=== PATIENT | male | born 1935 | race Caucasian/White ===

== ENCOUNTER → 2019-07-04 | Outpatient (CLI) | payer MEDICARE, OTHER, SELFPAY | PROVIDERS: Family Provider Internal Medicine; Visit Provider Internal Medicine | DX: M25.552 Pain in left hip (principal); Z96.642 Presence of left artificial hip joint ==

== ENCOUNTER → 2019-08-10 12:33 | Outpatient (BNVA) | payer MEDICARE, OTHER, SELFPAY | PROVIDERS: Family Provider Internal Medicine; PCP Internal Medicine; Visit Provider Urology | DX: C61 Malignant neoplasm of prostate (principal); N39.9 Disorder of urinary system, unspecified | CPT/HCPCS: 84153 ==

== ENCOUNTER 2021-03-13 17:26 | Inpatient (IN) | payer MEDICARE, SELFPAY ==
--- NOTE | 2021-03-13 | SCC_ITS ---
Procedure Done: 1. Cystoscopy, left ureteral stent placement 11.5 seconds of fluoroscopic guidance, for a cumulative dose of 3.20 mGy, was provided to Dr. Jarvis by the radiology department. C-arm images of the abdomen were saved for the patient's permanent record. [facility]
--- NOTE | 2021-03-13 17:29 | W.ED.WEAKNES ---
HPI - Weakness General: Chief complaint: General Medical Stated complaint: fall, prolonged time down,R sided weakness Time Seen by Provider: 03/13/21 17:28 History of Present Illness: HPI Narrative: Mr. Boggs is an 85-year-old gentleman with significant past medical history of cardiomyopathy, hypertension who presents to the emergency department due to weakness and fall. He is unsure of it the exact circumstances of his fall however he thinks that over the past few days he has felt weak and dizzy. It is unclear if there was head strike or loss of consciousness. He laid on the ground for some time before being discovered. EMS was activated and found that he had some right-sided weakness however last definitive known well was the previous evening at about 7 PM. He currently endorses generalized pain and still feels malaise. He has worse pain identified in the right hip which is sharp and aching. This pain is moderate to severe in intensity and worse with movement. Prior to the onset of his generalized symptoms he denies any other specific changes in health, provoking, exacerbating, or alleviating factors. Review of Systems General: Reports: 10 or more systems reviewed and unremarkable except in HPI and below Narrative: CONSTITUTIONAL: See HPI EYES - denies pain, denies loss of vision EARS - denies ear issues. NOSE - denies congestion or rhinorrhea. THROAT - denies sore throat or difficulty swallowing. CARDIOVASCULAR - denies chest pain and palpitations RESPIRATORY - denies shortness of breath and cough GASTROINTESTINAL - denies abdominal pain, no nausea vomiting, no changes in bowel habits GENITOURINARY - denies dysuria or urinary frequency MUSCULOSKELETAL-see HPI SKIN - denies rashes. Scattered abrasions from fall NEUROLOGIC - denies focal weakness or sensory changes HEMATOLOGIC/LYMPHATIC - denies easy bruising or lymphadenopathy. [facility] ED PFSH: Medical History Cardiomyopathy Cataracts, bilateral History of high risk medication treatment Hypertension LBBB (left bundle branch block) Left ureteral calculus Obstructive pyelonephritis Osteoarthrosis Prostate cancer Pyuria Syncope Umbilical hernia Ventricular arrhythmia Wide-complex tachycardia Surgical History History of cataract removal with insertion of prosthetic lens BILATERAL History of colon resection WITH COLOSTOMY PLACED History of hip surgery History of left hip replacement Family History Mother Stroke Other Cancer Social History Smoking and tobacco status: former smoker Alcohol intake: unknown Adopted: No Caregiver/support person: No Lives independently: Yes Marital status: / Current occupational status: retired History of recent travel: No Physical Exam Narrative: EXAM NARRATIVE: GENERAL/CONSTITUTIONAL -ill-appearing. Discomfort due to pain especially with palpation of right hip Eyes - PERRL, no conjunctival injection ENMT - Atraumatic external nose and ears. Moist mucous membranes NECK - supple. trachea midline CARDIOVASCULAR -tachycardic rate and regular rhythm. Peripheral pulses 1+ and equal RESPIRATORY -coarse to auscultation bilaterally. No retractions or accessory muscle use. ABDOMEN/GI -generalized tenderness to palpation. Nondistended. No tenderness to percussion or evidence of peritonitis. Ostomy without appliance in place. MSK - Extremities without obvious deformity. Tenderness to palpation of right hip and tenderness with range of motion SKIN -cool, Dry NEURO - alert and appropriately oriented. strength and sensation intact. Moves all extremities equally. Cranial nerve II through XII intact. Course ED course: - Patient was seen and evaluated by me at bedside - Patient placed on cardiac monitors, IV access obtained - Initial evaluation notable for somewhat ill appearance, uncomfortable. Mildly hypotensive. IV fluids ordered - Labs notable for leukocytosis, normocytic anemia. Metabolic panel notable for hyperkalemia and CY. Urinalysis concerning for urinary tract infection. Troponin elevated which is difficult to interpret in this context, in the absence of chest pain may be due to type II NSTEMI. - Imaging notable for left-sided likely obstructing left mid ureteral stone. -Repeat BMP after treatment of hyperkalemia improved - Upon serial reexamination after treatment the patient was mildly improved though still remains ill-appearing - Based on patient history, evaluation, labs, and imaging as interpreted the most likely cause of the patient's condition is urosepsis, infected kidney stone - Hospitalist service contacted and agreed to admit the patient - Urology consulted and patient will be taken to the operating room for ureteral stent placement. - Patient was admitted without further deterioration or significant events. Vital Signs: Vital signs: Vital Signs Temperature 97.9 F 03/16/21 10:00 Pulse Rate 76 03/16/21 14:00 Respiratory Rate 18 03/16/21 16:27 Blood Pressure 125/51 03/16/21 12:00 Pulse Oximetry 97 03/16/21 12:00 MDM - Weakness Medical Records: Attestation: I reviewed the patient's medical records. Lab Data: Attestation: I reviewed the patient's lab results. Labs: Lab Results 03/13/21 03/13/21 03/13/21 Range/Units 17:00 17:00 17:00 WBC 23.5 H (4.0-10.0) 10^3/ uL RBC 3.95 L (4.1-5.3) 10^6/u L Hgb 10.0 L (11.7-16.6) g/dL Hct 32.7 L (42.0-52.0) % MCV 82.8 (80-94) fl MCH 25.3 L (28.0-34.0) pg MCHC 30.6 (30.0-36.0) g/dL RDW 16.7 H (12.1-15.1) % Plt Count 341 (130-400) 10^3/c mm MPV 8.7 (7.4-10.4) fL Neut % (Auto) 86.3 % Lymph % (Auto) 4.7 % Emmet % (Auto) 5.5 % Eos % (Auto) 0.0 % Baso % (Auto) 0.2 % Neut # (Auto) 20.27 H (1.8-7.7) 10^3/u L Lymph # (Auto) 1.1 (0.8-4.8) 10^3/u L Emmet # (Auto) 1.3 H (0.2-0.9) 10^3/u L Eos # (Auto) 0.0 (0.0-0.8) 10^3/u L Baso # (Auto) 0.0 (0.0-0.1) 10^3/u L Nucleated RBC % (a uto) 0 % Nucleated RBCs # 0.0 /100WBC Sodium 140 (136-145) mmol/L Potassium 6.6 H* (3.5-5.1) mmol/L Chloride 99 (98-107) mmol/L Carbon Dioxide 14 L (22-29) mmol/L Anion Gap 33.6 H (5-19) BUN 42 H (8-23) mg/dL Creatinine 2.6 H (0.7-1.2) mg/dL GFR Calculation Not Reportable Glucose 157 H (65-115) mg/dL Calculated Osmolal ity 304 H (285-295) mOsm/k g Lactate 5.2 H* (0.5-2.2) mmol/L Calcium 8.2 L (8.5-10.5) mg/dL Total Bilirubin 0.5 (0.15-1.2) mg/dL AST 41 H (0-40) U/L ALT 10 (0-41) U/L Alkaline Phosphata se 393 H (40-130) IU/L Creatine Kinase 1558 H* (39-308) U/L Troponin T Baselin e (0-15) ng/L Troponin T 120 Min [place] (0-15) ng/L Delta Troponin T (0-10) ABS# Troponin T Hi Sens 6Hr (0-15) ng/L Troponin T Hi Sens 6Hr Delta (0-12) ng/L C-Reactive Protein 230.1 H (0.0-4.9) mg/L NT-Pro-B Natriuret Pep 56784 H (0-450) pg/mL Total Protein 5.5 L (6.6-8.7) g/dL Albumin 2.9 L (3.5-5.2) g/dL Globulin 2.6 (1.3-4.6) g/dL Procalcitonin 1.20 H (0-0.5) ng/mL TSH 0.91 (0.27-4.20) uIU/ mL Urine Color (Yellow) Urine Appearance (CLEAR) Urine pH (5-7) Ur Specific Gravit y (1.005-1.030) Urine Protein (Negative) Urine Glucose (UA) (Normal) Urine Ketones (Negative) Urine Blood (Negative) Urine Nitrate (Negative) Urine Bilirubin (Negative) Urine Urobilinogen (Negative) mg/dL Ur Leukocyte Kyra ase (Negative) Urine RBC (0-2) /hpf Urine WBC (0-5) /hpf Ur Eosinophil Smea r (0-0) Ur Squamous Epith Cells (0-5) /hpf Amorphous Sediment Urine Bacteria (NONE) /hpf Urine Eosinophils Ur Random Microalb umin (0-20) ug/dL Ur Random Sodium mmol/L Ur Random Potassiu m mmol/L Ur Random Chloride mmol/L Urine Creatinine (39-259) mg/dL Microalb/Creat Rat io (0-20) mg/dL Blood Type Rho(D) Type Antibody Screen 03/13/21 03/13/21 03/13/21 Range/Units 17:00 18:37 18:37 WBC (4.0-10.0) 10^3/ uL RBC (4.1-5.3) 10^6/u L Hgb (11.7-16.6) g/dL Hct (42.0-52.0) % MCV (80-94) fl MCH (28.0-34.0) pg MCHC (30.0-36.0) g/dL RDW (12.1-15.1) % Plt Count (130-400) 10^3/c mm MPV (7.4-10.4) fL Neut % (Auto) % Lymph % (Auto) % Emmet % (Auto) % Eos % (Auto) % Baso % (Auto) % Neut # (Auto) (1.8-7.7) 10^3/u L Lymph # (Auto) (0.8-4.8) 10^3/u L Emmet # (Auto) (0.2-0.9) 10^3/u L Eos # (Auto) (0.0-0.8) 10^3/u L Baso # (Auto) (0.0-0.1) 10^3/u L Nucleated RBC % (a uto) % Nucleated RBCs # /100WBC Sodium (136-145) mmol/L Potassium (3.5-5.1) mmol/L Chloride (98-107) mmol/L Carbon Dioxide (22-29) mmol/L Anion Gap (5-19) BUN (8-23) mg/dL Creatinine (0.7-1.2) mg/dL GFR Calculation Glucose (65-115) mg/dL Calculated Osmolal ity (285-295) mOsm/k g Lactate (0.5-2.2) mmol/L Calcium (8.5-10.5) mg/dL Total Bilirubin (0.15-1.2) mg/dL AST (0-40) U/L ALT (0-41) U/L Alkaline Phosphata se (40-130) IU/L Creatine Kinase (39-308) U/L Troponin T Baselin e 179 H* (0-15) ng/L Troponin T 120 Min [place] (0-15) ng/L Delta Troponin T (0-10) ABS# Troponin T Hi Sens 6Hr (0-15) ng/L Troponin T Hi Sens 6Hr Delta (0-12) ng/L C-Reactive Protein (0.0-4.9) mg/L NT-Pro-B Natriuret Pep (0-450) pg/mL Total Protein (6.6-8.7) g/dL Albumin (3.5-5.2) g/dL Globulin (1.3-4.6) g/dL Procalcitonin (0-0.5) ng/mL TSH (0.27-4.20) uIU/ mL Urine Color Yellow (Yellow) Urine Appearance Cloudy A (CLEAR) Urine pH 5 (5-7) Ur Specific Gravit y 1.015 (1.005-1.030) Urine Protein 1+ H (Negative) Urine Glucose (UA) Norm (Normal) Urine Ketones Negative (Negative) Urine Blood 3+ H (Negative) Urine Nitrate Positive H (Negative) Urine Bilirubin Neg (Negative) Urine Urobilinogen Norm (Negative) mg/dL Ur Leukocyte Kyra ase 2+ H (Negative) Urine RBC 5-10 H (0-2) /hpf Urine WBC Too numerous to c nt H (0-5) /hpf Ur Eosinophil Smea r 0 (0-0) Ur Squamous Epith Cells 5-10 H (0-5) /hpf Amorphous Sediment Not Reportable Urine Bacteria 2+ H (NONE) /hpf Urine Eosinophils No eosinophils se en Ur Random Microalb umin 20 (0-20) ug/dL Ur Random Sodium mmol/L Ur Random Potassiu m mmol/L Ur Random Chloride mmol/L Urine Creatinine 119 (39-259) mg/dL Microalb/Creat Rat io 168 H (0-20) mg/dL Blood Type Rho(D) Type Antibody Screen 03/13/21 03/13/2121 Range/Units 18:37 19:54 21:51 WBC (4.0-10.0) 10^3/ uL RBC (4.1-5.3) 10^6/u L Hgb (11.7-16.6) g/dL Hct (42.0-52.0) % MCV (80-94) fl MCH (28.0-34.0) pg MCHC (30.0-36.0) g/dL RDW (12.1-15.1) % Plt Count (130-400) 10^3/c mm MPV (7.4-10.4) fL Neut % (Auto) % Lymph % (Auto) % Emmet % (Auto) % Eos % (Auto) % Baso % (Auto) % Neut # (Auto) (1.8-7.7) 10^3/u L Lymph # (Auto) (0.8-4.8) 10^3/u L Emmet # (Auto) (0.2-0.9) 10^3/u L Eos # (Auto) (0.0-0.8) 10^3/u L Baso # (Auto) (0.0-0.1) 10^3/u L Nucleated RBC % (a uto) % Nucleated RBCs # /100WBC Sodium (136-145) mmol/L Potassium (3.5-5.1) mmol/L Chloride (98-107) mmol/L Carbon Dioxide (22-29) mmol/L Anion Gap (5-19) BUN (8-23) mg/dL Creatinine (0.7-1.2) mg/dL GFR Calculation Glucose (65-115) mg/dL Calculated Osmolal ity (285-295) mOsm/k g Lactate (0.5-2.2) mmol/L Calcium (8.5-10.5) mg/dL Total Bilirubin (0.15-1.2) mg/dL AST (0-40) U/L ALT (0-41) U/L Alkaline Phosphata se (40-130) IU/L Creatine Kinase (39-308) U/L Troponin T Baselin e (0-15) ng/L Troponin T 120 Min [place] 203.8 H (0-15) ng/L Delta Troponin T 24.8 H* (0-10) ABS# Troponin T Hi Sens 6Hr (0-15) ng/L Troponin T Hi Sens 6Hr Delta (0-12) ng/L C-Reactive Protein (0.0-4.9) mg/L NT-Pro-B Natriuret Pep (0-450) pg/mL Total Protein (6.6-8.7) g/dL Albumin (3.5-5.2) g/dL Globulin (1.3-4.6) g/dL Procalcitonin (0-0.5) ng/mL TSH (0.27-4.20) uIU/ mL Urine Color (Yellow) Urine Appearance (CLEAR) Urine pH (5-7) Ur Specific Gravit y (1.005-1.030) Urine Protein (Negative) Urine Glucose (UA) (Normal) Urine Ketones (Negative) Urine Blood (Negative) Urine Nitrate (Negative) Urine Bilirubin (Negative) Urine Urobilinogen (Negative) mg/dL Ur Leukocyte Kyra ase (Negative) Urine RBC (0-2) /hpf Urine WBC (0-5) /hpf Ur Eosinophil Smea r (0-0) Ur Squamous Epith Cells (0-5) /hpf Amorphous Sediment Urine Bacteria (NONE) /hpf Urine Eosinophils Ur Random Microalb umin (0-20) ug/dL Ur Random Sodium 49 mmol/L Ur Random Potassiu m 34 mmol/L Ur Random Chloride 36 mmol/L Urine Creatinine 109 (39-259) mg/dL Microalb/Creat Rat io (0-20) mg/dL Blood Type AB Positive Rho(D) Type Positive Antibody Screen Negative 03/13/21 03/13/21 Range/Units 22:10 22:10 WBC (4.0-10.0) 10^3/ uL RBC (4.1-5.3) 10^6/u L Hgb (11.7-16.6) g/dL Hct (42.0-52.0) % MCV (80-94) fl MCH (28.0-34.0) pg MCHC (30.0-36.0) g/dL RDW (12.1-15.1) % Plt Count (130-400) 10^3/c mm MPV (7.4-10.4) fL Neut % (Auto) % Lymph % (Auto) % Emmet % (Auto) % Eos % (Auto) % Baso % (Auto) % Neut # (Auto) (1.8-7.7) 10^3/u L Lymph # (Auto) (0.8-4.8) 10^3/u L Emmet # (Auto) (0.2-0.9) 10^3/u L Eos # (Auto) (0.0-0.8) 10^3/u L Baso # (Auto) (0.0-0.1) 10^3/u L Nucleated RBC % (a uto) % Nucleated RBCs # /100WBC Sodium 136 (136-145) mmol/L Potassium 4.7 (3.5-5.1) mmol/L Chloride 101 (98-107) mmol/L Carbon Dioxide 22 (22-29) mmol/L Anion Gap 17.7 (5-19) BUN 36 H (8-23) mg/dL Creatinine 2.4 H (0.7-1.2) mg/dL GFR Calculation Not Reportable Glucose 129 H (65-115) mg/dL Calculated Osmolal ity 292 (285-295) mOsm/k g Lactate (0.5-2.2) mmol/L Calcium 8.1 L (8.5-10.5) mg/dL Total Bilirubin (0.15-1.2) mg/dL AST (0-40) U/L ALT (0-41) U/L Alkaline Phosphata se (40-130) IU/L Creatine Kinase (39-308) U/L Troponin T Baselin e (0-15) ng/L Troponin T 120 Min [place] (0-15) ng/L Delta Troponin T (0-10) ABS# Troponin T Hi Sens 6Hr 193.9 H (0-15) ng/L Troponin T Hi Sens 6Hr Delta 14.9 H* (0-12) ng/L C-Reactive Protein (0.0-4.9) mg/L NT-Pro-B Natriuret Pep (0-450) pg/mL Total Protein (6.6-8.7) g/dL Albumin (3.5-5.2) g/dL Globulin (1.3-4.6) g/dL Procalcitonin (0-0.5) ng/mL TSH (0.27-4.20) uIU/ mL Urine Color (Yellow) Urine Appearance (CLEAR) Urine pH (5-7) Ur Specific Gravit y (1.005-1.030) Urine Protein (Negative) Urine Glucose (UA) (Normal) Urine Ketones (Negative) Urine Blood (Negative) Urine Nitrate (Negative) Urine Bilirubin (Negative) Urine Urobilinogen (Negative) mg/dL Ur Leukocyte Kyra ase (Negative) Urine RBC (0-2) /hpf Urine WBC (0-5) /hpf Ur Eosinophil Smea r (0-0) Ur Squamous Epith Cells (0-5) /hpf Amorphous Sediment Urine Bacteria (NONE) /hpf Urine Eosinophils Ur Random Microalb umin (0-20) ug/dL Ur Random Sodium mmol/L Ur Random Potassiu m mmol/L Ur Random Chloride mmol/L Urine Creatinine (39-259) mg/dL Microalb/Creat Rat io (0-20) mg/dL Blood Type Rho(D) Type Antibody Screen EKG Data^: EKG 1: Attestation: I personally reviewed and interpreted this EKG as follows: EKG interpretation date: 03/13/21 EKG interpretation time: 18:30 Interpretation: Twelve-lead EKG shows a regular sinus rhythm at a rate of 95. SC interval 203, QRS duration 158, QTc 496. Left bundle branch block, left axis deviation. Interpretation: Sinus rhythm. First-degree AV block. Left bundle branch block. EKG 2: Attestation: I personally reviewed and interpreted this EKG as follows: EKG interpretation date: 03/13/21 EKG interpretation time: 20:40 Prior EKG tracings: available for review Interpretation: Twelve-lead EKG shows a regular sinus rhythm at a rate of 95. SC interval 202, QRS duration 169, QTc 512. Left axis deviation. Left bundle branch block. Interpretation: Sinus rhythm. First-degree AV block. Left bundle branch block. Critical Care Time Critical Care Time: Critical Care Time: Yes Total Critical Care Time: 35 Attestation: Due to a high probability of clinically significant, possibly life threatening deterioration, the patient required my highest level of attention and preparedness to intervene emergently and I personally spent this critical care time directly and personally managing the patient. This critical care time included obtaining a history; examining the patient; pulse oximetry; ordering and review of laboratory and imaging studies; arranging urgent treatment with development of a management plan; evaluation of patient's response to treatment; frequent reassessment; and, discussions with other providers as applicable. It was exclusive of separately billable procedures. Discharge Plan Discharge Admit Provider: Bernardo Jarvis Coding Level of Care Code ED [employer] for Evette York
[2021-03-13 17:36] VITALS: BP 83/41; PULSE 105; RESP 16; TEMP 36.8; O2SAT 97; BMI 28.1
--- NOTE | 2021-03-13 17:38 | XRR_ITS ---
PROCEDURE INFORMATION: Exam: XR Right Hip Exam date and time: 03/13/2021 5:38 PM Age: 85 years old Clinical indication: Injury or trauma; Blunt trauma (contusions or hematomas); Prior surgery; Surgery type: Left hip; Patient HX: Right hip pain from fall; Additional info: Fall, pain TECHNIQUE: Imaging protocol: XR Right hip. Views: 2 or 3 views hip with pelvis when performed. COMPARISON: CR XR hip RT 2-3V wo/w pel* [id number] 06/06/2020 2:35 PM FINDINGS: Bones/joints: Severe osteoarthritis changes of the hip joint. Hip joint alignment is anatomic. No fractures are identified. No focal lytic, aggressive bone lesion. Bones are diffusely demineralized. Left hip total arthroplasty with unremarkable alignment and appearance. Soft tissues: Unremarkable. Vasculature: Scattered atherosclerosis. XR/XR hip RT 2-3V wo/w pel* [id number] IMPRESSION: No acute hip abnormality.
--- NOTE | 2021-03-13 17:38 | CTR_ITS ---
PROCEDURE INFORMATION: Exam: CT Chest Without Contrast; Diagnostic Exam date and time: 03/13/2021 5:38 PM Age: 85 years old Clinical indication: Other: Diarrhea; Shortness of breath; Prior surgery; Surgery type: Colostomy; Additional info: Fall, SOB, diarrhea, AMS TECHNIQUE: Imaging protocol: Diagnostic computed tomography of the chest without contrast. Radiation optimization: All CT scans at this facility use at least one of these dose optimization techniques: automated exposure control; mA and/or kV adjustment per patient size (includes targeted exams where dose is matched to clinical indication); or iterative reconstruction. COMPARISON: CR (CHEST, ) 03/13/2021 6:10 PM RADIATION DOSE METRICS: Total DLP (mGy-cm): 1479.81 FINDINGS: Lungs: Emphysematous lung changes. Reticular interstitial changes diffusely. Intra lobular septal thickening changes at the lung periphery. Several scattered small irregular pulmonary nodules are identified bilaterally. Nodules are predominantly peripheral/subpleural locations. For example, nodule slightly irregular borders in the lateral left upper lobe measures 7 mm transverse diameter on axial series 2, image 37. Negative for focal airspace consolidation. No endobronchial obstruction. Pleural spaces: Unremarkable. No pneumothorax. No pleural effusion. Heart: Unremarkable. No cardiomegaly. No pericardial effusion. Mediastinal space: Calcified granulomas in the subcarinal space and the left AP window. No thoracic esophageal wall thickening. Aorta: Scattered atherosclerosis of thoracic aorta without aneurysm. Lymph nodes: Mild diffuse lymphadenopathy throughout mediastinum. As an index lesion, right paratracheal lymph node measures 2.1 cm x 1.8 cm on axial series 2, image 23. Enlarged posterior mediastinal lymph node measures 3.5 cm x 2.1 cm on axial series 2, image 46. Bones/joints: Bones are demineralized. No acute thoracic fractures. Unremarkable thoracic spine alignment. Soft tissues: Unremarkable. IMPRESSION: 1. Negative for acute chest abnormality. 2. Chronic interstitial lung changes. 3. Scattered small pulmonary nodules. Recommend follow-up CT chest evaluation in 12 months. 4. Nonspecific mild severity diffuse mediastinal lymphadenopathy. PROCEDURE INFORMATION: Exam: CT Abdomen And Pelvis Without Contrast Exam date and time: 03/13/2021 5:38 PM Age: 85 years old Clinical indication: Other: Diarrhea; Shortness of breath; Prior surgery; Surgery type: Colostomy; Additional info: Fall, SOB, diarrhea, AMS TECHNIQUE: Imaging protocol: Computed tomography of the abdomen and pelvis without contrast. Radiation optimization: All CT scans at this facility use at least one of these dose optimization techniques: automated exposure control; mA and/or kV adjustment per patient size (includes targeted exams where dose is matched to clinical indication); or iterative reconstruction. COMPARISON: 1. CR (CHEST, ) 03/13/2021 6:[address] abdomen pelvis w con* [id number] 09/06/2018 1:29:37 PM RADIATION DOSE METRICS: Total DLP (mGy-cm): 1479.81 FINDINGS: Liver: Normal. No mass. Gallbladder and bile ducts: Mildly layering density in the gallbladder lumen which may represent small gallstones or biliary sludge. No inflammatory gallbladder wall thickening. Negative for biliary dilation. Pancreas: Fatty replacement of the pancreas. No focal pancreatic lesion or acute peripancreatic inflammation. Spleen: Normal. No splenomegaly. Adrenal glands: Normal. No mass. Kidneys and ureters: Bilateral renal cortical atrophy. Tiny nonobstructing left renal lower pole stone. Large left mid ureter stone measures 7 mm transverse diameter by 8 mm longitudinal. Mild proximal hydroureteronephrosis of the left collecting system. Stomach and bowel: Left lower quadrant colostomy with mild parastomal hernia. Negative for bowel obstruction. Negative for bowel perforation. Appendix: No evidence of appendicitis. Intraperitoneal space: No free intraperitoneal air. Vasculature: Diffuse atherosclerosis. Negative for abdominal aortic aneurysm. Lymph nodes: Diffuse retroperitoneal lymphadenopathy is present. Enlarged left external iliac chain lymph node measures 2.9 cm x 2.9 cm on axial series 3, image 59. Enlargement of a right external iliac chain lymph node which measures about 2.2 cm x 2.5 cm on axial series 3, image 67. Urinary bladder: Flynn catheter within bladder. Circumferential bladder wall thickening. Multiple bladder diverticula. Reproductive: Moderate prostate gland enlargement. Bones/joints: Left hip arthroplasty with unremarkable alignment. Bones are demineralized. Unremarkable lumbar spine alignment. Mild concavity of the superior vertebral endplate of L5. Soft tissues: Circumscribed ovoid cystic fluid collection is present in the right ventral abdominal wall which measures 6 cm x 4.6 cm. Small umbilical hernia. CT/CT chest abd pel wo con IMPRESSION: 1. Large left mid ureter stone. 2. Nonspecific retroperitoneal lymphadenopathy with largest, most conspicuous lymph node in the left pelvis. Abnormality is new from comparison imaging. Metastatic disease not excluded. Further evaluation recommended. 3. Thickened, trabeculated bladder wall more significant than comparison. 4. Prostate gland enlargement is more significant than comparison. Malignancy not excluded. Further evaluation is recommended. 5. Circumscribed cystic fluid collection in the right ventral abdominal wall may pertain to a prior ventral abdominal wall hernia repair. Possibly postsurgical seroma or lymphatic collection. Radiation Dose CTDIVOL = (mGy): DLP = 1479.81~1479.81 (mGy-cm)
--- NOTE | 2021-03-13 17:38 | XRR_ITS ---
PROCEDURE INFORMATION: Exam: XR Chest Exam date and time: 03/13/2021 5:38 PM Age: 85 years old Clinical indication: Shortness of breath; Additional info: SOB TECHNIQUE: Imaging protocol: XR of the chest. Views: 1 view. COMPARISON: CR Chest 1 [place] [id number] 02/04/2018 1:58 PM FINDINGS: Lungs: Mild coarsening of pulmonary interstitium diffusely. No focal airspace consolidation. Under inflated lungs. Pleural spaces: Unremarkable. No pleural effusion. No pneumothorax. Heart/Mediastinum: Unremarkable. No cardiomegaly. Vasculature: Scattered atherosclerosis of thoracic aorta. Bones/joints: Unremarkable. XR/XR chest 1V portable [id number] IMPRESSION: No focal acute pulmonary disease.
--- NOTE | 2021-03-13 17:38 | CTR_ITS ---
PROCEDURE INFORMATION: Exam: CT Head Without Contrast Exam date and time: 03/13/2021 5:38 PM Age: 85 years old Clinical indication: Injury or trauma; Fall; Blunt trauma (contusions or hematomas); Additional info: Fall, stoke like symptoms TECHNIQUE: Imaging protocol: Computed tomography of the head without contrast. Radiation optimization: All CT scans at this facility use at least one of these dose optimization techniques: automated exposure control; mA and/or kV adjustment per patient size (includes targeted exams where dose is matched to clinical indication); or iterative reconstruction. COMPARISON: CT head wo con* [id number] 01/31/2018 10:14 AM RADIATION DOSE METRICS: Total DLP (mGy-cm): 946.67 FINDINGS: Brain: There is moderate cerebral atrophy. There is moderate diffuse heterogeneity of the white matter attenuation, consistent with chronic white matter ischemic changes. No intracranial hemorrhage. No intracranial mass. No acute brain ischemia. No midline shift of the brain. Negrete matter and white matter interfaces are preserved. Cerebral ventricles: No ventriculomegaly. Paranasal sinuses: Visualized sinuses are unremarkable. No fluid levels. Mastoid air cells: Visualized mastoid air cells are well aerated. Orbital cavity: Symmetric orbits. Bilateral lens replacements. Bones/joints: Unremarkable. No acute fracture. Soft tissues: Unremarkable. CT/CT head wo con* [id number] IMPRESSION: 1. Negative for acute intracranial abnormality. 2. No change from comparison. Radiation Dose CTDIVOL = (mGy): DLP = 946.67 (mGy-cm)
--- NOTE | 2021-03-13 17:38 | CTR_ITS ---
PROCEDURE INFORMATION: Exam: CT Cervical Spine Without Contrast Exam date and time: 03/13/2021 5:38 PM Age: 85 years old Clinical indication: Injury or trauma; Fall; Blunt trauma TECHNIQUE: Imaging protocol: Computed tomography images of the cervical spine without contrast. Radiation optimization: All CT scans at this facility use at least one of these dose optimization techniques: automated exposure control; mA and/or kV adjustment per patient size (includes targeted exams where dose is matched to clinical indication); or iterative reconstruction. COMPARISON: CT head wo con* [id number] 03/13/2021 8:09 PM RADIATION DOSE METRICS: Total DLP (mGy-cm): 429.75 FINDINGS: Vertebrae: No acute fracture. Normal alignment. The cervical spine demonstrates marked degenerative changes at multiple levels. Demineralized bones. Soft tissues: Unremarkable. Vasculature: Bilateral carotid artery bulb atherosclerotic wall plaques. Lungs: Lung apices are normal. CT/CT cervical spin wo con* [id number] IMPRESSION: Negative for cervical spine fracture. Radiation Dose CTDIVOL = (mGy): DLP = 429.75 (mGy-cm)
--- NOTE | 2021-03-13 17:39 | ECG_ITS ---
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 Measurements Intervals [place] Rate: 95 P: 58 SC: 203 QRS: -10 QRSD: 158 T: 120 QT: 393 QTc: 496 Interpretive Statements SINUS RHYTHM LEFT BUNDLE BRANCH BLOCK [120+ ms QRS DURATION, 80+ ms Q/S IN V1/V2, 85+ ms R IN I/aVL/V5/V6] Compared to ECG 02/01/2018 02:33:08 No significant changes Electronically Signed On 03-14-2021 8:57:08 CDT by Kira Borja M.D. [email or web address] The GlassQuantuMDx Groupselect medical specialty [facility].[employer]/store/NU/[id number] f
[2021-03-13 18:04] LABS: Basophils % 0.2 %; Hematocrit 32.7 % (42.0-52.0); Lymphocytes # 1.1 10^3/uL (0.8-4.8); Lymphocytes % 4.7 %; Mean Corpuscular HGB Conc 30.6 g/dL (30.0-36.0); Mean Corpuscular Hemoglobin 25.3 pg (28.0-34.0); Mean Corpuscular Volume 82.8 fl (80-94); Mean Platelet Volume 8.7 fL (7.4-10.4); Monocytes # 1.3 10^3/uL (0.2-0.9); Monocytes % 5.5 %; Neutrophils # 20.27 10^3/uL (1.8-7.7); Neutrophils % 86.3 %; Nucleated Red Blood Cells % 0 %; Platelet Count 341 10^3/cmm (130-400); Red Blood Count 3.95 10^6/uL (4.1-5.3); Red Cell Distribution Width 16.7 % (12.1-15.1); White Blood Count 23.5 10^3/uL (4.0-10.0)
[2021-03-13 18:53] LABS: Lactate (Lactic Acid level) 5.2 mmol/L (0.5-2.2); Troponin(5th) Baseline 179 ng/L (0-15)
[2021-03-13 18:54] VITALS: RESP 19
[2021-03-13] MEDS: fentaNYL 50 mcg/mL INJ 2mL 25 MCG IVP (18:54)
[2021-03-13 18:55] LABS: Thyroid Stimulating Hormone 0.91 uIU/mL (0.27-4.20)
[2021-03-13] MEDS: piperacillin-tazobactam 4.5 GM in sodium chloride 0.9% (plus) 50 ML IV (18:55)
[2021-03-13] MEDS: LACTATED RINGERS 1983 ML IV (18:58)
[2021-03-13 19:06] LABS: Alanine Aminotransferase 10 U/L (0-41); Albumin Level 2.9 g/dL (3.5-5.2); Alkaline Phosphatase 393 IU/L (40-130); Anion Gap 33.6 (5-19); Aspartate Amino Transferase 41 U/L (0-40); Blood Urea Nitrogen 42 mg/dL (8-23); C Reactive Protein 230.1 mg/L (0.0-4.9); Calcium 8.2 mg/dL (8.5-10.5); Carbon Dioxide 14 mmol/L (22-29); Chloride 99 mmol/L (98-107); Globulin 2.6 g/dL (1.3-4.6); Glucose 157 mg/dL (65-115); Osmolality Calculated 304 mOsm/kg (285-295); Sodium 140 mmol/L (136-145); Total Bilirubin 0.5 mg/dL (0.15-1.2); Total Protein 5.5 g/dL (6.6-8.7)
[2021-03-13 19:08] LABS: Creatine Phosphokinase 1558 U/L (39-308); Potassium 6.6 mmol/L (3.5-5.1)
[2021-03-13 19:29] LABS: Add Urine Microscopic? YES; Bilirubin Urine Neg (Negative); Blood Urine 3+ (Negative); Glucose Urine UA Norm (Normal); Ketones Urine Negative (Negative); Leukocyte Esterase Urine 2+ (Negative); Nitrate Urine Positive (Negative); Protein Urine 1+ (Negative); Specific Gravity, Urine 1.015 (1.005-1.030); Urine Appearance Cloudy (CLEAR); Urine Color Yellow (Yellow); Urobilinogen Urine Norm (Negative); pH Urine 5 (5-7)
[2021-03-13 19:30] LABS: Bacteria Urine 2+ /hpf; WBC Urine TOO NUMEROUS TO CNT /hpf (0-5)
[2021-03-13 19:31] LABS: Add Urine Culture? Yes
--- NOTE | 2021-03-13 19:34 | PC.NURSE ---
lab called with criticals of K+ 6.6 & CK of 1558. nurses at bedside changing pt and applying colostomy bag.
--- NOTE | 2021-03-13 19:39 | ECG_ITS ---
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 Measurements Intervals [place] Rate: 95 P: 107 WV: 202 QRS: -3 QRSD: 169 T: 127 QT: 406 QTc: 512 Interpretive Statements SINUS RHYTHM LEFT BUNDLE BRANCH BLOCK [120+ ms QRS DURATION, 80+ ms Q/S IN V1/V2, 85+ ms R IN I/aVL/V5/V6] Compared to ECG 03/13/2021 18:22:25 No significant changes Electronically Signed On 03-14-2021 9:09:31 CDT by Kira Borja M.D. [email or web address].Mediant Communicationslawrence county hospitalFathom Onlinetrinity [facility].[employer]/store/NU/[id number] f
[2021-03-13 20:43] VITALS: BP 147/71; PULSE 100; RESP 23; O2SAT 92
[2021-03-13 20:45] LABS: NT Pro B Type Natriuretic Pept 16511 pg/mL (0-450)
--- NOTE | 2021-03-13 20:47 | PC.NURSE ---
8/10 when changing positions
[2021-03-13 20:54] LABS: Troponin 5 2HR 203.8 ng/L (0-15); Troponin 5 2HR Delta 24.8 ABS# (0-10)
[2021-03-13] MEDS: insulin regular-human 100 units/1 mL 10 UNIT IVP (21:10)
[2021-03-13] MEDS: dextrose 50% syringe 50 mL IVP (21:10)
[2021-03-13] MEDS: ondansetron 2 mg/ML SDV 2 mL 4 MG IVP (21:10)
[2021-03-13] MEDS: morphine 4 mg/mL SDV 1 mL 2 MG IVP ×2 (21:10→23:31)
[2021-03-13] MEDS: calcium gluconate 0.1 gm/mL 10% SDV 10mL 1 GM IVP (21:10)
[2021-03-13] MEDS: aspirin 81 mg Chew Tablet 324 MG PO (21:59)
[2021-03-13 22:12] VITALS: BP 115/63; PULSE 103; RESP 12; O2SAT 96
[2021-03-13 22:39] LABS: Anion Gap 17.7 (5-19); Carbon Dioxide 22 mmol/L (22-29); Chloride 101 mmol/L (98-107); Glucose 129 mg/dL (65-115); Potassium 4.7 mmol/L (3.5-5.1); Sodium 136 mmol/L (136-145)
[2021-03-13 22:47] LABS: Troponin 5 6HR 193.9 ng/L (0-15); Troponin 5 6HR Delta 14.9 ng/L (0-12)
[2021-03-13 22:57] LABS: Blood Urea Nitrogen 36 mg/dL (8-23); Calcium 8.1 mg/dL (8.5-10.5); Osmolality Calculated 292 mOsm/kg (285-295)
[2021-03-13 23:36] VITALS: BP 104/56; PULSE 110; RESP 16; O2SAT 97
--- NOTE | 2021-03-13 23:39 | ECG_ITS ---
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 Measurements Intervals [place] Rate: 89 P: 222 MO: 235 QRS: -9 QRSD: 165 T: 122 QT: 431 QTc: 524 Interpretive Statements SINUS RHYTHM WITH FIRST DEGREE AV BLOCK LEFT BUNDLE BRANCH BLOCK [120+ ms QRS DURATION, 80+ ms Q/S IN V1/V2, 85+ ms R IN I/aVL/V5/V6] Compared to ECG 03/13/2021 20:38:10 First degree AV block now present Electronically Signed On 03-14-2021 20:10:12 CDT by Frank Bejarano M.D. [email or web address]/OM/[id number]
--- NOTE | 2021-03-13 23:51 | SC_ITS ---
WS: [id number] Left ureteral stent insertion, 03/14/2021 Clinical Data: Left ureteral stent placement Comparison: None. Findings: Dr. Jarvis inserted a left ureteral stent. SC/C-arm [place] for Urology Impression: Left ureteral stent placement.
--- NOTE | 2021-03-13 23:59 | P.CONIM_ITS ---
Providers/Reason For Consult Consulting Physician/Specialty*: Urology/Jarvis Reason for Consult*: Obstructing left mid ureteral stone with pyelonephritis/sepsis Requesting Physician: Dr. Mane Primary Care Provider: Felipe Bustos DO History of Present Illness History of Present Illness Darrian Boggs is a 85 year old male well-known to me for history of clinical diagnosis of prostate cancer. He was last seen in August 2019 with a PSA of 26. He is complicated by history of rectal cancer status post rectal removal with closure of anus. He was offered transperineal biopsies but declined. He had been treated previously with hormonal manipulation for his prostate cancer but at last visit he decided to forego any further hormonal manipulation. He also with the development of castration resistant prostate cancer elected to forego any additional tiered therapy. [facility] of several days of weakness confusion, diffuse abdominal pain, difficulty walking and a fall. Work- up showed evidence of urosepsis with a obstructing stone in the left mid ureter on CT scan. Stone measured about 7 mm and was associated with obstructive changes. White count was markedly elevated, lactate was also elevated, urine was grossly infected. Specifically white count was 23.5 thousand, lactate was 5.2, elevated troponins, creatinine 2.4 up from baseline. I was consulted and it was decided to place an emergency left ureteral stent for obstructive pyelonephritis. On review of the CT scan there did not appear to be any distal ureteral obstruction. He did have some haziness in the area of the enlarged prostate, marked bladder wall thickening consistent with chronic obstruction. The overall architecture of the prostate did not appear to be dramatically abnormal and I could not see any evidence of intramural invasion. Review of Systems Const: Reports: body aches, fatigue and malaise Eyes: Denies: yellow eyes ENMT: Reports: hoarseness Card: Denies: chest pain or palpitations Resp: Denies: productive cough or pain on inspiration GI: Reports: abdominal pain and nausea : Reports: flank pain; Denies: hematuria Musc: Denies: joint redness or joint warmth Skin/Breast: Denies: rash Neuro: Denies: headache(s) or seizure-like activity Psych: Denies: anxiety or paranoia Endo: Denies: flushing [place]/Lymph: Denies: easy bruising or easy bleeding All/Imm: Denies: urticaria or acute wheezing Meds/Allergies Home Medications and Allergies Home Medications Medication Instructions Recorded Confirmed Last Taken Type ascorbic acid (vitamin C) 1,000 mg 1,000 mg PO BID tab 08/08/19 03/13/21 Unknown History tablet aspirin 81 mg tablet,delayed 81 mg PO DAILY 08/08/19 03/13/21 Unknown History release nitroglycerin 0.4 mg sublingual 0.4 mg SUBLINGUAL Q5M PRN 08/10/19 03/13/21 Unknown History tablet furosemide 40 mg tablet 40 mg PO DAILY #90 tab 04/23/20 03/13/21 Unknown Rx acetaminophen 500 mg PO Q6H PRN 03/13/21 03/13/21 Unknown History amiodarone 200 mg PO DAILY 03/13/21 03/13/21 Unknown History fluticasone propionate [Flonase 1 spray INTRANASAL BID 03/13/21 03/13/21 Unknown History Allergy Relief] hydrocodone-acetaminophen 1 - 2 tab PO TID PRN 03/13/21 03/13/21 Unknown History ibuprofen 200 - 400 mg PO Q6H PRN 03/13/21 03/13/21 Unknown History ketotifen fumarate [Refresh Eye 1 drp OPHTHALMIC (EYE) BID PRN 03/13/21 03/13/21 Unknown History Itch Relief] lisinopril 10 mg PO DAILY 03/13/21 03/13/21 Unknown History loratadine 10 mg PO DAILY 03/13/21 03/13/21 Unknown History methenamine hippurate 1 g PO BID 03/13/21 03/13/21 Unknown History tamsulosin 0.4 mg PO DAILY 03/13/21 03/13/21 Unknown History Allergies Allergy/AdvReac Type Severity Reaction Status Date / Time No Known Allergies Allergy Verified 09/13/20 08:56 PFSH Acute PFSH: Medical History Cardiomyopathy Cataracts, bilateral History of high risk medication treatment Hypertension LBBB (left bundle branch block) Left ureteral calculus Obstructive pyelonephritis Osteoarthrosis Prostate cancer Pyuria Syncope Umbilical hernia Ventricular arrhythmia Wide-complex tachycardia Surgical History History of cataract removal with insertion of prosthetic lens BILATERAL History of colon resection WITH COLOSTOMY PLACED History of hip surgery History of left hip replacement Family History Mother Stroke Other Cancer Social History Smoking and tobacco status: former smoker Alcohol intake: unknown Adopted: No Caregiver/support person: No Lives independently: Yes Marital status: / Current occupational status: retired History of recent travel: No Vitals/I&O/Wt Last Vital Signs Temp 98.3 F 03/13/21 17:36 Pulse 110 H 03/13/21 23:36 Resp 16 03/13/21 23:36 BP 104/56 03/13/21 23:36 Pulse Ox 97 03/13/21 23:36 Weight last 48 hrs Weight 180 lb Physical Exam Const: COMMON NORMALS: patient oriented x3 GENERAL APPEARANCE: cooperative; not well kempt HENMT: COMMON NORMALS: normocephalic and atraumatic HEAD & SCALP: normocephalic and atraumatic Eye: COMMON NORMALS: no scleral icterus Neck/C-Spine: COMMON NORMALS: negative for full ROM and negative for no lymphadenopathy Lymph: LYMPHATIC: no lymphadenopathy noted and lymphedema (Lower extremities) Resp: EFFORT & INSPECTION: No tachypneic, No respiratory distress and No au dible wheezes OTHER: O2 per nasal cannula Cardio: COMMON NORMALS: regular rate RATE: regular rate GI: COMMON NORMALS: no masses and no bruits PERCUSSION: normal to percussion OTHER: No rectum. Surgically closed/excised : BLADDER/KIDNEY EXAM: Yes CVA tenderness PENIS: normal penis and circumcised OTHER: Fylnn catheter in place draining clear urine Back/Pelvis: GENERAL BACK: Yes CVA tenderness Neuro: COMMON NORMALS: patient oriented x3 Psych: APPEARANCE: No well kempt Skin: NARRATIVE SKIN EXAM: Venous stasis changes bilateral lower extremity Data Micro: Micro: Microbiology 03/13/21 17:48 Blood Culture - Pr eliminary Blood SPECIMEN [facility] 03/13/21 17:40 Blood Culture - Pr eliminary Blood SPECIMEN [facility] A&P Assessment and plan (1) Obstructive pyelonephritis: Secondary to left mid ureteral stone measuring about 7 mm with evidence of obstruction and grossly purulent urine Emergency left ureteral stent placement tonight Status: Acute (2) Left ureteral calculus: 7 mm stone left mid ureter Status: Acute (3) Sepsis: Status: Acute (4) Prostate cancer: Clinical diagnosis only. No biopsies performed because he declined transperineal biopsy (no rectum). Status: Acute (5) CY (acute kidney injury): Status: Acute Coding Level of Care Code Acute Bulk Sausage Casing Tier Off for Chg Fwd Exam Comprehensive Diagnoses Obstructive pyelonephritis N11.1 Left ureteral calculus N20.1 Sepsis A41.9 Prostate cancer C61 CY (acute kidney injury) N17.9
[2021-03-14] VITALS (16 sets, daily range): BP systolic 79–110; BP diastolic 40–67; PULSE 81–94; RESP 16–21; TEMP 36–36.8; O2SAT 94–100; BMI 30.4
--- NOTE | 2021-03-14 00:14 | ANES.PREANE2 ---
Pre-Anesthetic Assessment Pre-Anesthetic Assessment: Height/Weight: Height 1.7 m Weight 81.647 kg Temp Pulse Resp BP Pulse Ox 98.3 F 110 H 16 104/56 97 03/13/21 17:36 03/13/21 23:36 03/13/21 23:36 03/13/21 23:36 03/13/21 23:36 Preop Diagnosis: urosepsis Proposed Procedure: Operation Date: 03/14/21 00:50 Proposed Procedures p Cystoscopy(Not Applicable) - Bernardo Jarvis MD s Ureteral Stent Placement(Not Applicable) - Bernardo Jarvis MD Was Beta Katerine taken within 24 hours: N/A Was Clonidine taken within 24 hours: N/A Social: Social History: No alcohol and No tobacco Airway: Submandibular: WNL Cervical ROM: WNL MP: 2 Dentition: Chipped History/ROS: No significant history except as noted Pulmonary: Pulmonary: POLO CV/HEM: CV/HEM: CHF, HTN and Murmur : : UTI Hepatic: Hepatic: None reported GI: GI: None reported Metabolic: Metabolic: None reported Musc/skel: Musc/skel: OA/DJD and Weakness (Left hip) Neuropsych: Neuropsych: None reported Anesthetic Plan: ASA status: 3E Anesthesia: Anesthesia Evaluation and General Risk of > 500 ml blood loss (7ml/kg in children): No PFSH Anesthesia PFSH: Medical History (Updated 03/14/21 @ 00:07 by Bernardo Jarvis MD) Cardiomyopathy Cataracts, bilateral History of high risk medication treatment Hypertension LBBB (left bundle branch block) Left ureteral calculus Obstructive pyelonephritis Osteoarthrosis Prostate cancer Pyuria Syncope Umbilical hernia Ventricular arrhythmia Wide-complex tachycardia Surgical History History of cataract removal with insertion of prosthetic lens BILATERAL History of colon resection WITH COLOSTOMY PLACED History of hip surgery History of left hip replacement Family History Mother Stroke Other Cancer Social History Smoking and tobacco status: former smoker Alcohol intake: unknown Adopted: No Caregiver/support person: No Lives independently: Yes Marital status: / Current occupational status: retired History of recent travel: No Data Anesthesia CBC & Chem 7: 09/08/21 17:00 03/13/21 22:10 Other Labs: Laboratory Results - last 48 hr 03/13/21 03/13/21 03/13/21 17:00 17:00 17:00 WBC 23.5 H RBC 3.95 L Hgb 10.0 L Hct 32.7 L MCV 82.8 MCH 25.3 L MCHC 30.6 RDW 16.7 H Plt Count 341 MPV 8.7 Neut % (Auto) 86.3 Lymph % (Auto) 4.7 [place] % (Auto) 5.5 Eos % (Auto) 0.0 Baso % (Auto) 0.2 Neut # (Auto) 20.27 H Lymph # (Auto) 1.1 [place] # (Auto) 1.3 H Eos # (Auto) 0.0 Baso # (Auto) 0.0 Nucleated RBC % (auto) 0 Nucleated RBCs # 0.0 Sodium 140 Potassium 6.6 H* Chloride 99 Carbon Dioxide 14 L Anion Gap 33.6 H BUN 42 H Creatinine 2.6 H GFR Calculation Not Reportable Glucose 157 H Calculated Osmolality 304 H Lactate 5.2 H* Calcium 8.2 L Total Bilirubin 0.5 AST 41 H ALT 10 Alkaline Phosphatase 393 H Creatine Kinase 1558 H* Troponin T Baseline Troponin T 120 Minute Delta Troponin T Troponin T Hi Sens 6Hr Troponin T Hi Sens 6Hr Delta C-Reactive Protein 230.1 H NT-Pro-B Natriuret Pep 95029 H Total Protein 5.5 L Albumin 2.9 L Globulin 2.6 Procalcitonin 1.20 H TSH 0.91 Urine Color Urine Appearance Urine pH Ur Specific [place] Urine Protein Urine Glucose (UA) Urine Ketones Urine Blood Urine Nitrate Urine Bilirubin Urine Urobilinogen Ur Leukocyte Esterase Urine RBC Urine WBC Ur Squamous Epith Cells Amorphous Sediment Urine Bacteria 03/13/21 03/13/21 03/13/21 17:00 18:37 19:54 WBC RBC Hgb Hct MCV MCH MCHC RDW Plt Count MPV Neut % (Auto) Lymph % (Auto) [place] % (Auto) Eos % (Auto) Baso % (Auto) Neut # (Auto) Lymph # (Auto) [place] # (Auto) Eos # (Auto) Baso # (Auto) Nucleated RBC % (auto) Nucleated RBCs # Sodium Potassium Chloride Carbon Dioxide Anion Gap BUN Creatinine GFR Calculation Glucose Calculated Osmolality Lactate Calcium Total Bilirubin AST ALT Alkaline Phosphatase Creatine Kinase Troponin T Baseline 179 H* Troponin T 120 Minute 203.8 H Delta Troponin T 24.8 H* Troponin T Hi Sens 6Hr Troponin T Hi Sens 6Hr Delta C-Reactive Protein NT-Pro-B Natriuret Pep Total Protein Albumin Globulin Procalcitonin TSH Urine Color Yellow Urine Appearance Cloudy A Urine pH 5 Ur Specific [place] 1.015 Urine Protein 1+ H Urine Glucose (UA) Norm Urine Ketones Negative Urine Blood 3+ H Urine Nitrate Positive H Urine Bilirubin Neg Urine Urobilinogen Norm Ur Leukocyte Esterase 2+ H Urine RBC 5-10 H Urine WBC Too numerous to cnt H Ur Squamous Epith Cells 5-10 H Amorphous Sediment Not Reportable Urine Bacteria 2+ H 03/13/21 03/13/21 22:10 22:10 WBC RBC Hgb Hct MCV MCH MCHC RDW Plt Count MPV Neut % (Auto) Lymph % (Auto) [place] % (Auto) Eos % (Auto) Baso % (Auto) Neut # (Auto) Lymph # (Auto) [place] # (Auto) Eos # (Auto) Baso # (Auto) Nucleated RBC % (auto) Nucleated RBCs # Sodium 136 Potassium 4.7 Chloride 101 Carbon Dioxide 22 Anion Gap 17.7 BUN 36 H Creatinine 2.4 H GFR Calculation Not Reportable Glucose 129 H Calculated Osmolality 292 Lactate Calcium 8.1 L Total Bilirubin AST ALT Alkaline Phosphatase Creatine Kinase Troponin T Baseline Troponin T 120 Minute Delta Troponin T Troponin T Hi Sens 6Hr 193.9 H Troponin T Hi Sens 6Hr Delta 14.9 H* C-Reactive Protein NT-Pro-B Natriuret Pep Total Protein Albumin Globulin Procalcitonin TSH Urine Color Urine Appearance Urine pH Ur Specific [place] Urine Protein Urine Glucose (UA) Urine Ketones Urine Blood Urine Nitrate Urine Bilirubin Urine Urobilinogen Ur Leukocyte Esterase Urine RBC Urine WBC Ur Squamous Epith Cells Amorphous Sediment Urine Bacteria Micro: Microbiology 03/13/21 17:48 Blood Culture - Preliminary Blood SPECIMEN COLLECTED 03/13/21 17:40 Blood Culture - Preliminary Blood SPECIMEN COLLECTED Cardiac Studies: No Data to Display
--- NOTE | 2021-03-14 00:34 | USCV_ITS ---
Darrian Boggs Age: 85 Gender: M : 1935 Exam Date: 03/14/2021 06:43 Ordering Phys: Laila Mane MD Technologist: Exam Location: [facility] Indication: DARRON EDEMA HISTORY: Lower extremity swelling. PROCEDURES: The venous duplex Doppler examination of both lower extremities was performed in the standard fashion. The following venous structures were evaluated: common femoral vein, profunda vein, proximal portion of the greater saphenous vein, superficial femoral vein, and the popliteal vein. Bilaterally, the common femoral, superficial femoral, profunda femoral, popliteal, posterior tibial, greater saphenous veins, and the peroneal trunk were identified and interrogated in the standard fashion. These veins were found to be easily compressible with spontaneous blood flow. No evidence of insufficiency or thrombus noted. FINDINGS: Normal 2-D Doppler and augmentation and compressibility throughout the lower extremity venous structures. Additional imaging through the proximal calf veins also reveals no thrombus. Limited evaluation of the greater saphenous vein is patent with no thrombus.. CONCLUSIONS No evidence of left lower extremity DVT. No evidence of right lower extremity DVT. Alex Granda MD (Electronically Signed) Final Date: 14 March 2021 16:12 S
--- NOTE | 2021-03-14 00:41 | USCV_ITS ---
Darrian Boggs Age: 85 Gender: M : 1935 Exam Date: 03/14/2021 06:25 Ordering Phys: Laila Mane MD Technologist: Exam [place] [facility] [place] Indication: NSTEMI BP: 96 / 54 HR: Rhythm: Sinus Technical Quality: Good MEASUREMENTS (Male / Female) Normal Values 2D ECHO LV Diastolic Diameter PLAX 3.3 cm 4.2 - 5.9 / 3.9 - 5.3 cm LV Systolic Diameter PLAX 2.6 cm IVS Diastolic Thickness 1.0 cm 0.6 - 1.0 / 0.6 - 0.9 cm IVS Systolic Thickness 1.4 cm LVPW Diastolic Thickness 0.9 cm 0.6 - 1.0 / 0.6 - 0.9 cm LVPW Systolic Thickness 1.3 cm LVOT Diameter 2.0 cm LV Ejection Fraction 2D Teich 41.6 % LV Ejection Fraction MOD 2C 73.3 % LV Ejection Fraction 2C AL 73.9 % LA Diameter 3.4 cm LA Width 5.0 cm LA Height 5.2 cm RA Width 4.0 cm RA Height 4.7 cm Aorta at Sinotubular Diameter 3.2 cm DOPPLER AV Peak Velocity 129.0 cm/s LVOT Peak Velocity 107.0 cm/s AV Area Cont Eq vti 2.4 cm squared AV Area Cont Eq pk 2.7 cm squared MV Area PHT 5.1 cm squared Mitral E to A Ratio 0.7 MV E' Velocity 45.5 cm/s Mitral E to MV E' Ratio 14.2 Mitral E to LV E' Lateral Ratio 12.1 Mitral E to LV E' Septal Ratio 17.4 TR Peak Velocity 221.3 cm/s TR Peak Gradient 19.6 mmHg TV Peak E Velocity 86.0 cm/s Right Atrial Pressure 3.0 mmHg Pulmonary Artery Systolic Pressu 22.6 mmHg FINDINGS Left Ventricle Normal left ventricular size. LV systolic function is normal with EF of 55-60%. Septal motion is consistent with conduction abnormality. Grade 1 diastolic dysfunction Right Ventricle The right ventricle is normal in size and function. Right Atrium The right atrium is normal in size. Left Atrium The left atrium is normal in size. Mitral Valve Moderate mitral annular calcification without significant stenosis or prolapse. There is no mitral regurgitation. Aortic Valve Thickened aortic valve without significant sclerosis or stenosis. There is trace aortic regurgitation. Tricuspid Valve Structurally normal tricuspid valve without significant stenosis. Mild tricuspid regurgitation. RVSP is 35-40mmHg. Mild pulmonary hypertension. Pulmonic Valve Structurally normal pulmonic valve without significant stenosis. There is no pulmonic regurgitation. Pericardium Normal pericardium without effusion. Aorta Normal ascending aorta dimension. CONCLUSIONS LV systolic function is normal with EF of 55-60%. Septal motion is consistent with conduction abnormality. Grade 1 diastolic dysfunction Moderate mitral annular calcification Thickened aortic valve. Trace aortic regurgitation Mild tricuspid regurgitation. Mild pulmonary hypertension Compared to prior echocardiogram from 11/25/2016, no significant changes are noted Frank Bejarano MD (Electronically Signed) Final Date: 14 March 2021 19:18 S
--- NOTE | 2021-03-14 00:46 | PM.HP ---
Providers/Chief Complaint Admitting Physician: Laila Mane MD Primary Care Provider: Felipe Bustos DO Chief Complaint: R SIDE WEAKNESS History of Present Illness Darrian Boggs is a 85 year old male with a past medical history of hypertension, wide-complex tachycardia, cardiomyopathy, last known EF 65% from 2017, chronic swelling of bilateral lower extremities for which he uses compression stockings. He presented to the hospital today with chief complaints of recurrent falls that he has sustained over the past week. He complains of generalized weakness, increased deconditioning, inability to bear weight on his legs resulting in multiple falls over the past week. States he has also been experiencing poor appetite, dry heaves, vague abdominal discomfort. Denies any chest pain dyspnea or palpitations. States that at baseline he is able to walk with a walker and cane, however over the past week he has been unable to get out of bed and carry out his usual activities. Diagnostics in the ER showed signs of sepsis with elevated white blood cell count, elevated lactate at 7, hypertension, acute kidney injury, rhabdomyolysis, hyperkalemia, hypotension upon presentation with systolic blood pressure in the 80s, improved with fluid resuscitation to 130/60 at the time of my assessment. Hip and pelvis x-ray did not reveal any obvious fractures at the hip. No spinal fracture on CT of th CT abdomen. e head was unremarkable. UA consistent with UTI. Large left mid ureter stone 7 mm with proximal hydroureteronephrosis on the left side. Retroperitoneal lymphadenopathy and circumferential bladder wall with multiple bladder diverticuli additionally noted. Chest x-ray negative for any acute disease. Denies any fever at home Review of Systems General: Reports: 10 or more systems reviewed and unremarkable except in HPI and below Const: Reports: chills and body aches Eyes: Denies: change in vision, blurry vision or photophobia ENMT: Denies: throat pain, enlarged tonsils, odynophagia or nasal congestion Card: Denies: chest pain, palpitations, irregular heart rhythm, edema, swelling of feet/ankles, lightheadedness, pre-syncope, dyspnea on exertion or orthopnea Resp: Reports: dyspnea; Denies: productive cough, non-productive cough, wheezing, stridor, pain on inspiration, change in phlegm color, hemoptysis or chest congestion GI: Reports: abdominal pain, nausea and vomiting; Denies: hematemesis, coffee ground emesis, dysphagia, heartburn, diarrhea, constipation, GI cramping, change in stool character, hematochezia or melena : Denies: flank pain, dysuria, urinary frequency, urinary urgency, urinary hesitancy or hematuria Musc: Denies: neck pain, back pain, extremity pain, joint swelling, joint warmth or deformity Neuro: Denies: headache(s), numbness in extremities, weakness in extremities, sensory changes, difficulty walking, frequent falls, dizziness, vertigo, behavioral changes, Slurred speech present or seizure-like activity Psych: Denies: anxiety, depression, suicidal ideation or homicidal ideation Endo: Denies: polyuria, polydipsia, tired all the time, cold intolerance or hot flashes Gavino/Lymph: Denies: easy bruising or easy bleeding Medications/Allergies Home Medications Medication Instructions Recorded Confirmed Last Taken Type ascorbic acid (vitamin C) 1,000 mg 1,000 mg PO BID tab 08/08/19 03/13/21 Unknown History tablet aspirin 81 mg tablet,delayed 81 mg PO DAILY 08/08/19 03/13/21 Unknown History release nitroglycerin 0.4 mg sublingual 0.4 mg SUBLINGUAL Q5M PRN 08/10/19 03/13/21 Unknown History tablet furosemide 40 mg tablet 40 mg PO DAILY #90 tab 04/23/20 03/13/21 Unknown Rx acetaminophen 500 mg PO Q6H PRN 03/13/21 03/13/21 Unknown History amiodarone 200 mg PO DAILY 03/13/21 03/13/21 Unknown History fluticasone propionate [Flonase 1 spray INTRANASAL BID 03/13/21 03/13/21 Unknown History Allergy Relief] hydrocodone-acetaminophen 1 - 2 tab PO TID PRN 03/13/21 03/13/21 Unknown History ibuprofen 200 - 400 mg PO Q6H PRN 03/13/21 03/13/21 Unknown History ketotifen fumarate [Refresh Eye 1 drp OPHTHALMIC (EYE) BID PRN 03/13/21 03/13/21 Unknown History Itch Relief] lisinopril 10 mg PO DAILY 03/13/21 03/13/21 Unknown History loratadine 10 mg PO DAILY 03/13/21 03/13/21 Unknown History methenamine hippurate 1 g PO BID 03/13/21 03/13/21 Unknown History tamsulosin 0.4 mg PO DAILY 03/13/21 03/13/21 Unknown History Allergies Allergy/AdvReac Type Severity Reaction Status Date / Time No Known Allergies Allergy Verified 09/13/20 08:56 PFSH Acute PFSH: Medical History Cardiomyopathy Cataracts, bilateral History of high risk medication treatment Hypertension LBBB (left bundle branch block) Left ureteral calculus Obstructive pyelonephritis Osteoarthrosis Prostate cancer Pyuria Syncope Umbilical hernia Ventricular arrhythmia Wide-complex tachycardia Surgical History History of cataract removal with insertion of prosthetic lens BILATERAL History of colon resection WITH COLOSTOMY PLACED History of hip surgery History of left hip replacement Family History Mother Stroke Other Cancer Social History Smoking and tobacco status: former smoker Alcohol intake: unknown Adopted: No Caregiver/support person: No Lives independently: Yes Marital status: / Current occupational status: retired History of recent travel: No Vitals/I&O/Wt Last Vital Signs Temp 97.6 F 03/14/21 00:09 Pulse 93 03/14/21 00:09 Resp 18 03/14/21 00:09 BP 93/56 03/14/21 00:09 Pulse Ox 97 03/14/21 00:09 Weight last 48 hrs Weight 81.647 kg Physical Exam Narrative: EXAM NARRATIVE: General: Elderly frail appearing man lying in bed, in some discomfort secondary to pain, requesting morphine HEENT: PERRL A, pupils bilaterally equal and reactive, pallor present Chest: Normal vesicular breath sounds, no added sounds, equal good air entry bilaterally CVS: S1-S2 regular, no murmurs, no tachycardia, no gallops, no rubs Abdomen: Soft, nontender, no organomegaly, bowel sounds present, left lower quadrant colostomy in place, normal stool output, cystic swelling in the right lower quadrant, on CT abdomen correlates with postop seroma. Patient states swelling has been present unchanged for the last 3 years. Neuro: No focal deficits, no facial deformity, AO x3, power 5/5 in all limbs Extremities: Chronic bilateral lower extremity edema with changes of stasis dermatitis Urinary Catheter Management^: Flynn: Cath Placed During This Visit: yes, but has since been removed by the nurse Date Urinary Catheter Removed: 03/14/21 Time Urinary Catheter Discontinued: 00:30 Data : 03/13/21 17:00 03/13/21 22:10 Micro: Microbiology 03/13/21 17:48 Blood Culture - Preliminary Blood SPECIMEN COLLECTED 03/13/21 17:40 Blood Culture - Preliminary Blood SPECIMEN COLLECTED Attestation for Other Data: I personally reviewed and interpreted the following: Other data: Laboratory Results WBC 23.5 10^3/uL (4.0-10.0) H 03/13/21 17:00 RBC 3.95 10^6/uL (4.1-5.3) L 03/13/21 17:00 Hgb 10.0 g/dL (11.7-16.6) L 03/13/21 17:00 Hct 32.7 % (42.0-52.0) L 03/13/21 17:00 MCV 82.8 fl (80-94) 03/13/21 17:00 MCH 25.3 pg (28.0-34.0) L 03/13/21 17:00 MCHC 30.6 g/dL (30.0-36.0) 03/13/21 17:00 RDW 16.7 % (12.1-15.1) H 03/13/21 17:00 Plt Count 341 10^3/cmm (130-400) 03/13/21 17:00 MPV 8.7 fL (7.4-10.4) 03/13/21 17:00 Neut % (Auto) 86.3 % 03/13/21 17:00 Lymph % (Auto) 4.7 % 03/13/21 17:00 [place] % (Auto) 5.5 % 03/13/21 17:00 Eos % (Auto) 0.0 % 03/13/21 17:00 Baso % (Auto) 0.2 % 03/13/21 17:00 Neut # (Auto) 20.27 10^3/uL (1.8-7.7) H 03/13/21 17:00 Lymph # (Auto) 1.1 10^3/uL (0.8-4.8) 03/13/21 17:00 [place] # (Auto) 1.3 10^3/uL (0.2-0.9) H 03/13/21 17:00 Eos # (Auto) 0.0 10^3/uL (0.0-0.8) 03/13/21 17:00 Baso # (Auto) 0.0 10^3/uL (0.0-0.1) 03/13/21 17:00 Nucleated RBC % (auto) 0 % 03/13/21 17:00 Nucleated RBCs # 0.0 /100WBC 03/13/21 17:00 Sodium 136 mmol/L (136-145) 03/13/21 22:10 Potassium 4.7 mmol/L (3.5-5.1) 03/13/21 22:10 Chloride 101 mmol/L (98-107) 03/13/21 22:10 Carbon Dioxide 22 mmol/L (22-29) 03/13/21 22:10 Anion Gap 17.7 (5-19) 03/13/21 22:10 BUN 36 mg/dL (8-23) H 03/13/21 22:10 Creatinine 2.4 mg/dL (0.7-1.2) H 03/13/21 22:10 GFR Calculation Not Reportable 03/13/21 22:10 Glucose 129 mg/dL (65-115) H 03/13/21 22:10 Calculated Osmolality 292 mOsm/kg (285-295) 03/13/21 22:10 Lactate 5.2 mmol/L (0.5-2.2) H* 03/13/21 17:00 Calcium 8.1 mg/dL (8.5-10.5) L 03/13/21 22:10 Total Bilirubin 0.5 mg/dL (0.15-1.2) 03/13/21 17:00 AST 41 U/L (0-40) H 03/13/21 17:00 ALT 10 U/L (0-41) 03/13/21 17:00 Alkaline Phosphatase 393 IU/L (40-130) H 03/13/21 17:00 Creatine Kinase 1558 U/L (39-308) H* 03/13/21 17:00 Troponin T Baseline 179 ng/L (0-15) H* 03/13/21 17:00 Troponin T 120 Minute 203.8 ng/L (0-15) H 03/13/21 19:54 Delta Troponin T 24.8 ABS# (0-10) H* 03/13/21 19:54 Troponin T Hi Sens 6Hr 193.9 ng/L (0-15) H 03/13/21 22:10 Troponin T Hi Sens 6Hr Delta 14.9 ng/L (0-12) H* 03/13/21 22:10 C-Reactive Protein 230.1 mg/L (0.0-4.9) H 03/13/21 17:00 NT-Pro-B Natriuret Pep 92377 pg/mL (0-450) H 03/13/21 17:00 Total Protein 5.5 g/dL (6.6-8.7) L 03/13/21 17:00 Albumin 2.9 g/dL (3.5-5.2) L 03/13/21 17:00 Globulin 2.6 g/dL (1.3-4.6) 03/13/21 17:00 Procalcitonin 1.20 ng/mL (0-0.5) H 03/13/21 17:00 TSH 0.91 uIU/mL (0.27-4.20) 03/13/21 17:00 Urine Color Yellow (Yellow) 03/13/21 18:37 Urine Appearance Cloudy (CLEAR) A 03/13/21 18:37 Urine pH 5 (5-7) 03/13/21 18:37 Ur Specific Mead 1.015 (1.005-1.030) 03/13/21 18:37 Urine Protein 1+ (Negative) H 03/13/21 18:37 Urine Glucose (UA) Norm (Normal) 03/13/21 18:37 Urine Ketones Negative (Negative) 03/13/21 18:37 Urine Blood 3+ (Negative) H 03/13/21 18:37 Urine Nitrate Positive (Negative) H 03/13/21 18:37 Urine Bilirubin Neg (Negative) 03/13/21 18:37 Urine Urobilinogen Norm mg/dL (Negative) 03/13/21 18:37 Ur Leukocyte Esterase 2+ (Negative) H 03/13/21 18:37 Urine RBC 5-10 /hpf (0-2) H 03/13/21 18:37 Urine WBC Too numerous to cnt /hpf (0-5) H 03/13/21 18:37 Ur Squamous Epith Cells 5-10 /hpf (0-5) H 03/13/21 18:37 Amorphous Sediment Not Reportable 03/13/21 18:37 Urine Bacteria 2+ /hpf (NONE) H 03/13/21 18:[address] 03/13/21 17:38 IMPRESSION: Negative for cervical spine fracture. Radiation Dose CTDIVOL = (mGy): DLP = 429.75 (mGy-cm) Chest X-Ray 03/13/21 17:38 IMPRESSION: No focal acute pulmonary disease. Chest/Abdomen/Pelvis CT 03/13/21 17:38 IMPRESSION: 1. Large left mid ureter stone. 2. Nonspecific retroperitoneal lymphadenopathy with largest, most conspicuous lymph node in the left pelvis. Abnormality is new from comparison imaging. Metastatic disease not excluded. Further evaluation recommended. 3. Thickened, trabeculated bladder wall more significant than comparison. 4. Prostate gland enlargement is more significant than comparison. Malignancy not excluded. Further evaluation is recommended. 5. Circumscribed cystic fluid collection in the right ventral abdominal wall may pertain to a prior ventral abdominal wall hernia repair. Possibly postsurgical seroma or lymphatic collection. Radiation Dose CTDIVOL = (mGy): DLP = 1479.81~1479.81 (mGy-cm) Head CT 03/13/21 17:38 IMPRESSION: 1. Negative for acute intracranial abnormality. 2. No change from comparison. Radiation Dose CTDIVOL = (mGy): DLP = 946.67 (mGy-cm) Hip/Pelvis X-Ray 03/13/21 17:38 IMPRESSION: No acute hip abnormality. A&P Assessment and plan (1) Sepsis: Meet sepsis criteria by way of leukocytosis, elevated lactate, tachycardia and hypotension. Sepsis most likely related to obstructive pyelonephritis Already received sepsis bolus in the emergency room, blood pressure currently at 130/80 at the time of my assessment. Blood culture and urine culture taken prior to onset of antibiotics Received first doses of Zosyn and vancomycin in the ER, continue piperacillin tazobactam 7 mm obstructing stone noted in the left ureter, urology consult obtained with Dr. Jarvis, patient plan for urgent cystoscopy with ureteral stent. Trend lactate, continue IV fluids at 75 cc an hour. Patient does have bilateral chronic lower extremity edema and a history of cardiomyopathy, however review of last echo shows EF of 65% with grade 1 diastolic dysfunction. Currently patient appears to be clinically dehydrated therefore we will continue with IV fluid supplementation closely monitoring for any signs of fluid overload. Status: Acute Qualifiers: Sepsis type: sepsis due to unspecified organism Sepsis acute organ dysfunction status: with acute organ dysfunction Severe sepsis acute organ dysfunction type: acute renal failure Acute renal failure type: with acute tubular necrosis Severe sepsis shock status: without septic shock Qualified Code(s): A41.9 - Sepsis, unspecified organism; R65.20 - Severe sepsis without septic shock; N17.0 - Acute kidney failure with tubular necrosis (2) Obstructive pyelonephritis: As noted above as noted above Status: Acute (3) NSTEMI (non-ST elevated myocardial infarction): Elevated baseline troponin of 179, trending up with significant 2 and 6-hour delta is at 24.8 and 14.9. Patient denies any current chest pain. EKG shows sinus rhythm with left bundle branch block which is pre-existing at least since 2018. Patient is known to have history of wide-complex tachycardia for which she is on amiodarone. No acute ST-T wave changes currently noted. Patient denies any current chest pain Overall picture appears to be more consistent with type II PA with demand supply mismatch as a result of ongoing sepsis. Trend troponin again with a.m. labs. We will start him on a heparin drip after OR visit and obtain cardiology consult Continue aspirin 81mg po daily, not starting statin due to rhabdomyolysis Echocardiogram ordered, last echo from 2017 as noted above. Status: Acute (4) CY (acute kidney injury): Likely multifactorial as a result of ATN from sepsis and rhabdomyolysis IV fluid hydration as above Flynn in place JALEN monitoring Status: Acute (5) Rhabdomyolysis: Status: Acute Qualifiers: Rhabdomyolysis type: traumatic Encounter type: initial encounter Qualified Code(s): T79.6XXA - Traumatic ischemia of muscle, initial encounter Additional A&P Information DVT ppx: Heparin gtt Full code Attestations Medical Necessity Statement*: Patient will need greater than 2 midnight admission for the management of severe sepsis, need for IV antibiotics, NSTEMI, OR intervention today Coding Level of Care Code Acute 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
--- NOTE | 2021-03-14 00:48 | PM.OP ---
Operative Report Date of procedure: March 14, 2021 Post-op diagnosis: same Procedure Done: 1. Cystoscopy, left ureteral stent placement Pathology: none sent Surgeon: Simona Anesthesia: General Estimated blood loss: None Urine output: Not measured Complications: None Findings: Gross purulence in the bladder. Heavily trabeculated bladder with multiple large diverticuli. Left ureteral orifice was identified and a 7 Norwegian by 26 cm double-pigtail stent was advanced over the guidewire which should easily passed the stone. Stent was confirmed to be in appropriate position via fluoroscopy and cystoscopy. Surprisingly there was not a lot of purulence drained from the stent. Condition: stable Disposition: PACU Brief History: Darrian is a very pleasant 85-year-old white male well-known to me for history of clinical prostate cancer having previously been treated with hormonal manipulation but ultimately decided to forego any further treatment. He also because of no rectum would have required transperineal biopsies but declined those on multiple occasions. I saw him last in early 2019. He was admitted through the emergency department with diagnosis of obstructive pyelonephritis with evidence of a severely elevated white count, elevated lactate, and a CT scan demonstrating a 7 mm left mid ureteral stone with obstruction. Initially he was hypotensive but responded well to fluid bolus. Because of the clinical picture of sepsis and associated obstructive pyelonephritis it was recommended he go to the operating room emergently for left ureteral stent placement Procedure: After emergent evaluation examination and obtaining of informed consent he was taken to the operating suite on 03/14/2021 where general anesthesia was administered without difficulty. Prepped and draped in usual sterile fashion in dorsolithotomy position paying careful attention to avoiding pressure points. 21 Norwegian cystoscope with 30 degree lens was introduced into urethra meatus and advanced into the bladder under videoscopy. The bladder was systematically examined. It showed signs of chronic severe obstruction with marked cellule formation diverticuli and trabeculation. The prostate architecture was abnormal as would be expected with prostate cancer but thankfully the left ureteral orifice could be relatively easily identified and a flexible tip guidewire was advanced up the left ureter without difficulty bypassing the stone and curling in the area of the mid to upper pole calyx on the left. A 7 Norwegian by 28 cm ureteral stent was advanced over the guidewire through the cystoscope into appropriate position as confirmed via fluoroscopy and cystoscopy. The stent easily bypassed the stone. Surprisingly there was no significant amount of purulence drained immediately. The bladder was then drained with a Flynn catheter and the procedure was completed. Tolerated procedure well without complications and was awakened in the operating room and returned to the recovery room in stable condition. I reviewed patient status with Dr. Mane both pre and post procedure
[2021-03-14] MEDS: oxyCODONE-APAP 5-325 mg Tablet 1 TAB PO ×2 (01:57→12:09)
[2021-03-14] MEDS: cetylpyridinium Lozenge 1 EACH MUCOUS MEM (01:57)
[2021-03-14] MEDS: sodium chloride 0.9% 1,000 ML 75 ML IV ×2 (01:58→17:42)
[2021-03-14] MEDS: heparin 5,000 unit/mL INJ 1 mL IV (04:07)
[2021-03-14] MEDS: heparin drip 25,000 UNIT/500 ML PREMIX 25 UNIT IV (04:07)
[2021-03-14] MEDS: piperacillin-tazobactam 3.375 GM in sodium chloride 0.9% (plus) 50 ML IV ×3 (04:26→21:17)
[2021-03-14 04:39] LABS: Platelet Count 264 10^3/cmm (130-400)
[2021-03-14 04:40] LABS: Lactic Sepsis W/Reflex 1.2 mmol/L (0.5-2.2)
[2021-03-14 04:57] LABS: Total Bilirubin 0.3 mg/dL (0.15-1.2)
[2021-03-14 05:05] LABS: Partial Thromboplastin Time 20.9 SECONDS (23.9-36.7)
[2021-03-14 05:37] LABS: Alanine Aminotransferase 172 U/L (0-41); Albumin Level 2.2 g/dL (3.5-5.2); Alkaline Phosphatase 305 IU/L (40-130); Aspartate Amino Transferase 644 U/L (0-40); Blood Urea Nitrogen 43 mg/dL (8-23); Calcium 7.1 mg/dL (8.5-10.5); Carbon Dioxide 21 mmol/L (22-29); Chloride 105 mmol/L (98-107); Glucose 113 mg/dL (65-115); Magnesium 2.6 mg/dL (1.7-2.3); Osmolality Calculated 300 mOsm/kg (285-295); Sodium 139 mmol/L (136-145); Total Protein 4.3 g/dL (6.6-8.7); Troponin T (5th) Once 188 ng/L (0-15)
[2021-03-14 05:38] LABS: Anion Gap 18.1 (5-19); Globulin 2.1 g/dL (1.3-4.6); Potassium 5.1 mmol/L (3.5-5.1)
[2021-03-14] MEDS: tamsulosin 0.4 mg Capsule PO (09:38)
[2021-03-14] MEDS: aspirin 81 mg EC Tablet PO (09:38)
[2021-03-14] MEDS: amiodarone 200 mg Tablet PO (09:38)
[2021-03-14] MEDS: pantoprazole DR 40 mg Tablet PO (09:38)
--- NOTE | 2021-03-14 10:52 | PC.CHAP ---
Pastoral Care Encounter/Spiritual Assessment Type of Contact [] Declined livestock speculator visit [] Patient/Family/Request visit [] Outpatient visit [] Follow-up visit [] Physician referral [] Code/Alert [] Routine visit [] Staff referral [] Actively dying [] Patient sleeping [] Family support [] [] Out of room [] Palliative care [] [] Receiving care in room [] Pre-surgical visit [] Trauma [] Long length of stay [] ICU visit [x] Other: covid Relational/Emotional Strength [] Patient feels connected with others/family/visitors/staff [] Distress [] Loneliness/isolation [] Abandonment Spirituality of Patient [] Person of Nadia [] Attends Adventism of their Nadia [] Believes in Prayer [] Reads Bible or Nondenominational materials [] There are Spiritual issues to be addressed Customer Service Technician Interventions [] Prayer [] Active listening [] Non-anxious presence [] Spiritual/emotional support [] Crisis/trauma care [] Spiritual counseling [] Bereavement support [] Provided bereavement packet [] Provided Bible/devotional materials [] Provided toy/stuffed animal, coloring book to patient or family member [] Provided Communion [] Anointing/U[place]ling [] Salvation [] Completed spiritual assessment [] Other: Impact on Illness or Injury [] Angry [] Fearful [] Anxious [] Often cries [] Exhaustion [] Unable to work [] Unable to attend taoist [] Unable to walk/stand [] Unable to read [] Unable to drive [] Unable to eat/drink [] Unable to sleep [] Unable to be with family [] Patient intubated [] Other: Summary covid Time spent with patient 5 mins
--- NOTE | 2021-03-14 11:44 | PM.CONSULT ---
Providers/Reason For Consult Consulting Physician/Specialty*: Frank Bejarano MD/ Cardiology Reason for Consult*: Troponin elevation Requesting Physician: Dr Mane Attending Physician: Hari Gumzán MD Primary Care Provider: Felipe Bustos DO History of Present Illness History of Present Illness Darrian Boggs is a 85 year old male with a past medical history of hypertension, wide-complex tachycardia, cardiomyopathy,chronic swelling of bilateral lower extremities for which he uses compression stockings presented to the hospital with weakness, recurrent falls and was found to have urosepsis. He underwent urological procedure today. Cardiology was consulted as troponins were elevated. He was started on heparin drip. He denies any chest pain. No shortness of breath at this time. His EKG does not show any acute ST changes. Review of Systems General: Reports: 10 or more systems reviewed and unremarkable except in HPI and below Narrative: CONSTITUTIONAL: Has weakness and fatigue HEENT: Normocephalic, atraumatic.[] RESPIRATORY: No cough, sputum, hemoptysis or wheezing.[] CARDIOVASCULAR: No shortness of breath, chest pain, PND, orthopnea, lower extremity edema, presyncope or syncope. [] GI: no nausea vomiting diarrhea. [] STATISTICAL CLERK: No numbness, tingling, weakness or loss of function in any part of the body. [] MUSCULOSKELETAL: No knee or joint pain or rashes. [] Meds/Allergies Home Medications and Allergies Home Medications Medication Instructions Recorded Confirmed Last Taken Type ascorbic acid (vitamin C) 1,000 mg 1,000 mg PO BID tab 08/08/19 03/13/21 Unknown History tablet aspirin 81 mg tablet,delayed 81 mg PO DAILY 08/08/19 03/13/21 Unknown History release nitroglycerin 0.4 mg sublingual 0.4 mg SUBLINGUAL Q5M PRN 08/10/19 03/13/21 Unknown History tablet furosemide 40 mg tablet 40 mg PO DAILY #90 tab 04/23/20 03/13/21 Unknown Rx acetaminophen 500 mg PO Q6H PRN 03/13/21 03/13/21 Unknown History amiodarone 200 mg PO DAILY 03/13/21 03/13/21 Unknown History fluticasone propionate [Flonase 1 spray INTRANASAL BID 03/13/21 03/13/21 Unknown History Allergy Relief] hydrocodone-acetaminophen 1 - 2 tab PO TID PRN 03/13/21 03/13/21 Unknown History ibuprofen 200 - 400 mg PO Q6H PRN 03/13/21 03/13/21 Unknown History ketotifen fumarate [Refresh Eye 1 drp OPHTHALMIC (EYE) BID PRN 03/13/21 03/13/21 Unknown History Itch Relief] lisinopril 10 mg PO DAILY 03/13/21 03/13/21 Unknown History loratadine 10 mg PO DAILY 03/13/21 03/13/21 Unknown History methenamine hippurate 1 g PO BID 03/13/21 03/13/21 Unknown History tamsulosin 0.4 mg PO DAILY 03/13/21 03/13/21 Unknown History Allergies Allergy/AdvReac Type Severity Reaction Status Date / Time No Known Allergies Allergy Verified 09/13/20 08:56 Current Medications Current Medications Generic Name Dose Route Start Last Admin Trade Name Freq PRN Reason Stop Dose Admin Amiodarone HCl 200 mg 03/14/21 09:00 03/14/21 09:38 Amiodarone 200 Mg Tablet PO 200 mg DAILY MADHAVI Administration Aspirin 81 mg 03/14/21 09:00 03/14/21 09:38 Aspirin 81 Mg Ec Tablet PO 81 mg DAILY MADHAVI Administration Heparin Sodium (Beef Lung) 0 unit 03/14/21 03:44 03/14/21 04:07 Heparin 5,000 Unit/Ml Inj 1 Ml IV 4,500 unit PRN PRN Administration Heparin weight-base protocol Protocol Heparin Sodium/Sodium Chloride 25,000 unit in 500 mls @ 0 mls/hr 03/14/21 03:45 03/14/21 04:07 Heparin Drip IV 14.19 unit/kg/hr .Q0M MADHAVI 25 mls/hr Administration Protocol Per Protocol Sodium Chloride 1,000 mls @ 75 mls/hr 03/14/21 04:00 03/14/21 04:15 Sodium Chloride 0.9% IV Not Given .[id number] MADHAVI Pantoprazole Sodium 40 mg 03/14/21 09:00 03/14/21 09:[address] 40 Mg Tablet PO 40 mg DAILY MADHAVI Administration Tamsulosin HCl 0.4 mg 03/14/21 09:00 03/14/21 09:38 Tamsulosin 0.4 Mg Capsule PO 0.4 mg DAILY MADHAVI Administration PFSH Acute PFSH: Medical History Cardiomyopathy Cataracts, bilateral History of high risk medication treatment Hypertension LBBB (left bundle branch block) Left ureteral calculus Obstructive pyelonephritis Osteoarthrosis Prostate cancer Pyuria Syncope Umbilical hernia Ventricular arrhythmia Wide-complex tachycardia Surgical History History of cataract removal with insertion of prosthetic lens BILATERAL History of colon resection WITH COLOSTOMY PLACED History of hip surgery History of left hip replacement Family History Mother Stroke Other Cancer Social History Smoking and tobacco status: former smoker Alcohol intake: unknown Adopted: No Caregiver/support person: No Lives independently: Yes Marital status: / Current occupational status: retired History of recent travel: No Vitals/I&O/Wt Last Vital Signs Temp 97.8 F 03/14/21 08:00 Pulse 81 03/14/21 08:00 Resp 21 H 03/14/21 08:00 BP 110/67 03/14/21 08:00 Pulse Ox 100 03/14/21 08:00 03/13/21 03/14/21 03/14/21 22:59 06:59 14:59 Intake Total 0 / 0 50 / 50 Output Total 500 / 500 Balance -500 / -500 50 / 50 Weight last 48 hrs Weight 194 lb 3.2 oz Weight 180 lb Physical Exam Narrative: EXAM NARRATIVE: GENERAL: Patient is alert, awake and oriented x3. [] NECK: No jugular vein distension. [] HEENT: No cyanosis. No icterus. No pallor. [] HEART: Regular S1 and S2. No murmur, rub or gallop. [] LUNGS: Clear to auscultate bilaterally. [] ABDOMEN: Soft, nontender and nondistended. Positive bowel sounds. No guarding, rebound or tenderness. [] CENTRAL NERVOUS SYSTEM: Grossly nonfocal. [] EXTREMITIES: Lower extremities with 1+ edema bilaterally. Pulses palpable in the lower extremities, both dorsalis pedis and posterior tibial. [] Urinary Catheter Management^: Flynn: Cath Placed During This Visit: yes, but has since been removed by the nurse Reason for Continuing Indwelling Catheter: Acute Urinary Retention or Obstruction Urinary Catheter Date of Insertion: 03/14/21 Urinary Catheter Time of Insertion: 00:46 Date Urinary Catheter Removed: 03/14/21 Time Urinary Catheter Discontinued: 00:30 Data Micro: Micro: Microbiology 03/13/21 17:48 Blood Culture - Pr eliminary Blood SPECIMEN [facility] 03/13/21 17:40 Blood Culture - Pr eliminary Blood SPECIMEN [facility] A&P Assessment and plan (1) CY (acute kidney injury): Status: Acute (2) Sepsis: Status: Acute Qualifiers: Sepsis type: sepsis due to unspecified organism Sepsis acute organ dysfunction status: with acute organ dysfunction Severe sepsis acute organ dysfunction type: acute renal failure Acute renal failure type: with acute tubular necrosis Severe sepsis shock status: without septic shock Qualified Code(s): A41.9 - Sepsis, unspecified organism; R65.20 - Severe sepsis without septic shock; N17.0 - Acute kidney failure with tubular necrosis (3) Obstructive pyelonephritis: Status: Acute (4) Hypertension: Status: Acute Qualifiers: Hypertension type: essential hypertension Qualified Code(s): I10 - Essential (primary) hypertension (5) LBBB (left bundle branch block): Status: Acute (6) Elevated troponin: Status: Acute Patient has presented with urosepsis. His troponin elevation is likely from demand ischemia. Can stop heparin drip at this time. Continue aspirin. Echocardiogram was performed and shows preserved LV systolic function. Thank you for involving us with care of this patient. Please call with questions. Coding Level of Care Code Acute Astrophysics Teacher for [facility] Fwd Diagnoses CY (acute kidney injury) N17.9 Sepsis A41.9; R65.20; N17.0 Sepsis type: sepsis due to unspecified organism Sepsis acute organ dysfunction status: with acute organ dysfunction Severe sepsis acute organ dysfunction type: acute renal failure Acute renal failure type: with acute tubular necrosis Severe sepsis shock status: without septic shock Obstructive pyelonephritis N11.1 Hypertension I10 Hypertension type: essential hypertension LBBB (left bundle branch block) I44.7 Elevated troponin R77.8
[2021-03-14 15:17] LABS: Coronavirus Test Green County Not Detected
--- NOTE | 2021-03-14 15:27 | P.PN_ITS ---
Subjective Subjective: Interval history: Admitted overnight. H&P and labs appreciated. Underwent urgent cystoscopy and left ureteral stent placement last night with Dr. Jarvis. Minimal urine output postoperatively. 500 cc overnight. Blood pressure soft in the morning so was given 250 cc bolus. On examination patient lying comfortably in bed, complaining of feeling cold. Denies any nausea, vomiting, headache. Maintaining saturation over 92% on room air Vitals/I&O/Wt Last Vital Signs Temp 98.2 F 03/14/21 12:00 Pulse 84 03/14/21 14:00 Resp 20 H 03/14/21 12:09 BP 79/45 03/14/21 12:00 Pulse Ox 98 03/14/21 12:09 03/14/21 03/14/21 03/14/21 06:59 14:59 22:59 Intake Total 0 / 0 50 / 50 Output Total 500 / 500 Balance -500 / -500 50 / 50 Weight last 48 hrs Weight 88.088 kg Weight 81.647 kg Physical Exam Narrative: EXAM NARRATIVE: General: AOx3, frequent frail appearing HEENT: PERRL A, pupils bilaterally equal and reactive, pallor present Chest: Normal vesicular breath sounds, no added sounds, equal good air entry bilaterally CVS: S1-S2 regular, no murmurs, no tachycardia, no gallops, no rubs Abdomen: Soft, nontender, no organomegaly, bowel sounds present, left lower quadrant colostomy in place, normal stool output, cystic swelling in the right lower quadrant, on CT abdomen correlates with postop seroma. Patient states swelling has been present unchanged for the last 3 years. Neuro: No focal deficits, no facial deformity, AO x3, power 5/5 in all limbs Extremities: Chronic bilateral lower extremity edema with changes of stasis dermatitis Urinary Catheter Management^: Flynn: Cath Placed During This Visit: yes, but has since been removed by the nurse Reason for Continuing Indwelling Catheter: Acute Urinary Retention or Obstruction Urinary Catheter Date of Insertion: 03/14/21 Urinary Catheter Time of Insertion: 00:46 Date Urinary Catheter Removed: 03/14/21 Time Urinary Catheter Discontinued: 00:30 Data : 03/14/21 04:05 03/14/21 04:05 Micro: Microbiology 03/13/21 17:48 Blood Culture - Preliminary Blood SPECIMEN COLLECTED 03/13/21 17:40 Blood Culture - Preliminary Blood SPECIMEN COLLECTED A&P Assessment and plan (1) Sepsis: Meet sepsis criteria by way of leukocytosis, elevated lactate, tachycardia and hypotension. Sepsis most likely related to obstructive pyelonephritis Blood culture and urine culture taken prior to onset of antibiotics Continue Zosyn. Will de-escalate or change antibiotics as per culture results. 7 mm obstructing stone noted in the left ureter, urology consult obtained with Dr. Jarvis, patient plan for urgent cystoscopy with ureteral stent. Continue normal saline at 75 cc/h. Keep mean arterial pressure over 65. Patient does have bilateral chronic lower extremity edema and a history of cardiomyopathy, however review of last echo shows EF of 65% with grade 1 diastolic dysfunction. Currently patient appears to be clinically dehydrated therefore we will continue with IV fluid supplementation closely monitoring for any signs of fluid overload. Status: Acute Qualifiers: Sepsis type: sepsis due to unspecified organism Sepsis acute organ dysfunction status: with acute organ dysfunction Severe sepsis acute organ dysfunction type: acute renal failure Acute renal failure type: with acute tubular necrosis Severe sepsis shock status: without septic shock Qualified Code(s): A41.9 - Sepsis, unspecified organism; R65.20 - Severe sepsis without septic shock; N17.0 - Acute kidney failure with tubular necrosis (2) Obstructive pyelonephritis: As noted above as noted above Status: Acute (3) NSTEMI (non-ST elevated myocardial infarction): Most likely demand ischemia. Repeat echocardiogram stable. Appreciate cardiology recommendations. Stop heparin drip. Continue with aspirin. Hold off on statins given rhabdomyolysis. Status: Acute (4) CY (acute kidney injury): Likely multifactorial as a result of ATN from sepsis and rhabdomyolysis IV fluid hydration as above Flynn in place Medical history patient done for nephrotoxic drugs. Strict input output charting. Check urine lites, urine creatinine, urine eosinophils. Status: Acute (5) Rhabdomyolysis: Status: Acute Qualifiers: Rhabdomyolysis type: traumatic Encounter type: initial encounter Qualified Code(s): T79.6XXA - Traumatic ischemia of muscle, initial encounter (6) Wide-complex tachycardia: Telemetry. Continue with home dose of amiodarone. Status: Acute (7) Cardiomyopathy: Status: Acute Qualifiers: Cardiomyopathy type: dilated Qualified Code(s): I42.0 - Dilated cardi omyopathy Additional A&P Information DVT ppx: Heparin 5000 every 12 hourly. Protonix for PUD prophylaxis Full code Guarded prognosis. Attestations Medical Necessity Statement*: Requires further hospitalization for management of sepsis secondary to obstructive pyelonephritis, CY, rhabdomyolysis in setting of type II WI Time Spent in Patient Care: Greater than 35 minutes (>than 50% of time spent in counselling and/or direct pt care on unit) . 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 for g Fwd Diagnoses Sepsis A41.9; R65.20; N17.0 Sepsis type: sepsis due to unspecified organism Sepsis acute organ dysfunction status: with acute organ dysfunction Severe sepsis acute organ dysfunction type: acute renal failure Acute renal failure type: with acute tubular necrosis Severe sepsis shock status: without septic shock Obstructive pyelonephritis N11.1 NSTEMI (non-ST elevated myocardial infarction) I21.4 CY (acute kidney injury) N17.9 Rhabdomyolysis T79.6XXA Rhabdomyolysis type: traumatic Encounter type: initial encounter Wide-complex tachycardia I47.2 Cardiomyopathy I42.0 Cardiomyopathy type: dilated
[2021-03-14 17:15] LABS: Potassium, Radom Urine 34 mmol/L; Urine Creatinine 109 mg/dL (39-259); Urine Random Chloride 36 mmol/L; Urine Random Sodium 49 mmol/L
[2021-03-14 17:20] LABS: Creatinine Urine, Random 119 mg/dL (39-259); Microalbumin Random Urine 20 ug/dL (0-20)
[2021-03-14 17:21] LABS: Microalbum Creatinine Ratio Ur 168 mg/dL (0-20)
[2021-03-14] MEDS: ascorbic acid 500 mg Tablet PO (17:42)
[2021-03-14 19:29] LABS: Blood Urea Nitrogen 46 mg/dL (8-23); Calcium 7.3 mg/dL (8.5-10.5); Carbon Dioxide 15 mmol/L (22-29); Chloride 106 mmol/L (98-107); Glucose 130 mg/dL (65-115); Osmolality Calculated 298 mOsm/kg (285-295); Sodium 137 mmol/L (136-145)
[2021-03-14 19:32] LABS: Anion Gap 21.8 (5-19); Potassium 5.8 mmol/L (3.5-5.1)
[2021-03-14 20:05] LABS: Glucose Point of Care 94 mg/dL (70-110)
[2021-03-14] MEDS: sodium bicarbonate 8.4% 1 mEq/mL 50mL Syr 50 MEQ IV (21:07)
[2021-03-15] VITALS (114 sets, daily range): BP systolic 82–136; BP diastolic 30–79; PULSE 76–146; RESP 16–30; TEMP 36.7–36.8; O2SAT 90–100
[2021-03-15 03:00] LABS: Eosinophil Urine No Eosinophils Seen; Urine Eosinophil Count 0 (0-0)
[2021-03-15] MEDS: piperacillin-tazobactam 3.375 GM in sodium chloride 0.9% (plus) 50 ML IV (05:11)
[2021-03-15 06:28] LABS: Basophils % 0.2 %; Eosinophils # 0.1 10^3/uL (0.0-0.8); Eosinophils % 0.7 %; Hematocrit 32.5 % (42.0-52.0); Hemoglobin 9.7 g/dL (11.7-16.6); Lymphocytes # 1.5 10^3/uL (0.8-4.8); Lymphocytes % 8.2 %; Mean Corpuscular HGB Conc 29.8 g/dL (30.0-36.0); Mean Corpuscular Hemoglobin 25.3 pg (28.0-34.0); Mean Corpuscular Volume 84.9 fl (80-94); Monocytes % 5.5 %; Neutrophils # 15.51 10^3/uL (1.8-7.7); Neutrophils % 84.2 %; Nucleated Red Blood Cells % 0 %; Platelet Count 316 10^3/cmm (130-400); Red Blood Count 3.83 10^6/uL (4.1-5.3); Red Cell Distribution Width 17.4 % (12.1-15.1); White Blood Count 18.5 10^3/uL (4.0-10.0)
[2021-03-15 07:05] LABS: Alanine Aminotransferase 198 U/L (0-41); Albumin Level 1.9 g/dL (3.5-5.2); Alkaline Phosphatase 295 IU/L (40-130); Anion Gap 15.4 (5-19); Aspartate Amino Transferase 374 U/L (0-40); Blood Urea Nitrogen 47 mg/dL (8-23); Calcium 7.4 mg/dL (8.5-10.5); Carbon Dioxide 22 mmol/L (22-29); Chloride 105 mmol/L (98-107); Globulin 3.3 g/dL (1.3-4.6); Glucose 130 mg/dL (65-115); Magnesium 2.6 mg/dL (1.7-2.3); Osmolality Calculated 298 mOsm/kg (285-295); Potassium 5.4 mmol/L (3.5-5.1); Sodium 137 mmol/L (136-145); Thyroid Stimulating Hormone 0.54 uIU/mL (0.27-4.20); Total Bilirubin 0.2 mg/dL (0.15-1.2); Total Protein 5.2 g/dL (6.6-8.7)
[2021-03-15] MEDS: sodium chloride 0.9% 1,000 ML 75 ML IV (07:24)
[2021-03-15] MEDS: ascorbic acid 500 mg Tablet PO ×2 (08:13→18:30)
[2021-03-15] MEDS: tamsulosin 0.4 mg Capsule PO (08:13)
[2021-03-15] MEDS: amiodarone 200 mg Tablet PO (08:14)
[2021-03-15] MEDS: aspirin 81 mg EC Tablet PO (08:14)
[2021-03-15] MEDS: pantoprazole DR 40 mg Tablet PO (08:14)
[2021-03-15] MEDS: fluticasone nasal spray 16gm Btl 1 SPRAY INTRANASAL ×2 (08:14→18:30)
[2021-03-15] MEDS: dextrose 50% syringe 50 mL IVP (13:02)
[2021-03-15] MEDS: sodium chloride 0.9% 500 ML IV ×2 (13:02→20:07)
[2021-03-15] MEDS: insulin regular-human 10 UNIT in SYRINGE 1 EACH IVP (13:03)
[2021-03-15] MEDS: oxyCODONE-APAP 5-325 mg Tablet 1 TAB PO (13:20)
[2021-03-15] MEDS: FUROsemide 10 mg/mL SDV 2mL 20 MG IVP (14:36)
--- NOTE | 2021-03-15 15:37 | PM.PN ---
Subjective Subjective: Interval history: Overnight patient was transitioned over to ICU for low blood pressure and poor urine output. He was started on Levophed. Currently on Levophed of 5. Mean arterial pressure over 65. Remains on room air. Awake and alert without any nausea, vomiting, headache. Complaining of pain in his belly. Vitals/I&O/Wt Last Vital Signs Temp 98.2 F 03/15/21 12:00 Pulse 89 03/15/21 12:00 Resp 22 H 03/15/21 13:20 BP 107/46 03/15/21 12:00 Pulse Ox 100 03/15/21 13:20 03/15/21 03/15/21 03/15/21 06:59 14:59 22:59 Intake Total 170 / 4226.75 1212.839 / 1212.839 Output Total 175 / 375 Balance -5 / 3851.75 1212.839 / 1212.839 Weight last 48 hrs Weight 88.088 kg Weight 81.647 kg Physical Exam Narrative: EXAM NARRATIVE: General: AOx3, frequent frail appearing HEENT: PERRL A, pupils bilaterally equal and reactive, pallor present Chest: Normal vesicular breath sounds, no added sounds, equal good air entry bilaterally CVS: S1-S2 regular, no murmurs, no tachycardia, no gallops, no rubs Abdomen: Soft, nontender, no organomegaly, bowel sounds present, left lower quadrant colostomy in place, normal stool output, cystic swelling in the right lower quadrant, on CT abdomen correlates with postop seroma. Patient states swelling has been present unchanged for the last 3 years. Neuro: No focal deficits, no facial deformity, AO x3, power 5/5 in all limbs Extremities: Chronic bilateral lower extremity edema with changes of stasis dermatitis Urinary Catheter Management^: Flynn: Cath Placed During This Visit: yes, but has since been removed by the nurse Reason for Continuing Indwelling Catheter: Accurate Measurement of Urinary Output in Critically Ill Patients Urinary Catheter Date of Insertion: 03/14/21 Urinary Catheter Time of Insertion: 00:46 Date Urinary Catheter Removed: 03/14/21 Time Urinary Catheter Discontinued: 00:30 Data : 03/15/21 06:20 03/15/21 06:20 Micro: Microbiology 03/13/21 18:37 Urine Culture - Preliminary Urine,Clean Catch Gram Negative Rods 03/13/21 17:48 Blood Culture - Preliminary Blood NEGATIVE TO DATE 03/13/21 17:40 Blood Culture - Preliminary Blood NEGATIVE TO DATE A&P Assessment and plan (1) Septic shock: Keep mean arterial pressure over 65. Wean levphed as possible. Monitor intake and output. Continue with normal saline at 75 cc/h. Bolus 500 followed by Lasix 20 mg. If no good urine output by evening can repeat dose of Lasix. Status: Acute (2) Sepsis: Meet sepsis criteria by way of leukocytosis, elevated lactate, tachycardia and hypotension. Sepsis most likely related to obstructive pyelonephritis Blood culture currently negative preliminary. Urine culture growing gram-negative rods. Switch Zosyn to imipenem for now as per creatinine clearance. Will de-escalate antibiotics as per culture results. 7 mm obstructing stone noted in the left ureter, urology consult obtained with Dr. Jarvis, patient plan for urgent cystoscopy with ureteral stent. Continue normal saline at 75 cc/h. Keep mean arterial pressure over 65. Patient does have bilateral chronic lower extremity edema and a history of cardiomyopathy, however review of last echo shows EF of 65% with grade 1 diastolic dysfunction. Currently patient appears to be clinically dehydrated therefore we will continue with IV fluid supplementation closely monitoring for any signs of fluid overload. Status: Acute Qualifiers: Sepsis type: sepsis due to unspecified organism Sepsis acute organ dysfunction status: with acute organ dysfunction Severe sepsis acute organ dysfunction type: acute renal failure Acute renal failure type: with acute tubular necrosis Severe sepsis shock status: without septic shock Qualified Code(s): A41.9 - Sepsis, unspecified organism; R65.20 - Severe sepsis without septic shock; N17.0 - Acute kidney failure with tubular necrosis (3) Obstructive pyelonephritis: As noted above as noted above Status: Acute (4) CY (acute kidney injury): Likely multifactorial as a result of ATN from sepsis and rhabdomyolysis. Worsening today. IV fluid hydration as above Flynn in place Medical history patient done for nephrotoxic drugs. Strict input output charting. Fena- 0.9. Prerenal. If creatinine continues to worsen will consult nephrology. Status: Acute (5) Rhabdomyolysis: Status: Acute Qualifiers: Rhabdomyolysis type: traumatic Encounter type: initial encounter Qualified Code(s): T79.6XXA - Traumatic ischemia of muscle, initial encounter (6) Wide-complex tachycardia: Telemetry. Continue with home dose of amiodarone. Status: Acute (7) Cardiomyopathy: Status: Acute Qualifiers: Cardiomyopathy type: dilated Qualified Code(s): I42.0 - Dilated cardiomyopathy (8) Elevated troponin: Most likely demand ischemia. Repeat echocardiogram stable. Appreciate cardiology recommendations. Stop heparin drip. Continue with aspirin. Hold off on statins given rhabdomyolysis. Status: Acute (9) Hyperkalemia: D50/insulin 10 units. Calcium gluconate. Repeat BMP in evening. Status: Acute Additional A&P Information DVT ppx: Heparin 5000 every 12 hourly. Protonix for PUD prophylaxis Full code Guarded prognosis. Plan for today: Wean off Levophed as possible keeping mean arterial pressure 65. Continue with IV hydration at 75 cc/h. Bolus 500. Lasix 20 mg IV stat. Monitor intake output. Depending on the urine output will repeat Lasix in the evening. Broaden coverage from Zosyn to imipenem. Discharge planning: Once hemodynamically stable and out of septic shock most likely home with home health. Once off Levophed we will start physical therapy. Attestations Medical Necessity Statement*: Requires further hospitalization for management of septic shock secondary to obstructive pyelonephritis, acute kidney injury Critical Care Time: The high probability of a clinically significant, sudden or life threatening deterioration of the patient's [ID, renal, cardiac] system(s) required my full and direct attention, intervention and personal management. The critical care time is as shown. 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 for [facility] Fwd Diagnoses Septic shock A41.9; R65.21 Sepsis A41.9; R65.20; N17.0 Sepsis type: sepsis due to unspecified organism Sepsis acute organ dysfunction status: with acute organ dysfunction Severe sepsis acute organ dysfunction type: acute renal failure Acute renal failure type: with acute tubular necrosis Severe sepsis shock status: without septic shock Obstructive pyelonephritis N11.1 CY (acute kidney injury) N17.9 Rhabdomyolysis T79.6XXA Rhabdomyolysis type: traumatic Encounter type: initial encounter Wide-complex tachycardia I47.2 Cardiomyopathy I42.0 Cardiomyopathy type: dilated Elevated troponin R77.8 Hyperkalemia E87.5
[2021-03-15 17:36] LABS: Glucose Point of Care 133 mg/dL (70-110)
[2021-03-15] MEDS: FUROsemide 10 mg/mL SDV 4mL 40 MG IVP (20:08)
[2021-03-15 20:57] LABS: Blood Urea Nitrogen 51 mg/dL (8-23); Calcium 7.4 mg/dL (8.5-10.5); Carbon Dioxide 16 mmol/L (22-29); Chloride 102 mmol/L (98-107); Glucose 127 mg/dL (65-115); Osmolality Calculated 291 mOsm/kg (285-295); Sodium 133 mmol/L (136-145)
[2021-03-15] MEDS: morphine 4 mg/mL SDV 1 mL 2 MG IVP (23:15)
[2021-03-16] VITALS (65 sets, daily range): BP systolic 97–146; BP diastolic 32–88; PULSE 76–211; RESP 17–33; TEMP 36.4–36.6; O2SAT 94–100
[2021-03-16 03:56] LABS: Basophils # 0.1 10^3/uL (0.0-0.1); Basophils % 0.3 %; Eosinophils # 0.2 10^3/uL (0.0-0.8); Eosinophils % 1.2 %; Hematocrit 28.7 % (42.0-52.0); Hemoglobin 8.7 g/dL (11.7-16.6); Lymphocytes # 1.3 10^3/uL (0.8-4.8); Lymphocytes % 8.2 %; Mean Corpuscular HGB Conc 30.3 g/dL (30.0-36.0); Mean Corpuscular Hemoglobin 25.7 pg (28.0-34.0); Mean Corpuscular Volume 84.7 fl (80-94); Mean Platelet Volume 9.3 fL (7.4-10.4); Monocytes # 0.8 10^3/uL (0.2-0.9); Monocytes % 4.6 %; Neutrophils % 84.3 %; Nucleated Red Blood Cells % 0 %; Platelet Count 254 10^3/cmm (130-400); Red Blood Count 3.39 10^6/uL (4.1-5.3); Red Cell Distribution Width 17.3 % (12.1-15.1); White Blood Count 16.2 10^3/uL (4.0-10.0)
[2021-03-16 04:30] LABS: Alanine Aminotransferase 143 U/L (0-41); Albumin Level 2.6 g/dL (3.5-5.2); Alkaline Phosphatase 231 IU/L (40-130); Blood Urea Nitrogen 45 mg/dL (8-23); Calcium 7.3 mg/dL (8.5-10.5); Carbon Dioxide 17 mmol/L (22-29); Chloride 104 mmol/L (98-107); Globulin 2.9 g/dL (1.3-4.6); Glucose 140 mg/dL (65-115); Osmolality Calculated 294 mOsm/kg (285-295); Sodium 135 mmol/L (136-145); Total Bilirubin 0.3 mg/dL (0.15-1.2); Total Protein 5.5 g/dL (6.6-8.7)
[2021-03-16 04:33] LABS: Anion Gap 19.9 (5-19); Aspartate Amino Transferase 172 U/L (0-40); Potassium 5.9 mmol/L (3.5-5.1)
[2021-03-16] MEDS: sodium chloride 0.9% 1,000 ML 75 ML IV ×2 (04:34→08:13)
[2021-03-16 04:35] LABS: Procalcitonin 5.79 ng/mL (0-0.5)
[2021-03-16 04:52] LABS: Creatine Phosphokinase 8963 U/L (39-308)
[2021-03-16] MEDS: ascorbic acid 500 mg Tablet PO ×2 (08:12→19:16)
[2021-03-16] MEDS: aspirin 81 mg EC Tablet PO (08:12)
[2021-03-16] MEDS: tamsulosin 0.4 mg Capsule PO (08:12)
[2021-03-16] MEDS: amiodarone 200 mg Tablet PO (08:12)
[2021-03-16] MEDS: pantoprazole DR 40 mg Tablet PO (08:12)
[2021-03-16] MEDS: fluticasone nasal spray 16gm Btl 1 SPRAY INTRANASAL (08:13)
[2021-03-16] MEDS: oxyCODONE-APAP 5-325 mg Tablet 1 TAB PO ×2 (11:02→16:27)
--- NOTE | 2021-03-16 11:04 | PC.NURSE ---
[place] done. 59.6 % fluid responsive
[2021-03-16 11:24] LABS: Glucose Point of Care 171 mg/dL (70-110)
[2021-03-16] MEDS: sodium chloride 0.9% 500 ML 999 ML IV (13:52)
--- NOTE | 2021-03-16 16:23 | XRR_ITS ---
PROCEDURE INFORMATION: Exam: XR Chest Exam date and time: 03/16/2021 4:23 PM Age: 85 years old Clinical indication: Device placement; Picc TECHNIQUE: Imaging protocol: XR of the chest. Views: 1 view. COMPARISON: CT chest abd pel wo con 03/13/2021 8:14 PM FINDINGS: Tubes, catheters and devices: Right upper extremity PICC with tip overlying the mid SVC. Lungs: Low lung volumes. Prominent interstitial markings with bibasilar atelectasis. No focal consolidation. Pleural spaces: No large pleural effusion. No visible pneumothorax. Heart/Mediastinum: Mild cardiomegaly. Bones/joints: No acute bony abnormality. XR/XR chest 1V portable [id number] IMPRESSION: Interval placement of right upper extremity PICC with tip overlying the mid SVC. No evidence of complication.
--- NOTE | 2021-03-16 16:33 | P.PN_ITS ---
Subjective Subjective: Interval history: No acute events overnight. Patient has remained on Levophed. Today morning on examination Levophed was running at 8 mics which was weaned off. Documented urine output in last 24 hr 400 cc. On exam patient is awake and alert. Denies any N/V, headache, dizziness, chest pain, shortness of breath. Cheetah examination was done and patient was found to be fluid responsive with SVV delta of 59%. Vitals/I&O/Wt Last Vital Signs Temp 97.9 F 03/16/21 10:00 Pulse 76 03/16/21 14:00 Resp 18 03/16/21 16:27 BP 125/51 03/16/21 12:00 Pulse Ox 97 03/16/21 12:00 03/16/21 03/16/21 03/16/21 06:59 14:59 22:59 Intake Total 1554 / 4139.654 402.909 / 402.909 678.994 / 1081.903 Output Total 250 / 400 Balance 1304 / 3739.654 402.909 / 402.909 678.994 / 1081.903 Physical Exam Narrative: EXAM NARRATIVE: General: AOx3, frequent frail appearing HEENT: PERRL A, pupils bilaterally equal and reactive, pallor present Chest: Normal vesicular breath sounds, no added sounds, equal good air entry bilaterally CVS: S1-S2 regular, no murmurs, no tachycardia, no gallops, no rubs Abdomen: Soft, nontender, no organomegaly, bowel sounds present, left lower quadrant colostomy in place, normal stool output, cystic swelling in the right lower quadrant, on CT abdomen correlates with postop seroma. Patient states swelling has been present unchanged for the last 3 years. Neuro: No focal deficits, no facial deformity, AO x3, power 5/5 in all limbs Extremities: Chronic bilateral lower extremity edema with changes of stasis dermatitis Urinary Catheter Management^: Flynn: Cath Placed During This Visit: yes, but has since been removed by the nurse Reason for Continuing Indwelling Catheter: Accurate Measurement of Urinary Output in Critically Ill Patients Urinary Catheter Date of Insertion: 03/14/21 Urinary Catheter Time of Insertion: 00:46 Date Urinary Catheter Removed: 03/14/21 Time Urinary Catheter Discontinued: 00:30 Data : 03/16/21 03:45 03/16/21 03:45 Micro: Microbiology 03/13/21 18:37 Urine Culture - Preliminary Urine,Clean Catch Pseudomonas aeruginosa A&P Assessment and plan (1) Septic shock: Keep mean arterial pressure over 65. Wean levphed as possible. Monitor intake and output. Give 500 cc IV bolus followed by increasing the fl uid to 125 cc/h. Depending on urine output by evening and hemodynamics can give 1 dose of Lasix. Status: Acute (2) Sepsis: Meet sepsis criteria by way of leukocytosis, elevated lactate, tachycardia and hypotension. Sepsis most likely related to obstructive pyelonephritis Blood culture currently negative preliminary. Urine culture growing Pseudomonas. Sensitivities awaited. For now continue with imipenem for now as per creatinine clearance. Will de- escalate antibiotics as per culture results. 7 mm obstructing stone noted in the left ureter, urology consult obtained with Dr. Jarvis, patient plan for urgent cystoscopy with ureteral stent. Status: Acute Qualifiers: Sepsis type: sepsis due to unspecified organism Sepsis acute organ dysfunction status: with acute organ dysfunction Severe sepsis acute organ dysfunction type: acute renal failure Acute renal failure type: with acute tubular necrosis Severe sepsis shock status: without septic shock Qualified Code(s): A41.9 - Sepsis, unspecified organism; R65.20 - Severe sepsis without septic shock; N17.0 - Acute kidney failure with tubular necrosis (3) Obstructive pyelonephritis: As noted above as noted above Status: Acute (4) CY (acute kidney injury): With oliguria. Likely multifactorial as a result of ATN from sepsis and rhabdomyolysis. Worsening today. IV fluid hydration as above Flynn in place Medical history patient done for nephrotoxic drugs. Strict input output charting. Fena- 0.9. Prerenal. If creatinine continues to worsen will consult nephrology. Status: Acute (5) Rhabdomyolysis: Status: Acute Qualifiers: Rhabdomyolysis type: traumatic Encounter type: initial encounter Qualified Code(s): T79.6XXA - Traumatic ischemia of muscle, initial encounter (6) Wide-complex tachycardia: Telemetry. Continue with home dose of amiodarone. Status: Acute (7) Cardiomyopathy: Status: Acute Qualifiers: Cardiomyopathy type: dilated Qualified Code(s): I42.0 - Dilated cardiom yopathy (8) Elevated troponin: Most likely demand ischemia. Echo done earlier in the admission shows EF 55 to 60% with grade 1 diastolic dysfunction, moderate annular calcification, mild TR with mild pulmonary hypertension. Appreciate cardiology recommendations. Stop heparin drip. Continue with aspirin. Hold off on statins given rhabdomyolysis. Status: Acute (9) Hyperkalemia: D50/insulin 10 units. Calcium gluconate. Repeat BMP in evening. Status: Acute Additional A&P Information DVT ppx: Heparin 5000 every 12 hourly. Protonix for PUD prophylaxis Full code Guarded prognosis. Plan for today: Wean off Levophed as possible keeping mean arterial pressure 65. Increase fluid to 125 cc/hr. Monitor urine output and if still oliguric in evening give lasix 40 mg. C/w imipenem while await senstivities. PICC line placement for poor IV access. PT Discharge planning: Once hemodynamically stable and out of septic shock most likely home with home health. Attestations Medical Necessity Statement*: Requires further hospitalization for management of sptic shock 2/2 obstructive pyelonephritis, CY, oliguria Critical Care Time: The high probability of a clinically significant, sudden or life threatening deterioration of the patient's [cardiac, ID, renal] system(s) required my full and direct attention, intervention and personal management. The critical care time is as shown. This time is in addition to time spent performing any reported procedures but includes the following: [x] Data and vital sign review and interpretation [x] Patient assessment, examination and intervention [x] Documentation [x] Medication orders and management Critical Care Time (min): 90 Coding Level of Care Code Acute Assistant Art Director for g Fwd Diagnoses Septic shock A41.9; R65.21 Sepsis A41.9; R65.20; N17.0 Sepsis type: sepsis due to unspecified organism Sepsis acute organ dysfunction status: with acute organ dysfunction Severe sepsis acute organ dysfunction type: acute renal failure Acute renal failure type: with acute tubular necrosis Severe sepsis shock status: without septic shock Obstructive pyelonephritis N11.1 CY (acute kidney injury) N17.9 Rhabdomyolysis T79.6XXA Rhabdomyolysis type: traumatic Encounter type: initial encounter Wide-complex tachycardia I47.2 Cardiomyopathy I42.0 Cardiomyopathy type: dilated Elevated troponin R77.8 Hyperkalemia E87.5
--- NOTE | 2021-03-16 16:49 | PC.NURSE ---
PICC right arm ready for use.
[2021-03-16 17:25] LABS: Glucose Point of Care 122 mg/dL (70-110)
[2021-03-16] MEDS: FUROsemide 10 mg/mL SDV 4mL 40 MG IVP (19:33)
[2021-03-16] MEDS: morphine 4 mg/mL SDV 1 mL 2 MG IVP (19:48)
[2021-03-16 20:39] LABS: Glucose Point of Care 112 mg/dL (70-110)
--- NOTE | 2021-03-16 21:54 | USR_ITS ---
PROCEDURE INFORMATION: Exam: US Retroperitoneal; Complete; Kidneys and Bladder Exam date and time: 03/16/2021 9:54 PM Age: 85 years old Clinical indication: Abnormal findings; Abnormal lab test; Abnormal kidney function lab tests; Additional info: Issac, pyelonepritis, post stenting TECHNIQUE: Imaging protocol: Real-time ultrasound of the retroperitoneum with image documentation. Complete exam focused on the kidneys and bladder. COMPARISON: US Renal Kidney Structu* [id number] 02/01/2018 5:27 AM FINDINGS: Right kidney: The right kidney measures 10.9 cm in length. There is cortical atrophy. No mass, calcification or hydronephrosis is seen.. Left kidney: The left kidney measures 9.4 cm in length. There is cortical atrophy. There is 6 mm echogenicity in the lower pole consistent with a nonobstructing calcification. No mass or hydronephrosis is seen. Aorta: The aorta could not be evaluated due to prominent amount of bowel gas.. Urinary bladder: The urinary bladder is collapsed around a Flynn catheter. US/US renal BI* [id number] IMPRESSION: 1. Bilateral cortical atrophy. 2. Nonobstructing 6 mm calcification in the left kidney.
[2021-03-17] VITALS (29 sets, daily range): BP systolic 102–138; BP diastolic 51–70; PULSE 79–106; RESP 16–32; TEMP 36.4–36.6; O2SAT 91–100
[2021-03-17] MEDS: ondansetron 2 mg/ML SDV 2 mL 4 MG IVP ×2 (00:11→07:54)
--- NOTE | 2021-03-17 00:32 | NUR.SHIFT ---
At 0015 pt had vomiting episode and stated he had an upset stomach after eating supper this evening. Zofran was given.
[2021-03-17] MEDS: prochlorperazine 10 mg Tablet 5 MG PO (02:15)
[2021-03-17] MEDS: sodium chloride 0.9% 1,000 ML 125 ML IV (04:13)
--- NOTE | 2021-03-17 04:32 | PC.NURSE ---
Pt continues to feel nauseous after Zofran and Compazine, Dr. Mane notified. Pt has 3+ edema in arms and legs, with an increase weight of 12 lbs over the last [address] Mane of positive fluid balance and weight change and was instructed to continue fluids at 125ml/hr if patient was still fluid responsive according to the results of the Cheetah examination. The Cheetah results were that he was fluid responsive with SVV=41.1%.
--- NOTE | 2021-03-17 05:37 | PC.NURSE ---
Shift Note Frequent safety and comfort rounds continue. Patient was repositioned every two hours and pain was assessed. Orders and nursing care completed as indicated. Patient monitored for response to intervention and treatment. Education provided includes the action of Cristine. Patient verbalized understanding.
[2021-03-17 06:39] LABS: Glucose Point of Care 121 mg/dL (70-110)
[2021-03-17 07:51] LABS: Glucose Point of Care 104 mg/dL (70-110)
--- NOTE | 2021-03-17 08:26 | PC.NURSE ---
Pt nauseated this am. states that he has never had Morphine before. Dr. Tucker updated on pt condition. He requests that the Morphine be stopped.
[2021-03-17 09:24] LABS: Basophils % 0.3 %; Eosinophils % 0.1 %; Hematocrit 29.4 % (42.0-52.0); Hemoglobin 8.5 g/dL (11.7-16.6); Lymphocytes # 0.9 10^3/uL (0.8-4.8); Lymphocytes % 5.6 %; Mean Corpuscular HGB Conc 28.9 g/dL (30.0-36.0); Mean Corpuscular Hemoglobin 25.1 pg (28.0-34.0); Mean Corpuscular Volume 86.7 fl (80-94); Mean Platelet Volume 9.1 fL (7.4-10.4); Monocytes # 0.5 10^3/uL (0.2-0.9); Monocytes % 3.2 %; Neutrophils # 14.11 10^3/uL (1.8-7.7); Neutrophils % 88.8 %; Nucleated Red Blood Cells % 0 %; Platelet Count 283 10^3/cmm (130-400); Red Blood Count 3.39 10^6/uL (4.1-5.3); Red Cell Distribution Width 17.7 % (12.1-15.1); White Blood Count 15.9 10^3/uL (4.0-10.0)
[2021-03-17 10:00] LABS: Alanine Aminotransferase 111 U/L (0-41); Albumin Level 1.9 g/dL (3.5-5.2); Alkaline Phosphatase 181 IU/L (40-130); Anion Gap 18.2 (5-19); Aspartate Amino Transferase 92 U/L (0-40); Blood Urea Nitrogen 61 mg/dL (8-23); Calcium 7.5 mg/dL (8.5-10.5); Carbon Dioxide 15 mmol/L (22-29); Chloride 105 mmol/L (98-107); Globulin 3.1 g/dL (1.3-4.6); Glucose 108 mg/dL (65-115); Osmolality Calculated 294 mOsm/kg (285-295); Potassium 5.2 mmol/L (3.5-5.1); Sodium 133 mmol/L (136-145); Total Bilirubin 0.2 mg/dL (0.15-1.2)
[2021-03-17] MEDS: amiodarone 200 mg Tablet PO (11:38)
[2021-03-17] MEDS: aspirin 81 mg EC Tablet PO (11:38)
[2021-03-17] MEDS: tamsulosin 0.4 mg Capsule PO (11:38)
[2021-03-17] MEDS: pantoprazole DR 40 mg Tablet PO (11:39)
[2021-03-17] MEDS: ascorbic acid 500 mg Tablet PO (11:39)
--- NOTE | 2021-03-17 12:16 | PC.SOCIAL ---
IMM Update Pg. 2 of IMM updated, copy provided to patient.
--- NOTE | 2021-03-17 12:23 | PM.CONSULT ---
Providers/Reason For Consult Consulting Physician/Specialty*: shayy deng md / telenephrology Reason for Consult*: CY, hyperkalemia, rhabdomyolysis Attending Physician: Hari Guzmán MD Primary Care Provider: Felipe Bustos DO History of Present Illness History of Present Illness Darrian Boggs is a 85 year old male admitted for UTI and septic shock on 03/14/21- started on iv anx and went to OR early on 03-14-[address] Jarvis and had a cystoscopy and left ureteral stent placement. 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 Retroperitoneal lymphadenopathy and circumferential bladder wall with multiple bladder diverticuli additionally noted. On admission he was in CY w/ a cr of 2.4 mg/dl, by 03/15 cr was 3.2 and 3.4, 03/16/21 cr 3.7 to 4.4 mg/dl and renal is called to consult as ck is rising, he is oliguric and hyperkalemic. Pt was treated w/ iv zosyn, fluids and pressers. today he is off of pressers but still feels weak. He c/o n/v/abd pain. of note he had a colostomy 20 yrs ago. Review of Systems General: Reports: 10 or more systems reviewed and unremarkable except in HPI and below Narrative: weak, nauea, h/a, vomiting, no sob, no cp, + abd pain, confusion Meds/Allergies Home Medications and Allergies Home Medications Medication Instructions Recorded Confirmed Last Taken Type ascorbic acid (vitamin C) 1,000 mg 1,000 mg PO BID tab 08/08/19 03/13/21 Unknown History tablet aspirin 81 mg tablet,delayed 81 mg PO DAILY 08/08/19 03/13/21 Unknown History release nitroglycerin 0.4 mg sublingual 0.4 mg SUBLINGUAL Q5M PRN 08/10/19 03/13/21 Unknown History tablet furosemide 40 mg tablet 40 mg PO DAILY #90 tab 04/23/20 03/13/21 Unknown Rx acetaminophen 500 mg PO Q6H PRN 03/13/21 03/13/21 Unknown History amiodarone 200 mg PO DAILY 03/13/21 03/13/21 Unknown History fluticasone propionate [Flonase 1 spray INTRANASAL BID 03/13/21 03/13/21 Unknown History Allergy Relief] hydrocodone-acetaminophen 1 - 2 tab PO TID PRN 03/13/21 03/13/21 Unknown History ibuprofen 200 - 400 mg PO Q6H PRN 03/13/21 03/13/21 Unknown History ketotifen fumarate [Refresh Eye 1 drp OPHTHALMIC (EYE) BID PRN 03/13/21 03/13/21 Unknown History Itch Relief] lisinopril 10 mg PO DAILY 03/13/21 03/13/21 Unknown History loratadine 10 mg PO DAILY 03/13/21 03/13/21 Unknown History methenamine hippurate 1 g PO BID 03/13/21 03/13/21 Unknown History tamsulosin 0.4 mg PO DAILY 03/13/21 03/13/21 Unknown History Allergies Allergy/AdvReac Type Severity Reaction Status Date / Time No Known Allergies Allergy Verified 09/13/20 08:56 Current Medications Current Medications Generic Name Dose Route Start Last Admin Trade Name Cliftonq PRN Reason Stop Dose Admin Amiodarone HCl 200 mg 03/14/21 09:00 03/17/21 11:38 Amiodarone 200 Mg Tablet PO 200 mg DAILY MADHAVI Administration Ascorbic Acid 500 mg 03/14/21 18:00 03/17/21 11:39 Ascorbic Acid 500 Mg Tablet PO 500 mg BID MADHAVI Administration Aspirin 81 mg 03/14/21 09:00 03/17/21 11:38 Aspirin 81 Mg Ec Tablet PO 81 mg DAILY MADHAVI Administration Fluticasone Propionate 1 spray 03/14/21 18:00 03/17/21 11:40 Fluticasone Nasal [place] 16gm Btl INTRANASAL Not Given BID MADHAVI Sodium Chloride 1,000 mls @ 125 mls/hr 03/14/21 04:00 03/17/21 04:13 Sodium Chloride 0.9% IV 125 mls/hr .Q8H MADHAVI Administration Norepinephrine Bitartrate 4 mg 254 mls @ 0 mls/hr 03/14/21 18:45 03/16/21 15:30 / Dextrose IV 2 mcg/min .Q0M MADHAVI 7.62 mls/hr Titration Protocol Per Protocol Imipenem/Cilastatin Sodium 250 100 mls @ 200 mls/hr 03/15/21 12:30 03/17/21 00:01 mg/ Sodium Chloride IV Infused Q12H MADHAVI Infusion Protocol Ondansetron HCl 4 mg 03/14/21 03:46 03/17/21 07:54 Ondansetron 2 Mg/Ml Sdv 2 Ml IVP 4 mg Q8H PRN Administration vomiting, or N/V if npo Oxycodone/Acetaminophen 1 tab 03/14/21 12:03 03/16/21 16:27 Oxycodone-Apap 5-325 Mg Tablet PO 1 tab Q6H PRN Administration SEVERE PAIN Pantoprazole Sodium 40 mg 03/14/21 09:00 03/17/21 11:[address] 40 Mg Tablet PO 40 mg DAILY MADHAVI Administration Prochlorperazine 5 mg 03/17/21 01:50 03/17/21 02:15 Prochlorperazine 10 Mg Tablet PO 5 mg TID PRN Administration VOMITING Tamsulosin HCl 0.4 mg 03/14/21 09:00 03/17/21 11:38 Tamsulosin 0.4 Mg Capsule PO 0.4 mg DAILY MADHAVI Administration PFSH Acute PFSH: Medical History Cardiomyopathy Cataracts, bilateral History of high risk medication treatment Hypertension LBBB (left bundle branch block) Left ureteral calculus Obstructive pyelonephritis Osteoarthrosis Prostate cancer Pyuria Syncope Umbilical hernia Ventricular arrhythmia Wide-complex tachycardia Surgical History History of cataract removal with insertion of prosthetic lens BILATERAL History of colon resection WITH COLOSTOMY PLACED History of hip surgery History of left hip replacement Family History Mother Stroke Other Cancer Social History Smoking and tobacco status: former smoker Alcohol intake: unknown Adopted: No Caregiver/support person: No Lives independently: Yes Marital status: / Current occupational status: retired History of recent travel: No Vitals/I&O/Wt Last Vital Signs Temp 97.5 F L 03/17/21 08:30 Pulse 79 03/17/21 10:00 Resp 17 03/17/21 10:00 BP 105/62 03/17/21 10:00 Pulse Ox 99 03/17/21 10:00 03/16/21 03/17/21 03/17/21 22:59 06:59 14:59 Intake Total 1827.744 / 2230.653 531.25 / 2761.903 Output Total 300 / 300 400 / 700 Balance 1527.744 / 1930.653 131.25 / 2061.903 Weight last 48 hrs Weight 93.576 kg Physical Exam Narrative: EXAM NARRATIVE: uncomfortable in bed, NARD- not using o2 vs noted- BP low heent- nc/at, eomi, anicteric neck supple, no jvp lungs dull bases, otherwise clear heart- reg abd soft, distended, hyperactive/ high pitched BS, + colostomy ext no edema neuro- a,a, o x 2 Urinary Catheter Management^: Flynn: Cath Placed During This Visit: yes, but has since been removed by the nurse Reason for Continuing Indwelling Catheter: Accurate Measurement of Urinary Output in Critically Ill Patients Urinary Catheter Date of Insertion: 03/14/21 Urinary Catheter Time of Insertion: 00:46 Date Urinary Catheter Removed: 03/14/21 Time Urinary Catheter Discontinued: 00:30 Data Micro: Micro: Microbiology 03/13/21 18:37 Urine Culture - Fi nal Urine,Clean Catch Pseudomonas aer uginosa A&P Additional A&P Information 85 year old male with a past medical history of hypertension, wide-complex tachycardia, colostomy, chronic swelling of bilateral lower extremities. Pt admitted w/ septic shock from pseudomonas UTI from a Large left mid ureter stone 7 mm with proximal hydroureteronephrosis on the left side. He is s/p cystoscopy and left sided stent 1. sepsis from UTI and kidney stone- wbc slowly improving 2. oliguric CY- from prerenal azotemia vs ATN- on curt-i, diuretic and septic on admission- still not eating well -ur na 49 on admission- can be ATN or from diuretics -repeat ur electrolytes -repeat renal imaging w/o hydronephrosis- -give ivf -avoid nephrotoxins -monitor in and out 3. hyperkalemia- improving- monitor 4. hyponatremia- from cy- check cortisol, urine lytes -normal tsh -check sortisol level 5. rhandomyolysis- from falls and already in CY- ck is under 10,000- unlikely the cause of his CY -repeat ck 6. mild inc AGMA- from sepsis- bicarb drip -check ABG 7. anemia - monitor cbc 8. abd pain, n/v/, high pitched BS- check KUB- Q of obstruction pt wants to avoid dialysis- will rx w/ fluids, lasix as needed- attempt to avoid HD seen and examined w/ rN- telehealth visit -informed consent for telehealth obtained discussed w/ Dr. Parks in detail time spent > 50 minutes Consult Attestations Medical Necessity Statement: uti, CY, rhabdomyolysis, Non AGMA, AMS, abd issue Time Spent in Patient Care: Greater than 35 minutes Coding Level of Care Code Acute Credit Relationship Manager for Evette [place]
--- NOTE | 2021-03-17 12:41 | XR_ITS ---
WS: [id number] XR KUB [id number] REASON FOR EXAM: high pitched BS FINDINGS: Left ureteral stent in proper position. There appear to be calculus fragments adjacent to the proximal portion of the left ureteral stent at the L4 level. No free air or retroperitoneal air. Mild dilatation of small bowel in the right lower abdomen. Moderate gaseous distention of segments of colon in the upper abdomen. XR/XR KUB [id number] IMPRESSION: Remnant calculus in the proximal left ureter. Bowel dilatation and a nonspecific pattern as above.
--- NOTE | 2021-03-17 12:46 | PM.PN ---
Subjective Subjective: Interval history: Overnight patient has remained hemodynamically stable. Currently of Levophed. Saturating well on room air. Awake and alert. Complaining of nausea. Colostomy working well. Denies any headache. Only for 400 cc of urine overnight. Creatinine worsening. Vitals/I&O/Wt Last Vital Signs Temp 97.5 F L 03/17/21 08:30 Pulse 82 03/17/21 12:30 Resp 19 H 03/17/21 12:30 BP 121/64 03/17/21 12:30 Pulse Ox 99 03/17/21 12:30 03/16/21 03/17/21 03/17/21 22:59 06:59 14:59 Intake Total 1827.744 / 2230.653 531.25 / 2761.903 Output Total 300 / 300 400 / 700 Balance 1527.744 / 1930.653 131.25 / 2061.903 Weight last 48 hrs Weight 93.576 kg Physical Exam Narrative: EXAM NARRATIVE: General: AOx3, frequent frail appearing HEENT: PERRL A, pupils bilaterally equal and reactive, pallor present Chest: Normal vesicular breath sounds, no added sounds, equal good air entry bilaterally CVS: S1-S2 regular, no murmurs, no tachycardia, no gallops, no rubs Abdomen: Soft, nontender, no organomegaly, bowel sounds present, left lower quadrant colostomy in place, normal stool output, cystic swelling in the right lower quadrant, on CT abdomen correlates with postop seroma. Patient states swelling has been present unchanged for the last 3 years. Neuro: No focal deficits, no facial deformity, AO x3, power 5/5 in all limbs Extremities: Chronic bilateral lower extremity edema with changes of stasis dermatitis Urinary Catheter Management^: Flynn: Cath Placed During This Visit: yes, but has since been removed by the nurse Reason for Continuing Indwelling Catheter: Accurate Measurement of Urinary Output in Critically Ill Patients Urinary Catheter Date of Insertion: 03/14/21 Urinary Catheter Time of Insertion: 00:46 Date Urinary Catheter Removed: 03/14/21 Time Urinary Catheter Discontinued: 00:30 Data : 03/17/21 08:52 03/17/21 08:52 Micro: Microbiology 03/13/21 18:37 Urine Culture - Final Urine,Clean Catch Pseudomonas aeruginosa A&P Assessment and plan (1) Septic shock: Resolved. Keep mean arterial pressure over 65. Continue with normal saline at 75 cc/h. Status: Acute (2) Sepsis: Meet sepsis criteria by way of leukocytosis, elevated lactate, tachycardia and hypotension. Sepsis most likely related to obstructive pyelonephritis Blood culture currently negative preliminary. Urine culture showing multidrug resistant Pseudomonas but sensitive to Zosyn. Switch imipenem to Zosyn. We will consult ID for further recommendations. 7 mm obstructing stone noted in the left ureter, urology consult obtained with Dr. Jarvis, patient plan for urgent cystoscopy with ureteral stent. Status: Acute Qualifiers: Sepsis type: sepsis due to unspecified organism Sepsis acute organ dysfunction status: with acute organ dysfunction Severe sepsis acute organ dysfunction type: acute renal failure Acute renal failure type: with acute tubular necrosis Severe sepsis shock status: without septic shock Qualified Code(s): A41.9 - Sepsis, unspecified organism; R65.20 - Severe sepsis without septic shock; N17.0 - Acute kidney failure with tubular necrosis (3) Obstructive pyelonephritis: As noted above as noted above Status: Acute (4) CY (acute kidney injury): With oliguria. Likely multifactorial as a result of ATN from sepsis and rhabdomyolysis. Continues to worsen with metabolic acidosis. Flynn in place Nephrology consulted. Will appreciate recommendations. Medical reconciliation done for nephrotoxic drugs. Patient agreeable for dialysis but would want to hold off as much as possible. Status: Acute (5) Rhabdomyolysis: Status: Acute Qualifiers: Rhabdomyolysis type: traumatic Encounter type: initial encounter Qualified Code(s): T79.6XXA - Traumatic ischemia of muscle, initial encounter (6) Wide-complex tachycardia: Telemetry. Continue with home dose of amiodarone. Status: Acute (7) Cardiomyopathy: Status: Acute Qualifiers: Cardiomyopathy type: dilated Qualified Code(s): I42.0 - Dilated cardiomyopathy (8) Elevated troponin: Most likely demand ischemia. Echo done earlier in the admission shows EF 55 to 60% with grade 1 diastolic dysfunction, moderate annular calcification, mild TR with mild pulmonary hypertension. Appreciate cardiology recommendations. Stop heparin drip. Continue with aspirin. Hold off on statins given rhabdomyolysis. Status: Acute (9) Hyperkalemia: Status: Acute (10) Oliguria: Status: Acute Additional A&P Information DVT ppx: Heparin 5000 every 12 hourly. Protonix for PUD prophylaxis Full code Guarded prognosis. Plan for today: Nephrology consultation. Possible bicarb drip. Switching antibiotics from meropenem to Zosyn. Continue with PICC line. Monitoring strict intake output. Transfer out of ICU. Discharge planning: Once hemodynamically stable and out of septic shock most likely home with home health. Attestations Medical Necessity Statement*: Requires further hospitalization for management of sepsis secondary to obstructive pyelonephritis from resistant Pseudomonas, CY oliguria metabolic acidosis Critical Care Time: The high probability of a clinically significant, sudden or life threatening deterioration of the patient's [renal, cardiac, ID, urological] system(s) required my full and direct attention, intervention and personal management. The critical care time is as shown. This time is in addition to time spent performing any reported procedures but includes the following: [x] Data and vital sign review and interpretation [x] Patient assessment, examination and intervention [x] Documentation [x] Medication orders and management Critical Care Time (min): 90 Coding Level of Care Code Acute Shampoo Technician for [facility] Fwd Diagnoses Septic shock A41.9; R65.21 Sepsis A41.9; R65.20; N17.0 Sepsis type: sepsis due to unspecified organism Sepsis acute organ dysfunction status: with acute organ dysfunction Severe sepsis acute organ dysfunction type: acute renal failure Acute renal failure type: with acute tubular necrosis Severe sepsis shock status: without septic shock Obstructive pyelonephritis N11.1 CY (acute kidney injury) N17.9 Rhabdomyolysis T79.6XXA Rhabdomyolysis type: traumatic Encounter type: initial encounter Wide-complex tachycardia I47.2 Cardiomyopathy I42.0 Cardiomyopathy type: dilated Elevated troponin R77.8 Hyperkalemia E87.5 Oliguria R34
[2021-03-17] MEDS: piperacillin-tazobactam 3.375 GM in sodium chloride 0.9% (plus) 50 ML IV (13:13)
[2021-03-17 14:06] LABS: Alanine Aminotransferase 100 U/L (0-41); Albumin Level 2.2 g/dL (3.5-5.2); Alkaline Phosphatase 188 IU/L (40-130); Anion Gap 17.1 (5-19); Aspartate Amino Transferase 75 U/L (0-40); Blood Urea Nitrogen 51 mg/dL (8-23); Calcium 7.6 mg/dL (8.5-10.5); Carbon Dioxide 17 mmol/L (22-29); Chloride 105 mmol/L (98-107); Globulin 2.4 g/dL (1.3-4.6); Glucose 99 mg/dL (65-115); Osmolality Calculated 292 mOsm/kg (285-295); Potassium 5.1 mmol/L (3.5-5.1); Sodium 134 mmol/L (136-145); Total Bilirubin 0.2 mg/dL (0.15-1.2); Total Protein 4.6 g/dL (6.6-8.7)
[2021-03-17 14:17] LABS: ABG PCO2 30.9 mmHg (35-45); ABG PH Result 7.31 (7.35-7.45); Alveolar-Arterial Oxygen Gradi 5.6 mmHg (5-10); Arterial Blood Gas Hematocrit 27.5 % (42-52); Base Excess ABG -9.7 mmol/L (-2.0-2.0); Blood Gas Allen Test Pos; Blood Gas Operator Identificat CAK; Blood Gas Sample Site Radial, left; Blood Gas Sample Type Arterial; Carboxyhemoglobin 1.1 %THgb (0.4-20.1); HCO3 ABG 15.6 mmol/L (22-26); Ionized Calcium Level - ABG 1.2 mmol/L (1.1-1.4); Methemoglobin < 0.0 % (0.4-1.5); Oxygen Device VENT; Oxygen Saturation ABG 94.6; PO2 ABG 68.1 mmHg (80.0-100.0); Potassium Level - ABG 4.9 mmol/L (3.5-5.0)
[2021-03-17 14:39] LABS: Creatine Phosphokinase 1854 U/L (39-308)
--- NOTE | 2021-03-17 15:18 | PC.NURSE ---
Transfer Note Patient transferred to CSU room 101 from ICU 9 via bed. Handoff received from Radha Melgoza. Patient oriented to environment and equipment. Covering service notified. Orders reviewed and will continue to monitor. Family and/or sales representative gas service notified.
[2021-03-17 17:29] LABS: Glucose Point of Care 123 mg/dL (70-110)
[2021-03-17] MEDS: fluticasone nasal spray 16gm Btl 1 SPRAY INTRANASAL (17:31)
[2021-03-17 17:39] LABS: Blood Urine 3+ (Negative); Glucose Urine UA Norm (Normal); Ketones Urine Negative (Negative); Protein Urine 1+ (Negative); Specific Gravity, Urine 1.015 (1.005-1.030); Urine Appearance Turbid (CLEAR); Urine Color Yellow (Yellow); pH Urine 6 (5-7)
[2021-03-17 17:40] LABS: Add Urine Culture? Yes; Bacteria Urine 1+ /hpf; Bilirubin Urine Neg (Negative); Leukocyte Esterase Urine 2+ (Negative); Nitrate Urine Negative (Negative); Urobilinogen Urine Norm (Negative); WBC Urine TOO NUMEROUS TO CNT /hpf (0-5)
[2021-03-17 18:00] LABS: Potassium, Radom Urine 30 mmol/L; Urine Creatinine 43 mg/dL (39-259); Urine Random Chloride 45 mmol/L; Urine Random Sodium 47 mmol/L
--- NOTE | 2021-03-17 18:29 | PC.NURSE ---
Shift Note Frequent safety and comfort rounds continue. Orders and/or nursing care completed as indicated. Patient monitored for response to intervention and treatment(s). Education provided includes colostomy care up coming lab test. Patient and/or sales representative aircraft verbalized understanding. Will continue to monitor.
[2021-03-17 20:25] LABS: Glucose Point of Care 193 mg/dL (70-110)
[2021-03-17] MEDS: oxyCODONE-APAP 5-325 mg Tablet 1 TAB PO (21:08)
[2021-03-17] MEDS: acetaminophen 325 mg Tablet 650 MG PO (23:28)
[2021-03-18] VITALS (12 sets, daily range): BP systolic 101–118; BP diastolic 41–67; PULSE 74–92; RESP 18–22; TEMP 36.6–36.8; O2SAT 89–96
[2021-03-18] MEDS: acetaminophen 1,000 MG/100 ML PIGGYBACK 400 MG IV (00:40)
[2021-03-18] MEDS: piperacillin-tazobactam 3.375 GM in sodium chloride 0.9% (plus) 50 ML IV ×2 (00:44→13:46)
[2021-03-18] MEDS: oxyCODONE-APAP 5-325 mg Tablet 1 TAB PO ×3 (04:45→20:02)
[2021-03-18 05:53] LABS: Basophils % 0.3 %; Eosinophils # 0.2 10^3/uL (0.0-0.8); Eosinophils % 1.4 %; Hematocrit 25.1 % (42.0-52.0); Hemoglobin 7.5 g/dL (11.7-16.6); Lymphocytes # 1.3 10^3/uL (0.8-4.8); Lymphocytes % 10.3 %; Mean Corpuscular HGB Conc 29.9 g/dL (30.0-36.0); Mean Corpuscular Hemoglobin 25.1 pg (28.0-34.0); Mean Corpuscular Volume 83.9 fl (80-94); Mean Platelet Volume 9.1 fL (7.4-10.4); Monocytes # 0.6 10^3/uL (0.2-0.9); Monocytes % 5.1 %; Neutrophils # 9.86 10^3/uL (1.8-7.7); Neutrophils % 80.5 %; Nucleated Red Blood Cells % 0 %; Platelet Count 274 10^3/cmm (130-400); Red Blood Count 2.99 10^6/uL (4.1-5.3); Red Cell Distribution Width 17.7 % (12.1-15.1); White Blood Count 12.3 10^3/uL (4.0-10.0)
[2021-03-18 06:20] LABS: Alanine Aminotransferase 73 U/L (0-41); Albumin Level 1.7 g/dL (3.5-5.2); Alkaline Phosphatase 164 IU/L (40-130); Anion Gap 16.5 (5-19); Aspartate Amino Transferase 49 U/L (0-40); Blood Urea Nitrogen 53 mg/dL (8-23); Calcium 7.2 mg/dL (8.5-10.5); Carbon Dioxide 20 mmol/L (22-29); Chloride 102 mmol/L (98-107); Globulin 2.4 g/dL (1.3-4.6); Glucose 129 mg/dL (65-115); Magnesium 1.8 mg/dL (1.7-2.3); Osmolality Calculated 294 mOsm/kg (285-295); Potassium 4.5 mmol/L (3.5-5.1); Sodium 134 mmol/L (136-145); Total Bilirubin 0.2 mg/dL (0.15-1.2); Total Protein 4.1 g/dL (6.6-8.7)
[2021-03-18 06:21] LABS: Calcium 6.8 mg/dL (8.5-10.5)
[2021-03-18 06:23] LABS: Parathyroid Hormone 171.3 pg/mL (15-65)
[2021-03-18 06:26] LABS: Creatine Phosphokinase 939 U/L (39-308)
[2021-03-18 06:39] LABS: Glucose Point of Care 147 mg/dL (70-110)
--- NOTE | 2021-03-18 07:12 | PC.NURSE ---
Shift Note Frequent safety and comfort rounds continue. Orders and/or nursing care completed as indicated. Patient monitored for response to intervention and treatment(s). Education provided includes plan of care. Patient and/or apprenticeship training representative verbalized understanding. Will continue to monitor.
--- NOTE | 2021-03-18 07:41 | P.PN_ITS ---
Subjective Subjective: Interval history: sob and swollen Medications: Reviewed: Yes Medication Review Details: Current Medications Acetaminophen (Acetaminophen 325 Mg Tablet) 650 mg PO Q6H PRN PRN Reason: Mild/Mod Pain Or Temp >/= 101 Last Admin: 03/17/21 23:28 Dose: 650 mg Documented by: Amiodarone HCl (Amiodarone 200 Mg Tablet) 200 mg PO DAILY [facility] Last Admin: 03/17/21 11:38 Dose: 200 mg Documented by: Ascorbic Acid (Ascorbic Acid 500 Mg Tablet) 500 mg PO DAILY [facility] Aspirin (Aspirin 81 Mg Ec Tablet) 81 mg PO DAILY [facility] Last Admin: 03/17/21 11:38 Dose: 81 mg Documented by: Dextrose (Dextrose 50% Syringe 50 Ml) 25 ml IVP ONCE PRN; Protocol PRN Reason: hypoglycemia protocol Dextrose (Dextrose 50% Syringe 50 Ml) 50 ml IVP PRN PRN; Protocol PRN Reason: hypoglycemia protocol Fluticasone Propionate (Fluticasone Nasal [place] 16gm Btl) 1 spray INTRANASAL BID [facility] Last Admin: 03/17/21 17:31 Dose: 1 spray Documented by: Glucagon (Glucagon 1 Mg/Ml Inj 1 Ml) 1 mg IM ONCE PRN; Protocol PRN Reason: Adult Acute Hypoglycemia Prot. Dextrose (D5w) 500 mls @ 100 mls/hr IV ONCE PRN; Protocol PRN Reason: Adult Acute Hypoglycemia Prot Piperacillin Sod/Tazobactam (Sod 3.375 gm/ Sodium Chloride) 50 mls @ 12.5 mls/hr IV Q12H [facility]; Protocol Last Infusion: 03/18/21 04:58 Dose: Infused Documented by: Lactulose (Lactulose Oral Liq 20 Gm/30 Ml Udc) 10 gm PO DAILY PRN; Protocol PRN Reason: Constipation (see protocol) Naloxone HCl (Naloxone 0.4 Mg/Ml Sdv) 0.1 mg IVP Q2M PRN PRN Reason: OPIATERV Non-Formulary Medication (Methenamine Hippurate) 1 gm PO BID [facility] Ondansetron HCl (Ondansetron 2 Mg/Ml Sdv 2 Ml) 4 mg IVP Q8H PRN PRN Reason: vomiting, or N/V if npo Last Admin: 03/17/21 07:54 Dose: 4 mg Documented by: Oxycodone/Acetaminophen (Oxycodone-Apap 5-325 Mg Tablet) 1 tab PO Q6H PRN PRN Reason: SEVERE PAIN Last Admin: 03/18/21 04:45 Dose: 1 tab Documented by: Pantoprazole Sodium (Pantoprazole Dr 40 Mg Tablet) 40 mg PO DAILY [facility] Last Admin: 03/17/21 11:39 Dose: 40 mg Documented by: Prochlorperazine (Prochlorperazine 10 Mg Tablet) 5 mg PO TID PRN PRN Reason: VOMITING Last Admin: 03/17/21 02:15 Dose: 5 mg Documented by: Tamsulosin HCl (Tamsulosin 0.4 Mg Capsule) 0.4 mg PO DAILY [facility] Last Admin: 03/17/21 11:38 Dose: 0.4 mg Documented by: Vitals/I&O/Wt Last Vital Signs Temp 98 F 03/18/21 03:29 Pulse 74 03/18/21 05:52 Resp 18 03/18/21 04:45 BP 101/49 03/18/21 03:29 Pulse Ox 92 03/18/21 03:29 03/17/21 03/18/21 03/18/21 22:59 06:59 14:59 Intake Total 1575.847 / 2771.840 1889 / 2845.847 Output Total 100 / 100 650 / 750 Balance 1475.847 / 1475.847 620 / 2095.847 Weight last 48 hrs Weight 93.576 kg Physical Exam Narrative: EXAM NARRATIVE: uncomfortable in bed,sob- not using o2 vs noted- BP low heent- nc/at, eomi, anicteric neck supple, no jvp lungs dull bases, and b/l crackles heart- reg + s1, s2, +ELISE abd soft, distended, nt, + colostomy ext + edema b/l neuro- a,a, o x 3 Urinary Catheter Management^: Flynn: Cath Placed During This Visit: yes, but has since been removed by the nurse Reason for Continuing Indwelling Catheter: Accurate Measurement of Urinary Output in Critically Ill Patients Urinary Catheter Date of Insertion: 03/14/21 Urinary Catheter Time of Insertion: 00:46 Date Urinary Catheter Removed: 03/14/21 Time Urinary Catheter Discontinued: 00:30 Data : 03/18/21 04:56 03/18/21 04:56 Micro: Microbiology 03/13/21 18:37 Urine Culture - Final Urine,Clean Catch Pseudomonas aeruginosa A&P Additional A&P Information 85 year old male with a past medical history of hypertension, wide-complex tachycardia, colostomy, chronic swelling of bilateral lower extremities. Pt admitted w/ septic shock from pseudomonas UTI from a Large left mid ureter stone 7 mm with proximal hydroureteronephrosis on the left side. He is s/p cystoscopy and left sided stent 1. sepsis from UTI and kidney stone- wbc slowly improving 2. oliguric CY- from prerenal azotemia vs ATN- on curt-i, diuretic and septic on admission- still not eating well -ur na 49 on admission- can be ATN or from diuretics -repeat ur electrolytes -repeat renal imaging w/o hydronephrosis- -d/c ivf and give a dose of lasix -avoid nephrotoxins -monitor in and out 3. hyperkalemia- improved 4. hyponatremia- from cy- improving -check cortisol, urine lytes -normal tsh -check sortisol level 5. rhandomyolysis- from falls and already in CY- ck is under 10,000- unlikely the cause of his CY -repeat ck improved 939 6. mild inc AGMA- from sepsis- -check ABG- - met acidosis w/ good compensation 7. anemia - monitor cbc- hgb 7.5 8. abd pain, n/v- KUB- w/ mild dilitation of SB in rt lower abd , Moderate gaseous distention of segments of colon in the upper abdomen. 9. 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
[2021-03-18 08:06] LABS: Thyroid Stimulating Hormone 2.45 uIU/mL (0.27-4.20)
[2021-03-18] MEDS: ascorbic acid 500 mg Tablet PO (08:09)
[2021-03-18] MEDS: tamsulosin 0.4 mg Capsule PO (08:09)
[2021-03-18] MEDS: aspirin 81 mg EC Tablet PO (08:09)
[2021-03-18] MEDS: FUROsemide 10 mg/mL SDV 4mL 40 MG IVP (08:09)
[2021-03-18] MEDS: amiodarone 200 mg Tablet PO (08:09)
[2021-03-18] MEDS: fluticasone nasal spray 16gm Btl 1 SPRAY INTRANASAL ×2 (08:10→17:17)
[2021-03-18] MEDS: pantoprazole DR 40 mg Tablet PO (08:17)
--- NOTE | 2021-03-18 08:35 | PC.CHAP ---
Pastoral Care Encounter/Spiritual Assessment Type of Contact [] Declined operations logistics analyst visit [] Patient/Family/Request visit [] Outpatient visit [] Follow-up visit [] Physician referral [] Code/Alert [x] Routine visit [] Staff referral [] Actively dying [] Patient sleeping [] Family support [] [] Out of room [] Palliative care [] [] Receiving care in room [] Pre-surgical visit [] Trauma [] Long length of stay [] ICU visit [] Other: Relational/Emotional Strength [] Patient feels connected with others/family/visitors/staff [] Distress [] Loneliness/isolation [] Abandonment Spirituality of Patient [] Person of Nadia [] Attends Synagogue of their Nadai [] Believes in Prayer [] Reads Bible or Uatsdin materials [] There are Spiritual issues to be addressed Power System Operator Interventions [x] Prayer [x] Active listening [x] Non-anxious presence [x] Spiritual/emotional support [] Crisis/trauma care [] Spiritual counseling [] Bereavement support [] Provided bereavement packet [] Provided Bible/devotional materials [] Provided toy/stuffed animal, coloring book to patient or family member [] Provided Communion [] Anointing/[place] [] Salvation [x] Completed spiritual assessment [] Other: Impact on Illness or Injury [] Angry [] Fearful [] Anxious [] Often cries [] Exhaustion [] Unable to work [] Unable to attend yarsanism [] Unable to walk/stand [] Unable to read [] Unable to drive [] Unable to eat/drink [] Unable to sleep [] Unable to be with family [] Patient intubated [] Other: Summary having breakfast... seems confused Time spent with patient 5 min
--- NOTE | 2021-03-18 12:10 | PC.NURSE ---
patient reports pain 8/10 in left hip at this time after PT workout this day
--- NOTE | 2021-03-18 14:04 | PC.NURSE ---
spoke with Dr correia about patients poor out put this shift instructions received to give [id number] lasix first confirm with nephrology Call placed to Dr Kirkland Instructions received to hold off on lasix unless patient becomes SOB and flush gracia cath he will place orders to repeat labs at 1500 call with results
[2021-03-18 15:43] LABS: Anion Gap 18.5 (5-19); Blood Urea Nitrogen 60 mg/dL (8-23); Calcium 7.4 mg/dL (8.5-10.5); Carbon Dioxide 19 mmol/L (22-29); Chloride 100 mmol/L (98-107); Glucose 129 mg/dL (65-115); Osmolality Calculated 295 mOsm/kg (285-295); Potassium 4.5 mmol/L (3.5-5.1); Sodium 133 mmol/L (136-145)
[2021-03-18] MEDS: acetaminophen 325 mg Tablet 650 MG PO (17:17)
--- NOTE | 2021-03-18 20:18 | PC.NURSE ---
Shift Note Frequent safety and comfort rounds continue. Orders and/or nursing care completed as indicated. Patient monitored for response to intervention and treatment(s). Education provided includes antibiotics new medications cough turn and deep breathing. Patient and/or manufacturing sales representative verbalized understanding WILL NEED reinforcement. Will continue to monitor.
[2021-03-18 20:27] LABS: Glucose Point of Care 203 mg/dL (70-110)
--- NOTE | 2021-03-18 22:03 | P.PN_ITS ---
Subjective Subjective: Interval history: He overall is doing okay. Feels deconditioned, feels he is not getting up from bed and off as opposed to what he is used to. Is working with therapy. Quite swollen extremities. Vitals/I&O/Wt Last Vital Signs Temp 98.3 F 03/18/21 19:01 Pulse 86 03/18/21 19:01 Resp 22 H 03/18/21 20:02 BP 118/67 03/18/21 19:01 Pulse Ox 90 03/18/21 20:02 03/18/21 03/18/21 03/18/21 06:59 14:59 22:59 Intake Total 1270 / 2845.847 1858.333 / 1858.333 290 / 2148.333 Output Total 650 / 750 175 / 175 Balance 620 / 2095.847 1683.333 / 1683.333 290 / 1973.333 Weight last 48 hrs Weight 93.576 kg Physical Exam Const: COMMON NORMALS: no acute distress, patient oriented x3 and alert GENERAL APPEARANCE: cooperative and frail appearing ORIENTATION/CONSCIOUSNESS: Yes awake HENMT: COMMON NORMALS: oropharynx normal Neck/C-Spine: COMMON NORMALS: no JVD Resp: COMMON NORMALS: normal respiratory effort and clear to auscultation bilaterally AUSCULTATION: clear to auscultation bilaterally Cardio: COMMON NORMALS: no JVD, regular rhythm, S1 normal heart sound present, S2 normal heart sound present and No murmurs present (Cardio) RHYTHM: regular rhythm HEART SOUNDS: S1 normal heart sound present and S2 normal heart sound present GI: COMMON NORMALS: Normal to inspection, nondistended, normoactive bowel sounds present, Soft to palpation and non-tender PALPATION: Yes Soft to palpation Extremity: COMMON NORMALS: no joint enlargement GENERAL: Yes edema (Anasarca) Neuro: COMMON NORMALS: patient oriented x3 and moves all extremities SENSORIUM/ORIENTATION: Yes alert Skin: COMMON NORMALS: no rashes or lesions noted GENERAL SKIN EXAM: no rashes or lesions noted Urinary Catheter Management^: Flynn: Cath Placed During This Visit: yes, but has since been removed by the nurse Reason for Continuing Indwelling Catheter: Acute Urinary Retention or Obstruction Urinary Catheter Date of Insertion: 03/14/21 Urinary Catheter Time of Insertion: 00:46 Date Urinary Catheter Removed: 03/14/21 Time Urinary Catheter Discontinued: 00:30 Data : 03/18/21 04:56 03/18/21 14:40 Micro: Microbiology 03/13/21 17:48 Blood Culture - Final Blood NO GROWTH AFTER 5 DAYS 03/13/21 17:40 Blood Culture - Final Blood NO GROWTH AFTER 5 DAYS A&P Assessment and plan (1) CY (acute kidney injury): Continue supportive care. DC IV fluid. P.o. intake as tolerating. Avoid nephrotoxins. Rhabdomyolysis resolving. Appreciate nephrology recommendations. Patient agreeable for dialysis but would want to hold off as much as possible. Status: Acute (2) Anasarca: DC IVF. Agree with Lasix. Status: Acute (3) Obstructive pyelonephritis: Complicated UTI with MDR Pseudomonas. Continue Zosyn. Unfortunately no option to switch to p.o. medicine. Status: Acute (4) Septic shock: Resolved. Status: Acute (5) Sepsis: Status: Acute Qualifiers: Sepsis type: sepsis due to unspecified organism Sepsis acute organ dysfunction status: with acute organ dysfunction Severe sepsis acute organ dysfunction type: acute renal failure Acute renal failure type: with acute tubular necrosis Severe sepsis shock status: without septic shock Qualified Code(s): A41.9 - Sepsis, unspecified organism; R65.20 - Severe sepsis without septic shock; N17.0 - Acute kidney failure with tubular necrosis (6) Rhabdomyolysis: Resolving. Status: Acute Qualifiers: Rhabdomyolysis type: traumatic Encounter type: initial encounter Qualified Code(s): T79.6XXA - Traumatic ischemia of muscle, initial encounter (7) Wide-complex tachycardia: Telemetry. Continue with home dose of amiodarone. Status: Acute (8) Cardiomyopathy: Status: Acute Qualifiers: Cardiomyopathy type: dilated Qualified Code(s): I42.0 - Dilated cardiomyopathy (9) Elevated troponin: Most likely demand ischemia. Echo done earlier in the admission shows EF 55 to 60% with grade 1 diastolic dysfunction, moderate annular calcification, mild TR with mild pulmonary hypertension. Continue with aspirin. Hold off on statins given rhabdomyolysis. Status: Acute (10) Hyperkalemia: Status: Acute (11) Oliguria: Status: Acute Additional A&P Information Mobilize as tolerating with PT. Attestations Medical Necessity Statement*: Continue admission for management of complicated urinary tract infection with MDR Pseudomonas requiring IV antibiotic therapy, anasarca in the setting of acute kidney injury with oliguria. 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 [facility] Fwd Diagnoses CY (acute kidney injury) N17.9 Anasarca R60.1 Obstructive pyelonephritis N11.1 Septic shock A41.9; R65.21 Sepsis A41.9; R65.20; N17.0 Sepsis type: sepsis due to unspecified organism Sepsis acute organ dysfunction status: with acute organ dysfunction Severe sepsis acute organ dysfunction type: acute renal failure Acute renal failure type: with acute tubular necrosis Severe sepsis shock status: without septic shock Rhabdomyolysis T79.6XXA Rhabdomyolysis type: traumatic Encounter type: initial encounter Wide-complex tachycardia I47.2 Cardiomyopathy I42.0 Cardiomyopathy type: dilated Elevated troponin R77.8 Hyperkalemia E87.5 Oliguria R34
[2021-03-19] VITALS (43 sets, daily range): BP systolic 88–154; BP diastolic 41–86; PULSE 78–121; RESP 12–32; TEMP 36.4–36.6; O2SAT 88–95
[2021-03-19] MEDS: piperacillin-tazobactam 3.375 GM in sodium chloride 0.9% (plus) 50 ML IV ×2 (02:01→14:43)
[2021-03-19] MEDS: oxyCODONE-APAP 5-325 mg Tablet 1 TAB PO ×4 (02:01→19:57)
[2021-03-19 05:24] LABS: Basophils # 0.1 10^3/uL (0.0-0.1); Basophils % 0.4 %; Eosinophils # 0.3 10^3/uL (0.0-0.8); Eosinophils % 1.9 %; Hematocrit 24.2 % (42.0-52.0); Hemoglobin 7.5 g/dL (11.7-16.6); Lymphocytes # 1.7 10^3/uL (0.8-4.8); Lymphocytes % 12.1 %; Mean Corpuscular Hemoglobin 25.4 pg (28.0-34.0); Mean Platelet Volume 9.2 fL (7.4-10.4); Monocytes # 0.8 10^3/uL (0.2-0.9); Monocytes % 5.5 %; Neutrophils # 10.68 10^3/uL (1.8-7.7); Neutrophils % 77.1 %; Nucleated Red Blood Cells % 0 %; Platelet Count 326 10^3/cmm (130-400); Red Blood Count 2.95 10^6/uL (4.1-5.3); Red Cell Distribution Width 17.5 % (12.1-15.1); White Blood Count 13.9 10^3/uL (4.0-10.0)
[2021-03-19 05:44] LABS: Alanine Aminotransferase 76 U/L (0-41); Albumin Level 1.7 g/dL (3.5-5.2); Alkaline Phosphatase 166 IU/L (40-130); Anion Gap 16.8 (5-19); Aspartate Amino Transferase 48 U/L (0-40); Blood Urea Nitrogen 69 mg/dL (8-23); Calcium 7.3 mg/dL (8.5-10.5); Carbon Dioxide 21 mmol/L (22-29); Chloride 104 mmol/L (98-107); Globulin 2.5 g/dL (1.3-4.6); Glucose 100 mg/dL (65-115); Osmolality Calculated 304 mOsm/kg (285-295); Phosphorus 4.4 mg/dL (2.5-4.5); Potassium 4.8 mmol/L (3.5-5.1); Sodium 137 mmol/L (136-145); Total Bilirubin 0.2 mg/dL (0.15-1.2); Total Protein 4.2 g/dL (6.6-8.7)
--- NOTE | 2021-03-19 06:15 | PC.NURSE ---
Shift Note Frequent safety and comfort rounds continue. Pt reported severe pain in legs and back throughout the night. Pt repositioned q 2 hours and as needed for comfort and received pain medication. Orders and nursing care completed as indicated. Patient monitored for response to intervention and treatment. Education provided includes maximum dose of acetaminophen in a 24 hour period. Patient verbalized understanding but needs reinforcement.
[2021-03-19 06:40] LABS: Glucose Point of Care 143 mg/dL (70-110)
--- NOTE | 2021-03-19 07:18 | P.PN_ITS ---
Subjective Subjective: Interval history: back and hip pain. swollen, sob, uncomfortable. oliguric. rest of ROS negative. Medications: Reviewed: Yes Medication Review Details: Current Medications Acetaminophen (Acetaminophen 325 Mg Tablet) 650 mg PO Q6H PRN PRN Reason: Mild/Mod Pain Or Temp >/= 101 Last Admin: 03/18/21 17:17 Dose: 650 mg Documented by: Amiodarone HCl (Amiodarone 200 Mg Tablet) 200 mg PO DAILY [facility] Last Admin: 03/18/21 08:09 Dose: 200 mg Documented by: Ascorbic Acid (Ascorbic Acid 500 Mg Tablet) 500 mg PO DAILY [facility] Last Admin: 03/18/21 08:09 Dose: 500 mg Documented by: Aspirin (Aspirin 81 Mg Ec Tablet) 81 mg PO DAILY [facility] Last Admin: 03/18/21 08:09 Dose: 81 mg Documented by: Dextrose (Dextrose 50% Syringe 50 Ml) 25 ml IVP ONCE PRN; Protocol PRN Reason: hypoglycemia protocol Dextrose (Dextrose 50% Syringe 50 Ml) 50 ml IVP PRN PRN; Protocol PRN Reason: hypoglycemia protocol Fluticasone Propionate (Fluticasone Nasal [place] 16gm Btl) 1 spray INTRANASAL BID [facility] Last Admin: 03/18/21 17:17 Dose: 1 spray Documented by: Furosemide (Furosemide 10 Mg/Ml Sdv 10ml) 60 mg IVP Q12H [facility] Glucagon (Glucagon 1 Mg/Ml Inj 1 Ml) 1 mg IM ONCE PRN; Protocol PRN Reason: Adult Acute Hypoglycemia Prot. Dextrose (D5w) 500 mls @ 100 mls/hr IV ONCE PRN; Protocol PRN Reason: Adult Acute Hypoglycemia Prot Piperacillin Sod/Tazobactam (Sod 3.375 gm/ Sodium Chloride) 50 mls @ 12.5 mls/hr IV Q12H [facility]; Protocol Last Infusion: 03/19/21 05:32 Dose: Infused Documented by: Lactulose (Lactulose Oral Liq 20 Gm/30 Ml Udc) 10 gm PO DAILY PRN; Protocol PRN Reason: Constipation (see protocol) Naloxone HCl (Naloxone 0.4 Mg/Ml Sdv) 0.1 mg IVP Q2M PRN PRN Reason: OPIATERV Non-Formulary Medication (Methenamine Hippurate) 1 gm PO BID [facility] Ondansetron HCl (Ondansetron 2 Mg/Ml Sdv 2 Ml) 4 mg IVP Q8H PRN PRN Reason: vomiting, or N/V if npo Last Admin: 03/17/21 07:54 Dose: 4 mg Documented by: Oxycodone/Acetaminophen (Oxycodone-Apap 5-325 Mg Tablet) 1 tab PO Q6H PRN PRN Reason: SEVERE PAIN Last Admin: 03/19/21 02:01 Dose: 1 tab Documented by: Pantoprazole Sodium (Pantoprazole Dr 40 Mg Tablet) 40 mg PO DAILY [facility] Last Admin: 03/18/21 08:17 Dose: 40 mg Documented by: Prochlorperazine (Prochlorperazine 10 Mg Tablet) 5 mg PO TID PRN PRN Reason: VOMITING Last Admin: 03/17/21 02:15 Dose: 5 mg Documented by: Tamsulosin HCl (Tamsulosin 0.4 Mg Capsule) 0.4 mg PO DAILY [facility] Last Admin: 03/18/21 08:09 Dose: 0.4 mg Documented by: Vitals/I&O/Wt Last Vital Signs Temp 97.8 F 03/19/21 03:59 Pulse 84 03/19/21 04:32 Resp 18 03/19/21 03:59 BP 108/56 03/19/21 03:59 Pulse Ox 91 03/19/21 03:59 03/18/21 03/19/21 03/19/21 22:59 06:59 14:59 Intake Total 290 / 2148.333 350 / 2498.333 Output Total 550 / 725 Balance 290 / 1973.333 -200 / 1773.333 Physical Exam Narrative: EXAM NARRATIVE: uncomfortable in bed,sob, swollen vs noted- BP low side of normal heent- nc/at, eomi, anicteric neck supple, no jvp lungs dull bases and b/l crackles heart- reg + s1, s2, +ELISE abd soft, distended, nt, + colostomy ext +2 edema b/l neuro- a,a, o x 3 Urinary Catheter Management^: Flynn: Cath Placed During This Visit: yes, but has since been removed by the nurse Reason for Continuing Indwelling Catheter: Accurate Measurement of Urinary Output in Critically Ill Patients Urinary Catheter Date of Insertion: 03/14/21 Urinary Catheter Time of Insertion: 00:46 Date Urinary Catheter Removed: 03/14/21 Time Urinary Catheter Discontinued: 00:30 Data : 03/19/21 04:19 03/19/21 04:19 Micro: Microbiology 03/13/21 17:48 Blood Culture - Final Blood NO GROWTH AFTER 5 DAYS 03/13/21 17:40 Blood Culture - Final Blood NO GROWTH AFTER 5 DAYS A&P Additional A&P Information 85 year old male with a past medical history of hypertension, wide-complex tachycardia, colostomy, chronic swelling of bilateral lower extremities. Pt admitted w/ septic shock from pseudomonas UTI from a Large left mid ureter stone 7 mm with proximal hydroureteronephrosis on the left side. He is s/p cystoscopy and left sided stent 1. sepsis from UTI and kidney stone- wbc slowly improving 2. oliguric CY- from prerenal azotemia vs ATN- on curt-i, diuretic and septic on admission- still not eating well -ur na 49 on admission- can be ATN or from diuretics -repeat ur electrolytes -repeat renal imaging w/o hydronephrosis- -as sob, swollen, and oliguric- give lasix 60 iv q 12 hr- if not a good response- then start a lasix drip -avoid nephrotoxins -monitor in and out 3. hyperkalemia- improved 4. hyponatremia- from cy- improving -check cortisol, urine lytes -normal tsh -check sortisol level 5. rhandomyolysis- from falls and already in CY- ck is under 10,000- unlikely the cause of his CY -repeat ck improved 939 6. mild inc AGMA- from sepsis- - ABG- - met acidosis w/ good compensation = met acidossi is improving 7. anemia - monitor cbc- hgb 7.5 8. abd pain, n/v- KUB- w/ mild dilitation of SB in rt lower abd , Moderate gaseous distention of segments of colon in the upper abdomen. 9. 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
[2021-03-19] MEDS: amiodarone 200 mg Tablet PO (08:18)
[2021-03-19] MEDS: tamsulosin 0.4 mg Capsule PO (08:18)
[2021-03-19] MEDS: ascorbic acid 500 mg Tablet PO (08:18)
[2021-03-19] MEDS: pantoprazole DR 40 mg Tablet PO (08:18)
[2021-03-19] MEDS: aspirin 81 mg EC Tablet PO (08:18)
[2021-03-19] MEDS: FUROsemide 10 mg/mL SDV 10mL 60 MG IVP (08:19)
[2021-03-19] MEDS: fluticasone nasal spray 16gm Btl 1 SPRAY INTRANASAL ×2 (08:20→17:52)
--- NOTE | 2021-03-19 10:05 | PC.NURSE ---
spoke with Dr Grant during rounding with patient concerns of consistent pain in legs and hips verbal instructions received to start dialudid 0.5mg IVP PRN Q6H
--- NOTE | 2021-03-19 10:18 | PC.SOCIAL ---
IMM Update Page 2 of IMM updated and in the chart. Reviewed with pt, pt understood. Initialed, timed and dated.
--- NOTE | 2021-03-19 10:51 | PC.NURSE ---
called Urine out put to Dr deng post lasix administration instructions received to start Lasix Gtt at 8mg/hr fixed rate
[2021-03-19] MEDS: FUROsemide 100 MG in sodium chloride 0.9% 40 ML IV ×2 (11:21→21:14)
--- NOTE | 2021-03-19 12:54 | PC.NURSE ---
patient has redness from scd's
[2021-03-19] MEDS: HYDROmorphone 1 mg/mL INJ 1 mL 0.5 MG IVP (16:04)
--- NOTE | 2021-03-19 17:15 | PC.NURSE ---
Shift Note Frequent safety and comfort rounds continue. Orders and/or nursing care completed as indicated. Patient monitored for response to intervention and treatment(s). Education provided includes new medications lasix gtt and dilaudid. Patient and/or premium service representative verbalized understanding. Will continue to monitor.
[2021-03-19 18:05] LABS: Glucose Point of Care 150 mg/dL (70-110)
--- NOTE | 2021-03-19 18:06 | PC.NURSE ---
placed call to Dr. Grant with concerns of patient having Q12H lasix IVP with lasix GTT instructions received to dc IVP lasix
[2021-03-19 21:07] LABS: Glucose Point of Care 126 mg/dL (70-110)
--- NOTE | 2021-03-19 22:02 | P.PN_ITS ---
Subjective Subjective: Interval history: He denies being short of breath. He has been bothered by pain in his hips, legs. Discussed with him regarding worsening of renal function. Vitals/I&O/Wt Last Vital Signs Temp 97.6 F 03/19/21 19:48 Pulse 89 03/19/21 21:47 Resp 22 H 03/19/21 19:57 BP 148/59 03/19/21 19:48 Pulse Ox 92 03/19/21 19:57 03/19/21 03/19/21 03/19/21 06:59 14:59 22:59 Intake Total 350 / 2498.333 600 / 600 569.533 / 1169.533 Output Total 550 / 725 150 / 150 250 / 400 Balance -200 / 1773.333 450 / 450 319.533 / 769.533 Physical Exam Const: COMMON NORMALS: no acute distress, patient oriented x3 and alert GENERAL APPEARANCE: cooperative and frail appearing ORIENTATION/CONSCIOUSNESS : Yes awake HENMT: COMMON NORMALS: oropharynx normal Resp: COMMON NORMALS: normal respiratory effort and clear to auscultation bilaterally AUSCULTATION: clear to auscultation bilaterally Cardio: COMMON NORMALS: regular rhythm, S1 normal heart sound present, S2 normal heart sound present and No murmurs present (Cardio) RHYTHM: regular rhythm HEART SOUNDS: S1 normal heart sound present and S2 normal heart sound present GI: COMMON NORMALS: Normal to inspection, nondistended, normoactive bowel sounds present, Soft to palpation and non-tender PALPATION: Yes Soft to palpation Extremity: COMMON NORMALS: no joint enlargement GENERAL: Yes edema (Anasarca 3+ throughout) Neuro: COMMON NORMALS: patient oriented x3 and moves all extremities SENS ORIUM/ORIENTATION: Yes alert Skin: COMMON NORMALS: no rashes or lesions noted GENERAL SKIN EXAM: no rashes or lesions noted Urinary Catheter Management^: Flynn: Cath Placed During This Visit: yes, but has since been removed by the nurse Reason for Continuing Indwelling Catheter: Acute Urinary Retention or Obstruction Urinary Catheter Date of Insertion: 03/14/21 Urinary Catheter Time of Insertion: 00:46 Date Urinary Catheter Removed: 03/14/21 Time Urinary Catheter Discontinued: 00:30 Data : 03/19/21 04:19 03/19/21 04:19 Micro: Microbiology 03/17/21 17:00 Urine Culture - Preliminary Urine,Clean Catch 03/13/21 17:48 Blood Culture - Final Blood NO GROWTH AFTER 5 DAYS 03/13/21 17:40 Blood Culture - Final Blood NO GROWTH AFTER 5 DAYS A&P Assessment and plan (1) CY (acute kidney injury): Worsening of creatinine today. Persistent anasarca. Appreciate nephrology recommendations. Diuretic challenge. Discussed with him regarding worsening renal function. Discussed if you are needing hemodialysis whether he would consider the treatments, on consideration he states he has, he would pursue dialysis. Rhabdomyolysis resolving. Appreciate nephrology recommendations. Status: Acute (2) Anasarca: Diuretic challenge. Dose increased to 60 mg IV twice daily. Status: Acute (3) Obstructive pyelonephritis: Complicated UTI with MDR Pseudomonas. s/p L ureteral stent for obstructive uropathy, ureterolithiasis on 03/13. Continue Zosyn. Unfortunately no option to switch to p.o. medicine. Status: Acute (4) Septic shock: Resolved. Status: Acute (5) Sepsis: Status: Acute Qualifiers: Sepsis type: sepsis due to unspecified organism Sepsis acute organ dysfunction status: with acute organ dysfunction Severe sepsis acute organ dysfunction type: acute renal failure Acute renal failure type: with acute tubular necrosis Severe sepsis shock status: without septic shock Qualified Code(s): A41.9 - Sepsis, unspecified organism; R65.20 - Severe sepsis without septic shock; N17.0 - Acute kidney failure with tubular necrosis (6) Rhabdomyolysis: Resolving. Status: Acute Qualifiers: Rhabdomyolysis type: traumatic Encounter type: initial encounter Qualified Code(s): T79.6XXA - Traumatic ischemia of muscle, initial encounter (7) Wide-complex tachycardia: Telemetry. Continue with home dose of amiodarone. Status: Acute (8) Cardiomyopathy: Status: Acute Qualifiers: Cardiomyopathy type: dilated Qualified Code(s): I42.0 - Dilated cardiomyopathy (9) Elevated troponin: Most likely demand ischemia. Echo done earlier in the admission shows EF 55 to 60% with grade 1 diastolic dysfunction, moderate annular calcification, mild TR with mild pulmonary hyperte nsion. Continue with aspirin. Hold off on statins given rhabdomyolysis. Status: Acute (10) Hyperkalemia: Status: Acute (11) Oliguria: Status: Acute (12) Anemia: No obvious source of bleeding. Check Hemoccult. Normocytic. Gradually worsening hemoglobin level. Has been off heparin VT prophylaxis. For now continues on aspirin. Status: Acute Additional A&P Information Mobilize as tolerating with PT. Severe deconditioning: Complicated by anasarca. He is adamant he would not want to go to intermediate. Today we had quite extensive discussion with him after he took 2 people to get him to the edge of bed with PT and OT together. Quite edematous. Very deconditioned. Discussing with him the degree of deconditioning and ADL deficit, needing multiple people assistance at home, usually lives with his daughter. He states that he may try to mobilize a number of different people including his neighbor, in addition to home health, and may hire a caregiver as well in order to make it possible for him to return home. Discussed with him he will need quite extensive rehabilitation to try to regain the level of mobility he had previously. Discussed with case management who will additionally discussed with his daughter regarding possibilities for discharge planning. Attestations Medical Necessity Statement*: Continue admission for assessment management of anasarca, oliguric CY. Complicated UTI. Severe deconditioning. Disposition planning. Coding Level of Care Code Acute Plant Protection Supervisor for [facility] Fwd Diagnoses CY (acute kidney injury) N17.9 Anasarca R60.1 Obstructive pyelonephritis N11.1 Septic shock A41.9; R65.21 Sepsis A41.9; R65.20; N17.0 Sepsis type: sepsis due to unspecified organism Sepsis acute organ dysfunction status: with acute organ dysfunction Severe sepsis acute organ dysfunction type: acute renal failure Acute renal failure type: with acute tubular necrosis Severe sepsis shock status: without septic shock Rhabdomyolysis T79.6XXA Rhabdomyolysis type: traumatic Encounter type: initial encounter Wide-complex tachycardia I47.2 Cardiomyopathy I42.0 Cardiomyopathy type: dilated Elevated troponin R77.8 Hyperkalemia E87.5 Oliguria R34 Anemia D64.9
[2021-03-20] VITALS (34 sets, daily range): BP systolic 91–147; BP diastolic 41–76; PULSE 82–121; RESP 10–28; TEMP 36.6; O2SAT 18–95
[2021-03-20] MEDS: oxyCODONE-APAP 5-325 mg Tablet 1 TAB PO ×2 (02:21→11:03)
[2021-03-20] MEDS: piperacillin-tazobactam 3.375 GM in sodium chloride 0.9% (plus) 50 ML IV ×2 (02:21→17:14)
[2021-03-20 05:03] LABS: Basophils # 0.1 10^3/uL (0.0-0.1); Basophils % 0.3 %; Eosinophils # 0.3 10^3/uL (0.0-0.8); Eosinophils % 1.9 %; Hematocrit 27.2 % (42.0-52.0); Hemoglobin 8.2 g/dL (11.7-16.6); Lymphocytes # 1.4 10^3/uL (0.8-4.8); Lymphocytes % 9.9 %; Mean Corpuscular HGB Conc 30.1 g/dL (30.0-36.0); Mean Corpuscular Hemoglobin 25.1 pg (28.0-34.0); Mean Corpuscular Volume 83.2 fl (80-94); Mean Platelet Volume 9.2 fL (7.4-10.4); Monocytes # 0.7 10^3/uL (0.2-0.9); Neutrophils # 11.25 10^3/uL (1.8-7.7); Neutrophils % 77.8 %; Nucleated Red Blood Cells % 0 %; Platelet Count 418 10^3/cmm (130-400); Red Blood Count 3.27 10^6/uL (4.1-5.3); Red Cell Distribution Width 17.9 % (12.1-15.1); White Blood Count 14.5 10^3/uL (4.0-10.0)
[2021-03-20 05:25] LABS: Alanine Aminotransferase 57 U/L (0-41); Albumin Level 1.9 g/dL (3.5-5.2); Alkaline Phosphatase 182 IU/L (40-130); Anion Gap 18.9 (5-19); Aspartate Amino Transferase 27 U/L (0-40); Blood Urea Nitrogen 73 mg/dL (8-23); Calcium 7.6 mg/dL (8.5-10.5); Carbon Dioxide 21 mmol/L (22-29); Chloride 101 mmol/L (98-107); Globulin 2.7 g/dL (1.3-4.6); Glucose 91 mg/dL (65-115); Magnesium 1.9 mg/dL (1.7-2.3); Osmolality Calculated 303 mOsm/kg (285-295); Potassium 4.9 mmol/L (3.5-5.1); Sodium 136 mmol/L (136-145); Total Bilirubin 0.2 mg/dL (0.15-1.2); Total Protein 4.6 g/dL (6.6-8.7)
[2021-03-20 05:37] LABS: Ferritin 674 ng/mL (30-400); Slide Review Slide Review Perform
[2021-03-20 05:39] LABS: Iron 11 ug/dL (59-158); Percent Saturation 14.1 % (20-50); Total Iron Binding Capacity 78 mcg/dl; Unsaturated Iron Binding 67 ug/dL (112-347)
--- NOTE | 2021-03-20 05:51 | PC.NURSE ---
Shift Note Frequent safety and comfort rounds continue. Pt repositioned q 2 hours and when needed. Patient preformed range of motion exercises when awake. Orders and nursing care completed as indicated. Patient monitored for response to intervention and treatment. Education provided includes importance of ROM exercises and building his strength. Patient verbalized understanding.
[2021-03-20 06:40] LABS: Glucose Point of Care 130 mg/dL (70-110)
[2021-03-20] MEDS: amiodarone 200 mg Tablet PO (08:19)
[2021-03-20] MEDS: aspirin 81 mg EC Tablet PO (08:19)
[2021-03-20] MEDS: tamsulosin 0.4 mg Capsule PO (08:19)
[2021-03-20] MEDS: pantoprazole DR 40 mg Tablet PO (08:19)
[2021-03-20] MEDS: fluticasone nasal spray 16gm Btl 1 SPRAY INTRANASAL ×2 (08:20→17:14)
[2021-03-20] MEDS: ascorbic acid 500 mg Tablet PO (11:03)
[2021-03-20 12:00] LABS: Glucose Point of Care 157 mg/dL (70-110)
--- NOTE | 2021-03-20 12:08 | PM.PN ---
Vitals/I&O/Wt Last Vital Signs Temp 97.9 F 03/20/21 04:00 Pulse 93 03/20/21 08:00 Resp 27 H 03/20/21 11:03 BP 124/58 03/20/21 08:00 Pulse Ox 18 L 03/20/21 08:00 03/19/21 03/20/21 03/20/21 22:59 06:59 14:59 Intake Total 569.533 / 1169.533 200 / 1369.533 50 / 50 Output Total 250 / 400 600 / 1000 Balance 319.533 / 769.533 -400 / 369.533 50 / 50 Physical Exam Const: COMMON NORMALS: no acute distress, patient oriented x3 and alert GENERAL APPEARANCE: cooperative and frail appearing ORIENTATION/CONSCIOUSNESS: Yes awake HENMT: COMMON NORMALS: oropharynx normal Resp: COMMON NORMALS: normal respiratory effort and clear to auscultation bilaterally AUSCULTATION: clear to auscultation bilaterally Cardio: COMMON NORMALS: regular rhythm, S1 normal heart sound present, S2 normal heart sound present and No murmurs present (Cardio) RHYTHM: regular rhythm HEART SOUNDS: S1 normal heart sound present and S2 normal heart sound present GI: COMMON NORMALS: Normal to inspection, nondistended, normoactive bowel sounds present, Soft to palpation and non-tender PALPATION: Yes Soft to palpation Extremity: COMMON NORMALS: no joint enlargement GENERAL: Yes edema (Anasarca 3+ throughout) Neuro: COMMON NORMALS: patient oriented x3 and moves all extremities SENSORIUM/ORIENTATION: Yes alert Skin: COMMON NORMALS: no rashes or lesions noted GENERAL SKIN EXAM: no rashes or lesions noted Urinary Catheter Management^: Flynn: Cath Placed During This Visit: yes, but has since been removed by the nurse Reason for Continuing Indwelling Catheter: Acute Urinary Retention or Obstruction Urinary Catheter Date of Insertion: 03/14/21 Urinary Catheter Time of Insertion: 00:46 Date Urinary Catheter Removed: 03/14/21 Time Urinary Catheter Discontinued: 00:30 Data : 03/20/21 04:05 03/20/21 04:05 Micro: Microbiology 03/17/21 17:00 Urine Culture - Final Urine,Clean Catch Pseudomonas aeruginosa 03/19/21 23:32 Occult Blood (FIT) - Final Stool - Stool Aspirate A&P Assessment and plan (1) CY (acute kidney injury): Worsening renal function. Oliguric renal failure. Appreciate nephrology recommendations. Diuretic challenge with Lasix drip today. They have been discussing patient regards to further steps going forward and consideration of hemodialysis. Discussed with him regarding worsening renal function. Discussed if you are needing hemodialysis whether he would consider the treatments, on consideration he states he has, he would pursue dialysis. Rhabdomyolysis resolving. Appreciate nephrology recommendations. Status: Acute (2) Anasarca: Diuretic challenge. Lasix drip. Status: Acute (3) Obstructive pyelonephritis: Complicated UTI with MDR Pseudomonas. s/p L ureteral stent for obstructive uropathy, ureterolithiasis on 03/13. Continue Zosyn. Unfortunately no option to switch to p.o. medicine. Status: Acute (4) Septic shock: Resolved. Status: Acute (5) Sepsis: Status: Acute Qualifiers: Sepsis type: sepsis due to unspecified organism Sepsis acute organ dysfunction status: with acute organ dysfunction Severe sepsis acute organ dysfunction type: acute renal failure Acute renal failure type: with acute tubular necrosis Severe sepsis shock status: without septic shock Qualified Code(s): A41.9 - Sepsis, unspecified organism; R65.20 - Severe sepsis without septic shock; N17.0 - Acute kidney failure with tubular necrosis (6) Rhabdomyolysis: Resolving. Status: Acute Qualifiers: Rhabdomyolysis type: traumatic Encounter type: initial encounter Qualified Code(s): T79.6XXA - Traumatic ischemia of muscle, initial encounter (7) Wide-complex tachycardia: Telemetry. Continue with home dose of amiodarone. Status: Acute (8) Cardiomyopathy: Status: Acute Qualifiers: Cardiomyopathy type: dilated Qualified Code(s): I42.0 - Dilated cardiomyopathy (9) Elevated troponin: Most likely demand ischemia. Echo done earlier in the admission shows EF 55 to 60% with grade 1 diastolic dysfunction, moderate annular calcification, mild TR with mild pulmonary hypertension. Continue with aspirin. Hold off on statins given rhabdomyolysis. Status: Acute (10) Hyperkalemia: Status: Acute (11) Oliguria: Status: Acute (12) Anemia: No obvious source of bleeding. Check Hemoccult. Normocytic. Gradually worsening hemoglobin level. Has been off heparin VT prophylaxis. For now continues on aspirin. Status: Acute Additional A&P Information Left knee pain after fall at home: Likely exacerbated due to immobility, difficulty with repositioning with anasarca, will additionally assessed by x-ray of the left knee, left ankle due to pain. Lidocaine patch. Oral pain control. Mobilize as tolerating with PT. Severe deconditioning: Very deconditioned. Requiring 2 person assist. Adamant he is not going to longterm, and making all arrangements possible with his daughter, hiring caregivers to be there for him every day to be able to return home. Understands also in case requiring hemodialysis would need to also transportation and help with transfers to and from dialysis clinic 3 times weekly. Attestations Medical Necessity Statement*: Continue admission for assessment management of oliguric renal failure, anasarca. Coding Level of Care Code Acute Pilot Plant Research Technician for [facility] [place] Diagnoses CY (acute kidney injury) N17.9 Anasarca R60.1 Obstructive pyelonephritis N11.1 Septic shock A41.9; R65.21 Sepsis A41.9; R65.20; N17.0 Sepsis type: sepsis due to unspecified organism Sepsis acute organ dysfunction status: with acute organ dysfunction Severe sepsis acute organ dysfunction type: acute renal failure Acute renal failure type: with acute tubular necrosis Severe sepsis shock status: without septic shock Rhabdomyolysis T79.6XXA Rhabdomyolysis type: traumatic Encounter type: initial encounter Wide-complex tachycardia I47.2 Cardiomyopathy I42.0 Cardiomyopathy type: dilated Elevated troponin R77.8 Hyperkalemia E87.5 Oliguria R34 Anemia D64.9
--- NOTE | 2021-03-20 12:30 | XRR_ITS ---
PROCEDURE INFORMATION: Exam: XR Left Knee Exam date and time: 03/20/2021 12:30 PM Age: 85 years old Clinical indication: Pain and injury or trauma; Fall; Blunt trauma; Knee and ankle; Left; Ankle and knee; Additional info: Pain after fall at home TECHNIQUE: Imaging protocol: XR Left knee. Views: 3 views. COMPARISON: No relevant prior studies available. FINDINGS: Bones/joints: Negative for acute abnormality.. Soft tissues: Normal. XR/XR knee LT 3V* [id number] IMPRESSION: No acute findings.
--- NOTE | 2021-03-20 12:30 | XRR_ITS ---
PROCEDURE INFORMATION: Exam: XR Left Ankle Exam date and time: 03/20/2021 12:30 PM Age: 85 years old Clinical indication: Pain and injury or trauma; Fall; Blunt trauma; Knee; Left; Ankle; Additional info: Pain after fall at home TECHNIQUE: Imaging protocol: XR Left ankle. Views: 3 or more views. COMPARISON: No relevant prior studies available. FINDINGS: Bones/joints: There is an oblique comminuted fracture distal shaft of the fibula. transverse fracture of the medial malleolus is seen. These findings correspond to a bimalleolar fracture. Bone spur inferior calcaneus Soft tissues: Soft tissue edema anteromedial and lateral ankle. XR/XR ankle LT min 3V* [id number] IMPRESSION: 1. Bimalleolar fracture as described. 2. Soft tissue edema mediolateral and anterior ankle 3. Bone spur inferior calcaneus
[2021-03-20] MEDS: FUROsemide 100 MG in sodium chloride 0.9% 40 ML IV ×2 (14:03→23:45)
--- NOTE | 2021-03-20 15:14 | PM.PN ---
Subjective Subjective: Interval history: Mr. Boggs feels unwell, remains sick. He still has significant global edema. Flynn catheter in place, not producing huge amount of urine. No other overt uremic symptoms at this time. Vitals/I&O/Wt Last Vital Signs Temp 97.9 F 03/20/21 04:00 Pulse 93 03/20/21 08:00 Resp 27 H 03/20/21 11:03 BP 124/58 03/20/21 08:00 Pulse Ox 18 L 03/20/21 08:00 03/20/21 03/20/21 03/20/21 06:59 14:59 22:59 Intake Total 200 / 1369.533 50 / 50 Output Total 600 / 1000 Balance -400 / 369.533 50 / 50 Physical Exam Narrative: EXAM NARRATIVE: Constitutional: Awake, comfortable HEENT: Wet mucosa, no jvp, non icteric Lungs: Bilaterally clear without discernible wheeze, rales in all lung zones CVS: S1 S2, no murmurs Abdo: Soft, BS ok Ext 4: 2-3+ edema, peripheral perfusion with no cyanosis Neurological: Grossly non-focal Urinary Catheter Management^: Flynn: Cath Placed During This Visit: yes, but has since been removed by the nurse Reason for Continuing Indwelling Catheter: Acute Urinary Retention or Obstruction Urinary Catheter Date of Insertion: 03/14/21 Urinary Catheter Time of Insertion: 00:46 Date Urinary Catheter Removed: 03/14/21 Time Urinary Catheter Discontinued: 00:30 Data : 03/20/21 04:05 03/20/21 04:05 Micro: Microbiology 03/17/21 17:00 Urine Culture - Final Urine,Clean Catch Pseudomonas aeruginosa 03/19/21 23:32 Occult Blood (FIT) - Final Stool - Stool Aspirate A&P Additional A&P Information 1. Acute renal failure Prerenal azotemia/ATN in the setting of MIKE inhibitor, diuretic, also infection mediated ATN as well. Renal function continues to deteriorate, urine output remains marginal. No acute indication for dialysis today, however, likely to be needed in the next 24-48 hours. Continue diuretics Avoid usual nephrotoxic agents Dose medication for GFR less than 15. 2. Chemistry Mild anion gap metabolic acidosis. Continue to monitor for the time being, noncritical aberration. Corrected calcium within range. 3. Sepsis Pseudomonas in urine, currently on Zosyn 4. Hemodynamics These remain relatively stable at this time. Ridge Smith MD Nephrology [phone] Patient seen and examined via telemedicine, with the assistance of the bedside RN > 25 min spent in evaluation and mgmt of patient Attestations Medical Necessity Statement*: eval for CY Coding Level of Care Code Acute Data Governance Analyst for [facility]
--- NOTE | 2021-03-20 16:00 | PC.NURSE ---
Pt lying in bed at 45 degree talking to staff. Resp even and non-labored no distress noted. Pts on Lasix drip at 4ml/hr. Pt had no c/o pain or discomfort at the present time. No needs voiced. Call light in reach. Will cont to monitor.
[2021-03-20 17:32] LABS: Glucose Point of Care 145 mg/dL (70-110)
[2021-03-20] MEDS: lidocaine 5% Patch 1 PATCH TOPICAL (22:19)
[2021-03-20 22:20] LABS: Glucose Point of Care 191 mg/dL (70-110)
[2021-03-21] VITALS (11 sets, daily range): BP systolic 99–127; BP diastolic 49–63; PULSE 81–97; RESP 18–20; TEMP 36.6–36.9; O2SAT 92–98
[2021-03-21] MEDS: piperacillin-tazobactam 3.375 GM in sodium chloride 0.9% (plus) 50 ML IV ×2 (01:19→14:08)
[2021-03-21] MEDS: acetaminophen 325 mg Tablet 650 MG PO ×2 (01:20→21:02)
[2021-03-21] MEDS: HYDROmorphone 1 mg/mL INJ 1 mL 0.5 MG IVP ×4 (03:46→22:23)
[2021-03-21 05:48] LABS: Basophils # 0.1 10^3/uL (0.0-0.1); Basophils % 0.3 %; Eosinophils # 0.2 10^3/uL (0.0-0.8); Eosinophils % 1.5 %; Hematocrit 25.5 % (42.0-52.0); Hemoglobin 7.9 g/dL (11.7-16.6); Lymphocytes # 1.7 10^3/uL (0.8-4.8); Lymphocytes % 10.2 %; Mean Corpuscular Hemoglobin 25.4 pg (28.0-34.0); Mean Platelet Volume 9.3 fL (7.4-10.4); Monocytes # 0.9 10^3/uL (0.2-0.9); Monocytes % 5.4 %; Neutrophils # 12.63 10^3/uL (1.8-7.7); Neutrophils % 76.2 %; Nucleated Red Blood Cells % 0 %; Platelet Count 468 10^3/cmm (130-400); Red Blood Count 3.11 10^6/uL (4.1-5.3); Red Cell Distribution Width 17.8 % (12.1-15.1); White Blood Count 16.6 10^3/uL (4.0-10.0)
[2021-03-21 06:04] LABS: Slide Review Slide Review Perform
[2021-03-21 06:07] LABS: Alanine Aminotransferase 39 U/L (0-41); Albumin Level 1.9 g/dL (3.5-5.2); Alkaline Phosphatase 142 IU/L (40-130); Anion Gap 17.8 (5-19); Aspartate Amino Transferase 17 U/L (0-40); Calcium 7.9 mg/dL (8.5-10.5); Carbon Dioxide 23 mmol/L (22-29); Chloride 100 mmol/L (98-107); Globulin 2.8 g/dL (1.3-4.6); Glucose 92 mg/dL (65-115); Magnesium 2.1 mg/dL (1.7-2.3); Osmolality Calculated 306 mOsm/kg (285-295); Phosphorus 4.6 mg/dL (2.5-4.5); Potassium 4.8 mmol/L (3.5-5.1); Sodium 136 mmol/L (136-145); Total Bilirubin 0.2 mg/dL (0.15-1.2); Total Protein 4.7 g/dL (6.6-8.7)
[2021-03-21 06:10] LABS: Blood Urea Nitrogen 81 mg/dL (8-23)
[2021-03-21 06:25] LABS: Glucose Point of Care 112 mg/dL (70-110)
--- NOTE | 2021-03-21 07:18 | PC.NURSE ---
Frequent safety and comfort rounds continue. Orders and/or nursing care completed as indicated. Patient monitored for response to intervention and treatment(s). Education provided includes pain medications and other pain relief methods. Frequent burping needed for colostomy. Patient and/or credit representative verbalized understanding. Will continue to monitor
[2021-03-21] MEDS: ascorbic acid 500 mg Tablet PO (07:45)
[2021-03-21] MEDS: tamsulosin 0.4 mg Capsule PO (07:45)
[2021-03-21] MEDS: fluticasone nasal spray 16gm Btl 1 SPRAY INTRANASAL ×2 (07:45→17:12)
[2021-03-21] MEDS: aspirin 81 mg EC Tablet PO (07:45)
[2021-03-21] MEDS: lidocaine 5% Patch 1 PATCH TOPICAL ×2 (07:45→21:02)
[2021-03-21] MEDS: pantoprazole DR 40 mg Tablet PO (07:45)
[2021-03-21] MEDS: amiodarone 200 mg Tablet PO (07:54)
--- NOTE | 2021-03-21 10:21 | PC.SOCIAL ---
IMM Updated Updated pt on Pg 2 IMM. No questions voiced. Provided pt a copy. Initialed, dated, & timed copy in chart.
[2021-03-21] MEDS: FUROsemide 100 MG in sodium chloride 0.9% 40 ML IV (11:12)
[2021-03-21 11:35] LABS: Glucose Point of Care 145 mg/dL (70-110)
--- NOTE | 2021-03-21 13:13 | PM.PN ---
Subjective Subjective: Interval history: He is having pain in his left ankle. Otherwise states breathing is comfortable. Denies chest pain. States that he was visited today by the urologist who discussed with him consideration of replacement of the stent. Vitals/I&O/Wt Last Vital Signs Temp 97.9 F 03/21/21 11:31 Pulse 91 03/21/21 11:31 Resp 18 03/21/21 11:31 BP 99/49 03/21/21 11:31 Pulse Ox 96 03/21/21 11:31 03/20/21 03/21/21 03/21/21 22:59 06:59 14:59 Intake Total 528.8 / 578.8 95.8 / 95.8 Output Total 650 / 650 1250 / 1900 1000 / 1000 Balance -650 / -600 -721.2 / -1321.2 -904.2 / -904.2 Physical Exam Const: COMMON NORMALS: no acute distress, patient oriented x3 and alert GENERAL APPEARANCE: cooperative and frail appearing ORIENTATION/CONSCIOUSNESS: Yes awake HENMT: COMMON NORMALS: oropharynx normal Resp: COMMON NORMALS: normal respiratory effort and clear to auscultation bilaterally AUSCULTATION: clear to auscultation bilaterally Cardio: COMMON NORMALS: regular rhythm, S1 normal heart sound present, S2 normal heart sound present and No murmurs present (Cardio) RHYTHM: regular rhythm HEART SOUNDS: S1 normal heart sound present and S2 normal heart sound present GI: COMMON NORMALS: Normal to inspection, nondistended, normoactive bowel sounds present, Soft to palpation and non-tender PALPATION: Yes Soft to palpation Extremity: COMMON NORMALS: no joint enlargement GENERAL: Yes edema (Anasarca 3+ LE, 2+ UE BL) Neuro: COMMON NORMALS: patient oriented x3 and moves all extremities SENSORIUM/ORIENTATION: Yes alert Skin: COMMON NORMALS: no rashes or lesions noted GENERAL SKIN EXAM: no rashes or lesions noted Urinary Catheter Management^: Flynn: Cath Placed During This Visit: yes, but has since been removed by the nurse Reason for Continuing Indwelling Catheter: Acute Urinary Retention or Obstruction Urinary Catheter Date of Insertion: 03/14/21 Urinary Catheter Time of Insertion: 00:46 Date Urinary Catheter Removed: 03/14/21 Time Urinary Catheter Discontinued: 00:30 Data : 03/21/21 04:41 03/21/21 04:41 Micro: Microbiology 03/17/21 17:00 Urine Culture - Final Urine,Clean Catch Pseudomonas aeruginosa A&P Assessment and plan (1) CY (acute kidney injury): Creatinine again 5.3 today. Appears to proceed urine blood with Lasix drip. Continue for now. Discussed with nephrology, appreciate recommendations. Continue diuresis, monitor renal function. Cannot tell yet that he will not require hemodialysis. No need for urgent hemodialysis today. Rhabdomyolysis resolving. Appreciate nephrology recommendations. Status: Acute (2) Anasarca: Diuretic challenge. Continue Lasix drip. Status: Acute (3) Obstructive pyelonephritis: Complicated UTI with MDR Pseudomonas. s/p L ureteral stent for obstructive uropathy, ureterolithiasis on 03/13. Continue Zosyn. Unfortunately no option to switch to p.o. medicine. 2 weeks of antibiotic recommended by urology, as well as follow-up end of next week or early week after. Status: Acute (4) Septic shock: Resolved. Status: Acute (5) Sepsis: Status: Acute Qualifiers: Sepsis type: sepsis due to unspecified organism Sepsis acute organ dysfunction status: with acute organ dysfunction Severe sepsis acute organ dysfunction type: acute renal failure Acute renal failure type: with acute tubular necrosis Severe sepsis shock status: without septic shock Qualified Code(s): A41.9 - Sepsis, unspecified organism; R65.20 - Severe sepsis without septic shock; N17.0 - Acute kidney failure with tubular necrosis (6) Rhabdomyolysis: Resolving. Status: Acute Qualifiers: Rhabdomyolysis type: traumatic Encounter type: initial encounter Qualified Code(s): T79.6XXA - Traumatic ischemia of muscle, initial encounter (7) Wide-complex tachycardia: Telemetry. Continue with home dose of amiodarone. Status: Acute (8) Cardiomyopathy: Status: Acute Qualifiers: Cardiomyopathy type: dilated Qualified Code(s): I42.0 - Dilated cardiomyopathy (9) Elevated troponin: Most likely demand ischemia. Echo done earlier in the admission shows EF 55 to 60% with grade 1 diastolic dysfunction, moderate annular calcification, mild TR with mild pulmonary hypertension. Continue with aspirin. Hold off on statins given rhabdomyolysis. Status: Acute (10) Hyperkalemia: Status: Acute (11) Oliguria: Status: Acute (12) Anemia: No obvious source of bleeding. Check Hemoccult. Normocytic. Gradually worsening hemoglobin level. Has been off heparin VT prophylaxis. For now continues on aspirin. Status: Acute Additional A&P Information L ankle bimalleolar fracture: Appreciate ortho assessment and recs. Continue pain control. Lidocaine patch - change to ankle. Severe deconditioning: Very deconditioned. Requiring 2 person assist. Adamant he is not going to custodial, and making all arrangements possible with his daughter, hiring caregivers to be there for him every day to be able to return home. Understands also in case requiring hemodialysis would need to also transportation and help with transfers to and from dialysis clinic 3 times weekly. Attestations Medical Necessity Statement*: Continue admission for assessment and management of oliguric acute kidney injury, anasarca, continue the antibiotics for complicated urinary tract infection with Pseudomonas, ureteral stent, disposition planning and arrangements. Coding Level of Care Code Acute Performance Test Consultant for [facility] Fwd Diagnoses CY (acute kidney injury) N17.9 Anasarca R60.1 Obstructive pyelonephritis N11.1 Septic shock A41.9; R65.21 Sepsis A41.9; R65.20; N17.0 Sepsis type: sepsis due to unspecified organism Sepsis acute organ dysfunction status: with acute organ dysfunction Severe sepsis acute organ dysfunction type: acute renal failure Acute renal failure type: with acute tubular necrosis Severe sepsis shock status: without septic shock Rhabdomyolysis T79.6XXA Rhabdomyolysis type: traumatic Encounter type: initial encounter Wide-complex tachycardia I47.2 Cardiomyopathy I42.0 Cardiomyopathy type: dilated Elevated troponin R77.8 Hyperkalemia E87.5 Oliguria R34 Anemia D64.9
--- NOTE | 2021-03-21 13:19 | PM.PN ---
Subjective Subjective: Interval history: Reports left ankle pain, good appetite. Concerned about medicaid application. Medications: Reviewed: Yes Medication Review Details: lasix gtt at 8 mg/hr Vitals/I&O/Wt Last Vital Signs Temp 97.9 F 03/21/21 11:31 Pulse 91 03/21/21 11:31 Resp 18 03/21/21 11:31 BP 99/49 03/21/21 11:31 Pulse Ox 96 03/21/21 11:31 03/20/21 03/21/21 03/21/21 22:59 06:59 14:59 Intake Total 528.8 / 578.8 95.8 / 95.8 Output Total 650 / 650 1250 / 1900 1000 / 1000 Balance -650 / -600 -721.2 / -1321.2 -904.2 / -904.2 Physical Exam Const: COMMON NORMALS: no acute distress GENERAL APPEARANCE: cooperative Extremity: GENERAL: Yes edema Urinary Catheter Management^: Flynn: Cath Placed During This Visit: yes, but has since been removed by the nurse Reason for Continuing Indwelling Catheter: Acute Urinary Retention or Obstruction Urinary Catheter Date of Insertion: 03/14/21 Urinary Catheter Time of Insertion: 00:46 Date Urinary Catheter Removed: 03/14/21 Time Urinary Catheter Discontinued: 00:30 Data : 03/21/21 04:41 03/21/21 04:41 Other Labs: albumin 1.9, mark Ca 9.5, phos 4.6, Mg 2.1 TSAT 14%, SF 674 Micro: Microbiology 03/17/21 17:00 Urine Culture - Final Urine,Clean Catch Pseudomonas aeruginosa US: Radiologist's impression: [address] [id number] ReportSigned Right kidney: The right kidney measures 10.9 cm in length. There is cortical atrophy. No mass, calcification or hydronephrosis is seen.. Left kidney: The left kidney measures 9.4 cm in length. There is cortical atrophy. There is 6 mm echogenicity in the lower pole consistent with a nonobstructing calcification. No mass or hydronephrosis is seen. Aorta: The aorta could not be evaluated due to prominent amount of bowel gas.. Urinary bladder: The urinary bladder is collapsed around a Flynn catheter. A&P Additional A&P Information 1. Acute kidney injury/CKD/CHF. Diuresing well on low dose lasix gtt. Renal function relatively stable. No acute indications for dialysis 2. UTI with multiple drug resistent pseudomonas on piper/tazo 3. Anemia, iron deficient + CKD: begin oral iron Rec: Discussed with Dr Grant. Plan to continue IV lasix infusion today; tomorrow convert to intermittent lasix. I spoke with Darrian about dialysis: indications, catheter insertion, procedure. He is agreeable to dialysis if needed. Attestations Medical Necessity Statement*: see above Coding Level of Care Code Acute Reed Maker for Evette York
--- NOTE | 2021-03-21 14:55 | P.CONIM_ITS ---
Providers/Reason For Consult Consulting Physician/Specialty*: Dr Cervantes Orthopedics Reason for Consult*: Left Ankle Pain Attending Physician: Rohit Grant Primary Care Provider: Felipe Bustos DO History of Present Illness History of Present Illness Darrian Boggs is a 85 year old male who presented to [facility] complaining of increased left ankle pain following a fall at home. Pain has progressively intensified since he has been hospitalized. He previously ambulated with a walker. He reports pain in the left ankle with movement of the left ankle denies any knee or hip pain. Pain has been constant aching in nature. Any attempts to move the ankle or stand on the ankle make it much worse. Ice rest does give him some temporary relief. He ranks it as 5 out of 10 on the pain scale. He has had swelling in both lower extremities for some time. He denies any loss of consciousness in the fall denies any out of the ordinary aches and pains in his neck or back following the fall. Has not tried much to alleviate his pain since his hospitalization. He localizes most of his pain to his left ankle. Extensive review of the patient's past medical history, surgical history, medications allergies social history as family history and review of systems has been performed in the electronic medical record. Review of Systems General: Reports: 10 or more systems reviewed and unremarkable except in HPI and below Meds/Allergies Home Medications and Allergies Home Medications Medication Instructions Recorded Confirmed Last Taken Type ascorbic acid (vitamin C) 1,000 mg 1,000 mg PO BID tab 08/08/19 03/13/21 Unknown History tablet aspirin 81 mg tablet,delayed 81 mg PO DAILY 08/08/19 03/13/21 Unknown History release nitroglycerin 0.4 mg sublingual 0.4 mg SUBLINGUAL Q5M PRN 08/10/19 03/13/21 Unknown History tablet furosemide 40 mg tablet 40 mg PO DAILY #90 tab 04/23/20 03/13/21 Unknown Rx acetaminophen 500 mg PO Q6H PRN 03/13/21 03/13/21 Unknown History amiodarone 200 mg PO DAILY 03/13/21 03/13/21 Unknown History fluticasone propionate [Flonase 1 spray INTRANASAL BID 03/13/21 03/13/21 Unknown History Allergy Relief] hydrocodone-acetaminophen 1 - 2 tab PO TID PRN 03/13/21 03/13/21 Unknown History ibuprofen 200 - 400 mg PO Q6H PRN 03/13/21 03/13/21 Unknown History ketotifen fumarate [Refresh Eye 1 drp OPHTHALMIC (EYE) BID PRN 03/13/21 03/13/21 Unknown History Itch Relief] lisinopril 10 mg PO DAILY 03/13/21 03/13/21 Unknown History loratadine 10 mg PO DAILY 03/13/21 03/13/21 Unknown History methenamine hippurate 1 g PO BID 03/13/21 03/13/21 Unknown History tamsulosin 0.4 mg PO DAILY 03/13/21 03/13/21 Unknown History Allergies Allergy/AdvReac Type Severity Reaction Status Date / Time No Known Allergies Allergy Verified 09/13/20 08:56 Current Medications Current Medications Generic Name Dose Route Start Last Admin Trade Name Freq PRN Reason Stop Dose Admin Acetaminophen 650 mg 03/14/21 03:41 03/21/21 01:20 Acetaminophen 325 Mg Tablet PO 650 mg Q6H PRN Administration Mild/Mod Pain Or Temp >/= 101 Amiodarone HCl 200 mg 03/14/21 09:00 03/21/21 07:54 Amiodarone 200 Mg Tablet PO 200 mg DAILY MADHAVI Administration Ascorbic Acid 500 mg 03/18/21 09:00 03/21/21 07:45 Ascorbic Acid 500 Mg Tablet PO 500 mg DAILY MADHAVI Administration Aspirin 81 mg 03/14/21 09:00 03/21/21 07:45 Aspirin 81 Mg Ec Tablet PO 81 mg DAILY MADHAVI Administration Fluticasone Propionate 1 spray 03/14/21 18:00 03/21/21 07:45 Fluticasone Nasal [place] 16gm Btl INTRANASAL 1 spray BID MADHAVI Administration Hydromorphone HCl 0.5 mg 03/19/21 10:00 03/21/21 11:28 Hydromorphone 1 Mg/Ml Inj 1 Ml IVP 0.5 mg Q6H PRN Administration break through pain Piperacillin Sod/Tazobactam 50 mls @ 12.5 mls/hr 03/17/21 13:30 03/21/21 14:08 Sod 3.375 gm/ Sodium Chloride IV 12.5 mls/hr Q12H MADHAVI Administration Protocol Furosemide 100 mg/ Sodium 50 mls @ 4 mls/hr 03/19/21 11:15 03/21/21 11:12 Chloride IV 8 mg/hr .[id number] MADHAVI 4 mls/hr Administration Protocol Lidocaine 1 patch 03/20/21 21:00 03/21/21 07:45 Lidocaine 5% Patch TOPICAL 1 patch [id number] MADHAVI Administration Ondansetron HCl 4 mg 03/14/21 03:46 03/17/21 07:54 Ondansetron 2 Mg/Ml Sdv 2 Ml IVP 4 mg Q8H PRN Administration vomiting, or N/V if npo Pantoprazole Sodium 40 mg 03/14/21 09:00 03/21/21 07:[address] 40 Mg Tablet PO 40 mg DAILY MADHAVI Administration Prochlorperazine 5 mg 03/17/21 01:50 03/17/21 02:15 Prochlorperazine 10 Mg Tablet PO 5 mg TID PRN Administration VOMITING Tamsulosin HCl 0.4 mg 03/14/21 09:00 03/21/21 07:45 Tamsulosin 0.4 Mg Capsule PO 0.4 mg DAILY MADHAVI Administration PFSH Acute PFSH: Medical History Cardiomyopathy Cataracts, bilateral History of high risk medication treatment Hypertension LBBB (left bundle branch block) Left ureteral calculus Obstructive pyelonephritis Osteoarthrosis Prostate cancer Pyuria Syncope Umbilical hernia Ventricular arrhythmia Wide-complex tachycardia Surgical History History of cataract removal with insertion of prosthetic lens BILATERAL History of colon resection WITH COLOSTOMY PLACED History of hip surgery History of left hip replacement Family History Mother Stroke Other Cancer Social History Smoking and tobacco status: former smoker Alcohol intake: unknown Adopted: No Caregiver/support person: No Lives independently: Yes Marital status: / Current occupational status: retired History of recent travel: No Vitals/I&O/Wt Last Vital Signs Temp 97.9 F 03/21/21 12:00 Pulse 91 03/21/21 12:00 Resp 18 03/21/21 12:00 BP 99/49 03/21/21 12:00 Pulse Ox 96 03/21/21 12:00 03/20/21 03/21/21 03/21/21 22:59 06:59 14:59 Intake Total 528.8 / 578.8 95.8 / 95.8 Output Total 650 / 650 1250 / 1900 1000 / 1000 Balance -650 / -600 -721.2 / -1321.2 -904.2 / -904.2 Physical Exam Narrative: EXAM NARRATIVE: Extremity exam: Examination of both lower extremities is nontender with palpation about the hips or knees is palpable pain both medially and laterally over the left ankle nontender over the right. His skin is clear warm feet are warm, hyper calcified toenails with good capillary refill in all digits. Is tender with dorsiflexion plantarflexion of the left ankle. Tender with palpation over the lateral malleolus nontender over the medial malleolus. He does have 3+ edema in both lower extremities. He is non tender with palpation about the right ankle. He has decreased range of motion to both worse on the left than the right. Appears to have normal sensation to light touch down both lower extremities. Calves are supple, negative Homans' sign, no medial thigh tenderness. Dorsalis pedis and posterior Tibial pulses are weak but palpable. HENMT: COMMON NORMALS: normocephalic HEAD & SCALP: normocephalic Resp: COMMON NORMALS: normal respiratory effort Cardio: COMMON NORMALS: regular rate and regular rhythm RATE: regular rate RHYTHM: regular rhythm GI: COMMON NORMALS: non-tender Back/Pelvis: COMMON NORMALS: no thoracic nor lumbar tenderness Psych: COMMON NORMALS: cooperative Urinary Catheter Management^: Flynn: Cath Placed During This Visit: yes, but has since been removed by the nurse Reason for Continuing Indwelling Catheter: Acute Urinary Retention or Obstruction Urinary Catheter Date of Insertion: 03/14/21 Urinary Catheter Time of Insertion: 00:46 Date Urinary Catheter Removed: 03/14/21 Time Urinary Catheter Discontinued: 00:30 Data Micro: Micro: Microbiology 03/17/21 17:00 Urine Culture - Fi nal Urine,Clean Catch Pseudomonas aer uginosa Other Data: Other data: AP lateral radiographs of the left ankle shows nondisplaced left distal fibula fracture. There is an old injury to the medial malleolus. no obvious widening of the ankle mortise. A&P Assessment and plan (1) Closed left ankle fracture: Would recommend nonoperative treatment. Will order a cam boot to be applied to the left ankle. Would recommend partial weightbearing to left lower extremity. Would encourage ice and elevation to the left lower extremity. We will see him back in the office with Dr Cervantes in 2 weeks time for continued follow-up and new radiographs. Encouraged him to contact the office if he has any questions. Status: Acute Coding Level of Care Code Acute Cook Helper Preserves for [facility] Fw Exam Detailed Diagnoses Closed left ankle fracture S82.892A
[2021-03-21] MEDS: ferrous sulfate EC 325 mg Tablet PO (17:10)
[2021-03-22] VITALS (10 sets, daily range): BP systolic 100–151; BP diastolic 54–68; PULSE 80–100; RESP 18–32; TEMP 36.2–36.8; O2SAT 87–93
[2021-03-22] MEDS: piperacillin-tazobactam 3.375 GM in sodium chloride 0.9% (plus) 50 ML IV ×3 (01:14→23:52)
[2021-03-22] MEDS: FUROsemide 100 MG in sodium chloride 0.9% 40 ML IV ×2 (01:59→16:51)
[2021-03-22] MEDS: ondansetron 2 mg/ML SDV 2 mL 4 MG IVP (02:13)
--- NOTE | 2021-03-22 04:43 | PC.NURSE ---
Frequent safety and comfort rounds continue. Orders and/or nursing care completed as indicated. Patient monitored for response to intervention and treatment(s). Patient continues to have pain however was able to sleep after receiving dose of hydromorphone .5 IV. Also given zofran for nausea. Repositioned frequently. Burping necessary to colostomy several times during the night. Flynn draining clear yellow. Education provided includes pain interventions and repositioning. Patient and/or dermatology sales representative expresses understanding. . Will continue to monitor.
--- NOTE | 2021-03-22 06:24 | P.PN_ITS ---
Subjective Subjective: Interval history: patient resting comfortably Vitals/I&O/Wt Last Vital Signs Temp 98.5 F 03/21/21 20:00 Pulse 89 03/22/21 04:41 Resp 18 03/22/21 04:00 BP 100/60 03/22/21 04:00 Pulse Ox 98 03/21/21 16:00 03/21/21 03/21/21 03/22/21 14:59 22:59 06:59 Intake Total 95.8 / 95.8 530 / 625.8 530 / 1155.8 Output Total 1000 / 1000 700 / 1700 1350 / 3050 Balance -904.2 / -904.2 -170 / -1074.2 -820 / -1894.2 Physical Exam Narrative: EXAM NARRATIVE: boot on left ankle Urinary Catheter Management^: Flynn: Cath Placed During This Visit: yes, but has since been removed by the nurse Reason for Continuing Indwelling Catheter: Accurate Measurement of Urinary Output in Critically Ill Patients Urinary Catheter Date of Insertion: 03/14/21 Urinary Catheter Time of Insertion: 00:46 Date Urinary Catheter Removed: 03/14/21 Time Urinary Catheter Discontinued: 00:30 Data : 03/21/21 04:41 03/21/21 04:41 A&P Assessment and plan (1) Closed left ankle fracture: f/u ortho clinic two weeks partial weight bearing Status: Acute Attestations Medical Necessity Statement*: per hospitalist service Coding Level of Care Code Acute Financial Analyst Intern for Evette York Diagnoses Closed left ankle fracture S82.892A
[2021-03-22] MEDS: HYDROmorphone 1 mg/mL INJ 1 mL 0.5 MG IVP ×3 (06:47→23:52)
[2021-03-22 07:09] LABS: Hematocrit 25.4 % (42.0-52.0); Hemoglobin 7.9 g/dL (11.7-16.6); Mean Corpuscular HGB Conc 31.1 g/dL (30.0-36.0); Mean Corpuscular Volume 83.6 fl (80-94); Mean Platelet Volume 8.9 fL (7.4-10.4); Platelet Count 377 10^3/cmm (130-400); Red Blood Count 3.04 10^6/uL (4.1-5.3); Red Cell Distribution Width 17.9 % (12.1-15.1); White Blood Count 14.9 10^3/uL (4.0-10.0)
[2021-03-22 07:44] LABS: Slide Review Slide Review Perform
[2021-03-22 07:45] LABS: Anion Gap 16.7 (5-19); Blood Urea Nitrogen 77 mg/dL (8-23); Calcium 7.8 mg/dL (8.5-10.5); Carbon Dioxide 22 mmol/L (22-29); Chloride 99 mmol/L (98-107); Glucose 95 mg/dL (65-115); Osmolality Calculated 299 mOsm/kg (285-295); Potassium 4.7 mmol/L (3.5-5.1); Sodium 133 mmol/L (136-145)
[2021-03-22 07:46] LABS: Absolute Eosinophils 0.4 10^3/cmm (0.0-0.7); Absolute Segmented Neutrophil 10.9 10/cmm (1.6-7.1); Band Neutrophils Absolute 0.1 10^3/cmm (0.0-1.2); Eosinophils 3 %; Lymphocytes 14 %; Lymphocytes Absolute 2.1 10^3/cmm (1.2-3.4); Monocytes Absolute 0.7 10^3/cmm (0.1-0.6); Platelet Estimate Normal (Normal); Segmented Neutrophils 73 %; Total Cells Counted 100 (0-100)
[2021-03-22] MEDS: aspirin 81 mg EC Tablet PO (09:15)
[2021-03-22] MEDS: ascorbic acid 500 mg Tablet PO (09:16)
[2021-03-22] MEDS: amiodarone 200 mg Tablet PO (09:16)
[2021-03-22] MEDS: tamsulosin 0.4 mg Capsule PO (09:16)
[2021-03-22] MEDS: ferrous sulfate EC 325 mg Tablet PO ×2 (09:16→17:54)
[2021-03-22] MEDS: pantoprazole DR 40 mg Tablet PO (09:16)
[2021-03-22] MEDS: lidocaine 5% Patch 1 PATCH TOPICAL ×2 (09:29→21:03)
--- NOTE | 2021-03-22 10:30 | P.PN_ITS ---
Subjective Subjective: Interval history: Mr. Boggs feels unwell, remains sick. He still has significant global edema. Flynn catheter in place, urine output pretty robust. No other overt uremic symptoms at this time. Vitals/I&O/Wt Last Vital Signs Temp 97.2 F L 03/22/21 08:00 Pulse 88 03/22/21 08:00 Resp 30 H 03/22/21 08:00 BP 124/60 03/22/21 08:00 Pulse Ox 93 03/22/21 08:00 03/21/21 03/22/21 03/22/21 22:59 06:59 14:59 Intake Total 530 / 625.8 580 / 1205.8 Output Total 700 / 1700 1350 / 3050 Balance -170 / -1074.2 -770 / -1844.2 Physical Exam Narrative: EXAM NARRATIVE: Constitutional: Awake, comfortable HEENT: Wet mucosa, no jvp, non icteric Lungs: Bilaterally clear without discernible wheeze, rales in all lung zones CVS: S1 S2, no murmurs Abdo: Soft, BS ok Ext 4: 2-3+ edema, peripheral perfusion with no cyanosis Neurological: Grossly non-focal Urinary Catheter Management^: Flynn: Cath Placed During This Visit: yes, but has since been removed by the nurse Reason for Continuing Indwelling Catheter: Accurate Measurement of Urinary Output in Critically Ill Patients Urinary Catheter Date of Insertion: 03/14/21 Urinary Catheter Time of Insertion: 00:46 Date Urinary Catheter Removed: 03/14/21 Time Urinary Catheter Discontinued: 00:30 Data : 03/22/21 07:00 03/22/21 07:00 A&P Additional A&P Information 1. Acute renal failure Creatinine slowly drifting up Prerenal azotemia/ATN in the setting of MIKE inhibitor, diuretic, also infection mediated ATN as well. Renal function continues to deteriorate, urine output remains robust on lasix infusion. No acute indication for dialysis today, however, likely to be needed in the next 24-48 hours. Willing to have dialysis if needed Continue diuretics Avoid usual nephrotoxic agents Dose medication for GFR less than 15. 2. Chemistry Mild noncritical aberration. Corrected calcium within range. 3. Sepsis Pseudomonas in urine, currently on Zosyn 4. Hemodynamics These remain relatively stable at this time. 5. S/p ankle fracture Input from Ortho is appreciated Ridge Smith MD Nephrology [phone] Patient seen and examined via telemedicine, with the assistance of the bedside RN > 25 min spent in evaluation and mgmt of patient Attestations Medical Necessity Statement*: eval for CY Coding Level of Care Code Acute Applications Systems Engineer for Evette York
[2021-03-22 11:35] LABS: Glucose Point of Care 167 mg/dL (70-110)
--- NOTE | 2021-03-22 14:23 | PM.PN ---
Subjective Subjective: Interval history: Noting pain in his lower back with reclining in bed. Asked to be repositioned. Otherwise reports breathing is okay. Denies chest pain. Vitals/I&O/Wt Last Vital Signs Temp 98.0 F 03/22/21 11:43 Pulse 88 03/22/21 11:43 Resp 32 H 03/22/21 13:20 BP 128/54 03/22/21 11:43 Pulse Ox 91 03/22/21 11:43 03/21/21 03/22/21 03/22/21 22:59 06:59 14:59 Intake Total 530 / 625.8 580 / 1205.8 Output Total 700 / 1700 1350 / 3050 Balance -170 / -1074.2 -770 / -1844.2 Physical Exam Const: COMMON NORMALS: no acute distress, patient oriented x3 and alert GENERAL APPEARANCE: cooperative and frail appearing ORIENTATION/CONSCIOUSNESS: Yes awake HENMT: COMMON NORMALS: oropharynx normal Resp: COMMON NORMALS: normal respiratory effort and clear to auscultation bilaterally AUSCULTATION: clear to auscultation bilaterally Cardio: COMMON NORMALS: regular rhythm, S1 normal heart sound present, S2 normal heart sound present and No murmurs present (Cardio) RHYTHM: regular rhythm HEART SOUNDS: S1 normal heart sound present and S2 normal heart sound present GI: COMMON NORMALS: Normal to inspection, nondistended, normoactive bowel sounds present, Soft to palpation and non-tender PALPATION: Yes Soft to palpation Extremity: COMMON NORMALS: no joint enlargement GENERAL: Yes edema (Anasarca 3+ LE, 3+ UE BL elbow joint and above) Neuro: COMMON NORMALS: patient oriented x3 and moves all extremities SENSORIUM/ORIENTATION: Yes alert Skin: COMMON NORMALS: no rashes or lesions noted GENERAL SKIN EXAM: no rashes or lesions noted Urinary Catheter Management^: Flynn: Cath Placed During This Visit: yes, but has since been removed by the nurse Reason for Continuing Indwelling Catheter: Accurate Measurement of Urinary Output in Critically Ill Patients Urinary Catheter Date of Insertion: 03/14/21 Urinary Catheter Time of Insertion: 00:46 Date Urinary Catheter Removed: 03/14/21 Time Urinary Catheter Discontinued: 00:30 Data : 03/22/21 07:00 03/22/21 07:00 A&P Assessment and plan (1) CY (acute kidney injury): Renal function improving, but continues to produce urine with Lasix drip. Continue diuresis secondary to anasarca. Continue to monitor renal function, high chance of needing hemodialysis. Nephrology recommendations appreciated. Rhabdomyolysis resolving. Status: Acute (2) Anasarca: Diuretic challenge. Continue Lasix drip. Status: Acute (3) Obstructive pyelonephritis: Complicated UTI with MDR Pseudomonas. s/p L ureteral stent for obstructive uropathy, ureterolithiasis on 03/13. Continue Zosyn. Unfortunately no option to switch to p.o. medicine. 2 weeks of antibiotic recommended by urology, as well as follow-up end of next week or early week after. Status: Acute (4) Septic shock: Resolved. Status: Acute (5) Sepsis: Status: Acute Qualifiers: Sepsis type: sepsis due to unspecified organism Sepsis acute organ dysfunction status: with acute organ dysfunction Severe sepsis acute organ dysfunction type: acute renal failure Acute renal failure type: with acute tubular necrosis Severe sepsis shock status: without septic shock Qualified Code(s): A41.9 - Sepsis, unspecified organism; R65.20 - Severe sepsis without septic shock; N17.0 - Acute kidney failure with tubular necrosis (6) Rhabdomyolysis: Resolving. Status: Acute Qualifiers: Rhabdomyolysis type: traumatic Encounter type: initial encounter Qualified Code(s): T79.6XXA - Traumatic ischemia of muscle, initial encounter (7) Wide-complex tachycardia: Telemetry. Continue with home dose of amiodarone. Status: Acute (8) Cardiomyopathy: Status: Acute Qualifiers: Cardiomyopathy type: dilated Qualified Code(s): I42.0 - Dilated cardiomyopathy (9) Elevated troponin: Most likely demand ischemia. Echo done earlier in the admission shows EF 55 to 60% with grade 1 diastolic dysfunction, moderate annular calcification, mild TR with mild pulmonary hypertension. Continue with aspirin. Hold off on statins given rhabdomyolysis. Status: Acute (10) Hyperkalemia: Status: Acute (11) Oliguria: Status: Acute (12) Anemia: No obvious source of bleeding. Check Hemoccult. Normocytic. Gradually worsening hemoglobin level. Has been off heparin VT prophylaxis. For now continues on aspirin. Status: Acute Additional A&P Information L ankle bimalleolar fracture: Appreciate ortho assessment and recs. Continue pain control. Lidocaine patch - change to ankle. Lower back pain: Fall at home, however, no noted high-grade compression fracture. Noted mild concavity of the superior vertebral endplate of L5. Demineralized bones. Abnormal lymph node, 2.9 x 2.9 cm, cannot exclude malignant metastatic disease. Prostate enlargement: Malignancy not excluded Circumscribed cystic fluid collection in the right ventral abdominal wall 6 x 4.6 cm. Small umbilical hernia. Possibly postsurgical seroma or lymphatic collection. Severe deconditioning: Very deconditioned. Requiring 2 person assist. Adamant he is not going to long term, and making all arrangements possible with his daughter, hiring caregivers to be there for him every day to be able to return home. Understands also in case requiring hemodialysis would need to also transportation and help with transfers to and from dialysis clinic 3 times weekly. Attestations Medical Necessity Statement*: Continue admission for management of anasarca, Lasix drip, continued monitoring of renal function, with high chance of needing hemodialysis soon. Continue IV antibiotics for complicated urinary tract infection. Coding Level of Care Code Acute Steel Die Press Set Up Operator for [facility] Fwd Diagnoses CY (acute kidney injury) N17.9 Anasarca R60.1 Obstructive pyelonephritis N11.1 Septic shock A41.9; R65.21 Sepsis A41.9; R65.20; N17.0 Sepsis type: sepsis due to unspecified organism Sepsis acute organ dysfunction status: with acute organ dysfunction Severe sepsis acute organ dysfunction type: acute renal failure Acute renal failure type: with acute tubular necrosis Severe sepsis shock status: without septic shock Rhabdomyolysis T79.6XXA Rhabdomyolysis type: traumatic Encounter type: initial encounter Wide-complex tachycardia I47.2 Cardiomyopathy I42.0 Cardiomyopathy type: dilated Elevated troponin R77.8 Hyperkalemia E87.5 Oliguria R34 Anemia D64.9
--- NOTE | 2021-03-22 15:10 | PC.CHAP ---
Pastoral Care Encounter/Spiritual Assessment Type of Contact [] Declined auditor in charge visit [] Patient/Family/Request visit [] Outpatient visit [xx] Follow-up visit [] Physician referral [] Code/Alert [] Routine visit [] Staff referral [] Actively dying [xx] Patient sleeping [] Family support [] [] Out of room [] Palliative care [] [] Receiving care in room [] Pre-surgical visit [] Trauma [xx] Long length of stay [] ICU visit [] Other: Relational/Emotional Strength [] Patient feels connected with others/family/visitors/staff [] Distress [] Loneliness/isolation [] Abandonment Spirituality of Patient [] Person of Nadia [] Attends Scientologist of their Nadia [] Believes in Prayer [] Reads Bible or Denominational materials [] There are Spiritual issues to be addressed Tube Repairer Interventions [] Prayer [] Active listening [] Non-anxious presence [] Spiritual/emotional support [] Crisis/trauma care [] Spiritual counseling [] Bereavement support [] Provided bereavement packet [] Provided Bible/devotional materials [] Provided toy/stuffed animal, coloring book to patient or family member [] Provided Communion [] Anointing/[place] [] Salvation [] Completed spiritual assessment [] Other: Impact on Illness or Injury [] Angry [] Fearful [] Anxious [] Often cries [] Exhaustion [] Unable to work [] Unable to attend nondenominational [] Unable to walk/stand [] Unable to read [] Unable to drive [] Unable to eat/drink [] Unable to sleep [] Unable to be with family [] Patient intubated [] Other: Summary Patient sleeps a lot. Follow up later. Time spent with patient
[2021-03-22 20:07] LABS: Glucose Point of Care 146 mg/dL (70-110)
[2021-03-22] MEDS: HYDROcodone-acetaminophen 5-325 mg Tablet 1 TAB PO (21:02)
[2021-03-23] VITALS (14 sets, daily range): BP systolic 95–138; BP diastolic 49–65; PULSE 68–98; RESP 15–24; TEMP 36.4–36.8; O2SAT 84–93
[2021-03-23 04:30] LABS: Basophils # 0.1 10^3/uL (0.0-0.1); Basophils % 0.5 %; Eosinophils # 0.2 10^3/uL (0.0-0.8); Eosinophils % 1.7 %; Hematocrit 24.6 % (42.0-52.0); Hemoglobin 7.6 g/dL (11.7-16.6); Lymphocytes # 2.2 10^3/uL (0.8-4.8); Lymphocytes % 16.2 %; Mean Corpuscular HGB Conc 30.9 g/dL (30.0-36.0); Mean Corpuscular Hemoglobin 25.2 pg (28.0-34.0); Mean Corpuscular Volume 81.7 fl (80-94); Mean Platelet Volume 9.1 fL (7.4-10.4); Monocytes # 0.7 10^3/uL (0.2-0.9); Monocytes % 5.3 %; Neutrophils # 9.42 10^3/uL (1.8-7.7); Neutrophils % 70.9 %; Nucleated Red Blood Cells % 0 %; Platelet Count 477 10^3/cmm (130-400); Red Blood Count 3.01 10^6/uL (4.1-5.3); White Blood Count 13.3 10^3/uL (4.0-10.0)
[2021-03-23 05:21] LABS: Slide Review Slide Review Perform
--- NOTE | 2021-03-23 05:38 | PC.NURSE ---
Frequent safety and comfort rounds continue. Orders and/or nursing care completed as indicated. Patient monitored for response to intervention and treatment(s). Education provided includes pain medication and timing of. Patient and/or housing management representative verbalized understanding. Will continue to monitor. Patient constant complaints of bed being uncomfortable. Also was on icu bed, repositioning difficult due to dip in middle of bed. Patient switched to new bed. Stated that he was more comfortable and fell asleep. Will continue to monitor.
[2021-03-23 06:45] LABS: Glucose Point of Care 114 mg/dL (70-110)
--- NOTE | 2021-03-23 08:50 | PC.SOCIAL ---
IMM Updated Page 2 of IMM updated. Reviewed with patient and copy left in chart. Initialed, timed and dated.
--- NOTE | 2021-03-23 09:36 | PM.PN ---
Subjective Subjective: Interval history: Leg pain little bit better since putting the boot on. Sometimes still having some back pain. Breathing okay. No chest pain. Swelling with gradual decrease. Vitals/I&O/Wt Last Vital Signs Temp 98.2 F 03/23/21 07:54 Pulse 96 03/23/21 07:54 Resp 23 H 03/23/21 07:54 BP 124/65 03/23/21 07:54 Pulse Ox 89 L 03/23/21 07:54 03/22/21 03/23/21 03/23/21 22:59 06:59 14:59 Intake Total 410 / 460 650 / 1110 Output Total 920 / 920 2220 / 3140 Balance -510 / -460 -1570 / -2030 Physical Exam Const: COMMON NORMALS: no acute distress, patient oriented x3 and alert GENERAL APPEARANCE: cooperative and frail appearing ORIENTATION/CONSCIOUSNESS: Yes awake HENMT: COMMON NORMALS: oropharynx normal Resp: COMMON NORMALS: normal respiratory effort and clear to auscultation bilaterally AUSCULTATION: clear to auscultation bilaterally Cardio: COMMON NORMALS: regular rhythm, S1 normal heart sound present, S2 normal heart sound present and No murmurs present (Cardio) RHYTHM: regular rhythm HEART SOUNDS: S1 normal heart sound present and S2 normal heart sound present GI: COMMON NORMALS: Normal to inspection, nondistended, normoactive bowel sounds present, Soft to palpation and non-tender PALPATION: Yes Soft to palpation Extremity: COMMON NORMALS: no joint enlargement GENERAL: Yes edema (Anasarca slightly better 3 LE, 3 UE BL elbow joint and above) Neuro: COMMON NORMALS: patient oriented x3 and moves all extremities SENSORIUM/ORIENTATION: Yes alert Skin: COMMON NORMALS: no rashes or lesions noted GENERAL SKIN EXAM: no rashes or lesions noted Urinary Catheter Management^: Flynn: Cath Placed During This Visit: yes, but has since been removed by the nurse Reason for Continuing Indwelling Catheter: Accurate Measurement of Urinary Output in Critically Ill Patients Urinary Catheter Date of Insertion: 03/14/21 Urinary Catheter Time of Insertion: 00:46 Date Urinary Catheter Removed: 03/14/21 Time Urinary Catheter Discontinued: 00:30 Data : 03/23/21 03:38 03/22/21 07:00 A&P Assessment and plan (1) CY (acute kidney injury): No lab available from today yet. Reordered. Discussed with lab. He is producing urine. Anasarca gradually decreasing. Continue Lasix drip. Continue to monitor renal function, high chance of needing hemodialysis. Nephrology recommendations appreciated. Rhabdomyolysis resolving. Status: Acute (2) Anasarca: Diuretic challenge. Continue Lasix drip. Status: Acute (3) Obstructive pyelonephritis: Complicated UTI with MDR Pseudomonas. s/p L ureteral stent for obstructive uropathy, ureterolithiasis on 03/13. Continue Zosyn. Unfortunately no option to switch to p.o. medicine. 2 weeks of antibiotic recommended by urology, as well as follow-up end of next week or early week after. Status: Acute (4) Septic shock: Resolved. Status: Acute (5) Sepsis: Status: Acute Qualifiers: Sepsis type: sepsis due to unspecified organism Sepsis acute organ dysfunction status: with acute organ dysfunction Severe sepsis acute organ dysfunction type: acute renal failure Acute renal failure type: with acute tubular necrosis Severe sepsis shock status: without septic shock Qualified Code(s): A41.9 - Sepsis, unspecified organism; R65.20 - Severe sepsis without septic shock; N17.0 - Acute kidney failure with tubular necrosis (6) Rhabdomyolysis: Resolving. Status: Acute Qualifiers: Rhabdomyolysis type: traumatic Encounter type: initial encounter Qualified Code(s): T79.6XXA - Traumatic ischemia of muscle, initial encounter (7) Wide-complex tachycardia: Telemetry. Continue with home dose of amiodarone. Status: Acute (8) Cardiomyopathy: Status: Acute Qualifiers: Cardiomyopathy type: dilated Qualified Code(s): I42.0 - Dilated cardiomyopathy (9) Elevated troponin: Most likely demand ischemia. Echo done earlier in the admission shows EF 55 to 60% with grade 1 diastolic dysfunction, moderate annular calcification, mild TR with mild pulmonary hypertension. Continue with aspirin. Hold off on statins given rhabdomyolysis. Status: Acute (10) Hyperkalemia: Status: Acute (11) Oliguria: Status: Acute (12) Anemia: No obvious source of bleeding. Check Hemoccult. Normocytic. Gradually worsening hemoglobin level. Has been off heparin VT prophylaxis. For now continues on aspirin. Status: Acute Additional A&P Information L ankle bimalleolar fracture: Appreciate ortho assessment and recs. Continue pain control. Lidocaine patch to ankle. Lower back pain: Fall at home, however, no noted high-grade compression fracture. Noted mild concavity of the superior vertebral endplate of L5. Demineralized bones. Abnormal lymph node, 2.9 x 2.9 cm, cannot exclude malignant metastatic disease. Prostate enlargement: Malignancy not excluded Circumscribed cystic fluid collection in the right ventral abdominal wall 6 x 4.6 cm. Small umbilical hernia. Possibly postsurgical seroma or lymphatic collection. Severe deconditioning: Very deconditioned. Requiring 2 person assist. Adamant he is not going to [facility], and making all arrangements possible with his daughter, hiring caregivers to be there for him every day to be able to return home. Understands also in case requiring hemodialysis would need to also transportation and help with transfers to and from dialysis clinic 3 times weekly. Attestations Medical Necessity Statement*: Continue admission for management of anasarca, Lasix drip, in the setting of oliguric acute renal failure, with possibility of needing hemodialysis. Continue IV antibiotics for complicated urinary tract infection with multidrug-resistant Pseudomonas. 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 Diagnoses CY (acute kidney injury) N17.9 Anasarca R60.1 Obstructive pyelonephritis N11.1 Septic shock A41.9; R65.21 Sepsis A41.9; R65.20; N17.0 Sepsis type: sepsis due to unspecified organism Sepsis acute organ dysfunction status: with acute organ dysfunction Severe sepsis acute organ dysfunction type: acute renal failure Acute renal failure type: with acute tubular necrosis Severe sepsis shock status: without septic shock Rhabdomyolysis T79.6XXA Rhabdomyolysis type: traumatic Encounter type: initial encounter Wide-complex tachycardia I47.2 Cardiomyopathy I42.0 Cardiomyopathy type: dilated Elevated troponin R77.8 Hyperkalemia E87.5 Oliguria R34 Anemia D64.9
[2021-03-23] MEDS: ferrous sulfate EC 325 mg Tablet PO (09:41)
[2021-03-23] MEDS: ascorbic acid 500 mg Tablet PO (09:41)
[2021-03-23] MEDS: aspirin 81 mg EC Tablet PO (09:41)
[2021-03-23] MEDS: tamsulosin 0.4 mg Capsule PO (09:41)
[2021-03-23] MEDS: amiodarone 200 mg Tablet PO (09:41)
[2021-03-23] MEDS: pantoprazole DR 40 mg Tablet PO (09:41)
[2021-03-23] MEDS: HYDROcodone-acetaminophen 5-325 mg Tablet 1 TAB PO ×4 (09:41→23:15)
[2021-03-23] MEDS: lidocaine 5% Patch 1 PATCH TOPICAL ×2 (09:42→21:07)
[2021-03-23 09:59] LABS: Alanine Aminotransferase 19 U/L (0-41); Alkaline Phosphatase 125 IU/L (40-130); Anion Gap 20.8 (5-19); Aspartate Amino Transferase 15 U/L (0-40); Calcium 8.2 mg/dL (8.5-10.5); Carbon Dioxide 22 mmol/L (22-29); Chloride 101 mmol/L (98-107); Globulin 2.9 g/dL (1.3-4.6); Glucose 83 mg/dL (65-115); Osmolality Calculated 314 mOsm/kg (285-295); Potassium 4.8 mmol/L (3.5-5.1); Sodium 139 mmol/L (136-145); Total Bilirubin 0.2 mg/dL (0.15-1.2); Total Protein 4.9 g/dL (6.6-8.7)
[2021-03-23 10:22] LABS: Blood Urea Nitrogen 89 mg/dL (8-23)
[2021-03-23] MEDS: FUROsemide 100 MG in sodium chloride 0.9% 40 ML IV (12:04)
[2021-03-23] MEDS: piperacillin-tazobactam 3.375 GM in sodium chloride 0.9% (plus) 50 ML IV (12:57)
[2021-03-23] MEDS: HYDROmorphone 1 mg/mL INJ 1 mL 0.5 MG IVP (16:38)
[2021-03-23 17:08] LABS: Glucose Point of Care 146 mg/dL (70-110)
--- NOTE | 2021-03-23 18:05 | P.PN_ITS ---
Subjective Subjective: Interval history: I am seeing him in follow up for his renal failure. No nausea, vomiting or diarrhea. No shortness of breath Medications: Reviewed: Yes Vitals/I&O/Wt Last Vital Signs Temp 98.2 F 03/23/21 16:00 Pulse 87 03/23/21 16:00 Resp 24 H 03/23/21 16:38 BP 138/57 03/23/21 16:00 Pulse Ox 93 03/23/21 16:00 03/23/21 03/23/21 03/23/21 06:59 14:59 22:59 Intake Total 700 / 1160 240 / 240 Output Total 2220 / 3140 1350 / 1350 Balance -1520 / -1980 -1110 / -1110 Physical Exam Const: COMMON NORMALS: no acute distress, patient oriented x3 and alert GENERAL APPEARANCE: cooperative ORIENTATION/CONSCIOUSNESS: Yes awake Resp: COMMON NORMALS: clear to auscultation bilaterally AUSCULTATION: clear to auscultation bilaterally Cardio: COMMON NORMALS: S1 normal heart sound present and S2 normal heart sound present HEART SOUNDS: S1 normal heart sound present and S2 normal heart sound present GI: AUSCULTATION: Yes normoactive bowel sounds Extremity: GENERAL: Yes edema Neuro: COMMON NORMALS: patient oriented x3 SENSORIUM/ORIENTATION: Yes alert Skin: COMMON NORMALS: no rashes or lesions noted GENERAL SKIN EXAM: no rashes or lesions noted Urinary Catheter Management^: Flynn: Cath Placed During This Visit: yes, but has since been removed by the nurse Reason for Continuing Indwelling Catheter: Accurate Measurement of Urinary Output in Critically Ill Patients Urinary Catheter Date of Insertion: 03/14/21 Urinary Catheter Time of Insertion: 00:46 Date Urinary Catheter Removed: 03/14/21 Time Urinary Catheter Discontinued: 00:30 Data : 03/23/21 03:38 03/23/21 03:38 A&P Assessment and plan (1) CY (acute kidney injury): Kidney function getting worse, will hold lasix Status: Acute (2) Anemia: Monitor hb Status: Acute (3) Hypertension: BP under control Status: Acute Qualifiers: Hypertension type: essential hypertension Qualified Code(s): I10 - Essential (primary) hypertension (4) Anasarca: Pt has severe hypoalbuminemia. He is not short of breath. Will hold lasix & get chest x ray for better assessment of his fluid status. 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
--- NOTE | 2021-03-23 18:10 | XRR_ITS ---
PROCEDURE INFORMATION: Exam: XR Chest Exam date and time: 03/23/2021 6:10 PM Age: 85 years old Clinical indication: Pain; Chest pressure; Patient HX: Chf TECHNIQUE: Imaging protocol: XR of the chest. Views: 1 view. COMPARISON: CR (CHEST, ) 03/16/2021 4:30 PM FINDINGS: Tubes, catheters and devices: A right PICC line extends into the SVC. Lungs: Unremarkable. No consolidation. Pleural spaces: Unremarkable. No pleural effusion. No pneumothorax. Heart/Mediastinum: Unremarkable. No cardiomegaly. Bones/joints: Unremarkable. Other findings: similar findings seen comparing to prior examination. XR/XR chest 1V portable [id number] IMPRESSION: 1. No acute findings. 2. Stable right side PICC line in the SVC
--- NOTE | 2021-03-23 19:16 | PC.NURSE ---
Shift Note Frequent safety and comfort rounds continue. Orders and/or nursing care completed as indicated. Patient monitored for response to intervention and treatment(patient medication options). Education provided includes[lasix infusion]. 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 needs reinforcement]. Will continue to monitor pain, uo, skin.
[2021-03-23 20:17] LABS: Glucose Point of Care 164 mg/dL (70-110)
[2021-03-24] VITALS (19 sets, daily range): BP systolic 118–162; BP diastolic 53–89; PULSE 71–94; RESP 17–25; TEMP 36.4–37.1; O2SAT 90–95
[2021-03-24] MEDS: HYDROmorphone 1 mg/mL INJ 1 mL 0.5 MG IVP ×2 (00:28→20:32)
[2021-03-24] MEDS: piperacillin-tazobactam 3.375 GM in sodium chloride 0.9% (plus) 50 ML IV ×2 (00:30→13:11)
[2021-03-24] MEDS: acetaminophen 325 mg Tablet 650 MG PO (01:38)
[2021-03-24] MEDS: HYDROcodone-acetaminophen 5-325 mg Tablet 1 TAB PO ×4 (04:30→17:51)
[2021-03-24 05:55] LABS: Alanine Aminotransferase 17 U/L (0-41); Albumin Level 2.1 g/dL (3.5-5.2); Alkaline Phosphatase 126 IU/L (40-130); Anion Gap 19.4 (5-19); Aspartate Amino Transferase 13 U/L (0-40); Calcium 8.2 mg/dL (8.5-10.5); Carbon Dioxide 24 mmol/L (22-29); Chloride 99 mmol/L (98-107); Globulin 3.3 g/dL (1.3-4.6); Glucose 141 mg/dL (65-115); Osmolality Calculated 315 mOsm/kg (285-295); Potassium 4.4 mmol/L (3.5-5.1); Sodium 138 mmol/L (136-145); Total Bilirubin 0.2 mg/dL (0.15-1.2); Total Protein 5.4 g/dL (6.6-8.7)
[2021-03-24 05:58] LABS: Blood Urea Nitrogen 87 mg/dL (8-23)
[2021-03-24 06:00] LABS: Basophils # 0.1 10^3/uL (0.0-0.1); Basophils % 0.4 %; Eosinophils # 0.3 10^3/uL (0.0-0.8); Lymphocytes % 15.2 %; Mean Corpuscular HGB Conc 31.6 g/dL (30.0-36.0); Mean Corpuscular Hemoglobin 25.6 pg (28.0-34.0); Mean Corpuscular Volume 81.1 fl (80-94); Mean Platelet Volume 9.1 fL (7.4-10.4); Monocytes # 0.7 10^3/uL (0.2-0.9); Monocytes % 5.5 %; Neutrophils # 9.19 10^3/uL (1.8-7.7); Nucleated Red Blood Cells % 0 %; Platelet Count 493 10^3/cmm (130-400); Red Blood Count 2.54 10^6/uL (4.1-5.3); Red Cell Distribution Width 17.8 % (12.1-15.1); White Blood Count 12.8 10^3/uL (4.0-10.0)
[2021-03-24 06:50] LABS: Glucose Point of Care 144 mg/dL (70-110)
[2021-03-24 07:34] LABS: Neutrophils % 76.9 %
[2021-03-24 07:40] LABS: Hematocrit 20.6 % (42.0-52.0); Hemoglobin 6.5 g/dL (11.7-16.6)
[2021-03-24] MEDS: pantoprazole DR 40 mg Tablet PO (08:11)
[2021-03-24] MEDS: amiodarone 200 mg Tablet PO (08:11)
[2021-03-24] MEDS: ascorbic acid 500 mg Tablet PO (08:11)
[2021-03-24] MEDS: ferrous sulfate EC 325 mg Tablet PO ×2 (08:11→17:51)
[2021-03-24] MEDS: tamsulosin 0.4 mg Capsule PO (08:12)
[2021-03-24] MEDS: fluticasone nasal spray 16gm Btl 1 SPRAY INTRANASAL ×2 (08:12→17:50)
[2021-03-24] MEDS: lidocaine 5% Patch 1 PATCH TOPICAL (08:13)
[2021-03-24] MEDS: sodium chloride 0.9% 250 ML 10 ML IV (11:25)
[2021-03-24 11:32] LABS: Glucose Point of Care 166 mg/dL (70-110)
--- NOTE | 2021-03-24 13:05 | PM.PN ---
Subjective Subjective: Interval history: States he is overall doing all right other than being bothered by some pain in his back due to immobility. Pain in his left ankle is better. Vitals/I&O/Wt Last Vital Signs Temp 97.5 F L 03/24/21 11:09 Pulse 93 03/24/21 11:49 Resp 20 H 03/24/21 11:59 BP 139/68 03/24/21 11:59 Pulse Ox 93 03/24/21 11:09 03/23/21 03/24/21 03/24/21 22:59 06:59 14:59 Intake Total 290 / 290 50 / 340 0 / 0 Output Total 1650 / 1650 725 / 2375 250 / 250 Balance -1360 / -1360 -675 / -2035 -250 / -250 Weight last 48 hrs Weight 95.799 kg Physical Exam Const: COMMON NORMALS: no acute distress, patient oriented x3 and alert GENERAL APPEARANCE: cooperative and frail appearing ORIENTATION/CONSCIOUSNESS: Yes awake HENMT: COMMON NORMALS: oropharynx normal Resp: COMMON NORMALS: normal respiratory effort and clear to auscultation bilaterally AUSCULTATION: clear to auscultation bilaterally Cardio: COMMON NORMALS: regular rhythm, S1 normal heart sound present, S2 normal heart sound present and No murmurs present (Cardio) RHYTHM: regular rhythm HEART SOUNDS: S1 normal heart sound present and S2 normal heart sound present GI: COMMON NORMALS: Normal to inspection, nondistended, normoactive bowel sounds present, Soft to palpation and non-tender PALPATION: Yes Soft to palpation Extremity: COMMON NORMALS: no joint enlargement GENERAL: Yes edema (Anasarca slightly better 3 LE, 3 UE BL elbow joint and above) Neuro: COMMON NORMALS: patient oriented x3 and moves all extremities SENSORIUM/ORIENTATION: Yes alert Skin: COMMON NORMALS: no rashes or lesions noted GENERAL SKIN EXAM: no rashes or lesions noted Urinary Catheter Management^: Flynn: Cath Placed During This Visit: yes, but has since been removed by the nurse Reason for Continuing Indwelling Catheter: Accurate Measurement of Urinary Output in Critically Ill Patients Urinary Catheter Date of Insertion: 03/14/21 Urinary Catheter Time of Insertion: 00:46 Date Urinary Catheter Removed: 03/14/21 Time Urinary Catheter Discontinued: 00:30 Data : 03/24/21 04:19 03/24/21 04:19 A&P Assessment and plan (1) CY (acute kidney injury): Anasarca has been decreasing, producing urine with Lasix drip, worsening creatinine. Lasix drip currently held per nephrology. Reassess renal function, urine output. Volume status. Continue to monitor renal function, high chance of needing hemodialysis. Nephrology recommendations appreciated. Rhabdomyolysis resolving. Status: Acute (2) Anasarca: Previously independently mobile at home. Currently deconditioned, mobility severely limited due to anasarca. Was producing urine with Lasix drip. Currently held per nephrology due to worsening renal function. Status: Acute (3) Anemia: 1 unit pRBC transfusion. Hold ASA. Positive Hemoccult. Normocytic. Gradually worsening hemoglobin level. Has been off heparin VT prophylaxis. Status: Acute (4) Obstructive pyelonephritis: Complicated UTI with MDR Pseudomonas. s/p L ureteral stent for obstructive uropathy, ureterolithiasis on 03/13. Continue Zosyn. Unfortunately no option to switch to p.o. medicine. 2 weeks of antibiotic recommended by urology, as well as follow-up end of next week or early week after. Status: Acute (5) Septic shock: Resolved. Status: Acute (6) Sepsis: Status: Acute Qualifiers: Acute renal failure type: with acute tubular necrosis Sepsis acute organ dysfunction status: with acute organ dysfunction Sepsis type: sepsis due to unspecified organism Severe sepsis acute organ dysfunction type: acute renal failure Severe sepsis shock status: without septic shock Qualified Code(s): A41.9 - Sepsis, unspecified organism; R65.20 - Severe sepsis without septic shock; N17.0 - Acute kidney failure with tubular necrosis (7) Rhabdomyolysis: Resolving. Status: Acute Qualifiers: Encounter type: initial encounter Rhabdomyolysis type: traumatic Qualified Code(s): T79.6XXA - Traumatic ischemia of muscle, initial encounter (8) Wide-complex tachycardia: Telemetry. Continue with home dose of amiodarone. Status: Acute (9) Cardiomyopathy: Status: Acute Qualifiers: Cardiomyopathy type: dilated Qualified Code(s): I42.0 - Dilated cardiomyopathy (10) Elevated troponin: Most likely demand ischemia. Echo done earlier in the admission shows EF 55 to 60% with grade 1 diastolic dysfunction, moderate annular calcification, mild TR with mild pulmonary hypertension. Continue with aspirin. Hold off on statins given rhabdomyolysis. Status: Acute (11) Hyperkalemia: Status: Acute (12) Oliguria: Status: Acute Additional A&P Information L ankle bimalleolar fracture: Appreciate ortho assessment and recs. Continue pain control. Lidocaine patch to ankle. Lower back pain: Fall at home, however, no noted high-grade compression fracture. Noted mild concavity of the superior vertebral endplate of L5. Demineralized bones. Abnormal lymph node, 2.9 x 2.9 cm, cannot exclude malignant metastatic disease. Prostate enlargement: Malignancy not excluded Circumscribed cystic fluid collection in the right ventral abdominal wall 6 x 4.6 cm. Small umbilical hernia. Possibly postsurgical seroma or lymphatic collection. Severe deconditioning: Very deconditioned. Requiring 2 person assist. Adamant he is not going to assisted, and making all arrangements possible with his daughter, hiring caregivers to be there for him every day to be able to return home. Understands also in case requiring hemodialysis would need to also transportation and help with transfers to and from dialysis clinic 3 times weekly. Attestations Medical Necessity Statement*: Continue admission for assessment management of anasarca with worsening renal function, worsening anemia requiring blood transfusion. 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 Comprehensive Diagnoses CY (acute kidney injury) N17.9 Anasarca R60.1 Anemia D64.9 Obstructive pyelonephritis N11.1 Septic shock A41.9; R65.21 Sepsis A41.9; R65.20; N17.0 Acute renal failure type: with acute tubular necrosis Sepsis acute organ dysfunction status: with acute organ dysfunction Sepsis type: sepsis due to unspecified organism Severe sepsis acute organ dysfunction type: acute renal failure Severe sepsis shock status: without septic shock Rhabdomyolysis T79.6XXA Encounter type: initial encounter Rhabdomyolysis type: traumatic Wide-complex tachycardia I47.2 Cardiomyopathy I42.0 Cardiomyopathy type: dilated Elevated troponin R77.8 Hyperkalemia E87.5 Oliguria R34
[2021-03-24 16:27] LABS: Glucose Point of Care 235 mg/dL (70-110)
--- NOTE | 2021-03-24 17:20 | P.PN_ITS ---
Subjective Subjective: Interval history: I am seeing him in follow up for his renal failure. No shortness of breath, nausea or vomiting Medications: Reviewed: Yes Vitals/I&O/Wt Last Vital Signs Temp 98.7 F 03/24/21 15:27 Pulse 78 03/24/21 15:24 Resp 17 03/24/21 15:24 BP 132/65 03/24/21 15:24 Pulse Ox 95 03/24/21 15:24 03/24/21 03/24/21 03/24/21 06:59 14:59 22:59 Intake Total 50 / 340 0 / 0 350 / 350 Output Total 725 / 2375 350 / 350 500 / 850 Balance -675 / -2035 -350 / -350 -150 / -500 Weight last 48 hrs Weight 95.799 kg Physical Exam Const: COMMON NORMALS: no acute distress, patient oriented x3 and alert GENERAL APPEARANCE: cooperative ORIENTATION/CONSCIOUSNESS: Yes awake Resp: AUSCULTATION: rales Cardio: COMMON NORMALS: S1 normal heart sound present and S2 normal heart sound present HEART SOUNDS: S1 normal heart sound present and S2 normal heart sound present GI: AUSCULTATION: Yes normoactive bowel sounds Extremity: GENERAL: Yes edema Neuro: COMMON NORMALS: patient oriented x3 SENSORIUM/ORIENTATION: Yes alert Skin: COMMON NORMALS: no rashes or lesions noted GENERAL SKIN EXAM: no rashes or lesions noted Urinary Catheter Management^: Flynn: Cath Placed During This Visit: yes, but has since been removed by the nurse Reason for Continuing Indwelling Catheter: Accurate Measurement of Urinary Output in Critically Ill Patients Urinary Catheter Date of Insertion: 03/14/21 Urinary Catheter Time of Insertion: 00:46 Date Urinary Catheter Removed: 03/14/21 Time Urinary Catheter Discontinued: 00:30 Data : 03/24/21 04:19 03/24/21 04:19 A&P Assessment and plan (1) CY (acute kidney injury): Kidney function slightly better but bun is still high. No indication for dialysis yet. Avoid new nephrotoxins Status: Acute (2) Anemia: Transfuse atleast 1-2 units of blood Status: Acute (3) Hypertension: BP under control Status: Acute Qualifiers: Hypertension type: essential hypertension Qualified Code(s): I10 - Essential (primary) hypertension (4) Anasarca: Pt not short of breath, chest x ray does not show any fluid overload, has severe hypoalbuminemia, increase protein in diet. 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
[2021-03-24 23:00] LABS: Glucose Point of Care 210 mg/dL (70-110)
[2021-03-25] VITALS (9 sets, daily range): BP systolic 105–158; BP diastolic 54–87; PULSE 82–100; RESP 16–27; TEMP 36.4–36.6; O2SAT 90–94
[2021-03-25] MEDS: HYDROcodone-acetaminophen 5-325 mg Tablet 1 TAB PO ×4 (01:22→20:28)
[2021-03-25] MEDS: piperacillin-tazobactam 3.375 GM in sodium chloride 0.9% (plus) 50 ML IV ×2 (01:38→14:52)
[2021-03-25 04:20] LABS: Basophils # 0.1 10^3/uL (0.0-0.1); Basophils % 0.7 %; Eosinophils # 0.3 10^3/uL (0.0-0.8); Eosinophils % 2.2 %; Hematocrit 31.7 % (42.0-52.0); Hemoglobin 9.8 g/dL (11.7-16.6); Lymphocytes # 1.6 10^3/uL (0.8-4.8); Lymphocytes % 11.6 %; Mean Corpuscular HGB Conc 30.9 g/dL (30.0-36.0); Mean Corpuscular Hemoglobin 25.5 pg (28.0-34.0); Mean Corpuscular Volume 82.6 fl (80-94); Mean Platelet Volume 8.8 fL (7.4-10.4); Monocytes # 0.8 10^3/uL (0.2-0.9); Monocytes % 5.8 %; Neutrophils # 10.02 10^3/uL (1.8-7.7); Neutrophils % 74.4 %; Nucleated Red Blood Cells % 0.1 %; Platelet Count 503 10^3/cmm (130-400); Red Blood Count 3.84 10^6/uL (4.1-5.3); Red Cell Distribution Width 17.3 % (12.1-15.1); White Blood Count 13.5 10^3/uL (4.0-10.0)
[2021-03-25 04:41] LABS: Alanine Aminotransferase 17 U/L (0-41); Albumin Level 2.2 g/dL (3.5-5.2); Alkaline Phosphatase 127 IU/L (40-130); Anion Gap 18.6 (5-19); Aspartate Amino Transferase 15 U/L (0-40); Calcium 8.5 mg/dL (8.5-10.5); Carbon Dioxide 24 mmol/L (22-29); Chloride 102 mmol/L (98-107); Globulin 3.1 g/dL (1.3-4.6); Glucose 86 mg/dL (65-115); Osmolality Calculated 315 mOsm/kg (285-295); Potassium 4.6 mmol/L (3.5-5.1); Sodium 140 mmol/L (136-145); Total Bilirubin 0.2 mg/dL (0.15-1.2); Total Protein 5.3 g/dL (6.6-8.7)
[2021-03-25 04:42] LABS: Slide Review Slide Review Perform
[2021-03-25 04:43] LABS: Blood Urea Nitrogen 84 mg/dL (8-23)
[2021-03-25] MEDS: HYDROmorphone 1 mg/mL INJ 1 mL 0.5 MG IVP (05:12)
[2021-03-25 06:40] LABS: Glucose Point of Care 113 mg/dL (70-110)
--- NOTE | 2021-03-25 09:15 | PC.CHAP ---
Pastoral Care Encounter/Spiritual Assessment Type of Contact [] Declined optical goods worker visit [] Patient/Family/Request visit [] Outpatient visit [] Follow-up visit [] Physician referral [] Code/Alert [x Routine visit [] Staff referral [] Actively dying [] Patient sleeping [] Family support [] [] Out of room [] Palliative care [] [] Receiving care in room [] Pre-surgical visit [] Trauma [] Long length of stay [] ICU visit [x] Other: patient receiving therapy in room Relational/Emotional Strength [] Patient feels connected with others/family/visitors/staff [] Distress [] Loneliness/isolation [] Abandonment Spirituality of Patient [] Person of Nadia [] Attends Religious of their Nadia [] Believes in Prayer [] Reads Bible or Worship materials [] There are Spiritual issues to be addressed Social Services Manager Interventions [x] Prayer [] Active listening [] Non-anxious presence [] Spiritual/emotional support [] Crisis/trauma care [] Spiritual counseling [] Bereavement support [] Provided bereavement packet [] Provided Bible/devotional materials [] Provided toy/stuffed animal, coloring book to patient or family member [] Provided Communion [] Anointing/[place] [] Salvation x[] Completed spiritual assessment [] Other: Impact on Illness or Injury [] Angry [] Fearful [] Anxious [] Often cries [] Exhaustion [] Unable to work [] Unable to attend mormonism [] Unable to walk/stand [] Unable to read [] Unable to drive [] Unable to eat/drink [] Unable to sleep [] Unable to be with family [] Patient intubated [] Other: Summary Time spent with patient
[2021-03-25] MEDS: ascorbic acid 500 mg Tablet PO (09:33)
[2021-03-25] MEDS: tamsulosin 0.4 mg Capsule PO (09:33)
[2021-03-25] MEDS: pantoprazole DR 40 mg Tablet PO ×2 (09:33→17:25)
[2021-03-25] MEDS: ferrous sulfate EC 325 mg Tablet PO ×2 (09:33→17:25)
[2021-03-25] MEDS: lidocaine 5% Patch 1 PATCH TOPICAL ×2 (09:34→21:00)
[2021-03-25] MEDS: amiodarone 200 mg Tablet PO (09:34)
--- NOTE | 2021-03-25 10:42 | PC.SOCIAL ---
IMM Updated Updated pt on IMM. No questions voiced. Provided pt a copy. Initialed, dated, & timed copy in chart.
[2021-03-25 11:34] LABS: Glucose Point of Care 149 mg/dL (70-110)
--- NOTE | 2021-03-25 14:04 | P.PN_ITS ---
Subjective Subjective: Interval history: Mr. Boggs feels pretty well today. He has no acute complaints, passing clear urine via Flynn catheter. Creatinine is now coming down. Some mild edema. Eating and drinking well. Still remains quite debilitated, with 2 person assist. Keen to go home. Medications: Reviewed: Yes Vitals/I&O/Wt Last Vital Signs Temp 97.5 F L 03/25/21 12:00 Pulse 100 03/25/21 12:00 Resp 25 H 03/25/21 12:00 BP 147/71 03/25/21 12:00 Pulse Ox 90 03/25/21 12:00 03/24/21 03/25/21 03/25/21 22:59 06:59 14:59 Intake Total 640 / 640 150 / 790 Output Total 500 / 850 600 / 1450 600 / 600 Balance 140 / -210 -450 / -660 -600 / -600 Weight last 48 hrs Weight 95.254 kg Weight 95.799 kg Physical Exam Narrative: EXAM NARRATIVE: Constitutional: Awake, comfortable HEENT: Wet mucosa, no jvp, non icteric Lungs: Bilaterally clear without discernible wheeze, rales in all lung zones CVS: S1 S2, no murmurs Abdo: Soft, BS ok Ext 4: 2-3+ edema, peripheral perfusion with no cyanosis Neurological: Grossly non-focal Urinary Catheter Management^: Flynn: Cath Placed During This Visit: yes, but has since been removed by the nurse Reason for Continuing Indwelling Catheter: Accurate Measurement of Urinary Output in Critically Ill Patients Urinary Catheter Date of Insertion: 03/14/21 Urinary Catheter Time of Insertion: 00:46 Date Urinary Catheter Removed: 03/14/21 Time Urinary Catheter Discontinued: 00:30 Data : 03/25/21 03:15 03/25/21 03:15 A&P Additional A&P Information 1. Acute renal failure Creatinine improving now, nicely Prerenal azotemia/ATN in the setting of MIKE inhibitor, diuretic, also infection mediated ATN as well. Continue diureticsl redose lasix today Flynn out later today Avoid usual nephrotoxic agents Dose medication for GFR less than 15. 2. Chemistry Well balanced 3. Sepsis Pseudomonas in urine, currently on Zosyn 4. Hemodynamics These remain relatively stable at this time. 5. 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
[2021-03-25] MEDS: FUROsemide 40 mg Tablet PO (14:50)
--- NOTE | 2021-03-25 16:21 | P.PN_ITS ---
Subjective Subjective: Interval history: Hospital course, labs appreciated. Examination today patient working with physical therapy. Laying comfortably in bed. Denies any nausea vomiting, headache. States he is feeling okay. States appetite is poor. But is able to drink Ensure. Asking when can he go home. We discussed that if he goes home he will need to be on IV antibiotics for around 7 to 10 days till the time he follows up with Dr. Jarvis. He will also have to have a close follow-up with his PCP and secure software assessor and would continue to do home health and exercises. Patient verbalized understanding and states he and his family is making arrangement for the same. Medications: Reviewed: Yes Vitals/I&O/Wt Last Vital Signs Temp 97.7 F 03/25/21 15:53 Pulse 92 03/25/21 15:53 Resp 21 H 03/25/21 15:53 BP 158/82 03/25/21 15:53 Pulse Ox 94 03/25/21 15:53 03/25/21 03/25/21 03/25/21 06:59 14:59 22:59 Intake Total 150 / 790 Output Total 600 / 1450 600 / 600 Balance -450 / -660 -600 / -600 Weight last 48 hrs Weight 95.254 kg Weight 95.799 kg Physical Exam Narrative: EXAM NARRATIVE: General: AOx3, frequent frail appearing HEENT: PERRL A, pupils bilaterally equal and reactive, pallor present Chest: Normal vesicular breath sounds, no added sounds, equal good air entry bilaterally CVS: S1-S2 regular, no murmurs, no tachycardia, no gallops, no rubs Abdomen: Soft, nontender, no organomegaly, bowel sounds present, left lower quadrant colostomy in place, normal stool output, cystic swelling in the right lower quadrant, on CT abdomen correlates with postop seroma. Patient states swelling has been present unchanged for the last 3 years. Neuro: No focal deficits, no facial deformity, AO x3, power 5/5 in all limbs Extremities: Chronic bilateral lower extremity edema with changes of stasis dermatitis Urinary Catheter Management^: Flynn: Cath Placed During This Visit: yes, but has since been removed by the nurse Reason for Continuing Indwelling Catheter: Accurate Measurement of Urinary Output in Critically Ill Patients Urinary Catheter Date of Insertion: 03/14/21 Urinary Catheter Time of Insertion: 00:46 Date Urinary Catheter Removed: 03/14/21 Time Urinary Catheter Discontinued: 00:30 Data : 03/25/21 03:15 03/25/21 03:15 A&P Assessment and plan (1) Anasarca: Currently severely deconditioned. Most likely secondary to hypoalbuminemia and acute kidney injury. Holding Lasix drip for now as patient is making urine. Continue with food supplements. Status: Acute (2) CY (acute kidney injury): Stable. Chemistry stable. Likely multifactorial as a result of ATN from sepsis and rhabdomyolysis. Continues to worsen with metabolic acidosis. Flynn in place Medical reconciliation done for nephrotoxic drugs. Appreciate nephrology recommendations. High chance of patient needing dialysis. Status: Acute (3) Sepsis: Meet sepsis criteria by way of leukocytosis, elevated lactate, tachycardia and hypotension. Sepsis most likely related to obstructive pyelonephritis Blood culture currently negative preliminary. Urine culture showing multidrug resistant Pseudomonas but sensitive to Zosyn. Plan to continue Zosyn further 7 to 10 days till patient is seen by urology in clinic. Appreciate ID recommendations. 7 mm obstructing stone noted in the left ureter, urology consult obtained with Dr. Jarvis, patient plan for urgent cystoscopy with ureteral stent. Status: Acute Qualifiers: Sepsis type: sepsis due to unspecified organism Sepsis acute organ dysfunction status: with acute organ dysfunction Severe sepsis acute organ dysfunction type: acute renal failure Acute renal failure type: with acute tubular necrosis Severe sepsis shock status: without septic shock Qualified Code(s): A41.9 - Sepsis, unspecified organism; R65.20 - Severe sepsis without septic shock; N17.0 - Acute kidney failure with tubular necrosis (4) Obstructive pyelonephritis: As noted above as noted above Status: Acute (5) Rhabdomyolysis: Status: Acute Qualifiers: Rhabdomyolysis type: traumatic Encounter type: initial encounter Qualified Code(s): T79.6XXA - Traumatic ischemia of muscle, initial encounter (6) Wide-complex tachycardia: Telemetry. Continue with home dose of amiodarone. Status: Acute (7) Cardiomyopathy: Status: Acute Qualifiers: Cardiomyopathy type: dilated Qualified Code(s): I42.0 - Dilated cardiomyopathy (8) Elevated troponin: Most likely demand ischemia. Echo done earlier in the admission shows EF 55 to 60% with grade 1 diastolic dysfunction, moderate annular calcification, mild TR with mild pulmonary hypertension. Appreciate cardiology recommendations. Stop heparin drip. Continue with aspirin. Hold off on statins given rhabdomyolysis. Status: Acute (9) Hyperkalemia: Status: Acute (10) Oliguria: Status: Acute (11) Septic shock: Resolved. Keep mean arterial pressure over 65. Status: Acute (12) Anemia: Most likely secondary to CARLOS, anemia of chronic disease secondary to severe malnutrition and continuing CY. Post 1 unit blood transfusion. Normocytic. Protonix 40 mg twice daily. Status: Acute (13) Closed left ankle fracture: Status: Acute Additional A&P Information L ankle bimalleolar fracture: Appreciate ortho assessment and recs. Continue pain control. Lidocaine patch to ankle. Lower back pain: Fall at home, however, no noted high-grade compression fractu re. Noted mild concavity of the superior vertebral endplate of L5. Demineralized bones. Abnormal lymph node, 2.9 x 2.9 cm, cannot exclude malignant metastatic disease. Prostate enlargement: Malignancy not excluded Circumscribed cystic fluid collection in the right ventral abdominal wall 6 x 4.6 cm. Small umbilical hernia. Possibly postsurgical seroma or lymphatic collection. Severe deconditioning: Very deconditioned. Requiring 2 person assist. Adamant he is not going to assisted, and making all arrangements possible with his daughter, hiring caregivers to be there for him every day to be able to return home. Understands also in case requiring hemodialysis would need to also tr ansportation and help with transfers to and from dialysis clinic 3 times weekly. DVT ppx: SCDs Protonix for PUD prophylaxis Full code Guarded prognosis. Discharge planning: Home with home health. Patient persistently denied placement to SNF. Will require IV antibiotics for at least 7 more days. Would need to follow-up with urology, nephrology, PCP with repeat left CBC and CMP weekly while on antibiotics. Aggressive physical therapy at home. Attestations Medical Necessity Statement*: Requires further hospitalization for severe physical deconditioning, anasarca, acute kidney injury, sepsis secondary to MDR Pseudomonas by obstructive pyonephritis while safe discharge planning is sought. Time Spent in Patient Care: Greater than 35 minutes (>than 50% of time spent in counselling and/or direct pt care on unit) . Coding Level of Care Code Acute Clinical Nursing Coordinator for [facility] F[facility] Diagnoses Anasarca R60.1 CY (acute kidney injury) N17.9 Sepsis A41.9; R65.20; N17.0 Sepsis type: sepsis due to unspecified organism Sepsis acute organ dysfunction status: with acute organ dysfunction Severe sepsis acute organ dysfunction type: acute renal failure Acute renal failure type: with acute tubular necrosis Severe sepsis shock status: without septic shock Obstructive pyelonephritis N11.1 Rhabdomyolysis T79.6XXA Rhabdomyolysis type: traumatic Encounter type: initial encounter Wide-complex tachycardia I47.2 Cardiomyopathy I42.0 Cardiomyopathy type: dilated Elevated troponin R77.8 Hyperkalemia E87.5 Oliguria R34 Septic shock A41.9; R65.21 Anemia D64.9 Closed left ankle fracture S82.892A
[2021-03-25 17:09] LABS: Glucose Point of Care 177 mg/dL (70-110)
[2021-03-25] MEDS: ondansetron 2 mg/ML SDV 2 mL 4 MG IVP (17:25)
[2021-03-25 19:47] LABS: Glucose Point of Care 145 mg/dL (70-110)
[2021-03-26] VITALS (14 sets, daily range): BP systolic 105–164; BP diastolic 54–82; PULSE 60–104; RESP 11–28; O2SAT 77–92; BMI 30.8
[2021-03-26] MEDS: HYDROcodone-acetaminophen 5-325 mg Tablet 1 TAB PO ×3 (01:20→13:47)
[2021-03-26] MEDS: piperacillin-tazobactam 3.375 GM in sodium chloride 0.9% (plus) 50 ML IV ×2 (01:20→13:48)
[2021-03-26 03:52] LABS: Basophils # 0.1 10^3/uL (0.0-0.1); Basophils % 0.6 %; Eosinophils # 0.3 10^3/uL (0.0-0.8); Hematocrit 31.9 % (42.0-52.0); Lymphocytes # 1.5 10^3/uL (0.8-4.8); Lymphocytes % 10.7 %; Mean Corpuscular HGB Conc 31.3 g/dL (30.0-36.0); Mean Corpuscular Hemoglobin 26.2 pg (28.0-34.0); Mean Corpuscular Volume 83.5 fl (80-94); Monocytes # 0.8 10^3/uL (0.2-0.9); Monocytes % 5.7 %; Neutrophils # 11.06 10^3/uL (1.8-7.7); Neutrophils % 77.2 %; Nucleated Red Blood Cells % 0 %; Platelet Count 422 10^3/cmm (130-400); Red Blood Count 3.82 10^6/uL (4.1-5.3); White Blood Count 14.3 10^3/uL (4.0-10.0)
[2021-03-26 04:13] LABS: Alanine Aminotransferase 16 U/L (0-41); Albumin Level 2.4 g/dL (3.5-5.2); Alkaline Phosphatase 133 IU/L (40-130); Anion Gap 16.6 (5-19); Aspartate Amino Transferase 16 U/L (0-40); Blood Urea Nitrogen 78 mg/dL (8-23); Calcium 8.4 mg/dL (8.5-10.5); Carbon Dioxide 26 mmol/L (22-29); Chloride 101 mmol/L (98-107); Globulin 3.2 g/dL (1.3-4.6); Glucose 112 mg/dL (65-115); Osmolality Calculated 312 mOsm/kg (285-295); Potassium 4.6 mmol/L (3.5-5.1); Sodium 139 mmol/L (136-145); Total Bilirubin 0.2 mg/dL (0.15-1.2); Total Protein 5.6 g/dL (6.6-8.7)
--- NOTE | 2021-03-26 06:37 | PC.NURSE ---
Shift Note Frequent safety and comfort rounds continue. Orders and/or nursing care completed as indicated. Patient monitored for response to intervention and treatment(s). Education provided includes[]. Patient and/or financial representative [ResponseToTeaching]. Will continue to monitor.
--- NOTE | 2021-03-26 06:38 | PC.NURSE ---
Frequent safety and comfort rounds continue. Orders and/or nursing care completed as indicated. Patient monitored for response to intervention and treatment(s). Education provided includes pain management and other options for pain relief besides medication. Patient and/or software sales representative states understanding. Will continue to monitor.
--- NOTE | 2021-03-26 08:00 | PC.NURSE ---
Pt lying in bed resting and eating breakfast. Hob at 45 degree. Pt resp even and non-labored no distress noted. Pt colostomy bag emptied of loose stool. Pts gracia drained of clear to yellow urine 650ml. Pt had no c/o pain or discomfort at the present time. No further needs voiced. Call light in reach. Will cont to monitor.
[2021-03-26] MEDS: pantoprazole DR 40 mg Tablet PO (08:26)
[2021-03-26] MEDS: tamsulosin 0.4 mg Capsule PO (08:26)
[2021-03-26] MEDS: FUROsemide 40 mg Tablet PO (08:26)
[2021-03-26] MEDS: ascorbic acid 500 mg Tablet PO (08:26)
[2021-03-26] MEDS: amiodarone 200 mg Tablet PO (08:26)
[2021-03-26] MEDS: lidocaine 5% Patch 1 PATCH TOPICAL (08:26)
[2021-03-26] MEDS: fluticasone nasal spray 16gm Btl 1 SPRAY INTRANASAL (08:27)
[2021-03-26] MEDS: ferrous sulfate EC 325 mg Tablet PO (08:27)
--- NOTE | 2021-03-26 08:36 | PC.CHAP ---
Pastoral Care Encounter/Spiritual Assessment Type of Contact [] Declined pulmonary physical therapist visit [] Patient/Family/Request visit [] Outpatient visit [x] Follow-up visit [] Physician referral [] Code/Alert [] Routine visit [] Staff referral [] Actively dying [x] Patient sleeping [] Family support [] [] Out of room [] Palliative care [] [] Receiving care in room [] Pre-surgical visit [] Trauma [] Long length of stay [] ICU visit [] Other: Relational/Emotional Strength [] Patient feels connected with others/family/visitors/staff [] Distress [] Loneliness/isolation [] Abandonment Spirituality of Patient [] Person of Nadia [] Attends [employer] of their Nadia [] Believes in Prayer [] Reads Bible or Taoist materials [] There are Spiritual issues to be addressed Sr. Payroll Processor Interventions [] Prayer [] Active listening [] Non-anxious presence [] Spiritual/emotional support [] Crisis/trauma care [] Spiritual counseling [] Bereavement support [] Provided bereavement packet [] Provided Bible/devotional materials [] Provided toy/stuffed animal, coloring book to patient or family member [] Provided Communion [] Anointing/Sells [] Salvation [] Completed spiritual assessment [] Other: Impact on Illness or Injury [] Angry [] Fearful [] Anxious [] Often cries [] Exhaustion [] Unable to work [] Unable to attend confucianist [] Unable to walk/stand [] Unable to read [] Unable to drive [] Unable to eat/drink [] Unable to sleep [] Unable to be with family [] Patient intubated [] Other: Summary Time spent with patient
--- NOTE | 2021-03-26 11:33 | P.DS_ITS ---
Discharge Providers Date of Admission: 03/14/21 00:59 Date of Discharge: March 26, 2021 Attending Provider at Admission: Bernardo Jarvis MD Attending Provider at Discharge: Hari Guzmán MD Consults: Urology: Dr. Hannon Nephrology Dr. Mane Primary Care Provider: Felipe Bustos DO Diagnoses at Discharge Discharge Diagnosis (1) Anasarca: Status: Acute (2) CY (acute kidney injury): Status: Acute (3) Sepsis: Status: Acute Qualifiers: Sepsis type: sepsis due to unspecified organism Sepsis acute organ dysfunction status: with acute organ dysfunction Severe sepsis acute organ dysfunction type: acute renal failure Acute renal failure type: with acute tubular necrosis Severe sepsis shock status: without septic shock Qualified Code(s): A41.9 - Sepsis, unspecified organism; R65.20 - Severe sepsis without septic shock; N17.0 - Acute kidney failure with tubular necrosis (4) Obstructive pyelonephritis: Status: Acute (5) Rhabdomyolysis: Status: Acute Qualifiers: Rhabdomyolysis type: traumatic Encounter type: initial encounter Qualified Code(s): T79.6XXA - Traumatic ischemia of muscle, initial encounter (6) Wide-complex tachycardia: Status: Acute (7) Cardiomyopathy: Status: Acute Qualifiers: Cardiomyopathy type: dilated Qualified Code(s): I42.0 - Dilated cardiomyopathy (8) Elevated troponin: Status: Acute Permanent problem details: Likely demand ischemia (9) Hyperkalemia: Status: Acute (10) Oliguria: Status: Acute (11) Septic shock: Status: Acute (12) Anemia: Status: Acute (13) Closed left ankle fracture: Status: Acute Reason for Visit Reason for Visit: R SIDE WEAKNESS Hospital Course Hospital Course Darrian Boggs is a 85 year old male with a past medical history of hypertension, wide-complex tachycardia, cardiomyopathy, last known EF 65% from 2017, chronic swelling of bilateral lower extremities for which he uses compression stockings. He presented to the hospital on March 14 with chief complaints of recurrent falls that he has sustained over the past week. He complains of generalized weakness, increased deconditioning, inability to bear weight on his legs resulting in multiple falls over the past week. States he has also been experiencing poor appetite, dry heaves, vague abdominal discomfort. Denies any chest pain dyspnea or palpitations. States that at baseline he is able to walk with a walker and cane, however over the past week he has been unable to get out of bed and carry out his usual activities. Diagnostics in the ER showed signs of sepsis with elevated white blood cell count, elevated lactate at 7, hypertension, acute kidney injury, rhabdomyolysis, hyperkalemia, hypotension upon presentation with systolic blood pressure in the 80s, improved with fluid resuscitation to 130/60 at the time of my assessment. Hip and pelvis x-ray did not reveal any obvious fractures at the hip. No spinal fracture on CT of th CT abdomen. e head was unremarkable. UA consistent with UTI. Large left mid ureter stone 7 mm with proximal hydroureteronephrosis on the left side. Retroperitoneal lymphadenopathy and circumferential bladder wall with multiple bladder diverticuli additionally noted. Patient was admitted with septic shock and urology was consulted. Patient underwent cystoscopy, left ureteral stent placement on the day of admission. He was started on broad-spectrum antibiotics which were later changed as per culture results. Urine culture grew multidrug-resistant Pseudomonas. Blood cultures remain negative. During hospitalization patient required pressor support on and off and was later transferred out of ICU once his blood pressure was stabilized. His hospital stay was complicated by him developing rhabdomyolysis, acute kidney injury with severe oliguria for which nephrology was consulted. Patient was treated with IV fluid resuscitation and managing fluid balance with requiring on and off IV Lasix and at one point Lasix drip. Patient oliguria continued to improve. His renal functions continued to remain stable but with creatinine of around 5-5.5. Patient was counseled in detail regarding possible need of dialysis and he wanted to hold off on dialysis for as long as possible. During hospitalization patient was complaining of leg pain and back pain for which further imaging was done which were consistent with closed left ankle fracture for which he was advised to be partial weightbearing and to follow-up with orthopedics team as an outpatient in 2 weeks. Because of prolonged hospitalization and age patient had developed severe physical deconditioning, anasarca and severe protein energy malnutrition for which he was advised for placement to SNF for further rehabilitation after physical therapy evaluation. Possible discharge planning options were discussed in detail with patient and his daughter. Patient continued to decline placement to SNF and wanted to go home. Home health was arranged. Patient is advised to continue with IV Zosyn for 4 more days, to follow-up with urology as an outpatient. Flynn catheter remains in. He is advised to follow-up with Dr. Dunbar from nephrology as an outpatient within next 1 week. He is advised to repeat CMP within next 3 days. He is also advised to follow-up with Dr. Cervantes in 2 weeks. He is also advised to follow-up with his primary care provider within next 1 week. Because of advanced age, prolonged hospitalization, severe protein energy malnutrition and physical deconditioning patient is at a higher risk of readmission. Physical Exam Narrative: EXAM NARRATIVE: General: AOx3, frequent frail appearing HEENT: PERRL A, pupils bilaterally equal and reactive, pallor present Chest: Normal vesicular breath sounds, no added sounds, equal good air entry bilaterally CVS: S1-S2 regular, no murmurs, no tachycardia, no gallops, no rubs Abdomen: Soft, nontender, no organomegaly, bowel sounds present, left lower quadrant colostomy in place, normal stool output, cystic swelling in the right lower quadrant, on CT abdomen correlates with postop seroma. Patient states swelling has been present unchanged for the last 3 years. Neuro: No focal deficits, no facial deformity, AO x3, power 5/5 in all limbs Extremities: Chronic bilateral lower extremity edema with changes of stasis dermatitis Urinary Catheter Management^: Flynn: Cath Placed During This Visit: yes, but has since been removed by the nurse Reason for Continuing Indwelling Catheter: Acute Urinary Retention or Obstruction Urinary Catheter Date of Insertion: 03/14/21 Urinary Catheter Time of Insertion: 00:46 Date Urinary Catheter Removed: 03/14/21 Time Urinary Catheter Discontinued: 00:30 Discharge Data Data Completed and Pending: Completed Studies During Hospitalization Category Date Time Status CT cervical spin wo con* [id number] Urge nt Cat Scan 03/13/21 17:[address] chest abd pel wo con Urgent Cat Scan 03/13/21 17:[address] head wo con* 7 0450 Urgent Cat Scan 03/13/21 17:38 Completed CXRP [XR chest 1V portable [id number]] R outine Exams 03/16/21 16:23 Completed XR KUB [id number] Stat Exams 03/17/21 12:41 Completed XR ankle LT min 3 V* [id number] Routine Exams 03/20/21 12:30 Completed XR chest 1V bri ble [id number] Stat Exams 03/23/21 18:10 Completed XR chest 1V bri ble [id number] Urgent Exams 03/13/21 17:38 Completed XR hip RT 2-3V wo /w pel* [id number] Stat Exams 03/13/21 17:38 Completed XR knee LT 3V* [id number] Routine Exams 03/20/21 12:30 [place] [id number] Routin e Ultrasound 03/14/21 00:34 Completed CV. echo complete * [id number] Routine Ultrasound 03/14/21 00:41 Completed US renal BI* [id number] Routine Ultrasound 03/16/21 21:54 Completed Labs from last 24 hours 03/26/21 03/26/21 03/25/21 03:04 03:04 19:07 WBC 14.3 H RBC 3.82 L Hgb 10.0 L Hct 31.9 L MCV 83.5 MCH 26.2 L MCHC 31.3 RDW 18.0 H Plt Count 422 H MPV 9.0 Neut % (Auto) 77.2 Lymph % (Auto) 10.7 [place] % (Auto) 5.7 Eos % (Auto) 2.0 Baso % (Auto) 0.6 Neut # (Auto) 11.06 H Lymph # (Auto) 1.5 [place] # (Auto) 0.8 Eos # (Auto) 0.3 Baso # (Auto) 0.1 Nucleated RBC % (a uto) 0 Nucleated RBCs # 0.0 Sodium 139 Potassium 4.6 Chloride 101 Carbon Dioxide 26 Anion Gap 16.6 BUN 78 H Creatinine 4.9 H GFR Calculation Not Reportable Glucose 112 POC Glucose 145 H Calculated Osmolal ity 312 H Calcium 8.4 L Total Bilirubin 0.2 AST 16 ALT 16 Alkaline Phosphata se 133 H Total Protein 5.6 L Albumin 2.4 L Globulin 3.2 03/25/21 03/25/21 17:00 11:16 WBC RBC Hgb Hct MCV MCH MCHC RDW Plt Count MPV Neut % (Auto) Lymph % (Auto) [place] % (Auto) Eos % (Auto) Baso % (Auto) Neut # (Auto) Lymph # (Auto) [place] # (Auto) Eos # (Auto) Baso # (Auto) Nucleated RBC % (a uto) Nucleated RBCs # Sodium Potassium Chloride Carbon Dioxide Anion Gap BUN Creatinine GFR Calculation Glucose POC Glucose 177 H 149 H Calculated Osmolal ity Calcium Total Bilirubin AST ALT Alkaline Phosphata se Total Protein Albumin Globulin Addt'l Data from Hospital Stay: Laboratory Results WBC 14.3 10^3/uL (4.0 -10.0) H 03/26/21 03:04 RBC 3.82 10^6/uL (4.1 -5.3) L 03/26/21 03:04 Hgb 10.0 g/dL (11.7-1 6.6) L 03/26/21 03:04 Hct 31.9 % (42.0-52.0 ) L 03/26/21 03:04 MCV 83.5 fl (80-94) 03/26/21 03:04 MCH 26.2 pg (28.0-34. 0) L 03/26/21 03:04 MCHC 31.3 g/dL (30.0-3 6.0) 03/26/21 03:04 RDW 18.0 % (12.1-15.1 ) H 03/26/21 03:04 Plt Count 422 10^3/cmm (130 -400) H 03/26/21 03:04 MPV 9.0 fL (7.4-10.4) 03/26/21 03:04 Neut % (Auto) 77.2 % 03/26/21 03:04 Lymph % (Auto) 10.7 % 03/26/21 03:04 [place] % (Auto) 5.7 % 03/26/21 03:04 Eos % (Auto) 2.0 % 03/26/21 03:04 Baso % (Auto) 0.6 % 03/26/21 03:04 Neut # (Auto) 11.06 10^3/uL (1. 8-7.7) H 03/26/21 03:04 Lymph # (Auto) 1.5 10^3/uL (0.8- 4.8) 03/26/21 03:04 [place] # (Auto) 0.8 10^3/uL (0.2- 0.9) 03/26/21 03:04 Eos # (Auto) 0.3 10^3/uL (0.0- 0.8) 03/26/21 03:04 Baso # (Auto) 0.1 10^3/uL (0.0- 0.1) 03/26/21 03:04 Nucleated RBC % (a uto) 0 % 03/26/21 03:04 Total Counted 100 (0-100) 03/22/21 07:00 Atypical Lymphs % 0.0 % (0-5) 03/22/21 07:00 Absolute Neutrophi ls 11.0 10^3/cmm (1. 4-6.5) H 03/22/21 07:00 Segmented Neutroph ils 73 % 03/22/21 07:00 Abs Segm Neuts (Ma n) 10.9 10/cmm (1.6- 7.1) H 03/22/21 07:00 Band Neutrophils 1.0 % 03/22/21 07:00 Abs Band Neuts (Ma n) 0.1 10^3/cmm (0.0 -1.2) 03/22/21 07:00 Absolute Lymphocyt es 2.1 10^3/cmm (1.2 -3.4) 03/22/21 07:00 Lymphocytes (Manua l) 14 % 03/22/21 07:00 Monocytes (Manual) 5.0 % 03/22/21 07:00 Absolute Monocytes 0.7 10^3/cmm (0.1 -0.6) H 03/22/21 07:00 Eosinophils (Manua l) 3 % 03/22/21 07:00 Absolute Eosinophi ls 0.4 10^3/cmm (0.0 -0.7) 03/22/21 07:00 Basophils (Manual) 0.0 % 03/22/21 07:00 Absolute Basophils 0.0 10^3/cmm (0.0 -0.2) 03/22/21 07:00 Metamyelocytes 4.0 % 03/22/21 07:00 Nucleated RBCs # 0.0 /100WBC 03/26/21 03:04 Platelet Estimate Normal (Normal) 03/22/21 07:00 APTT Cancelled 03/14/21 10:59 Specimen Type Arterial 03/17/21 14:06 Sample Site Radial, left 03/17/21 14:06 ABG pH 7.31 (7.35-7.45) L 03/17/21 14:06 ABG pCO2 30.9 mmHg (35-45) L 03/17/21 14:06 ABG pO2 68.1 mmHg (80.0-1 00.0) L 03/17/21 14:06 ABG HCO3 15.6 mmol/L (22-2 6) L 03/17/21 14:06 ABG O2 Saturation 94.6 03/17/21 14:06 ABG Base Excess -9.7 mmol/L (-2.0 -2.0) L 03/17/21 14:06 Ezequiel Test Pos 03/17/21 14:06 A-a O2 Gradient 5.6 mmHg (5-10) 03/17/21 14:06 Hematocrit 27.5 % (42-52) L 03/17/21 14:06 Hgb O2 Saturation 94.0 % (95-100) L 03/17/21 14:06 Carboxyhemoglobin 1.1 %THgb (0.4-20 .1) 03/17/21 14:06 Methemoglobin < 0.0 % (0.4-1.5) L 03/17/21 14:06 Total Hemoglobin 9.0 g/dL (14-18) L 03/17/21 14:06 Sodium 135.0 mmol/L (131 -143) 03/17/21 14:06 Potassium 4.9 mmol/L (3.5-5 .0) 03/17/21 14:06 Glucose 105.0 mg/dL (70-1 15) 03/17/21 14:06 Ionized Calcium 1.2 mmol/L (1.1-1 .4) 03/17/21 14:06 O2 Delivery Device Vent 03/17/21 14:06 FiO2 21.0 % 03/17/21 14:06 Ferryboat Operator ID Cak 03/17/21 14:06 Sodium 139 mmol/L (136-1 45) 03/26/21 03:04 Potassium 4.6 mmol/L (3.5-5 .1) 03/26/21 03:04 Chloride 101 mmol/L (98-10 7) 03/26/21 03:04 Carbon Dioxide 26 mmol/L (22-29) 03/26/21 03:04 Anion Gap 16.6 (5-19) 03/26/21 03:04 BUN 78 mg/dL (8-23) H 03/26/21 03:04 Creatinine 4.9 mg/dL (0.7-1. 2) H 03/26/21 03:04 GFR Calculation Not Reportable 03/26/21 03:04 Glucose 112 mg/dL (65-115 ) 03/26/21 03:04 POC Glucose 145 mg/dL (70-110 ) H 03/25/21 19:07 Calculated Osmolal ity 312 mOsm/kg (285- 295) H 03/26/21 03:04 Lactic Acid 1.2 mmol/L (0.5-2 .2) 03/14/21 04:05 Lactate 5.2 mmol/L (0.5-2 .2) H* 03/13/21 17:00 Calcium 8.4 mg/dL (8.5-10 .5) L 03/26/21 03:04 Phosphorus 4.6 mg/dL (2.5-4. 5) H 03/21/21 04:41 Magnesium 2.1 mg/dL (1.7-2. 3) 03/21/21 04:41 Iron 11 ug/dL (59-158) L 03/20/21 04:05 TIBC 78 mcg/dl 03/20/21 04:05 % Saturation 14.1 % (20-50) L 03/20/21 04:05 Unsat Iron Binding 67 ug/dL (112-347 ) L 03/20/21 04:05 Ferritin 674 ng/mL (30-400 ) H 03/20/21 04:05 Total Bilirubin 0.2 mg/dL (0.15-1 .2) 03/26/21 03:04 AST 16 U/L (0-40) 03/26/21 03:04 ALT 16 U/L (0-41) 03/26/21 03:04 Alkaline Phosphata se 133 IU/L (40-130) H 03/26/21 03:04 Creatine Kinase 939 U/L (39-308) H* 03/18/21 04:56 Troponin T Gen 5 n g/L 188 ng/L (0-15) H* 03/14/21 04:05 Troponin T Baselin e 179 ng/L (0-15) H* 03/13/21 17:00 Troponin T 120 Min leon 203.8 ng/L (0-15) H 03/13/21 19:54 Delta Troponin T 24.8 ABS# (0-10) H* 03/13/21 19:54 Troponin T Hi Sens 6Hr 193.9 ng/L (0-15) H 03/13/21 22:10 Troponin T Hi Sens 6Hr Delta 14.9 ng/L (0-12) H* 03/13/21 22:10 C-Reactive Protein 230.1 mg/L (0.0-4 .9) H 03/13/21 17:00 NT-Pro-B Natriuret Pep 35559 pg/mL (0-45 0) H 03/13/21 17:00 Total Protein 5.6 g/dL (6.6-8.7 ) L 03/26/21 03:04 Albumin 2.4 g/dL (3.5-5.2 ) L 03/26/21 03:04 Globulin 3.2 g/dL (1.3-4.6 ) 03/26/21 03:04 Procalcitonin 5.79 ng/mL (0-0.5 ) H 03/16/21 03:45 TSH 2.45 uIU/mL (0.27 -4.20) 03/18/21 04:56 PTH Intact 171.3 pg/mL (15-6 5) H 03/18/21 04:56 Calcium (PTH Intac t) 6.8 mg/dL (8.5-10 .5) L 03/18/21 04:56 Urine Color Yellow (Yellow) 03/17/21 17:00 Urine Appearance Turbid (CLEAR) 03/17/21 17:00 Urine pH 6 (5-7) 03/17/21 17:00 Ur Specific Gravit y 1.015 (1.005-1.0 30) 03/17/21 17:00 Urine Protein 1+ (Negative) H 03/17/21 17:00 Urine Glucose (UA) Norm (Normal) 03/17/21 17:00 Urine Ketones Negative (Negati ve) 03/17/21 17:00 Urine Blood 3+ (Negative) H 03/17/21 17:00 Urine Nitrate Negative (Negati ve) 03/17/21 17:00 Urine Bilirubin Neg (Negative) 03/17/21 17:00 Urine Urobilinogen Norm mg/dL (Negat rogelio) 03/17/21 17:00 Ur Leukocyte Kyra ase 2+ (Negative) H 03/17/21 17:00 Urine RBC 10-15 /hpf (0-2) H 03/17/21 17:00 Urine WBC Too numerous to c nt /hpf (0-5) H 03/17/21 17:00 Ur Eosinophil Smea r 0 (0-0) 03/13/21 18:37 Ur Squamous Epith Cells None /hpf (0-5) 03/17/21 17:00 Amorphous Sediment Not Reportable 03/17/21 17:00 Urine Bacteria 1+ /hpf (NONE) H 03/17/21 17:00 Urine Eosinophils No eosinophils se en 03/13/21 18:37 Ur Random Microalb umin 20 ug/dL (0-20) 03/13/21 18:37 Ur Random Sodium 47 mmol/L 03/17/21 17:00 Ur Random Potassiu m 30 mmol/L 03/17/21 17:00 Ur Random Chloride 45 mmol/L 03/17/21 17:00 Urine Creatinine 43 mg/dL (39-259) 03/17/21 17:00 Microalb/Creat Rat io 168 mg/dL (0-20) H 03/13/21 18:37 Nasal/Oral COVID-1 9 PCR Not detected 03/14/21 05:25 Blood Type AB Positive 03/24/21 08:30 Rho(D) Type Positive 03/24/21 08:30 Antibody Screen Negative 03/24/21 08:30 Crossmatch See Detail 03/24/21 08:[address] 03/13/21 17:38 IMPRESSION: Negative for cervical spine fracture. Radiation Dose CTDIVOL = (mGy): DLP = 429.75 (mGy-cm) Chest/Abdomen/Pelvis CT 03/13/21 17:38 IMPRESSION: 1. Large left mid ureter stone. 2. Nonspecific retroperitoneal lymphadenopathy with largest, most conspicuous lymph node in the left pelvis. Abnormality is new from comparison imaging. Metastatic disease not excluded. Further evaluation recommended. 3. Thickened, trabeculated bladder wall more significant than comparison. 4. Prostate gland enlargement is more significant than comparison. Malignancy not excluded. Further evaluation is recommended. 5. Circumscribed cystic fluid collection in the right ventral abdominal wall may pertain to a prior ventral abdominal wall hernia repair. Possibly postsurgical seroma or lymphatic collection. Radiation Dose CTDIVOL = (mGy): DLP = 1479.81~1479.81 (mGy-cm) Head CT 03/13/21 17:38 IMPRESSION: 1. Negative for acute intracranial abnormality. 2. No change from comparison. Radiation Dose CTDIVOL = (mGy): DLP = 946.67 (mGy-cm) Hip/Pelvis X-Ray 03/13/21 17:38 IMPRESSION: No acute hip abnormality. C-Arm Fluoroscopy 03/13/21 23:51 Impression: Left ureteral stent placement. Renal Ultrasound 03/16/21 21:54 IMPRESSION: 1. Bilateral cortical atrophy. 2. Nonobstructing 6 mm calcification in the left kidney. KUB X-Ray 03/17/21 12:41 IMPRESSION: Remnant calculus in the proximal left ureter. Bowel dilatation and a nonspecific pattern as above. Ankle X-Ray 03/20/21 12:30 IMPRESSION: 1. Bimalleolar fracture as described. 2. Soft tissue edema mediolateral and anterior ankle 3. Bone spur inferior calcaneus Knee X-Ray 03/20/21 12:30 IMPRESSION: No acute findings. Chest X-Ray 03/23/21 18:10 IMPRESSION: 1. No acute findings. 2. Stable right side PICC line in the SVC Microbiology 03/17/21 17:00 Urine,Clean Catch Urine Culture - Final Pseudomonas aeruginosa 03/19/21 23:32 Stool - Stool Aspirate Occult Blood (FIT) - Final 03/13/21 17:48 Blood Blood Culture - Final NO GROWTH AFTER 5 DAYS 03/13/21 17:40 Blood Blood Culture - Final NO GROWTH AFTER 5 DAYS 03/13/21 18:37 Urine,Clean Catch Urine Culture - Final Pseudomonas aeruginosa Vitals: Last Vital Signs Temp 97.9 F 03/25/21 19:07 Pulse 104 H 03/26/21 07:55 Resp 22 H 03/26/21 07:55 BP 154/77 03/26/21 07:55 Pulse Ox 92 03/26/21 07:55 Discharge Plan Discharge Patient Disposition: Home Health Service Condition: Stable Prescriptions: New Vitamin C 500 mg Tablet 500 mg PO DAILY 30 Days Qty: 30 RF: 0 pantoprazole 40 mg Tablet,Delayed Release (Dr/Ec) 40 mg PO BIDWM 14 Days Qty: 14 RF: 0 lidocaine 5 % Adhesive Patch,Medicated 1 patch topical [id number] 10 Days Qty: 20 RF: 0 ferrous sulfate 325 mg (65 mg iron) Tablet,Delayed Release (Dr/Ec) 325 mg PO BIDWM 30 Days Qty: 60 RF: 0 Continued nitroglycerin [Nitrostat] 0.4 mg tablet, sublingual 0.4 mg SUBLINGUAL Q5M PRN (Reason: Chest Pain) RF: 0 aspirin [Adult Low Dose Aspirin] 81 mg tablet,delayed release (DR/EC) 81 mg PO DAILY RF: 0 furosemide 40 mg tablet 40 mg PO DAILY Qty: 90 RF: 3 acetaminophen 500 mg Tablet 500 mg PO Q6H PRN (Reason: Pain) RF: 0 hydrocodone-acetaminophen 7.5-325 mg tablet 1 - 2 tab PO TID PRN (Reason: Pain) RF: 0 Flonase Allergy Relief 50 mcg/actuation [place],Suspension 1 spray INTRANASAL BID RF: 0 loratadine 10 mg Tablet 10 mg PO DAILY RF: 0 amiodarone 200 mg tablet 200 mg PO DAILY RF: 0 methenamine hippurate 1 gram tablet 1 g PO BID RF: 0 tamsulosin 0.4 mg capsule 0.4 mg PO DAILY RF: 0 Refresh Eye Itch Relief 0.025 % (0.035 %) Drops 1 drp OPHTHALMIC (EYE) BID PRN (Reason: Dry Eyes) RF: 0 Discontinued ascorbic acid (vitamin C) 1,000 mg tablet 1,000 mg PO BID RF: 0 ibuprofen 200 mg Tablet 200 - 400 mg PO Q6H PRN (Reason: FEVER/PAIN) RF: 0 lisinopril 10 mg tablet 10 mg PO DAILY RF: 0 Discharge Orders: Discharge Order (Routine); Ordered 03/26/21 Ordered By: Hari Guzmán Other Ambulatory Orders: DME: Hospital Bed (Order) Location: None Selected Ordered By: Hari Guzmán DME: Miscellaneous (Order) Location: None Selected Ordered By: Hari Guzmán Referrals: [facility] [Outside] Lupillo Cervantes DO [Physician] - 2 weeks Michele Dunbar MD [Referring] - 4-7 days Bernardo Jarvis MD [Physician] - 1-3 days Felipe Bustos DO [Primary Care Provider] - 4-7 days Patient Instructions: Opioid Safety Activity Restrictions/Additional Instructions: Please follow-up with your primary care provider within next 1 week. Please follow-up with Dr. Jarvis the next 1 to 3 days. You will have urinary catheter till the time you see your urologist. Please continue taking Zosyn till 24th to finish a course of IV antibiotics. Please repeat CMP within next 1 to 3 days. Please follow-up with Dr. Dunbar in nephrology clinic within next 4 to 7 days. F/u ortho clinic two weeks keep boot on at all times (may take off to bathe and check skin daily) OK to take off to bathe continue asa for DVT prophylaxis partial weight bear LLE Discharge Attestations Time Spent in Discharge Care*: greater than 30 min Specific Discharge Activities: educating and/or supporting family/caregiver, discussing with pcp/other providers, discussing with upper caser/social workers/dc planners, documenting/other paperwork and evaluating patient/reviewing data Status at Discharge: Cognitive status at discharge: cognitively intact , Behavioral status at discharge: cooperative , Functional status at discharge: other assisted ambulation Overall status at discharge: patient has a new baseline Quality Metrics Clinical Quality Measures During this hospital stay, did patient experience: None Coding Level of Care Code Acute [facility] DC note Diagnoses Anasarca R60.1 CY (acute kidney injury) N17.9 Sepsis A41.9; R65.20; N17.0 Sepsis type: sepsis due to unspecified organism Sepsis acute organ dysfunction status: with acute organ dysfunction Severe sepsis acute organ dysfunction type: acute renal failure Acute renal failure type: with acute tubular necrosis Severe sepsis shock status: without septic shock Obstructive pyelonephritis N11.1 Rhabdomyolysis T79.6XXA Rhabdomyolysis type: traumatic Encounter type: initial encounter Wide-complex tachycardia I47.2 Cardiomyopathy I42.0 Cardiomyopathy type: dilated Elevated troponin R77.8 Hyperkalemia E87.5 Oliguria R34 Septic shock A41.9; R65.21 Anemia D64.9 Closed left ankle fracture S82.892A
--- NOTE | 2021-03-26 13:20 | P.PN_ITS ---
Subjective Subjective: Interval history: Feels good, keen to go home. Ankle feels comfortable. Flynn remains in place Medications: Reviewed: Yes Vitals/I&O/Wt Last Vital Signs Temp 97.9 F 03/25/21 19:07 Pulse 104 H 03/26/21 07:55 Resp 22 H 03/26/21 07:55 BP 154/77 03/26/21 07:55 Pulse Ox 92 03/26/21 07:55 03/25/21 03/26/21 03/26/21 22:59 06:59 14:59 Intake Total 120 / 1157 410 / 1567 237 / 237 Output Total 2150 / 2750 650 / 650 Balance 120 / 557 -1740 / -1183 -413 / -413 Weight last 48 hrs Weight 91.898 kg Weight 95.254 kg Physical Exam Narrative: EXAM NARRATIVE: Constitutional: Awake, comfortable HEENT: Wet mucosa, no jvp, non icteric Lungs: Bilaterally clear without discernible wheeze, rales in all lung zones CVS: S1 S2, no murmurs Abdo: Soft, BS ok Ext 4: 2-3+ edema, peripheral perfusion with no cyanosis Neurological: Grossly non-focal Urinary Catheter Management^: Flynn: Cath Placed During This Visit: yes, but has since been removed by the nurse Reason for Continuing Indwelling Catheter: Acute Urinary Retention or Obstruction Urinary Catheter Date of Insertion: 03/14/21 Urinary Catheter Time of Insertion: 00:46 Date Urinary Catheter Removed: 03/14/21 Time Urinary Catheter Discontinued: 00:30 Data : 03/26/21 03:04 03/26/21 03:04 A&P Additional A&P Information 1. Acute renal failure Creatinine improving now, nicely Prerenal azotemia/ATN in the setting of MIKE inhibitor, diuretic, also infection mediated ATN as well. Continue diuretics Flynn to stay for now, Urology outpatient follow up Avoid usual nephrotoxic agents Dose medication for GFR less than 15. 2. Chemistry Well balanced 3. Sepsis Pseudomonas in urine, currently on Zosyn 4. Hemodynamics These remain relatively stable at this time. 5. S/p ankle fracture Input from Ortho is appreciated Ok for DC, follow upwith Dr Dunbar in 2-3 weeks time (case d/w him) Ridge Smith MD Nephrology [phone] Patient seen and examined via telemedicine, with the assistance of the bedside RN > 25 min spent in evaluation and mgmt of patient Attestations Medical Necessity Statement*: Eval for CY Coding Level of Care Code Acute [employer] for Evette York
--- NOTE | 2021-03-26 18:45 | PC.NURSE ---
Pt discharged home. Pts discharge instructions given along with prescriptions and follow up appointments. Pt had no c/o pain or discomfort at the time of discharge. Pt transferred out via wheelchair accompanied by staff.
--- NOTE | 2021-03-27 13:50 | PC.SOCIAL ---
Addendum entered by Belinda Shoemaker RN 03/27/21 13:59: due to patients level of care, continuity writer discussed with the nurse about snf placement. she reports her dad won't do that. Original Note: discharge follow up call made. spoke with pts daughter, anil. she reports pts medications were left at the hospital so patient hasn't had any medications since being home. new medications haven't been picked up from the pharmacy either. continuity writer will get home medications and medications from the pharmacy and take to patients home. daughter reports she is trying to get some help. home health did a visit today. case management arranged for patient to have a hospital bed, ramp, tara lift and wheelchair which they have in the home. when daughter was asked about follow up appointments she reports she isn't sure how she will get patient to these, daughter doesn't drive. continuity writer gave daughter number for [facility] and [employer] transport and let her know they can transport a wheelchair. when home visit is made today continuity writer will make sure daughter is aware of all follow up appointments.
--- NOTE | 2021-03-28 08:13 | PC.SOCIAL ---
home visit made yesterday 03-27-21. assisted pts daughter with medications set up. numbers given to daughter for transportation companies to take her father to and from appointments. follow up appointment dates and times written down and left for patient and daughter. patient is in a hospital bed, instructed daughter on frequent turns to prevent skin breakdown. patient reports he is feeling good and denied pain at the time of visit. writers number left for patient and daughter in case questions arise.
--- NOTE | 2021-03-29 16:13 | PC.SOCIAL ---
Mary called today to indicate the appt for Dr Dunbar in [place] did not go as planned due to transport issue. Wrong address and [facility] came with a wheelchair. He is still not home and Mary indicates that [facility] refuses to transport again and when asked why a stretcher wasn't asked for she indicates not sure because she said he could not sit up. He did not get to see provider after all this. Mary is feeling overwhelmed. We discussed that this nurse explained to the patient and her multiple times that he was not getting out of bed and still max assist. We discussed he would not be able to come and go because he is not strong enough. Reviewed also that he will develop bed sores due to immobility. She wants him to go to SNF. Explained he is not willing and at this point he would have to be readmitted and willing to work with therapy if he meets criteria for admission and be 100% agreeable to go to SNF. Explained that another option to consider if he continues to refuse would be to go on hospice and focus on comfort. She will talk with him and verbalized understanding.
== END 2021-03-26 18:27 | disposition home health service (06) | DRG 853 ==
LOC: ER 23:53 → CSU 03-14 01:00 → ICU 03-14 22:29 → CSU 03-17 14:01
PROVIDERS: Internal Medicine; Internal Medicine Nephrology; Student in an Organized Health Care Education/Training Program; Admitting Provider Urology; Emergency Provider Emergency Medicine; PCP Internal Medicine; Visit Provider Student in an Organized Health Care Education/Training Program
PROC: 0TJB8ZZ Inspection of Bladder, Via Natural or Artificial Opening Endoscopic (ICD-10-PCS; CPT 52000; principal; 2021-03-14 00:30)
PROC: 0T778DZ Dilation of Left Ureter with Intraluminal Device, Via Natural or Artificial Opening Endoscopic (ICD-10-PCS; CPT 50605; 2021-03-14 00:30)
DX: A41.9 Sepsis, unspecified organism (principal); R65.21 Severe sepsis with septic shock; I21.A1 Myocardial infarction type 2; N17.0 Acute kidney failure with tubular necrosis; E43 Unspecified severe protein-calorie malnutrition; I42.0 Dilated cardiomyopathy; N13.2 Hydronephrosis with renal and ureteral calculous obstruction; N39.0 Urinary tract infection, site not specified; Z16.30 Resistance to unspecified antimicrobial drugs; W19.XXXA Unspecified fall, initial encounter; I10 Essential (primary) hypertension; Z87.442 Personal history of urinary calculi; C61 Malignant neoplasm of prostate; Z93.3 Colostomy status; Z96.642 Presence of left artificial hip joint; Z87.891 Personal history of nicotine dependence; I95.9 Hypotension, unspecified; M25.551 Pain in right hip; Z79.891 Long term (current) use of opiate analgesic; Z79.82 Long term (current) use of aspirin; Z68.30 Body mass index [BMI] 30.0-30.9, adult; R59.0 Localized enlarged lymph nodes; T79.6XXA Traumatic ischemia of muscle, initial encounter; E87.5 Hyperkalemia; Z85.048 Personal history of other malignant neoplasm of rectum, rectosigmoid junction, and anus; N32.3 Diverticulum of bladder; Z92.23 Personal history of estrogen therapy; I44.7 Left bundle-branch block, unspecified; B96.5 Pseudomonas (aeruginosa) (mallei) (pseudomallei) as the cause of diseases classified elsewhere; S82.832A Other fracture of upper and lower end of left fibula, initial encounter for closed fracture; S82.52XA Displaced fracture of medial malleolus of left tibia, initial encounter for closed fracture; D50.9 Iron deficiency anemia, unspecified; K42.9 Umbilical hernia without obstruction or gangrene; M54.5 Low back pain
CPT/HCPCS: 36415; 36416; 36430; 36569; 36600; 70450; 71045; 71250; 72125; 73502; 73562; 73610; 74018; 74176; 76000; 76770; 80048; 80051; 80053; 81001; 82044; 82274; 82310; 82330; 82436; 82550; 82570; 82728; 82805; 82962; 83540; 83550; 83605; 83735; 83880; 83970; 84100; 84133; 84145; 84300; 84443; 84484; 85007; 85025; 85049; 85730; 85999; 86140; 86850; 86900; 86920; 87040; 87077; 87086; 87186; 87635; 93005; 93306; 93970; 96365; 96366; 96367; 96375; 96376; 97110; 97162; 97167; 97530; 97535; 97760; 99285; C2625; J0610; J0743; J1170; J1644; J1815; J1940; J2270; J2405; J2543; J2704; J3010; J3370; J7030; J7040; J7050; L4361; P9016; P9047; Q0164; Q3014

== ENCOUNTER 2021-03-29 09:58 | Outpatient (CLI) | payer MEDICARE, SELFPAY ==
[2021-03-29 10:24] LABS: Alanine Aminotransferase 12 U/L (0-41); Albumin Level 2.7 g/dL (3.5-5.2); Alkaline Phosphatase 163 IU/L (40-130); Anion Gap 20.2 (5-19); Aspartate Amino Transferase 13 U/L (0-40); Carbon Dioxide 24 mmol/L (22-29); Chloride 105 mmol/L (98-107); Globulin 3.1 g/dL (1.3-4.6); Glucose 88 mg/dL (65-115); Potassium 4.2 mmol/L (3.5-5.1); Sodium 145 mmol/L (136-145); Total Bilirubin 0.3 mg/dL (0.15-1.2); Total Protein 5.8 g/dL (6.6-8.7)
[2021-03-29 10:37] LABS: Blood Urea Nitrogen 70 mg/dL (8-23); Calcium 8.7 mg/dL (8.5-10.5); Osmolality Calculated 320 mOsm/kg (285-295)
== END 2021-03-29 09:59 | disposition home or self-care (01) ==
LOC: LAB 10:01
PROVIDERS: PCP Internal Medicine; Visit Provider Internal Medicine
DX: Z45.2 Encounter for adjustment and management of vascular access device (principal)
CPT/HCPCS: 80053

== ENCOUNTER 2021-04-01 07:05 | Emergency (ER) | payer MEDICARE, SELFPAY ==
[2021-04-01] VITALS (8 sets, daily range): BP systolic 128–151; BP diastolic 68–90; PULSE 79–101; RESP 14; TEMP 36.6; O2SAT 93–98; BMI 26.6
--- NOTE | 2021-04-01 07:15 | ED_ITS ---
HPI - Fall General: Chief Complaint: Fall Stated Complaint: Fall History of Present Illness: HPI Narrative: 85-year-old male arrives emergency room by EMS after a fall.. Patient is at home with his daughter. He has some chronic medical issues he recently fell and earlier this month and has a bimalleolar left ankle fracture for which she is in a postop cam walker. He also has some chronic kidney disease and abdominal wall seroma and ureterolithiasis all of which was previously known. He was supposed to see area sales manager last week evidently in [place] he tells me he was given a right up there but the area sales manager office was closed when he got there he was not able to be seen. When asked specifically why he called the ambulance this morning he is anticipating admission to get his medical issues addressed since he cannot get to the doctor's office to have them addressed. He denies any abdominal pain any chest pain or any shortness of breath. He does have a colostomy and a Flynn in place Flynn does have some blood tinted urine in the bag. Denies any flank pain. MD complaint: fall Onset (ago): week(s) Fall from: standing Loss of consciousness: None Location of injury - extremities: Left: ankle Associated symptoms-after fall: Denies abdominal pain, chest pain, confusion, difficulty walking, headache(s), hematuria, lightheadedness, neck pain, numbness, short of breath, vertigo or weakness Review of Systems Const: Denies: fever(s), chills, body aches, change in appetite, fatigue or malaise ENMT: Denies: throat pain, ear or mastoid pain, nasal discharge or nasal congestion Card: Denies: chest pain or lightheadedness Resp: Denies: dyspnea, productive cough or non-productive cough GI: Denies: abdominal pain : Denies: hematuria Musc: Denies: neck pain Skin/Breast: Denies: rash or pruritus Neuro: Denies: headache(s), difficulty walking, vertigo or confusion [facility] ED PFSH: Medical History Cardiomyopathy Cataracts, bilateral History of high risk medication treatment Hypertension LBBB (left bundle branch block) Left ureteral calculus Obstructive pyelonephritis Osteoarthrosis Prostate cancer Pyuria Syncope Umbilical hernia Ventricular arrhythmia Wide-complex tachycardia Surgical History History of cataract removal with insertion of prosthetic lens BILATERAL History of colon resection WITH COLOSTOMY PLACED History of hip surgery History of left hip replacement Family History Mother Stroke Other Cancer Social History Smoking and tobacco status: former smoker Alcohol intake: unknown Adopted: No Caregiver/support person: No Lives independently: Yes Marital status: / Current occupational status: retired History of recent travel: No Physical Exam Const: COMMON NORMALS: no acute distress GENERAL APPEARANCE: cooperative and comfortable ORIENTATION/CONSCIOUSNESS: Yes awake, Yes oriented to person, Yes oriented to place and Yes oriented to time HENMT: COMMON NORMALS: normocephalic, atraumatic and hearing grossly normal bilaterally HEAD & SCALP: normocephalic and atraumatic Resp: COMMON NORMALS: normal respiratory effort, No retractions, No use of accessory muscles and clear to auscultation bilaterally AUSCULTATION: clear to auscultation bilaterally Cardio: COMMON NORMALS: regular rate RATE: regular rate RHYTHM: abnormal rhythm irregularly irregular GI: COMMON NORMALS: Soft to palpation and No hepatosplenomegaly present AUSCULTATION: Yes normoactive bowel sounds PALPATION: Yes Soft to palpation, No Tenderness to palpation present (GI), No Guarding due to palpation present (GI) and Yes No hepatosplenomegaly present Extremity: COMMON NORMALS: normal to inspection, capillary refill normal, no clubbing, cyanosis or edema, no calf tenderness and no pedal edema Neuro: SENSORIUM/ORIENTATION: Yes oriented to person, Yes oriented to place and Yes oriented to time Skin: COMMON NORMALS: no rashes or lesions noted GENERAL SKIN EXAM: no rashes or lesions noted Course Vital Signs: Vital signs: Vital Signs Temperature 97.8 F 04/01/21 07:08 Pulse Rate 94 04/01/21 13:26 Respiratory Rate 14 04/01/21 07:08 Blood Pressure 148/74 04/01/21 13:26 Pulse Oximetry 96 04/01/21 13:26 MDM - Fall MDM Narrative: Medical decision making narrative: Patient has a bimalleolar fracture. He is really had any other injuries. He is just unable to manage at home. He was advised to go to the senior living previously and elected not here now is finding he cannot really care for himself. He does have a mild cystitis and is chronic kidney disease but his kidney function is actually better than what has been in the past and his potassium is stable today. His white count is elevated but he has been chronically elevated. He has no flank pain and no fever. We will go ahead and start him on some oral antibiotics. We will have case management to make arrangements for him to be admitted to the senior living. If he has any worsening or change problems return to the emergency room. Lab Data: Labs: Lab Results 04/01/21 04/01/21 04/01/21 08:38 08:40 08:40 WBC 18.3 10^3/uL H 10 ^3/uL (4.0-10.0) RBC 3.90 10^6/uL L 10 ^6/uL (4.1-5.3) Hgb 10.0 g/dL L g/dL (11.7-16.6) Hct 33.1 % L % (42.0-52.0) MCV 84.9 fl fl (80-94) MCH 25.6 pg L pg (28.0-34.0) MCHC 30.2 g/dL g/dL (30.0-36.0) RDW 18.6 % H % (12.1-15.1) Plt Count 317 10^3/cmm 10^3 /cmm (130-400) MPV 8.8 fL fL (7.4-10.4) Neut % (Auto) 83.3 % % Lymph % (Auto) 8.8 % % Caldwell % (Auto) 5.1 % % Eos % (Auto) 0.3 % % Baso % (Auto) 0.9 % % Neut # (Auto) 15.28 10^3/uL H 1 0^3/uL (1.8-7.7) Lymph # (Auto) 1.6 10^3/uL 10^3/ uL (0.8-4.8) Caldwell # (Auto) 0.9 10^3/uL 10^3/ uL (0.2-0.9) Eos # (Auto) 0.1 10^3/uL 10^3/ uL (0.0-0.8) Baso # (Auto) 0.2 10^3/uL H 10^ 3/uL (0.0-0.1) Nucleated RBC % (a uto) 0 % % Nucleated RBCs # 0.0 /100WBC /100W BC PT 16.60 SECONDS H S ECONDS (12.1-14.9) INR 1.31 H (0.8-1.2) APTT 35.1 SECONDS SECO NDS (23.9-36.7) Sodium Potassium Chloride Carbon Dioxide Anion Gap BUN Creatinine GFR Calculation Glucose Calculated Osmolal ity Calcium Total Bilirubin AST ALT Alkaline Phosphata se Total Protein Albumin Globulin Urine Color Red (Yellow) Urine Appearance Bloody A (CLEAR) Urine pH 5 (5-7) Ur Specific Gravit y 1.010 (1.005-1.030) Urine Protein 1+ H (Negative) Urine Glucose (UA) Norm (Normal) Urine Ketones 1+ H (Negative) Urine Blood 3+ H (Negative) Urine Nitrate Negative (Negative) Urine Bilirubin Neg (Negative) Urine Urobilinogen Norm mg/dL mg/dL (Negative) Ur Leukocyte Kyra ase 2+ H (Negative) Urine RBC Too numerous to c nt /hpf H /hpf (0-2) Urine WBC 40-55 /hpf H /hpf (0-5) Ur Squamous Epith Cells None /hpf /hpf (0-5) Amorphous Sediment Not Reportable Urine Bacteria 1+ /hpf H /hpf (NONE) SARS-CoV-2 Ag (Rap id) 04/01/21 04/01/21 08:40 11:59 WBC RBC Hgb Hct MCV MCH MCHC RDW Plt Count MPV Neut % (Auto) Lymph % (Auto) Caldwell % (Auto) Eos % (Auto) Baso % (Auto) Neut # (Auto) Lymph # (Auto) Caldwell # (Auto) Eos # (Auto) Baso # (Auto) Nucleated RBC % (a uto) Nucleated RBCs # PT INR APTT Sodium 143 mmol/L mmol/L (136-145) Potassium 3.7 mmol/L mmol/L (3.5-5.1) Chloride 106 mmol/L mmol/L (98-107) Carbon Dioxide 24 mmol/L mmol/L (22-29) Anion Gap 16.7 (5-19) BUN 47 mg/dL H mg/dL (8-23) Creatinine 2.9 mg/dL H mg/dL (0.7-1.2) GFR Calculation Not Reportable Glucose 111 mg/dL mg/dL (65-115) Calculated Osmolal ity 309 mOsm/kg H mOs m/kg (285-295) Calcium 8.5 mg/dL mg/dL (8.5-10.5) Total Bilirubin 0.3 mg/dL mg/dL (0.15-1.2) AST 19 U/L U/L (0-40) ALT 10 U/L U/L (0-41) Alkaline Phosphata se 180 IU/L H IU/L (40-130) Total Protein 5.8 g/dL L g/dL (6.6-8.7) Albumin 2.7 g/dL L g/dL (3.5-5.2) Globulin 3.1 g/dL g/dL (1.3-4.6) Urine Color Urine Appearance Urine pH Ur Specific Gravit y Urine Protein Urine Glucose (UA) Urine Ketones Urine Blood Urine Nitrate Urine Bilirubin Urine Urobilinogen Ur Leukocyte Kyra ase Urine RBC Urine WBC Ur Squamous Epith Cells Amorphous Sediment Urine Bacteria SARS-CoV-2 Ag (Rap id) Negative (Negative) Discharge Plan Discharge Patient Disposition: Home Clinical Impression: Cystitis, Closed left ankle fracture, Chronic kidney disease (CKD) Condition: Stable Prescriptions: No Action nitroglycerin [Nitrostat] 0.4 mg tablet, sublingual 0.4 mg SUBLINGUAL Q5M PRN (Reason: Chest Pain) RF: 0 aspirin [Adult Low Dose Aspirin] 81 mg tablet,delayed release (DR/EC) 81 mg PO DAILY RF: 0 furosemide 40 mg tablet 40 mg PO DAILY Qty: 90 RF: 3 Vitamin C 500 mg tablet 500 mg PO BID RF: 0 acetaminophen 500 mg Tablet 500 mg PO Q6H PRN (Reason: Pain) RF: 0 hydrocodone-acetaminophen 7.5-325 mg tablet 1 - 2 tab PO TID PRN (Reason: Pain) RF: 0 fluticasone propionate [Flonase Allergy Relief] 50 mcg/actuation [place],Suspension 1 spray INTRANASAL BID RF: 0 loratadine 10 mg Tablet 10 mg PO DAILY RF: 0 amiodarone 200 mg tablet 200 mg PO DAILY RF: 0 methenamine hippurate 1 gram tablet 1 g PO BID RF: 0 tamsulosin 0.4 mg capsule 0.4 mg PO DAILY RF: 0 ketotifen fumarate 0.025 % (0.035 %) Drops 1 drp OPHTHALMIC (EYE) BID PRN (Reason: Dry Eyes) RF: 0 pantoprazole 40 mg Tablet,Delayed Release (Dr/Ec) 40 mg PO BIDWM 14 Days Qty: 14 RF: 0 lidocaine 5 % Adhesive Patch,Medicated 1 patch topical [id number] 10 Days Qty: 20 RF: 0 ferrous sulfate 325 mg (65 mg iron) Tablet,Delayed Release (Dr/Ec) 325 mg PO BIDWM 30 Days Qty: 60 RF: 0 Discharge Orders: Discharge ED (Routine); Ordered 04/01/21 Ordered By: Carter Russell Referrals: Felipe Bustos DO [Primary Care Provider] - Patient Instructions: Opioid Safety Activity Restrictions/Additional Instructions: Case management will begin to make arrangements for you to go to the senior living. Follow-up with us or your primary care doctor continue all previously prescribed medications. Coding Level of Care Code ED Train Station Server for Chg Fwd Exam Detailed
--- NOTE | 2021-04-01 07:28 | ECG_ITS ---
[facility] Test Date: 2021-04-01 Pat Name: Darrian Boggs Department: Room: Gender: Male Director Home: : 1935 Requested By: Carter Zapata Order Number: [id number] Vitaly MD: Frank Bejarano M.D. Measurements Intervals [place] Rate: 87 P: 22 MS: 194 QRS: -3 QRSD: 162 T: 137 QT: 417 QTc: 503 Interpretive Statements SINUS RHYTHM WITH FREQUENT SUPRAVENTRICULAR PREMATURE COMPLEXES LEFT BUNDLE BRANCH BLOCK [120+ ms QRS DURATION, 80+ ms Q/S IN V1/V2, 85+ ms R IN I/aVL/V5/V6] Compared to ECG 03/14/2021 01:57:54 First degree AV block no longer present Electronically Signed On 04-01-2021 22:18:10 CDT by Frank Bejarano M.D. [email or web address]
[2021-04-01 08:47] LABS: Basophils # 0.2 10^3/uL (0.0-0.1); Basophils % 0.9 %; Eosinophils # 0.1 10^3/uL (0.0-0.8); Eosinophils % 0.3 %; Hematocrit 33.1 % (42.0-52.0); Lymphocytes # 1.6 10^3/uL (0.8-4.8); Lymphocytes % 8.8 %; Mean Corpuscular HGB Conc 30.2 g/dL (30.0-36.0); Mean Corpuscular Hemoglobin 25.6 pg (28.0-34.0); Mean Corpuscular Volume 84.9 fl (80-94); Mean Platelet Volume 8.8 fL (7.4-10.4); Monocytes # 0.9 10^3/uL (0.2-0.9); Monocytes % 5.1 %; Neutrophils # 15.28 10^3/uL (1.8-7.7); Neutrophils % 83.3 %; Nucleated Red Blood Cells % 0 %; Platelet Count 317 10^3/cmm (130-400); Red Cell Distribution Width 18.6 % (12.1-15.1); White Blood Count 18.3 10^3/uL (4.0-10.0)
--- NOTE | 2021-04-01 08:52 | USCV_ITS ---
BoggsDarrian cespedes Age: 85 Gender: M : 1935 Exam Date: 04/01/2021 09:16 Ordering Phys: Carter Russell DO Technologist: Exam Location: [facility] – [place] Indication: LT LEG PAIN AND SWELLING HISTORY: Lower extremity pain. PROCEDURES: Venous duplex imaging was performed in only the left lower extremity. The following venous structures were evaluated: common femoral vein, profunda vein, proximal portion of the greater saphenous vein, superficial femoral vein, and the popliteal vein. In addition, the posterior tibial and peroneal trunk were evaluated. On the left side, the common femoral, superficial femoral, profunda femoral, popliteal, posterior tibial, greater saphenous veins, and the peroneal trunk were identified and interrogated in the standard fashion. FINDINGS: Normal 2-D Doppler and augmentation and compressibility throughout the lower extremity venous structures. Additional imaging through the proximal calf veins also reveals no thrombus. Limited evaluation of the greater saphenous vein is patent with no thrombus. CONCLUSIONS No DVT left lower extremity. Dr. Jojo Carter DO (Electronically Signed) Final Date: 01 April 2021 10:50 S
--- NOTE | 2021-04-01 08:52 | XR_ITS ---
WS: [id number] Exam: XR chest 1V portable [id number] Date/Time of Exam: 04/01/2021 8:52 AM Reason For Exam: dyspnea Comparison 03/23/2021. There are mild groundglass infiltrates in the mid and lower bilateral lung zones. Small bibasal pleur al effusions are noted. Heart size is within normal limits for technique. The mediastinum and osseous thorax are intact. XR/XR chest 1V portable [id number] IMPRESSION: 1. Groundglass infiltrates in the mid and lower lung zones bilaterally with sma ll bibasal pleural effusions.
[2021-04-01 08:57] LABS: INR 1.31 (0.8-1.2)
[2021-04-01 08:58] LABS: Partial Thromboplastin Time 35.1 SECONDS (23.9-36.7)
[2021-04-01 09:08] LABS: Alanine Aminotransferase 10 U/L (0-41); Albumin Level 2.7 g/dL (3.5-5.2); Alkaline Phosphatase 180 IU/L (40-130); Anion Gap 16.7 (5-19); Aspartate Amino Transferase 19 U/L (0-40); Blood Urea Nitrogen 47 mg/dL (8-23); Calcium 8.5 mg/dL (8.5-10.5); Carbon Dioxide 24 mmol/L (22-29); Chloride 106 mmol/L (98-107); Globulin 3.1 g/dL (1.3-4.6); Glucose 111 mg/dL (65-115); Osmolality Calculated 309 mOsm/kg (285-295); Potassium 3.7 mmol/L (3.5-5.1); Sodium 143 mmol/L (136-145); Total Bilirubin 0.3 mg/dL (0.15-1.2); Total Protein 5.8 g/dL (6.6-8.7)
[2021-04-01 09:20] LABS: Add Urine Microscopic? YES; Bacteria Urine 1+ /hpf; Bilirubin Urine Neg (Negative); Blood Urine 3+ (Negative); Glucose Urine UA Norm (Normal); Ketones Urine 1+ (Negative); Leukocyte Esterase Urine 2+ (Negative); Nitrate Urine Negative (Negative); Protein Urine 1+ (Negative); RBC Urine TOO NUMEROUS TO CNT /hpf (0-2); Urine Appearance Bloody (CLEAR); Urine Color Red (Yellow); Urobilinogen Urine Norm (Negative); WBC Urine 40-55 /hpf (0-5); pH Urine 5 (5-7)
[2021-04-01 09:21] LABS: Add Urine Culture? Yes
--- NOTE | 2021-04-01 14:14 | PC.PHAR ---
Addendum entered by Sofia Richards 04/01/21 14:16: DAUGHTER STATES THE PT FINISHED THE PIPERACILLIN-TAZOBACTAM 40.5 GRAM INTRAVENOUS SOLUTION ON SAT 03/30/21 Original Note: PT STATES HIM AND HIS DAUGHTER GABINO TAKE CARE OF HIS MEDICATIONS-PTS DAUGHTER GABINO STATES THE PT TAKES THE MEDICATIONS ENTERED-PTS DAUGHTER STATES THE PT HAS BEEN TAKING VITAMIN C 500MG BID RX WRITTEN IN 03/26/21 FOR 500MG DAILY -NOTES ARE MADE IN THE PHARMACY COMMENTS
[2021-04-01 14:57] LABS: SARS Covid-2 Antigen Negative (Negative)
--- NOTE | 2021-04-01 15:05 | DCPLANNER ---
resolution manager was asked to look at chcf placement for patient. resolution manager spoke with patient and explained to patient that it was a process to go to a chcf. resolution manager spoke with patient, he stated that his first choice was [facility] and [facility]. resolution manager called [facility], spoke with Danyell, was told that the facility did not have any beds at this time. resolution manager then called [facility], spoke with Natalie, who said that they did have a bed and for embedded case manager to send patients information from his last visit in hospital stay and todays notes from the ER, a PT eval and current medication list. resolution manager faxed patients to nursing facility, called and confirmed with Natalie that the information was received. Patients information will be reviewed, then if patient is accepted, chcf will call patient and inform patient if patient was accepted, and if patient will be able to go to facility on insurance or if it will be private pay. resolution manager updated patient and his daughter about placement. resolution manager also spoke with Janine angela primary care nurse, and let the physician know that information was sent and being reviewed at [facility].
--- NOTE | 2021-04-02 07:57 | PC.NURSE ---
Pt has pressure ulcer approx 3in long and 1in wide on sacral area. Wound dressing changed and pt placed on trochanter roll under left hip.
[2021-04-02 16:03] LABS: Coronavirus Test Green County Not Detected
== END 2021-04-01 15:49 | disposition home or self-care (01) ==
PROVIDERS: Emergency Provider Family Medicine; PCP Internal Medicine
DX: N30.90 Cystitis, unspecified without hematuria (principal); S82.842A Displaced bimalleolar fracture of left lower leg, initial encounter for closed fracture; I12.9 Hypertensive chronic kidney disease with stage 1 through stage 4 chronic kidney disease, or unspecified chronic kidney disease; N18.9 Chronic kidney disease, unspecified; Z85.46 Personal history of malignant neoplasm of prostate; Z87.891 Personal history of nicotine dependence; W19.XXXA Unspecified fall, initial encounter; Z79.82 Long term (current) use of aspirin; Z20.822 Contact with and (suspected) exposure to COVID-19; M79.605 Pain in left leg
CPT/HCPCS: 71045; 80053; 81001; 85025; 85610; 85730; 87086; 87426; 87635; 93005; 93971; 97161; 99284

== ENCOUNTER → 2021-04-11 10:48 | Outpatient (BNVA) | payer MEDICARE, SELFPAY | PROVIDERS: PCP Internal Medicine; Visit Provider Orthopaedic Surgery | DX: S82.892A Other fracture of left lower leg, initial encounter for closed fracture (principal); X58.XXXA Exposure to other specified factors, initial encounter | CPT/HCPCS: 73610 ==

== ENCOUNTER 2021-05-03 09:40 | Outpatient (CLI) | payer MEDICARE, SELFPAY ==
--- NOTE | 2021-05-03 09:50 | XR_ITS ---
WS: [id number] Exam: XR KUB [id number] Date/Time of Exam: 05/03/2021 9:50 AM Reason For Exam: PYELONEPHRITIS Comparison 03/17/2021. A left ureteral stent catheter is in place appearing be in satisfactory position. There are calcifica tions superimposing the region of both kidneys that may represent renal stones. There is a gas in bot h large and small bowel loops suggesting adynamic ileus. No sign of organ enlargement. Total hip repl acement in the left partially visualized. XR/XR KUB [id number] IMPRESSION: 1. Calcifications superimposing the region of both kidneys that may represent r enal stones. 2. Left-sided ureteral stent catheter appearing to be in appropriate location. 3. Adynamic ileus.
== END 2021-05-03 09:41 | disposition home or self-care (01) ==
PROVIDERS: PCP Internal Medicine; Visit Provider Urology
DX: N11.1 Chronic obstructive pyelonephritis (principal); Z96.0 Presence of urogenital implants; K56.0 Paralytic ileus
CPT/HCPCS: 74018

== ENCOUNTER 2021-05-04 10:11 | Inpatient (IN) | payer MEDICARE, OTHER, SELFPAY ==
[2021-05-04] VITALS (49 sets, daily range): BP systolic 73–149; BP diastolic 43–84; PULSE 90–174; RESP 19–37; TEMP 36.5–36.9; O2SAT 79–100; BMI 27.3
--- NOTE | 2021-05-04 10:26 | CTR_ITS ---
PROCEDURE INFORMATION: Exam: CT Abdomen And Pelvis With Contrast Exam date and time: 05/04/2021 10:26 AM Age: 85 years old Clinical indication: Abdominal tenderness and fever; Prior surgery; Surgery date: 6+ months; Surgery type: Colostomy; Patient HX: HX of prostate CA C/O abd discomfort and fever; Additional info: Infection? TECHNIQUE: Imaging protocol: Computed tomography of the abdomen and pelvis with contrast. Radiation optimization: All CT scans at this facility use at least one of these dose optimization techniques: automated exposure control; mA and/or kV adjustment per patient size (includes targeted exams where dose is matched to clinical indication); or iterative reconstruction. Contrast material: VISI 320; Contrast volume: 95 ml; Contrast route: INTRAVENOUS (IV); COMPARISON: CT chest abd pel wo con 03/13/2021 8:14 PM RADIATION DOSE METRICS: Total DLP (mGy-cm): 1687.11 FINDINGS: Lungs: There is bibasilar atelectasis. Pleural spaces: There is a small right pleural effusion and moderate left pleural effusion. Heart: The heart is enlarged. There is calcification of the coronary arteries. Liver: Normal. No mass. Gallbladder and bile ducts: There is increased density of the bile in the dependent portion of the gallbladder consistent with bile sludge. There is a radiolucent 9 mm stone in the gallbladder. The bile ducts are not dilated. Pancreas: There is atrophy and fatty infiltration of the pancreas. Spleen: Normal. No splenomegaly. Adrenal glands: Normal. No mass. Kidneys and ureters: Subcentimeter benign appearing cysts are present in the kidneys. There is a stent in the left ureter in satisfactory position. There is a 5 mm calculus along the stent in the mid left ureter. There is no hydronephrosis. Stomach and bowel: Sigmoid diverticulosis. No evidence of acute diverticulitis.. No obstruction. No mucosal thickening. Appendix: No evidence of appendicitis. Intraperitoneal space: Unremarkable. No free air. No significant fluid collection. Vasculature: There is atherosclerotic calcification of the aorta but there is no aneurysm. Lymph nodes: There is retroperitoneal lymphadenopathy and left iliac chain lymphadenopathy which is unchanged. Urinary bladder: Flynn catheter is present in the urinary bladder. Reproductive: The prostate is enlarged. Bones/joints: Total left hip prosthesis is present. Chronic degenerative changes are present in the spine with old compression fracture of L5. Soft tissues: There is a left lower quadrant ostomy with peristomal hernia similar to the previous study. There is a stable well-defined 6 cm cystic fluid collection in the right lower anterior abdominal wall. CT/CT abdomen pelvis w con* [id number] IMPRESSION: 1. Bilateral pleural effusions with bibasilar atelectasis has arisen since previous study. 2. Cholelithiasis. Normal bile ducts. 3. Satisfactory position of the left ureteral stent. 5 mm ureteral calculus is present along the stent in the mid ureter. 4. No hydronephrosis. 5. No acute inflammatory processes are seen in the abdomen and pelvis. COMMENTS: Consistent with the [employer]'s Incidental Findings Committee white paper (J Am Gabriele Radiol 2018): Any incidental renal lesion less than 1 cm or classified as too small to characterize, or any incidental cystic renal lesion characterized as simple-appearing, is likely benign. No follow-up imaging is recommended for these lesions per consensus recommendations based on imaging criteria. Radiation Dose CTDIVOL = (mGy): DLP = 1687.11 (mGy-cm)
--- NOTE | 2021-05-04 10:26 | CTR_ITS ---
PROCEDURE INFORMATION: Exam: CT Head Without Contrast Exam date and time: 05/04/2021 10:26 AM Age: 85 years old Clinical indication: Altered mental status/memory loss; Confusion or disorientation; Patient HX: AMS TECHNIQUE: Imaging protocol: Computed tomography of the head without contrast. Radiation optimization: All CT scans at this facility use at least one of these dose optimization techniques: automated exposure control; mA and/or kV adjustment per patient size (includes targeted exams where dose is matched to clinical indication); or iterative reconstruction. COMPARISON: CT head wo con* [id number] 03/13/2021 8:09 PM RADIATION DOSE METRICS: Total DLP (mGy-cm): 843.56 FINDINGS: Brain: There is diffuse cerebral atrophy present, consistent with this patient's age. Periventricular and subcortical white matter low densities are present which at this age likely represent microvascular ischemic change. No evidence for large acute ischemic infarction. Please note acute ischemia can be occult by head CT. Cerebral ventricles: No ventriculomegaly. Paranasal sinuses: Visualized sinuses are unremarkable. No fluid levels. Mastoid air cells: Visualized mastoid air cells are well aerated. Vasculature: Calcified plaque is present within the intracranial vasculature. Bones/joints: Unremarkable. No acute fracture. Soft tissues: Unremarkable. CT/CT head wo con* [id number] IMPRESSION: There are senescent changes of the brain as described above. No evidence for large acute ischemic infarction or acute intracranial injury. Radiation Dose CTDIVOL = (mGy): DLP = 843.56 (mGy-cm)
--- NOTE | 2021-05-04 10:26 | XRR_ITS ---
PROCEDURE INFORMATION: Exam: XR Chest Exam date and time: 05/04/2021 10:26 AM Age: 85 years old Clinical indication: Shortness of breath; Additional info: Eval pna TECHNIQUE: Imaging protocol: XR of the chest. Views: 1 view. COMPARISON: CR XR chest 1V portable [id number] 04/01/2021 8:56 AM FINDINGS: Lungs: There is left basilar consolidation which is increasing since the previous examination. There is stable hazy infiltrate in the right base. Pleural spaces: Small pleural effusions are present and unchanged. No pneumothorax. Heart/Mediastinum: Unremarkable. No cardiomegaly. Bones/joints: Unremarkable. XR/XR chest 1V portable [id number] IMPRESSION: 1. There is increasing consolidation/pneumonia in the left lung base. 2. There is stable hazy right basilar infiltration and stable small bilateral pleural effusions. Radiation Dose CTDIVOL = (mGy): DLP = (mGy-cm)
--- NOTE | 2021-05-04 10:26 | ECG_ITS ---
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1935 Requested By: Hailey Beltre Order Number: [id number] Reading MD: GINGER MARTIN Measurements Intervals [place] Rate: 154 P: [place]: QRS: 5 QRSD: 154 T: 182 QT: 317 QTc: 508 Interpretive Statements ATRIAL FIBRILLATION WITH RAPID VENTRICULAR RESPONSE LEFT BUNDLE BRANCH BLOCK [120+ ms QRS DURATION, 80+ ms Q/S IN V1/V2, 85+ ms R IN I/aVL/V5/V6] CRITICAL TEST RESULT Compared to ECG 04/01/2021 08:47:11 Sinus rhythm no longer present Electronically Signed On 05-06-2021 0:19:41 CDT by GINGER MARTIN [id number]
--- NOTE | 2021-05-04 10:32 | W.ED.GENADLT ---
HPI - General Adult General: Chief complaint: Urogenital-Male Stated complaint: UTI Time Seen by Provider: 05/04/21 10:13 History of Present Illness: HPI narrative: Patient is a 85M an 85-year-old male with history of recent closed left ankle fracture on 03/22/2021, colostoym, indwelling gracia who is followed by Dr. Jarvis with indwelling Gracia presenting to the emergency room for concerns of acute AMS. Per EMS, patient had a blood pressure 70/40 and is noted to be tachycardic today. Patient is AAO x2, rest of history is limited. Onset:unknown Duration: ongoing Location:home Severity:severe Review of Systems Narrative: Constitutional: No fever, no chills. HEENT: No vision changes CV: No chest pain, no palpitations PULM: no cough, no dyspnea. GI: No abdominal pain, no N/V/D. : No dysuria MSKEL: No muscle pain SKIN: No new rashes, no lesions. NEURO: No headache, no focal weakness. HEME: No visible bruises PSYCH: Normal mood PFSH ED PFSH: Medical History Cardiomyopathy Cataracts, bilateral History of high risk medication treatment Hypertension LBBB (left bundle branch block) Left ureteral calculus Obstructive pyelonephritis Osteoarthrosis Prostate cancer Pyuria Syncope Umbilical hernia Ventricular arrhythmia Wide-complex tachycardia Surgical History History of cataract removal with insertion of prosthetic lens BILATERAL History of colon resection WITH COLOSTOMY PLACED History of hip surgery History of left hip replacement Family History Mother , AT AGE 91 Stroke Father , AT AGE 86 Cancer LIVER Social History Smoking and tobacco status: former smoker Alcohol intake: unknown Adopted: No Caregiver/support person: No Lives independently: Yes Marital status: / Current occupational status: retired History of recent travel: No Physical Exam Narrative: EXAM NARRATIVE: Head: Atraumatic Eyes: PERRL, conjunctiva without injection ENT: Mucous membrane moist NECK: Supple, ROM intact LUNGS: LCTAB, no crackles/rhonchi CV: irregular irregular tachycardia ABDOMEN: Soft, No focal TTP. NO guarding rebound, guarding, rigidity. No CVA tenderness to percussion. Neg Lawrence/Neg McBurney's point tenderness, no suprabupic tenderness to palpation. +LLQ ostomy site dry/clean/intact EXTREMITY: Normal ROM SKIN: No rash or erythema NEURO: Awake and alert, no focal motor deficits PSYCH: Normal mood and affect BACK: Stage 1 sacral ulcer, +lidocaine Procedures Central Line Placement Left Femoral: Time Out Performed: Yes Patient Placed on Monitor/Pulse Ox: Yes MD Prep: mask, gown and gloves Central Line Prep: Povidone-Iodine 1% Amount of anesthesia used (mL): 5 Ultrasound Used for Placement: Yes Central Line Lumen Inserted: triple Post Procedure: sutured in place, good blood return, all ports aspirated, flushed, capped and sterile dressing applied Post Procedure X-Ray: tip of catheter in good position Patient Tolerated Procedure: well Complications: none Course Vital Signs: Vital signs: Vital Signs Temperature 97.6 F 05/11/21 11:19 Pulse Rate 94 05/11/21 11:19 Respiratory Rate 18 05/11/21 11:19 Blood Pressure 112/63 05/11/21 11:19 Pulse Oximetry 98 05/11/21 11:19 MDM - General Adult MDM Narrative: Medical decision making narrative: 85-year-old male with a history of indwelling Gracia, colostomy presenting to the emergency room for altered mental status. On arrival, patient had a blood pressure 70/40, tachycardic to the 150s in A. fib with RVR. Patient is AAO x1. Rest of history limited. DDX broad at this time. Workup: sepsis Intervention: IVF, norepinephrine, vancomycin and cefepime, norephinephrine EKG showing Afib with RVR at GP=008. Normal axis. LBBB No ST elevations/depressions to suggest coronary occlusion. Normal QRS, QT intervals. Patient will be admitted for sepsis, likely urosepsis. WBC of 17K, troponin of 329, likely demand ischemia. Vitals improved on pressors. Disposition: ICU Lab Data: Labs: Lab Results 05/04/21 05/04/21 05/04/21 10:35 11:30 11:30 WBC 17.0 10^3/uL H 10 ^3/uL (4.0-10.0) RBC 3.44 10^6/uL L 10 ^6/uL (4.1-5.3) Hgb 8.8 g/dL L g/dL (11.7-16.6) Hct 29.3 % L % (42.0-52.0) MCV 85.2 fl fl (80-94) MCH 25.6 pg L pg (28.0-34.0) MCHC 30.0 g/dL g/dL (30.0-36.0) RDW 19.5 % H % (12.1-15.1) Plt Count 281 10^3/cmm 10^3 /cmm (130-400) MPV 9.8 fL fL (7.4-10.4) Neut % (Auto) 78.4 % % Lymph % (Auto) 10.6 % % [place] % (Auto) 5.2 % % Eos % (Auto) 0.5 % % Baso % (Auto) 0.4 % % Neut # (Auto) 13.35 10^3/uL H 1 0^3/uL (1.8-7.7) Lymph # (Auto) 1.8 10^3/uL 10^3/ uL (0.8-4.8) [place] # (Auto) 0.9 10^3/uL 10^3/ uL (0.2-0.9) Eos # (Auto) 0.1 10^3/uL 10^3/ uL (0.0-0.8) Baso # (Auto) 0.1 10^3/uL 10^3/ uL (0.0-0.1) Nucleated RBC % (a uto) 0 % % Nucleated RBCs # 0.0 /100WBC /100W BC Sodium 141 mmol/L mmol/L (136-145) Potassium 5.2 mmol/L H mmol /L (3.5-5.1) Chloride 102 mmol/L mmol/L (98-107) Carbon Dioxide 23 mmol/L mmol/L (22-29) Anion Gap 21.2 H (5-19) BUN 43 mg/dL H mg/dL (8-23) Creatinine 1.6 mg/dL H mg/dL (0.7-1.2) GFR Calculation Not Reportable Glucose 120 mg/dL H mg/dL (65-115) Calculated Osmolal ity 304 mOsm/kg H mOs m/kg (285-295) Lactate Calcium 8.6 mg/dL mg/dL (8.5-10.5) Total Bilirubin 0.3 mg/dL mg/dL (0.15-1.2) AST 112 U/L H U/L (0-40) ALT 9 U/L U/L (0-41) Alkaline Phosphata se 767 IU/L H IU/L (40-130) Troponin T Gen 5 n g/L Total Protein 4.8 g/dL L g/dL (6.6-8.7) Albumin 2.5 g/dL L g/dL (3.5-5.2) Globulin 2.3 g/dL g/dL (1.3-4.6) Lipase 67 U/L H U/L (13-60) Urine Color Stacie (Yellow) Urine Appearance Cloudy (CLEAR) Urine pH 5 (5-7) Ur Specific Gravit y 1.020 (1.005-1.030) Urine Protein 2+ H (Negative) Urine Glucose (UA) Norm (Normal) Urine Ketones 1+ H (Negative) Urine Blood 3+ H (Negative) Urine Nitrate Negative (Negative) Urine Bilirubin Neg (Negative) Urine Urobilinogen Norm mg/dL mg/dL (Negative) Ur Leukocyte Kyra ase 2+ H (Negative) Urine RBC 40-50 /hpf H /hpf (0-2) Urine WBC Too numerous to c nt /hpf H /hpf (0-5) Ur Squamous Epith Cells Rare /hpf /hpf (0-5) Amorphous Sediment Not Reportable Urine Bacteria 3+ /hpf H /hpf (NONE) 05/04/21 05/04/21 11:30 11:30 WBC RBC Hgb Hct MCV MCH MCHC RDW Plt Count MPV Neut % (Auto) Lymph % (Auto) [place] % (Auto) Eos % (Auto) Baso % (Auto) Neut # (Auto) Lymph # (Auto) [place] # (Auto) Eos # (Auto) Baso # (Auto) Nucleated RBC % (a uto) Nucleated RBCs # Sodium Potassium Chloride Carbon Dioxide Anion Gap BUN Creatinine GFR Calculation Glucose Calculated Osmolal ity Lactate 2.3 mmol/L H mmol /L (0.5-2.2) Calcium Total Bilirubin AST ALT Alkaline Phosphata se Troponin T Gen 5 n g/L 329 ng/L H* ng/L (0-15) Total Protein Albumin Globulin Lipase Urine Color Urine Appearance Urine pH Ur Specific Gravit y Urine Protein Urine Glucose (UA) Urine Ketones Urine Blood Urine Nitrate Urine Bilirubin Urine Urobilinogen Ur Leukocyte Kyra ase Urine RBC Urine WBC Ur Squamous Epith Cells Amorphous Sediment Urine Bacteria Critical Care Time Critical Care Time: Critical Care Time: Yes Total Critical Care Time: 35 Attestation: Given the high probability of imminent or life threatening deterioration of the patient?s condition without intervention, the patient was immediately assessed by myself and the nurse, and cardiac monitoring initiated. The patient was also placed on oxygen and continuous pulse oximetry initiated. During the course of the patient?s stay, I spent a considerable amount of time at the bedside performing serial re-evaluations of the patient?s hemodynamic and clinical status because of the recognized potential threat to life or limb in this condition. Clinical management of this patient involved high complexity decision making to assess, manipulate, and support vital organ system failure. I then had a chance to review all of the available laboratory and radiographic studies obtained today, and I also reviewed old records available to me at the time. Sequential vital signs were obtained. Critical care time noted below was time spent engaged in work directly related to the individual patient?s care, not including time performing procedures; however it does include time spent at the immediate bedside or elsewhere on the floor or unit. TOTAL CRITICAL CARE TIME ELAPSED: 35 minutes. 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
[2021-05-04 10:55] LABS: Urine Color Amber (Yellow)
[2021-05-04 10:56] LABS: Add Urine Microscopic? YES; Bilirubin Urine Neg (Negative); Blood Urine 3+ (Negative); Glucose Urine UA Norm (Normal); Ketones Urine 1+ (Negative); Leukocyte Esterase Urine 2+ (Negative); Nitrate Urine Negative (Negative); Protein Urine 2+ (Negative); Urine Appearance Cloudy (CLEAR); Urobilinogen Urine Norm (Negative); pH Urine 5 (5-7)
[2021-05-04 10:57] LABS: RBC Urine 40-50 /hpf (0-2); Squamous Epithelial Cell Urine RARE /hpf (0-5); WBC Urine TOO NUMEROUS TO CNT /hpf (0-5)
[2021-05-04 10:58] LABS: Add Urine Culture? Yes; Bacteria Urine 3+ /hpf
[2021-05-04] MEDS: sodium chloride 0.9% 1,000 ML 999 ML IV ×2 (11:29→20:04)
[2021-05-04 11:50] LABS: Basophils # 0.1 10^3/uL (0.0-0.1); Basophils % 0.4 %; Eosinophils # 0.1 10^3/uL (0.0-0.8); Eosinophils % 0.5 %; Hematocrit 29.3 % (42.0-52.0); Hemoglobin 8.8 g/dL (11.7-16.6); Lymphocytes # 1.8 10^3/uL (0.8-4.8); Lymphocytes % 10.6 %; Mean Corpuscular Hemoglobin 25.6 pg (28.0-34.0); Mean Corpuscular Volume 85.2 fl (80-94); Mean Platelet Volume 9.8 fL (7.4-10.4); Monocytes # 0.9 10^3/uL (0.2-0.9); Monocytes % 5.2 %; Neutrophils # 13.35 10^3/uL (1.8-7.7); Neutrophils % 78.4 %; Nucleated Red Blood Cells % 0 %; Platelet Count 281 10^3/cmm (130-400); Red Blood Count 3.44 10^6/uL (4.1-5.3); Red Cell Distribution Width 19.5 % (12.1-15.1)
[2021-05-04] MEDS: cefepime 1,000 MG in sodium chloride 0.9% (plus) 50 ML 100 MG IV (12:17)
[2021-05-04 12:25] LABS: Troponin T (5th) Once 329 ng/L (0-15)
[2021-05-04 12:28] LABS: Alanine Aminotransferase 9 U/L (0-41); Albumin Level 2.5 g/dL (3.5-5.2); Alkaline Phosphatase 767 IU/L (40-130); Anion Gap 21.2 (5-19); Aspartate Amino Transferase 112 U/L (0-40); Blood Urea Nitrogen 43 mg/dL (8-23); Calcium 8.6 mg/dL (8.5-10.5); Carbon Dioxide 23 mmol/L (22-29); Chloride 102 mmol/L (98-107); Globulin 2.3 g/dL (1.3-4.6); Glucose 120 mg/dL (65-115); Lipase 67 U/L (13-60); Osmolality Calculated 304 mOsm/kg (285-295); Potassium 5.2 mmol/L (3.5-5.1); Sodium 141 mmol/L (136-145); Total Bilirubin 0.3 mg/dL (0.15-1.2); Total Protein 4.8 g/dL (6.6-8.7)
[2021-05-04 12:29] LABS: Lactate (Lactic Acid level) 2.3 mmol/L (0.5-2.2)
--- NOTE | 2021-05-04 12:57 | ECG_ITS ---
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
--- NOTE | 2021-05-04 13:02 | PM.HP ---
Providers/Chief Complaint Admitting Physician: Roland Bangura MD Primary Care Provider: Felipe Bustos DO Chief Complaint: UTI History of Present Illness 85 Y O M with past medical history of hypertension, wide-complex tachycardia, cardiomyopathy, last known EF 65%, s/p colostoym,Left ureteral calculus s/p stent , indwelling gracia who is followed by Dr. Jarvis, was brought in with C/O acute altered mental status, pee ems when they arrived at the scene he was severely hypotensive with systolic blood pressure 70s, extremely tachycardic. When I examined the patient in the ER, he was alert oriented x3, asking for water as he was feeling very thirsty. Denied any Chest pain, abdominal pain , nausea , vomiting. Upon arrival in the ER he was worked up for above-mentioned complaint: Imaging studies: CT head without contrast: No acute intracranial pathology CT abdomen and pelvis: No acute inflammatory processes are seen in the abdomen and pelvis. Satisfactory position of left ureteral stent, 5 mm ureteral calculus. New bilateral pleural effusion with bibasilar atelectasis. Cholelithiasis. Normal bile ducts. X-ray chest: Left lower lobe consolidation. EKG: A. fib with RVR. Pertinent labs: WBC :17 T , H&H: 8.8/ 29, PLT : 281 , serum sodium: 141 , serum potassium: 5.2 , BUN and serum creatinine: 43/ 1.6 , random blood sugar:120 , serum lactic acid: 2.3 , AST 112, ALT 9 ALP 767, lipase 67 Baseline troponin:329 Urinalysis: Dirty. Patient received 1 L normal saline bolus in the ER, 1 dose of Vanco and cefepime.Was started on Levophed, for septic shock. Review of Systems Const: Denies: fever(s), chills or body aches Card: Denies: edema, swelling of feet/ankles or leg pain with exertion Resp: Denies: pain on inspiration GI: Denies: abdominal pain, nausea, vomiting, diarrhea or constipation : Denies: flank pain Musc: Denies: extremity pain Neuro: Denies: headache(s) Medications/Allergies Home Medications Medication Instructions Recorded Confirmed Last Taken Type aspirin 81 mg tablet,delayed 81 mg PO DAILY 08/08/19 05/04/21 Unknown History release nitroglycerin 0.4 mg sublingual 0.4 mg SUBLINGUAL Q5M PRN 08/10/19 05/04/21 Unknown History tablet furosemide 40 mg tablet 40 mg PO DAILY #90 tab 04/23/20 05/04/21 Unknown Rx acetaminophen 500 mg PO Q6H PRN 03/13/21 05/04/21 Unknown History amiodarone 200 mg PO DAILY 03/13/21 05/04/21 Unknown History fluticasone propionate [Flonase 1 spray INTRANASAL BID 03/13/21 05/04/21 Unknown History Allergy Relief] hydrocodone-acetaminophen 1 - 2 tab PO TID PRN 03/13/21 05/04/21 Unknown History ketotifen fumarate 1 drp OPHTHALMIC (EYE) BID PRN 03/13/21 05/04/21 Unknown History loratadine 10 mg PO DAILY 03/13/21 05/04/21 Unknown History methenamine hippurate 1 g PO BID 03/13/21 05/04/21 Unknown History ascorbic acid (vitamin C) [Vitamin 500 mg PO BID 04/01/21 05/04/21 Unknown History C] tamsulosin 0.4 mg capsule 0.4 mg PO DAILY #90 cap 04/16/21 05/04/21 Unknown Rx ondansetron HCl 8 mg PO TID PRN 05/04/21 05/04/21 Unknown History Allergies Allergy/AdvReac Type Severity Reaction Status Date / Time No Known Allergies Allergy Verified 05/03/21 11:06 PFSH Acute PFSH: Medical History Cardiomyopathy Cataracts, bilateral History of high risk medication treatment Hypertension LBBB (left bundle branch block) Left ureteral calculus Obstructive pyelonephritis Osteoarthrosis Prostate cancer Pyuria Syncope Umbilical hernia Ventricular arrhythmia Wide-complex tachycardia Surgical History History of cataract removal with insertion of prosthetic lens BILATERAL History of colon resection WITH COLOSTOMY PLACED History of hip surgery History of left hip replacement Family History Mother , AT AGE 91 Stroke Father , AT AGE 86 Cancer LIVER Social History Smoking and tobacco status: former smoker Alcohol intake: unknown Adopted: No Caregiver/support person: No Lives independently: Yes Marital status: / Current occupational status: retired History of recent travel: No Vitals/I&O/Wt Last Vital Signs Temp 97.7 F 05/04/21 10:19 Pulse 145 H 05/04/21 10:29 Resp 31 H 05/04/21 10:29 BP 75/59 05/04/21 10:29 Pulse Ox 93 05/04/21 10:29 Weight last 48 hrs Weight 79.379 kg Physical Exam Const: COMMON NORMALS: patient oriented x3 HENMT: HEAD & SCALP: normocephalic and atraumatic Resp: OTHER: Diminished bilateral air entry at bases, Cardio: PERIPHERAL PULSES: Peripheral pulses 2+ throughout OTHER: S1-S2 variable intensity, irregularly irregular rhythm, no murmur rub or gallop GI: COMMON NORMALS: Normal to inspection, nondistended, normoactive bowel sounds present, Soft to palpation, non-tender, No hepatosplenomegaly present and no masses AUSCULTATION: Yes normoactive bowel sounds PALPATION: Yes Soft to palpation and Yes No hepatosplenomegaly present RECTAL EXAM: Yes deferred Extremity: COMMON NORMALS: no clubbing, cyanosis or edema and no pedal edema Neuro: COMMON NORMALS: patient oriented x3 Data : 05/04/21 11:30 05/04/21 11:30 Micro: Microbiology 05/04/21 11:30 Blood Culture - Preliminary Blood SPECIMEN COLLECTED A&P Assessment and plan (1) Septic shock: Septic shock likely secondary to UTI/pneumonia. Follow: Blood culture MRSA PCR Legionella antigen Bacterial antigen panel Urine culture Procalcitonin Monitor lactic acid Monitor x-ray chest Vancomycin Zosyn Status: Acute (2) Atrial fibrillation with RVR: Received amiodarone 150 mg IV bolus, on amiodarone drip Lovenox 80 twice daily Status: Acute (3) Elevated troponin I level: Elevated troponin likely secondary to type II [place] secondary to sepsis and A. fib with RVR Follow troponin trend: Status: Acute (4) CY (acute kidney injury): CY likely secondary to ATN secondary to sepsis Continue gentle IV hydration normal saline 75 cc an hour Monitor BMP Monitor intake output Urine electrolytes Avoid nephrotoxic's CT abdomen and pelvis has failed to show any hydronephrosis Status: Acute (5) Anemia: Status: Acute (6) Left ureteral calculus: Status: Acute (7) Hyperkalemia: Status: Acute (8) Pneumonia: Status: Acute Additional A&P Information CODE STATUS: Full code DVT prophylaxis: On Lovenox Attestations Medical Necessity Statement*: Hospital for management of septic shock. Anticipated length of stay greater than 2 midnights. Critical Care Time: The high probability of a clinically significant, sudden or life threatening deterioration of the patient's [] system(s) required my full and direct attention, intervention and personal management. The critical care time is as shown. This time is in addition to time spent performing any reported procedures but includes the following: [x] Data and vital sign review and interpretation [x] Patient assessment, examination and intervention [x] Documentation [x] Medication orders and management Critical Care Time (min): 45 Coding Level of Care Code Acute Electronic Scale Tester for Chg Fwd Diagnoses Septic shock A41.9; R65.21 Atrial fibrillation with RVR I48.91 Elevated troponin I level R77.8 CY (acute kidney injury) N17.9 Anemia D64.9 Left ureteral calculus N20.1 Hyperkalemia E87.5 Pneumonia J18.9
[2021-05-04] MEDS: iodixanol 320 mg/mL 100mL Btl IV (13:42)
[2021-05-04] MEDS: vancomycin 1,000 MG in sodium chloride 0.9% 250 ML 250 MG IV (13:56)
--- NOTE | 2021-05-04 14:07 | PC.NURSE ---
VITAL SIGNS PRINTED AND PLACED IN PAPER CHART.
[2021-05-04] MEDS: piperacillin-tazobactam 3.375 GM in sodium chloride 0.9% (plus) 50 ML IV ×2 (14:39→21:13)
[2021-05-04] MEDS: enoxaparin 80 mg/0.8 mL Syringe SUBCUT (14:40)
[2021-05-04] MEDS: ondansetron 2 mg/ML SDV 2 mL 4 MG IVP (15:21)
[2021-05-04 15:43] LABS: Troponin(5th) Baseline 295 ng/L (0-15)
[2021-05-04] MEDS: sodium chloride 0.9% 1,000 ML 75 ML IV (16:47)
[2021-05-04 17:54] LABS: Troponin 5 2HR 282.7 ng/L (0-15); Troponin 5 2HR Delta -12.3 ABS# (0-10)
--- NOTE | 2021-05-04 18:19 | PC.NURSE ---
Shift Note Frequent safety and comfort rounds continue. Orders and nursing care completed as indicated.Patient arrived from ED this afternoon A&OX4. Pt remains in Afib with RVR, orders to start amiodarone drip. Pt noted to be on Levophed, receiving a bolus of NS, and Vancomycin started. Pt requested drink of water and shortly after vomitted, PRN zofran given once. Pt on 3L NC, states he's on that much at [place]. Sacrum noted to have a stage 1 pressure sore, pt turned every two hours with assistance of other nuring staff, turn sheet, and pillows. Patient monitored for response to intervention and treatments. Education provided includes frequent position changes due to high risk of pressure sores, new medications administered, high risk of DVT prevention . Patient verbalized understanding.
[2021-05-04] MEDS: hydrocortisone 100 mg/2 mL SDV IVP (20:03)
[2021-05-04] MEDS: sodium chloride 0.9% 500 ML 999 ML IV (22:31)
[2021-05-05] VITALS (71 sets, daily range): BP systolic 86–126; BP diastolic 38–83; PULSE 77–104; RESP 18–34; TEMP 36.6–37; O2SAT 91–100
[2021-05-05] MEDS: sodium chloride 0.9% 1,000 ML 75 ML IV (00:38)
[2021-05-05] MEDS: enoxaparin 80 mg/0.8 mL Syringe SUBCUT ×2 (03:10→14:02)
[2021-05-05] MEDS: piperacillin-tazobactam 3.375 GM in sodium chloride 0.9% (plus) 50 ML IV ×3 (05:01→21:15)
[2021-05-05] MEDS: vancomycin 1,250 MG/250 ML PIGGYBACK 250 MG IV (05:05)
[2021-05-05 05:15] LABS: Basophils # 0.1 10^3/uL (0.0-0.1); Basophils % 0.4 %; Eosinophils % 0.1 %; Hematocrit 25.1 % (42.0-52.0); Hemoglobin 7.4 g/dL (11.7-16.6); Lymphocytes # 1.8 10^3/uL (0.8-4.8); Lymphocytes % 8.7 %; Mean Corpuscular HGB Conc 29.5 g/dL (30.0-36.0); Mean Corpuscular Hemoglobin 25.6 pg (28.0-34.0); Mean Corpuscular Volume 86.9 fl (80-94); Mean Platelet Volume 9.9 fL (7.4-10.4); Monocytes # 0.9 10^3/uL (0.2-0.9); Monocytes % 4.5 %; Neutrophils # 16.31 10^3/uL (1.8-7.7); Neutrophils % 80.4 %; Nucleated Red Blood Cells % 0 %; Platelet Count 267 10^3/cmm (130-400); Red Blood Count 2.89 10^6/uL (4.1-5.3); Red Cell Distribution Width 19.8 % (12.1-15.1); White Blood Count 20.3 10^3/uL (4.0-10.0)
[2021-05-05 05:24] LABS: Lactic Sepsis W/Reflex 1.3 mmol/L (0.5-2.2)
[2021-05-05 05:38] LABS: Slide Review Slide Review Perform
[2021-05-05 05:47] LABS: NT Pro B Type Natriuretic Pept 8351 pg/mL (0-450)
[2021-05-05 05:58] LABS: Alanine Aminotransferase 7 U/L (0-41); Albumin Level 2.2 g/dL (3.5-5.2); Alkaline Phosphatase 769 IU/L (40-130); Aspartate Amino Transferase 73 U/L (0-40); Blood Urea Nitrogen 39 mg/dL (8-23); Carbon Dioxide 21 mmol/L (22-29); Chloride 105 mmol/L (98-107); Globulin 2.6 g/dL (1.3-4.6); Glucose 145 mg/dL (65-115); Magnesium 1.8 mg/dL (1.7-2.3); Osmolality Calculated 300 mOsm/kg (285-295); Phosphorus 4.4 mg/dL (2.5-4.5); Sodium 139 mmol/L (136-145); Total Bilirubin 0.3 mg/dL (0.15-1.2); Total Protein 4.8 g/dL (6.6-8.7)
[2021-05-05] MEDS: aspirin 81 mg EC Tablet PO (08:40)
[2021-05-05] MEDS: FUROsemide 10 mg/mL SDV 2mL 20 MG IVP ×2 (08:40→19:15)
[2021-05-05] MEDS: tamsulosin 0.4 mg Capsule PO (09:13)
[2021-05-05 14:41] LABS: Basophils # 0.1 10^3/uL (0.0-0.1); Basophils % 0.3 %; Eosinophils % 0.1 %; Hematocrit 25.7 % (42.0-52.0); Hemoglobin 7.6 g/dL (11.7-16.6); Lymphocytes # 1.6 10^3/uL (0.8-4.8); Lymphocytes % 9.3 %; Mean Corpuscular HGB Conc 29.6 g/dL (30.0-36.0); Mean Corpuscular Hemoglobin 25.6 pg (28.0-34.0); Mean Corpuscular Volume 86.5 fl (80-94); Mean Platelet Volume 9.5 fL (7.4-10.4); Monocytes % 5.9 %; Neutrophils # 13.71 10^3/uL (1.8-7.7); Nucleated Red Blood Cells % 0.1 %; Platelet Count 261 10^3/cmm (130-400); Red Blood Count 2.97 10^6/uL (4.1-5.3); White Blood Count 17.4 10^3/uL (4.0-10.0)
[2021-05-05 16:27] LABS: Neutrophils % 84.4 %
[2021-05-05 16:28] LABS: Slide Review Slide Review Perform
--- NOTE | 2021-05-05 16:41 | P.PN_ITS ---
Subjective Subjective: Interval history: Patient was seen and examined this morning, complaining of shortness of breath, was tachypneic, had worsening bilateral crackles in both the lungs gomez, received 2 L IV fluid overnight, with minimal urine output. Patient was given Lasix 20 mg IV, with improvement in urine output as well as improvement in shortness of breath. We will give another dose of Lasix in the evening.As the patient is currently.5.5Ls positive. Medications: Reviewed: Yes Vitals/I&O/Wt Last Vital Signs Temp 97.9 F 05/05/21 05:15 Pulse 82 05/05/21 14:00 Resp 24 H 05/05/21 13:30 BP 107/56 05/05/21 13:30 Pulse Ox 99 05/05/21 13:30 05/05/21 05/05/21 05/05/21 06:59 14:59 22:59 Intake Total 1144.973 / 4189.346 1731.174 / 1731.174 Output Total 400 / 400 Balance 744.973 / 3789.346 1731.174 / 1731.174 Weight last 48 hrs Weight 79.379 kg Weight 79.379 kg Weight 79.379 kg Physical Exam Const: COMMON NORMALS: patient oriented x3 HENMT: COMMON NORMALS: normocephalic and atraumatic HEAD & SCALP: normocephalic and atraumatic Resp: OTHER: Diminished bilateral air entry at bases, bilateral crackles in both the lung gomez. Cardio: COMMON NORMALS: Peripheral pulses 2+ throughout PERIPHERAL PULSES: Peripheral pulses 2+ throughout OTHER: S1-S2 variable intensity, irregularly irregular rhythm, no murmur rub or gallop GI: COMMON NORMALS: Normal to inspection, nondistended, normoactive bowel sounds present, Soft to palpation, non-tender, No hepatosplenomegaly present and no masses AUSCULTATION: Yes normoactive bowel sounds PALPATION: Yes Soft to palpation and Yes No hepatosplenomegaly present RECTAL EXAM: Yes deferred Extremity: COMMON NORMALS: no clubbing, cyanosis or edema and no pedal edema Neuro: COMMON NORMALS: patient oriented x3 Data : 05/05/21 14:12 05/05/21 04:20 Micro: Microbiology 05/04/21 11:30 Blood Culture - Preliminary Blood NEGATIVE TO DATE 05/04/21 11:30 Blood Culture - Preliminary Blood NEGATIVE TO DATE 05/04/21 10:35 Urine Culture - Preliminary Urine,Clean Catch Gram Negative Rods A&P Assessment and plan (1) Septic shock: Septic shock likely secondary to UTI/pneumonia. Blood culture:NTD MRSA PCR: Legionella antigen Bacterial antigen panel Urine culture:GNR Procalcitonin: 0.60 lactic acid: Monitor x-ray chest Vancomycin Zosyn S/P 100 MG i.v hydrocortisone one-time dose Status: Acute (2) Atrial fibrillation with RVR: Received amiodarone 150 mg IV bolus, on amiodarone drip. Will switch to amidarone 400 MG PO daily. Currently Heart rate is well controlled. Lovenox 80 twice daily Status: Acute (3) Decompensated heart failure: Decompensated heart failure with preserved ejection fraction. Bilateral crackles in both the lungs. Lasix 20 mg IV x2 doses today. Monitor intake output charting. Status: Acute (4) Elevated troponin I level: Elevated troponin likely secondary to type II [place] secondary to sepsis and A. fib with RVR Troponin trend without significant delta. Status: Acute (5) CY (acute kidney injury): CY likely secondary to ATN secondary to sepsis. Sufficient IV fluid replacement done. Monitor BMP Monitor intake output Urine electrolytes Avoid nephrotoxic's CT abdomen and pelvis has failed to show any hydronephrosis Status: Acute (6) Anemia: Chronic anemia. Hemoglobin is dropped to 7.6 today: Likely dilutional: No evident source of bleeding. Monitor CBC Status: Acute (7) Left ureteral calculus: S/p ureteral stent. Follow urology as an outpatient Status: Acute (8) Hyperkalemia: Resolved. Status: Acute (9) Pneumonia: Status: Acute Additional A&P Information CODE STATUS: Full code DVT prophylaxis: On Lovenox Attestations Medical Necessity Statement*: Patient needs to be in hospital for management of above defined problems. 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
--- NOTE | 2021-05-05 18:04 | PC.NURSE ---
Shift Note Frequent safety and comfort rounds continue. Orders and nursing care completed as indicated. Patient turned every 2 hours, noted to be A&Ox4 this am. Family visited this afternoon this nurse updated family on plan of care. Pt currently on amiodarone drip, switching to PO this evening. Patient monitored for response to intervention and treatments. Plan to transfer to CSU tomorrow. Will continue to monitor.
[2021-05-05] MEDS: amiodarone 200 mg Tablet 400 MG PO (18:31)
[2021-05-06] VITALS (49 sets, daily range): BP systolic 84–142; BP diastolic 36–77; PULSE 86–126; RESP 21–41; TEMP 36.6–37.1; O2SAT 90–100
[2021-05-06] MEDS: enoxaparin 80 mg/0.8 mL Syringe SUBCUT ×2 (02:14→14:01)
[2021-05-06 03:38] LABS: Basophils # 0.1 10^3/uL (0.0-0.1); Basophils % 0.3 %; Eosinophils % 0.2 %; Hematocrit 25.7 % (42.0-52.0); Hemoglobin 7.7 g/dL (11.7-16.6); Lymphocytes # 1.6 10^3/uL (0.8-4.8); Lymphocytes % 9.2 %; Mean Corpuscular Hemoglobin 25.4 pg (28.0-34.0); Mean Corpuscular Volume 84.8 fl (80-94); Mean Platelet Volume 9.5 fL (7.4-10.4); Monocytes # 1.1 10^3/uL (0.2-0.9); Neutrophils # 13.43 10^3/uL (1.8-7.7); Neutrophils % 76.6 %; Nucleated Red Blood Cells % 0.2 %; Platelet Count 278 10^3/cmm (130-400); Red Blood Count 3.03 10^6/uL (4.1-5.3); White Blood Count 17.6 10^3/uL (4.0-10.0)
[2021-05-06 04:00] LABS: Alanine Aminotransferase < 5 U/L (0-41); Albumin Level 2.3 g/dL (3.5-5.2); Alkaline Phosphatase 674 IU/L (40-130); Anion Gap 17.9 (5-19); Blood Urea Nitrogen 38 mg/dL (8-23); Calcium 8.1 mg/dL (8.5-10.5); Carbon Dioxide 21 mmol/L (22-29); Chloride 105 mmol/L (98-107); Globulin 2.9 g/dL (1.3-4.6); Glucose 135 mg/dL (65-115); Osmolality Calculated 301 mOsm/kg (285-295); Potassium 3.9 mmol/L (3.5-5.1); Sodium 140 mmol/L (136-145); Total Bilirubin 0.3 mg/dL (0.15-1.2); Total Protein 5.2 g/dL (6.6-8.7)
[2021-05-06 04:07] LABS: Aspartate Amino Transferase 34 U/L (0-40)
[2021-05-06 04:16] LABS: Slide Review Slide Review Perform
[2021-05-06] MEDS: vancomycin 1,250 MG/250 ML PIGGYBACK 250 MG IV (05:04)
[2021-05-06] MEDS: piperacillin-tazobactam 3.375 GM in sodium chloride 0.9% (plus) 50 ML IV ×3 (05:05→22:07)
--- NOTE | 2021-05-06 06:05 | PC.NURSE ---
Shift Note Frequent safety and comfort rounds continue. Pt repositioned every hour due to pressure injury on bottom. Pt remained on levophed throughout the night. Orders and nursing care completed as indicated. Linens changed and bath done overnight. Patient monitored for response to intervention and treatment. Education provided includes aspiration precautions. Patient verbalized understanding. Will continue care.
[2021-05-06] MEDS: aspirin 81 mg EC Tablet PO (08:10)
[2021-05-06] MEDS: amiodarone 200 mg Tablet 400 MG PO ×2 (08:10→17:18)
[2021-05-06] MEDS: FUROsemide 10 mg/mL SDV 4mL 40 MG IVP ×2 (08:10→17:18)
[2021-05-06] MEDS: tamsulosin 0.4 mg Capsule PO (08:11)
[2021-05-06] MEDS: midodrine 5 mg TABLET 10 MG PO ×3 (08:11→20:00)
--- NOTE | 2021-05-06 09:09 | PC.CHAP ---
Pastoral Care Encounter/Spiritual Assessment Type of Contact [] Declined automobile radiator mechanic visit [] Patient/Family/Request visit [] Outpatient visit [] Follow-up visit [] Physician referral [] Code/Alert [x] Routine visit [] Staff referral [] Actively dying [] Patient sleeping [] Family support [] [] Out of room [] Palliative care [] [x] Receiving care in room [] Pre-surgical visit [] Trauma [] Long length of stay [x] ICU visit [] Other: Relational/Emotional Strength [] Patient feels connected with others/family/visitors/staff [] Distress [] Loneliness/isolation [] Abandonment Spirituality of Patient [] Person of Nadia [] Attends Pentecostalism of their Nadia [] Believes in Prayer [] Reads Bible or Zoroastrianism materials [] There are Spiritual issues to be addressed Special Education Itinerant Teacher Interventions [x] Prayer [] Active listening [] Non-anxious presence [] Spiritual/emotional support [] Crisis/trauma care [] Spiritual counseling [] Bereavement support [] Provided bereavement packet [] Provided Bible/devotional materials [] Provided toy/stuffed animal, coloring book to patient or family member [] Provided Communion [] Anointing/[place] [] Salvation [x] Completed spiritual assessment [] Other: Impact on Illness or Injury [] Angry [] Fearful [] Anxious [] Often cries [] Exhaustion [] Unable to work [] Unable to attend buddhist [] Unable to walk/stand [] Unable to read [] Unable to drive [] Unable to eat/drink [] Unable to sleep [] Unable to be with family [] Patient intubated [] Other: Summary Time spent with patient
[2021-05-06] MEDS: HYDROcodone-acetaminophen 7.5-325 mg Tablet 1 TAB PO (15:45)
--- NOTE | 2021-05-06 16:16 | P.PN_ITS ---
Subjective Subjective: Interval history: Patient was seen this morning, he is alert to person, to place, to time, he continues to complain of lower extremity swelling, and some shortness of breath, no fevers overnight, no nausea, no vomiting, Vitals/I&O/Wt Last Vital Signs Temp 97.9 F 05/06/21 11:00 Pulse 111 H 05/06/21 14:00 Resp 33 H 05/06/21 12:00 BP 112/59 05/06/21 12:00 Pulse Ox 100 05/06/21 12:00 05/06/21 05/06/21 05/06/21 06:59 14:59 22:59 Intake Total 50 / 2311.174 300 / 300 148.590 / 448.590 Output Total 500 / 1200 Balance -450 / 1111.174 300 / 300 148.590 / 448.590 Weight last 48 hrs Weight 79.379 kg Physical Exam Const: COMMON NORMALS: no acute distress and patient oriented x3 Resp: COMMON NORMALS: normal respiratory effort, No retractions and No use of accessory muscles AUSCULTATION: crackles Cardio: COMMON NORMALS: regular rate, regular rhythm, S1 normal heart sound present and S2 normal heart sound present RATE: regular rate RHYTHM: regular rhythm HEART SOUNDS: S1 normal heart sound present and S2 normal heart sound present GI: COMMON NORMALS: Normal to inspection, nondistended, normoactive bowel sounds present, Soft to palpation and non-tender PALPATION: Yes Soft to palpation Extremity: NARRATIVE EXTREMITY EXAM: 2+ pitting edema bilaterally Neuro: COMMON NORMALS: patient oriented x3 Psych: COMMON NORMALS: mental status grossly normal Data : 05/06/21 03:17 05/06/21 03:17 Micro: Microbiology 05/04/21 10:35 Urine Culture - Final Urine,Clean Catch Escherichia coli 05/04/21 11:30 Blood Culture - Preliminary Blood NEGATIVE TO DATE 05/04/21 11:30 Blood Culture - Preliminary Blood NEGATIVE TO DATE A&P Assessment and plan (1) Septic shock: Septic shock likely secondary to UTI/pneumonia. Blood culture:NTD MRSA PCR: Ordered Legionella antigen ordered Bacterial antigen panel ordered Urine culture:GNR Monitor x-ray chest Vancomycin Zosyn Creatinine 1.4 White blood cell count 17.6 S/P 100 MG i.v hydrocortisone one-time dose Currently on minimal Levophed Add midodrine 10 mg 3 times daily Replace Flynn catheter CT scan abdomen pelvis shows satisfactory position of left ureteral stent, 5 mm ureteral calculus is present in the stent in the mid ureter If remains hemodynamically unstable, recurrent fevers, possible septic stone Full code Lovenox for DVT prophylaxis Status: Acute (2) Atrial fibrillation with RVR: Received amiodarone 150 mg IV bolus, off amiodarone drip. On amiodarone 400 twice daily Currently Heart rate is well controlled. Lovenox 80 twice daily Status: Acute (3) Decompensated heart failure: Decompensated heart failure with preserved ejection fraction. Bilateral crackles in both the lungs, 2+ pitting edema 40 mg twice daily Monitor intake output charting. Status: Acute (4) Elevated troponin I level: Elevated troponin likely secondary to type II HI secondary to sepsis and A. fib with RVR Troponin trend without significant delta. Status: Acute (5) CY (acute kidney injury): CY likely secondary to ATN secondary to sepsis. Sufficient IV fluid replacement done. Monitor BMP Monitor intake output Urine electrolytes Avoid nephrotoxic's CT abdomen and pelvis has failed to show any hydronephrosis Status: Acute (6) Anemia: Chronic anemia. Hemoglobin is dropped to 7.7 today: Likely dilutional: No evident source of bleeding. Monitor CBC Status: Acute (7) Left ureteral calculus: S/p ureteral stent. Follow urology as an outpatient Status: Acute (8) Hyperkalemia: Resolved. 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
--- NOTE | 2021-05-06 17:41 | PC.NURSE ---
Shift Note Frequent safety and comfort rounds continue. Orders and nursing care completed as indicated. Pt turned every 2hours with assistance of other nursing staff. Flynn catheter removed and a new catheter placed per physician's orders, pt tolerated well. Mr. Boggs has been requiring more levophed, see mar and vital signs. Physician notified. This nurse assisted patient with meals today, Mr. Colmenares continues to refuse food on trays and request apple sauce and Ensure replacement meal drinks. Patient monitored for response to intervention and treatments. Will continue to monitor.
[2021-05-07] VITALS (51 sets, daily range): BP systolic 84–129; BP diastolic 44–69; PULSE 74–109; RESP 20–36; O2SAT 93–100
[2021-05-07] MEDS: HYDROcodone-acetaminophen 7.5-325 mg Tablet 1 TAB PO ×2 (00:47→15:28)
[2021-05-07] MEDS: enoxaparin 80 mg/0.8 mL Syringe SUBCUT ×2 (03:25→15:28)
[2021-05-07] MEDS: acetaminophen 325 mg Tablet 650 MG PO (04:59)
[2021-05-07] MEDS: amiodarone 200 mg Tablet 400 MG PO ×2 (05:00→17:02)
[2021-05-07] MEDS: piperacillin-tazobactam 3.375 GM in sodium chloride 0.9% (plus) 50 ML IV (05:00)
[2021-05-07 05:10] LABS: Hematocrit 25.7 % (42.0-52.0); Hemoglobin 7.8 g/dL (11.7-16.6); Mean Corpuscular HGB Conc 30.4 g/dL (30.0-36.0); Mean Corpuscular Hemoglobin 25.7 pg (28.0-34.0); Mean Corpuscular Volume 84.5 fl (80-94); Mean Platelet Volume 9.2 fL (7.4-10.4); Platelet Count 304 10^3/cmm (130-400); Red Blood Count 3.04 10^6/uL (4.1-5.3); Red Cell Distribution Width 19.9 % (12.1-15.1)
[2021-05-07 05:16] LABS: INR 1.67 (0.8-1.2)
[2021-05-07 05:26] LABS: Vancomycin Trough 21.7 ug/mL (10-15)
[2021-05-07 05:29] LABS: NT Pro B Type Natriuretic Pept 9610 pg/mL (0-450); Procalcitonin 0.48 ng/mL (0-0.5)
[2021-05-07 05:39] LABS: Lactate (Lactic Acid level) 1.1 mmol/L (0.5-2.2)
--- NOTE | 2021-05-07 05:39 | PC.PHAR ---
patient Vancomycin trough came back at 21.7, hold dose for 12 hours and change frequency from q24h to q36h. Thank you, Leticia Roy RPh
[2021-05-07 05:41] LABS: Alanine Aminotransferase < 5 U/L (0-41); Albumin Level 2.2 g/dL (3.5-5.2); Alkaline Phosphatase 505 IU/L (40-130); Anion Gap 16.2 (5-19); Aspartate Amino Transferase 18 U/L (0-40); Blood Urea Nitrogen 33 mg/dL (8-23); C Reactive Protein 285.6 mg/L (0.0-4.9); Calcium 8.5 mg/dL (8.5-10.5); Carbon Dioxide 22 mmol/L (22-29); Chloride 103 mmol/L (98-107); Globulin 2.9 g/dL (1.3-4.6); Glucose 161 mg/dL (65-115); Magnesium 1.8 mg/dL (1.7-2.3); Osmolality Calculated 297 mOsm/kg (285-295); Phosphorus 3.1 mg/dL (2.5-4.5); Potassium 3.2 mmol/L (3.5-5.1); Sodium 138 mmol/L (136-145); Total Bilirubin 0.4 mg/dL (0.15-1.2); Total Protein 5.1 g/dL (6.6-8.7)
[2021-05-07] MEDS: aspirin 81 mg EC Tablet PO (07:40)
[2021-05-07] MEDS: midodrine 5 mg TABLET 10 MG PO ×3 (07:41→20:21)
[2021-05-07] MEDS: tamsulosin 0.4 mg Capsule PO (07:41)
[2021-05-07 07:52] LABS: Slide Review Slide Review Perform
[2021-05-07 07:54] LABS: Absolute Segmented Neutrophil 12.4 10/cmm (1.6-7.1); Band Neutrophils Absolute 1.6 10^3/cmm (0.0-1.2); Eosinophils 0 %; Lymphocytes 13 %; Lymphocytes Absolute 2.5 10^3/cmm (1.2-3.4); Monocytes Absolute 0.7 10^3/cmm (0.1-0.6); Platelet Estimate Normal (Normal); Segmented Neutrophils 69 %; Total Cells Counted 100 (0-100)
[2021-05-07] MEDS: potassium chloride premix 100 ML 50 MEQ IV (09:13)
[2021-05-07] MEDS: potassium chloride premix 100 ML 25 MEQ IV (09:13)
[2021-05-07] MEDS: FUROsemide 10 mg/mL SDV 4mL 40 MG IVP ×2 (12:51→20:10)
--- NOTE | 2021-05-07 15:06 | PM.PN ---
Subjective Subjective: Interval history: This morning patient was seen, yesterday he was able to get up to the side of bed with physical therapy, remains afebrile, remains on Levophed, his Levophed requirements have increased to 10, he does report weakness, fatigue, poor appetite, no nausea,no vomiting, abdominal pain, Vitals/I&O/Wt Last Vital Signs Temp 98 F 05/06/21 20:00 Pulse 85 05/07/21 14:00 Resp 24 H 05/07/21 12:30 BP 110/53 05/07/21 12:30 Pulse Ox 100 05/07/21 13:41 05/07/21 05/07/21 05/07/21 06:59 14:59 22:59 Intake Total 304 / 9211.384 0341.626 / 1219.626 Output Total 650 / 1650 Balance -346 / -601.497 9029.626 / 1219.626 Physical Exam Const: COMMON NORMALS: no acute distress ORIENTATION/CONSCIOUSNESS: Yes awake, Yes oriented to person and Yes oriented to place; not oriented to time Resp: COMMON NORMALS: normal respiratory effort, No retractions, No use of accessory muscles and clear to auscultation bilaterally AUSCULTATION: clear to auscultation bilaterally Cardio: COMMON NORMALS: regular rate, regular rhythm, S1 normal heart sound present and S2 normal heart sound present RATE: regular rate RHYTHM: regular rhythm HEART SOUNDS: S1 normal heart sound present and S2 normal heart sound present GI: COMMON NORMALS: Normal to inspection, nondistended, normoactive bowel sounds present, Soft to palpation and non-tender PALPATION: Yes Soft to palpation Extremity: NARRATIVE EXTREMITY EXAM: 1+ pitting edema bilateral lower extremities Neuro: SENSORIUM/ORIENTATION: Yes oriented to person, Yes oriented to place and No oriented to time Urinary Catheter Management^: Flynn: Cath Placed During This Visit: yes, but has since been removed by the nurse Reason for Continuing Indwelling Catheter: Accurate Measurement of Urinary Output in Critically Ill Patients Urinary Catheter Date of Insertion: 05/06/21 Urinary Catheter Time of Insertion: 18:04 Date Urinary Catheter Removed: 05/06/21 Time Urinary Catheter Discontinued: 18:04 Data : 05/07/21 04:50 05/07/21 04:50 Micro: Microbiology 05/07/21 12:46 Blood Culture - Preliminary Blood SPECIMEN COLLECTED 05/07/21 12:40 Blood Culture - Preliminary Blood SPECIMEN COLLECTED 05/06/21 05:20 Bacterial Antigens - Final Urine,Clean Catch 05/04/21 10:35 Urine Culture - Final Urine,Clean Catch Escherichia coli A&P Assessment and plan (1) Septic shock: Septic shock likely secondary to UTI/pneumonia. Remains on Levophed White blood cell count 18, neutrophilic with bands, CRP 285, pro-Mathew 0.48 Blood culture:NTD MRSA PCR: Ordered Legionella antigen ordered Bacterial antigen panel ordered Urine culture: Pansensitive E. coli We will repeat urine cultures, blood cultures, inflammatory markers Vancomycin Discontinue Zosyn, switched to Primaxin S/P 100 MG i.v hydrocortisone one-time dose, add hydrocortisone 50 every 12 hours On midodrine 10 mg 3 times daily Replaced Flynn catheter CT scan abdomen pelvis shows satisfactory position of left ureteral stent, 5 mm ureteral calculus is present in the stent in the mid ureter BNP over 9600, albumin 2.2, 1 dose of Lasix with albumin If remains hemodynamically unstable, recurrent fevers, possible septic stone Full code Lovenox for DVT prophylaxis Status: Acute (2) Atrial fibrillation with RVR: Received amiodarone 150 mg IV bolus, off amiodarone drip. On amiodarone 400 twice daily Currently Heart rate is well controlled. Lovenox 80 twice daily Status: Acute (3) Decompensated heart failure: Decompensated heart failure with preserved ejection fraction. Bilateral crackles in both the lungs, 2+ pitting edema 40 mg twice daily Monitor intake output charting. Status: Acute (4) Elevated troponin I level: Elevated troponin likely secondary to type II PA secondary to sepsis and A. fib with RVR Troponin trend without significant delta. Status: Acute (5) CY (acute kidney injury): CY likely secondary to ATN secondary to sepsis. Sufficient IV fluid replacement done. Monitor BMP Monitor intake output Urine electrolytes Avoid nephrotoxic's CT abdomen and pelvis has failed to show any hydronephrosis Status: Acute (6) Anemia: Chronic anemia. Hemoglobin is dropped to 7.7 today: Likely dilutional: No evident source of bleeding. Monitor CBC Status: Acute (7) Left ureteral calculus: S/p ureteral stent. Follow urology as an outpatient Status: Acute (8) Hyperkalemia: Resolved. Status: Acute (9) Pneumonia: Status: Acute (10) Debilitated patient: Currently under the care of his daughter Status: Acute (11) Prostate cancer: Has history of prostate cancer, on hormonal therapy, no evidence of metastasis Status: Acute (12) Colostomy care: Has a colostomy in place Status: Acute Additional A&P Information CODE STATUS: Full code DVT prophylaxis: On Lovenox Attestations Medical Necessity Statement*: Patient requires hospitalization for septic shock secondary to UTI, pneumonia, A. fib Coding Level of Care Code Acute Biodiesel Production Technician for [facility] Fwd Diagnoses Septic shock A41.9; R65.21 Atrial fibrillation with RVR I48.91 Decompensated heart failure I50.9 Elevated troponin I level R77.8 CY (acute kidney injury) N17.9 Anemia D64.9 Left ureteral calculus N20.1 Hyperkalemia E87.5 Pneumonia J18.9 Debilitated patient R53.81 Prostate cancer C61 Colostomy care Z43.3
[2021-05-07] MEDS: hydrocortisone 100 mg/2 mL SDV 50 MG IVP (15:27)
--- NOTE | 2021-05-07 16:13 | PC.SOCIAL ---
IMM Update: pg 2 of IMM updated and reviewed w/ patient. Copy provided.
[2021-05-07] MEDS: potassium chloride ER 20 mEq Tablet 40 MEQ PO (17:02)
[2021-05-07] MEDS: vancomycin 1,250 MG/250 ML PIGGYBACK 250 MG IV (17:03)
--- NOTE | 2021-05-07 17:51 | PC.NURSE ---
Shift Note Frequent safety and comfort rounds continue. Orders and nursing care completed as indicated. Patient turned every 2 hours with help of other nursing staff. Patent received a bath and linen change this morning. Mr. Boggs continues to refuse meals but instead drink a nutrition supplements, applesauce,pudding. Central line dressing change completed this am, patient tolerated well. Urine sample sent to labe, awaiting results. Patient noted to be on Levophed, see mar and vitals. Patient monitored for response to intervention and treatments. Education provided includes frequent position changes, and education on new medications administered, patient verbalized understanding. Will continue to monitor.
[2021-05-08] VITALS (40 sets, daily range): BP systolic 100–149; BP diastolic 46–78; PULSE 72–103; RESP 19–34; TEMP 36–36.6; O2SAT 88–100
--- NOTE | 2021-05-08 | XR_ITS ---
WS: [id number] Bilateral hips 2 views each, 05/08/2021 Clinical Data: elevated alkphos Comparison: Pelvis and right hip, 03/13/2021. Findings: Right hip: There is osteoarthritic narrowing of the right hip. There is cyst formation on the adjacent acetabulu m and in the femoral head. No fractures or dislocations are seen. Vascular calcifications are present . Left hip: There is a left femoral head prosthesis in good position. A left ureteral stent is noted. There is a left femoral arterial or venous catheter. XR/XR hip BI 3-4V wo/w pel [id number] Impression: 1. Severe osteoarthritis of the right hip. 2. Left hip arthroplasty.
[2021-05-08] MEDS: enoxaparin 80 mg/0.8 mL Syringe SUBCUT (02:39)
[2021-05-08] MEDS: hydrocortisone 100 mg/2 mL SDV 50 MG IVP (02:39)
--- NOTE | 2021-05-08 03:46 | PC.NURSE ---
Patient resting in bed, everytime staff is in room with patient, patient request drinks of water. Every time patient takes a drink of water he coughs and seems to become choked up on water. Offered sponge to moisten mouth, to prevent aspiration. Patient also has many expiratory wheezes audible. Continue care.
[2021-05-08] MEDS: HYDROcodone-acetaminophen 7.5-325 mg Tablet 1 TAB PO ×2 (04:22→23:40)
[2021-05-08] MEDS: amiodarone 200 mg Tablet 400 MG PO ×2 (04:22→17:55)
--- NOTE | 2021-05-08 04:48 | PC.NURSE ---
Shift Note Frequent safety and comfort rounds continue. Orders and/or nursing care completed as indicated. Patient monitored for response to intervention and treatment(s). Education provided includes pain management. Patient and/or fuels sales representative reinforcement needed. Will continue to monitor.
[2021-05-08 05:03] LABS: Basophils % 0.2 %; Eosinophils % 0.2 %; Lymphocytes # 1.5 10^3/uL (0.8-4.8); Lymphocytes % 11.5 %; Mean Corpuscular HGB Conc 29.5 g/dL (30.0-36.0); Mean Corpuscular Hemoglobin 25.4 pg (28.0-34.0); Mean Corpuscular Volume 85.9 fl (80-94); Mean Platelet Volume 10.4 fL (7.4-10.4); Monocytes # 0.7 10^3/uL (0.2-0.9); Monocytes % 5.2 %; Neutrophils # 9.44 10^3/uL (1.8-7.7); Neutrophils % 74.7 %; Nucleated Red Blood Cells % 0.2 %; Platelet Count 245 10^3/cmm (130-400); Red Blood Count 2.56 10^6/uL (4.1-5.3); Red Cell Distribution Width 20.4 % (12.1-15.1); White Blood Count 12.7 10^3/uL (4.0-10.0)
[2021-05-08 05:16] LABS: INR 1.54 (0.8-1.2)
[2021-05-08 05:24] LABS: Alanine Aminotransferase < 5 U/L (0-41); Albumin Level 3.1 g/dL (3.5-5.2); Alkaline Phosphatase 330 IU/L (40-130); Anion Gap 17.6 (5-19); Aspartate Amino Transferase 11 U/L (0-40); Blood Urea Nitrogen 34 mg/dL (8-23); C Reactive Protein 230.1 mg/L (0.0-4.9); Calcium 8.8 mg/dL (8.5-10.5); Carbon Dioxide 23 mmol/L (22-29); Chloride 105 mmol/L (98-107); Globulin 2.1 g/dL (1.3-4.6); Glucose 118 mg/dL (65-115); Magnesium 1.8 mg/dL (1.7-2.3); Osmolality Calculated 303 mOsm/kg (285-295); Phosphorus 3.3 mg/dL (2.5-4.5); Potassium 3.6 mmol/L (3.5-5.1); Sodium 142 mmol/L (136-145); Total Bilirubin 0.3 mg/dL (0.15-1.2); Total Protein 5.2 g/dL (6.6-8.7)
[2021-05-08 06:18] LABS: Hemoglobin 6.5 g/dL (11.7-16.6); Slide Review Slide Review Perform
--- NOTE | 2021-05-08 06:23 | PC.NURSE ---
Received critical hemoglobin of 6.5. Attempted to notify shift supervisor film processing hospitalist sealing and canceling machine operator 3 different times. Not able to notify, will pass on to dayshift report.
[2021-05-08 06:28] LABS: NT Pro B Type Natriuretic Pept 8389 pg/mL (0-450)
[2021-05-08 07:45] LABS: Procalcitonin 0.51 ng/mL (0-0.5)
[2021-05-08] MEDS: FUROsemide 10 mg/mL SDV 4mL 40 MG IVP ×2 (08:58→15:50)
[2021-05-08 09:21] LABS: Iron 33 ug/dL (59-158)
[2021-05-08 09:36] LABS: Ferritin 3675 ng/mL (30-400)
--- NOTE | 2021-05-08 09:44 | PC.CHAP ---
Pastoral Care Encounter/Spiritual Assessment Type of Contact [] Declined mannequin maker visit [] Patient/Family/Request visit [] Outpatient visit [] Follow-up visit [] Physician referral [] Code/Alert [x] Routine visit [] Staff referral [] Actively dying [] Patient sleeping [] Family support [] [] Out of room [] Palliative care [] [] Receiving care in room [] Pre-surgical visit [] Trauma [] Long length of stay [x] ICU visit [] Other: Relational/Emotional Strength [] Patient feels connected with others/family/visitors/staff [] Distress [] Loneliness/isolation [] Abandonment Spirituality of Patient [] Person of Nadia [] Attends Restoration of their Nadia [] Believes in Prayer [] Reads Bible or Rastafarian materials [] There are Spiritual issues to be addressed Glaze Carrier Interventions [x] Prayer [x] Active listening [x] Non-anxious presence [x] Spiritual/emotional support [] Crisis/trauma care [] Spiritual counseling [] Bereavement support [] Provided bereavement packet [] Provided Bible/devotional materials [] Provided toy/stuffed animal, coloring book to patient or family member [] Provided Communion [] Anointing/[place] [] Salvation [x] Completed spiritual assessment [] Other: Impact on Illness or Injury [] Angry [] Fearful [] Anxious [] Often cries [] Exhaustion [] Unable to work [] Unable to attend yazdanism [] Unable to walk/stand [] Unable to read [] Unable to drive [] Unable to eat/drink [] Unable to sleep [] Unable to be with family [] Patient intubated [] Other: Summary delightful man.. resting.. states hes not good BUT not bad... so feeling in the middle Time spent with patient 5 min
[2021-05-08] MEDS: aspirin 81 mg EC Tablet PO (10:33)
[2021-05-08] MEDS: midodrine 5 mg TABLET 10 MG PO (10:35)
[2021-05-08] MEDS: sucralfate 1 gm Tablet PO ×2 (13:05→23:41)
[2021-05-08] MEDS: pantoprazole DR 40 mg Tablet PO ×2 (13:05→17:56)
--- NOTE | 2021-05-08 13:46 | XR_ITS ---
WS: [id number] Thoracic spine, AP view, 05/08/2021 Clinical Data: alkphos Comparison: None. Findings: No compression fractures are seen. The disc heights are normal. There are bilateral pulmonary opacifications. Monitor leads are on the chest wall. XR/XR thoracic spine 1V [id number] Impression: Negative AP view of the thoracic spine.
--- NOTE | 2021-05-08 13:46 | XR_ITS ---
WS: [id number] Lumbar spine, AP view, 05/08/2021 Clinical Data: elevate alk phos Comparison: None. Findings: Osteoarthritic changes of the lumbar vertebral bodies is noted. The SI joints are not well seen. There is a left hip arthroplasty. There is a catheter overlying the left femoral vein or left femoral artery. There is a left ureteral catheter. Vascular calcifications are seen in the left splenic danie ry. XR/XR lumbar spine 1V [id number] Impression: Osteoarthritis of the lumbar vertebral bodies.
--- NOTE | 2021-05-08 13:46 | XR_ITS ---
WS: [id number] Bilateral hips 2 views each, 05/08/2021 Clinical Data: elevated alkphos Comparison: Pelvis and right hip, 03/13/2021. Findings: Right hip: There is osteoarthritic narrowing of the right hip. There is cyst formation on the adjacent acetabulu m and in the femoral head. No fractures or dislocations are seen. Vascular calcifications are present . Left hip: There is a left femoral head prosthesis in good position. A left ureteral stent is noted. There is a left femoral arterial or venous catheter.
--- NOTE | 2021-05-08 14:35 | PM.PN ---
Subjective Subjective: Interval history: Patient was seen this morning, he was taken off pressor therapies late in the afternoon yesterday, remains afebrile overnight, normotensive, he continues to have productive cough, he is actually self suctioning himself due to increased sputum production, continues to report poor intake, no nausea, no vomiting, no lightheadedness, dizziness, he did work with physical therapy yesterday, Vitals/I&O/Wt Last Vital Signs Temp 96.8 F L 05/08/21 13:25 Pulse 94 05/08/21 13:25 Resp 31 H 05/08/21 13:25 BP 124/68 05/08/21 13:25 Pulse Ox 96 05/08/21 13:25 05/07/21 05/08/21 05/08/21 22:59 06:59 14:59 Intake Total 881.303 / 2100.929 360.325 / 2461.254 300 / 300 Output Total 750 / 750 750 / 1500 200 / 200 Balance 131.303 / 1350.929 -389.675 / 961.254 100 / 100 Physical Exam Const: COMMON NORMALS: no acute distress and patient oriented x3 Resp: COMMON NORMALS: normal respiratory effort, No retractions, No use of accessory muscles and clear to auscultation bilaterally AUSCULTATION: clear to auscultation bilaterally Cardio: COMMON NORMALS: regular rate, regular rhythm, S1 normal heart sound present and S2 normal heart sound present RATE: regular rate RHYTHM: regular rhythm HEART SOUNDS: S1 normal heart sound present and S2 normal heart sound present GI: COMMON NORMALS: Normal to inspection, nondistended, normoactive bowel sounds present, Soft to palpation and non-tender PALPATION: Yes Soft to palpation OTHER: Colostomy in place Extremity: NARRATIVE EXTREMITY EXAM: 1+ pitting edema bilateral lower extremities Neuro: COMMON NORMALS: patient oriented x3 Psych: COMMON NORMALS: mental status grossly normal Urinary Catheter Management^: Flynn: Cath Placed During This Visit: yes, but has since been removed by the nurse Reason for Continuing Indwelling Catheter: Accurate Measurement of Urinary Output in Critically Ill Patients Urinary Catheter Date of Insertion: 05/06/21 Urinary Catheter Time of Insertion: 18:04 Date Urinary Catheter Removed: 05/06/21 Time Urinary Catheter Discontinued: 18:04 Data : 05/08/21 04:13 05/08/21 04:13 Micro: Microbiology 05/08/21 11:53 Occult Blood (FIT) - Final Stool Routine Collection 05/07/21 12:46 Blood Culture - Preliminary Blood NEGATIVE TO DATE 05/07/21 12:40 Blood Culture - Preliminary Blood NEGATIVE TO DATE 05/06/21 17:30 MRSA Culture - Final Nose A&P Assessment and plan (1) Septic shock: Septic shock likely secondary to UTI/pneumonia. Resolved, off Levophed White blood cell count 12.7, neutrophilic with bands, CRP 230, pro-Mathew 0.5 Blood culture:NTD MRSA PCR: Positive Bacterial antigen panel negative Urine culture: Pansensitive E. coli Discontinue vancomycin Continue Primaxin S/P hydrocortisone, hold On midodrine 10 mg 3 times daily Replaced Flynn catheter CT scan abdomen pelvis shows satisfactory position of left ureteral stent, 5 mm ureteral calculus is present in the stent in the mid ureter BNP over 8000, 2 doses of albumin with Lasix Hemoglobin 6.8, Hemoccult positive stools, hold Lovenox, will transfuse 2 units PRBC, Protonix, Carafate If remains hemodynamically unstable, recurrent fevers, possible septic stone Full code Lovenox for DVT prophylaxis on hold, SCDs Plan for today transfuse 2 units PRBC, Lasix therapy, albumin, moved to general medical floors, PT OT, speech therapy eval Status: Acute (2) Atrial fibrillation with RVR: Received amiodarone 150 mg IV bolus, off amiodarone drip. On amiodarone 400 twice daily Currently Heart rate is well controlled. Lovenox 80 twice daily on hold Status: Acute (3) Decompensated heart failure: Decompensated heart failure with preserved ejection fraction. Bilateral crackles in both the lungs, 2+ pitting edema 40 mg twice daily Monitor intake output charting. Status: Acute (4) Elevated troponin I level: Elevated troponin likely secondary to type II VT secondary to sepsis and A. fib with RVR Troponin trend without significant delta. Status: Acute (5) CY (acute kidney injury): CY likely secondary to ATN secondary to sepsis. Sufficient IV fluid replacement done. Monitor BMP Monitor intake output Urine electrolytes Avoid nephrotoxic's CT abdomen and pelvis has failed to show any hydronephrosis Status: Acute (6) Anemia: Chronic anemia. Hemoglobin is dropped to 7.7 today: Likely dilutional: No evident source of bleeding. Monitor CBC Status: Acute (7) Left ureteral calculus: S/p ureteral stent. Follow urology as an outpatient Status: Acute (8) Hyperkalemia: Resolved. Status: Acute (9) Pneumonia: Status: Acute (10) Debilitated patient: Currently under the care of his daughter Status: Acute (11) Prostate cancer: Has history of prostate cancer, on hormonal therapy, no evidence of metastasis Status: Acute (12) Colostomy care: Has a colostomy in place Status: Acute (13) GI bleed: Status: Acute (14) Acute anemia: -Acute anemia concerning for slow GI bleed as patient has been on Lovenox, Hemoccult positive stools, hemoglobin down to 6.8 -Lovenox currently placed on hold -Monitor hemodynamics -Transfused 2 units PRBC, Protonix, Carafate Status: Acute Additional A&P Information CODE STATUS: Full code DVT prophylaxis: On Lovenox Attestations Medical Necessity Statement*: Patient requires hospitalization for septic shock secondary UTI, pneumonia, now with GI bleed, Coding Level of Care Code Acute Ornament Maker Hand for g Fwd Diagnoses Septic shock A41.9; R65.21 Atrial fibrillation with RVR I48.91 Decompensated heart failure I50.9 Elevated troponin I level R77.8 CY (acute kidney injury) N17.9 Anemia D64.9 Left ureteral calculus N20.1 Hyperkalemia E87.5 Pneumonia J18.9 Debilitated patient R53.81 Prostate cancer C61 Colostomy care Z43.3 GI bleed K92.2 Acute anemia D64.9
--- NOTE | 2021-05-08 16:03 | PC.NURSE ---
Updated Dr. Sotomayor about respiratory wheezing, increase in respirations, and patient working harder to breath. Dr. Sotomayor ordered to give next dose of lasix and albumin now. Updated on patient blood pressure. Dr. Sotomayor ordered to hold the Midodrine.
--- NOTE | 2021-05-08 19:05 | PC.NURSE ---
Transfer Note Patient transferred to [place] [id number] from ICU 4 via bed. Handoff received by S[facility] Driver. Patient oriented to environment and equipment. Covering service notified. Family and/or operations support representative notified. Family updated on patient and transfer.
[2021-05-08 22:58] LABS: Hematocrit 24.1 % (42.0-52.0); Hemoglobin 7.7 g/dL (11.7-16.6)
[2021-05-09] VITALS (7 sets, daily range): BP systolic 112–151; BP diastolic 61–74; PULSE 88–104; RESP 16–18; TEMP 36.3–36.9; O2SAT 92–99
[2021-05-09] MEDS: amiodarone 200 mg Tablet 400 MG PO ×2 (05:32→18:15)
[2021-05-09 06:20] LABS: Basophils # 0.1 10^3/uL (0.0-0.1); Basophils % 0.5 %; Eosinophils # 0.1 10^3/uL (0.0-0.8); Eosinophils % 0.5 %; Hemoglobin 7.8 g/dL (11.7-16.6); Lymphocytes # 1.6 10^3/uL (0.8-4.8); Lymphocytes % 12.3 %; Mean Corpuscular HGB Conc 31.2 g/dL (30.0-36.0); Mean Corpuscular Hemoglobin 26.4 pg (28.0-34.0); Mean Corpuscular Volume 84.5 fl (80-94); Mean Platelet Volume 10.1 fL (7.4-10.4); Monocytes # 0.8 10^3/uL (0.2-0.9); Monocytes % 5.9 %; Neutrophils # 8.84 10^3/uL (1.8-7.7); Neutrophils % 66.6 %; Nucleated Red Blood Cells # 0.1 /100WBC; Nucleated Red Blood Cells % 0.5 %; Platelet Count 212 10^3/cmm (130-400); Red Blood Count 2.96 10^6/uL (4.1-5.3); Red Cell Distribution Width 19.5 % (12.1-15.1); White Blood Count 13.3 10^3/uL (4.0-10.0)
[2021-05-09 06:36] LABS: INR 1.38 (0.8-1.2)
[2021-05-09 06:40] LABS: Alanine Aminotransferase < 5 U/L (0-41); Albumin Level 3.5 g/dL (3.5-5.2); Alkaline Phosphatase 265 IU/L (40-130); Anion Gap 15.9 (5-19); Aspartate Amino Transferase 15 U/L (0-40); Blood Urea Nitrogen 34 mg/dL (8-23); C Reactive Protein 110.3 mg/L (0.0-4.9); Calcium 9.2 mg/dL (8.5-10.5); Carbon Dioxide 23 mmol/L (22-29); Chloride 109 mmol/L (98-107); Globulin 2.3 g/dL (1.3-4.6); Glucose 108 mg/dL (65-115); Lactate (Lactic Acid level) 1.1 mmol/L (0.5-2.2); Osmolality Calculated 308 mOsm/kg (285-295); Sodium 145 mmol/L (136-145); Total Bilirubin 0.5 mg/dL (0.15-1.2); Total Protein 5.8 g/dL (6.6-8.7)
[2021-05-09 06:46] LABS: NT Pro B Type Natriuretic Pept 18519 pg/mL (0-450); Procalcitonin 0.31 ng/mL (0-0.5)
[2021-05-09 07:17] LABS: Potassium 2.9 mmol/L (3.5-5.1)
[2021-05-09 07:27] LABS: Slide Review Slide Review Perform
[2021-05-09] MEDS: midodrine 5 mg TABLET 10 MG PO (08:39)
[2021-05-09] MEDS: tamsulosin 0.4 mg Capsule PO (08:40)
[2021-05-09] MEDS: aspirin 81 mg EC Tablet PO (08:40)
[2021-05-09] MEDS: pantoprazole DR 40 mg Tablet PO ×2 (08:40→18:15)
[2021-05-09] MEDS: lidocaine 1% 5 ML in potassium chloride premix 100 ML 25 ML IV (11:28)
[2021-05-09] MEDS: FUROsemide 10 mg/mL SDV 4mL 40 MG IVP ×2 (11:37→21:24)
--- NOTE | 2021-05-09 11:47 | PC.SOCIAL ---
IMM update IMM updated with patient. Copy Pg 2 provided. Initialled, dated, timed, and placed in chart.
--- NOTE | 2021-05-09 13:23 | XR_ITS ---
WS: [id number] Left ankle, 2 views, 05/09/2021 Clinical Data: left fibular fracture Comparison: Left ankle, 04/11/2021. Findings: There is a fracture of the distal left fibula. The distal left tibia is unremarkable. XR/XR ankle LT 2V [id number] Impression: Healing fracture of distal left fibula.
--- NOTE | 2021-05-09 14:01 | PM.PN ---
Vitals/I&O/Wt Last Vital Signs Temp 97.3 F L 05/09/21 11:47 Pulse 96 05/09/21 11:47 Resp 17 05/09/21 11:47 BP 112/63 05/09/21 11:47 Pulse Ox 99 05/09/21 11:47 05/08/21 05/09/21 05/09/21 22:59 06:59 14:59 Intake Total 300 / 600 200 / 800 720 / 720 Output Total 1250 / 1450 120 / 1570 Balance -950 / -850 80 / -770 720 / 720 Physical Exam Urinary Catheter Management^: Flynn: Cath Placed During This Visit: yes, but has since been removed by the nurse Reason for Continuing Indwelling Catheter: Chronic Indwelling Urinary Catheter on Admission Urinary Catheter Date of Insertion: 05/06/21 Urinary Catheter Time of Insertion: 18:04 Date Urinary Catheter Removed: 05/06/21 Time Urinary Catheter Discontinued: 18:04 Data : 05/09/21 05:50 05/09/21 05:50 Micro: Microbiology 05/04/21 11:30 Blood Culture - Final Blood NO GROWTH AFTER 5 DAYS 05/04/21 11:30 Blood Culture - Final Blood NO GROWTH AFTER 5 DAYS 05/07/21 18:00 Urine Culture - Preliminary Urine Catheterized 05/08/21 11:53 Occult Blood (FIT) - Final Stool Routine Collection 05/07/21 12:46 Blood Culture - Preliminary Blood NEGATIVE TO DATE 05/07/21 12:40 Blood Culture - Preliminary Blood NEGATIVE TO DATE A&P Assessment and plan (1) Closed left ankle fracture: x rays reviewed Fracture appears to be healed; Patient may WBAT will see in am if still here Status: Acute Attestations Medical Necessity Statement*: per primary team Coding Level of Care Code Acute Freelance Digital Project Manager for [facility] Fwd Diagnoses Closed left ankle fracture S82.892A
[2021-05-09] MEDS: sucralfate 1 gm Tablet PO (14:03)
--- NOTE | 2021-05-09 14:54 | PM.PN ---
Subjective Subjective: Interval history: Patient was seen this morning, he has been afebrile overnight, on 6 L, normotensive, had episodes of hypertension during the early parts of the afternoon yesterday, overall doing better this morning, continues to have weakness, fatigue, tiredness, I have strongly advised for longterm placement, however patient declines, he tells me that he wants to go home, he tells me that his daughter will take care of him, his daughter has everything set up for him at home, advised of the risk associate with going home without adequate help, I advised him that given his current deconditioned state, his recurrent hospitalizations, his underlying prostate cancer, advised him that he is a high risk of adverse events if he were to go at home without adequate help, that he needs 24-hour help, that he really requires longterm care, and if he can qualify for physical therapy, however patient declines, he tells me that he will talk to his daughter, he tells me he really wants to go home tomorrow, Vitals/I&O/Wt Last Vital Signs Temp 97.3 F L 05/09/21 11:47 Pulse 96 05/09/21 11:47 Resp 17 05/09/21 11:47 BP 112/63 05/09/21 11:47 Pulse Ox 99 05/09/21 11:47 05/08/21 05/09/21 05/09/21 22:59 06:59 14:59 Intake Total 300 / 600 200 / 800 720 / 720 Output Total 1250 / 1450 120 / 1570 Balance -950 / -850 80 / -770 720 / 720 Physical Exam Const: COMMON NORMALS: no acute distress GENERAL APPEARANCE: frail appearing ORIENTATION/CONSCIOUSNESS: Yes awake, Yes oriented to person and Yes oriented to place Resp: COMMON NORMALS: normal respiratory effort, No retractions, No use of accessory muscles and clear to auscultation bilaterally AUSCULTATION: clear to auscultation bilaterally Cardio: COMMON NORMALS: regular rate, regular rhythm, S1 normal heart sound present and S2 normal heart sound present RATE: regular rate RHYTHM: regular rhythm HEART SOUNDS: S1 normal heart sound present and S2 normal heart sound present GI: COMMON NORMALS: Normal to inspection, nondistended, normoactive bowel sounds present, Soft to palpation and non-tender PALPATION: Yes Soft to palpation OTHER: Colostomy in place Extremity: COMMON NORMALS: no pedal edema NARRATIVE EXTREMITY EXAM: 1+ pitting edema bilateral lower extremities Neuro: SENSORIUM/ORIENTATION: Yes oriented to person and Yes oriented to place Urinary Catheter Management^: Flynn: Cath Placed During This Visit: yes, but has since been removed by the nurse Reason for Continuing Indwelling Catheter: Chronic Indwelling Urinary Catheter on Admission Urinary Catheter Date of Insertion: 05/06/21 Urinary Catheter Time of Insertion: 18:04 Date Urinary Catheter Removed: 05/06/21 Time Urinary Catheter Discontinued: 18:04 Data : 05/09/21 05:50 05/09/21 05:50 Micro: Microbiology 05/04/21 11:30 Blood Culture - Final Blood NO GROWTH AFTER 5 DAYS 05/04/21 11:30 Blood Culture - Final Blood NO GROWTH AFTER 5 DAYS 05/07/21 18:00 Urine Culture - Preliminary Urine Catheterized 05/08/21 11:53 Occult Blood (FIT) - Final Stool Routine Collection 05/07/21 12:46 Blood Culture - Preliminary Blood NEGATIVE TO DATE 05/07/21 12:40 Blood Culture - Preliminary Blood NEGATIVE TO DATE A&P Assessment and plan (1) Septic shock: Septic shock likely secondary to UTI/pneumonia. Resolved, off Levophed Off midodrine Currently on general medical floors White blood cell count 13.3 Blood culture:NTD MRSA PCR: Positive Bacterial antigen panel negative Urine culture: Pansensitive E. coli Discontinue vancomycin Stop Primaxin, switch to cefdinir doxycycline S/P hydrocortisone, on hold for now Replaced Flynn catheter CT scan abdomen pelvis shows satisfactory position of left ureteral stent, 5 mm ureteral calculus is present in the stent in the mid ureter BNP over elevated, continues to have pitting edema, 2 doses of albumin Lasix today Hemoglobin 7.8, Hemoccult positive stools, hold Lovenox, status post 1 unit PRBC, Protonix, Carafate PT OT Strongly advised for nursing placement, currently patient declines Full code Lovenox for DVT prophylaxis on hold, SCDs Plan for today Lasix therapy, albumin, PT OT, de-escalate antibiotic therapy Status: Acute (2) Atrial fibrillation with RVR: Received amiodarone 150 mg IV bolus, off amiodarone drip. On amiodarone 400 twice daily Currently Heart rate is well controlled. Lovenox 80 twice daily on hold Status: Acute (3) Decompensated heart failure: Decompensated heart failure with preserved ejection fraction. Bilateral crackles in both the lungs, 2+ pitting edema 40 mg twice daily Monitor intake output charting. Status: Acute (4) Elevated troponin I level: Elevated troponin likely secondary to type II PR secondary to sepsis and A. fib with RVR Troponin trend without significant delta. Status: Acute (5) CY (acute kidney injury): CY likely secondary to ATN secondary to sepsis. Sufficient IV fluid replacement done. Monitor BMP Monitor intake output Urine electrolytes Avoid nephrotoxic's CT abdomen and pelvis has failed to show any hydronephrosis Status: Acute (6) Anemia: Chronic anemia. Hemoglobin is dropped to 7.7 today: Likely dilutional: No evident source of bleeding. Monitor CBC Status: Acute (7) Left ureteral calculus: S/p ureteral stent. Follow urology as an outpatient Status: Acute (8) Hyperkalemia: Resolved. Status: Acute (9) Pneumonia: Status: Acute (10) Debilitated patient: Currently under the care of his daughter Status: Acute (11) Prostate cancer: Has history of prostate cancer, on hormonal therapy, no evidence of metastasis Status: Acute (12) Colostomy care: Has a colostomy in place Status: Acute (13) GI bleed: Status: Acute (14) Acute anemia: -Acute anemia concerning for slow GI bleed as patient has been on Lovenox, Hemoccult positive stools, hemoglobin down to 6.8 -Lovenox currently placed on hold -Monitor hemodynamics -Transfused 2 units PRBC, Protonix, Carafate Status: Acute (15) Left fibular fracture: -We will do x-ray left lower extremity -Currently he is nonweightbearing, in a boot, is roughly 6 weeks out of his fracture -We will have Dr. Cervantes come by and evaluate, possible transition to weightbearing pending review of x-ray Status: Acute (16) Physical deconditioning: Status: Acute (17) Protein calorie malnutrition: Status: Acute Additional A&P Information CODE STATUS: Full code DVT prophylaxis: On Lovenox Attestations Medical Necessity Statement*: Patient requires hospitalization for septic shock secondary UTI, pneumonia, CY, GI bleed, atrial fibrillation Coding Level of Care Code Acute [employer] Faculty Member for [facility] Fwd Diagnoses Septic shock A41.9; R65.21 Atrial fibrillation with RVR I48.91 Decompensated heart failure I50.9 Elevated troponin I level R77.8 CY (acute kidney injury) N17.9 Anemia D64.9 Left ureteral calculus N20.1 Hyperkalemia E87.5 Pneumonia J18.9 Debilitated patient R53.81 Prostate cancer C61 Colostomy care Z43.3 GI bleed K92.2 Acute anemia D64.9 Left fibular fracture S82.402A Physical deconditioning R53.81 Protein calorie malnutrition E46
[2021-05-09] MEDS: lidocaine 1% 5 ML in potassium chloride premix 100 ML 50 ML IV (15:42)
[2021-05-09] MEDS: HYDROcodone-acetaminophen 7.5-325 mg Tablet 1 TAB PO (15:45)
[2021-05-09] MEDS: doxycycline 100 mg Tablet PO (18:15)
[2021-05-09] MEDS: cefdinir 300 MG CAPSULE PO (18:15)
[2021-05-10] VITALS (9 sets, daily range): BP systolic 121–139; BP diastolic 55–77; PULSE 73–103; RESP 16–31; TEMP 36.3–36.7; O2SAT 87–96
--- NOTE | 2021-05-10 04:14 | PC.NURSE ---
i reported low temp 97.4 to nurse
[2021-05-10] MEDS: amiodarone 200 mg Tablet 400 MG PO ×2 (04:27→17:51)
[2021-05-10] MEDS: HYDROcodone-acetaminophen 7.5-325 mg Tablet 1 TAB PO (04:27)
[2021-05-10 05:40] LABS: Hematocrit 23.8 % (42.0-52.0); Hemoglobin 7.5 g/dL (11.7-16.6); Mean Corpuscular HGB Conc 31.5 g/dL (30.0-36.0); Mean Corpuscular Hemoglobin 27.2 pg (28.0-34.0); Mean Corpuscular Volume 86.2 fl (80-94); Mean Platelet Volume 9.7 fL (7.4-10.4); Platelet Count 178 10^3/cmm (130-400); Red Blood Count 2.76 10^6/uL (4.1-5.3); Red Cell Distribution Width 20.2 % (12.1-15.1); White Blood Count 12.8 10^3/uL (4.0-10.0)
[2021-05-10 06:00] LABS: Alanine Aminotransferase < 5 U/L (0-41); Albumin Level 4.2 g/dL (3.5-5.2); Alkaline Phosphatase 214 IU/L (40-130); Anion Gap 17.3 (5-19); Aspartate Amino Transferase 21 U/L (0-40); Blood Urea Nitrogen 35 mg/dL (8-23); Calcium 9.8 mg/dL (8.5-10.5); Carbon Dioxide 25 mmol/L (22-29); Chloride 108 mmol/L (98-107); Creatinine Clr Calc Pharmacy 68.1882; Globulin 1.9 g/dL (1.3-4.6); Glucose 136 mg/dL (65-115); Osmolality Calculated 314 mOsm/kg (285-295); Phosphorus 2.3 mg/dL (2.5-4.5); Potassium 3.3 mmol/L (3.5-5.1); Sodium 147 mmol/L (136-145); Total Bilirubin 0.6 mg/dL (0.15-1.2); Total Protein 6.1 g/dL (6.6-8.7)
[2021-05-10] MEDS: acetaminophen 325 mg Tablet 650 MG PO (06:29)
--- NOTE | 2021-05-10 06:51 | PM.PN ---
Documented by User: ZACK Barragan 05/10/21 06:57 Subjective Subjective: Interval history: Patient now 6 weeks out from a left ankle fracture. Has been in a boot. Reports no pain. No new injuries. Vitals/I&O/Wt Last Vital Signs Temp 97.4 F L 05/10/21 04:00 Pulse 103 H 05/10/21 06:00 Resp 17 05/10/21 04:00 BP 127/55 05/10/21 04:00 Pulse Ox 90 05/10/21 04:00 05/09/21 05/09/21 05/10/21 14:59 22:59 06:59 Intake Total 720 / 720 770 / 1490 690 / 2180 Output Total 700 / 700 780 / 1480 Balance 720 / 720 70 / 790 -90 / 700 Physical Exam Narrative: EXAM NARRATIVE: Is alert oriented x3 has good general appearance normal mood normal affect. He is wiggling his toes he can dorsiflex and plantarflex without much pain he has no palpable pain over the medial malleolus on the left ankle he has some mild palpatory pain over the lateral aspect of the distal fibula. He has 1+ edema in both lower extremities. Skin is warm to the touch calves are supple. He has good cap refill all digits. Is able to dorsiflex and plantarflex with a little more stiffness on the left compared to the right. He has no palpable pain in the knees or hips is negative logroll bilaterally Urinary Catheter Management^: Flynn: Cath Placed During This Visit: yes, but has since been removed by the nurse Reason for Continuing Indwelling Catheter: Acute Urinary Retention or Obstruction Urinary Catheter Date of Insertion: 05/06/21 Urinary Catheter Time of Insertion: 18:04 Date Urinary Catheter Removed: 05/06/21 Time Urinary Catheter Discontinued: 18:04 Data : 05/10/21 05:30 05/10/21 05:30 Micro: Microbiology 05/04/21 11:30 Blood Culture - Final Blood NO GROWTH AFTER 5 DAYS 05/04/21 11:30 Blood Culture - Final Blood NO GROWTH AFTER 5 DAYS 05/07/21 18:00 Urine Culture - Preliminary Urine Catheterized A&P Assessment and plan (1) Left fibular fracture: He can progress to weightbearing as tolerated in the boot on the left lower extremity for the next 2 weeks and then discontinue the boot. We will see him back in the office in 2 weeks for continued evaluation of his left ankle. Status: Acute Attestations Medical Necessity Statement*: defer to medical team Coding Level of Care Code Acute Behavioral Health Tech for [facility] Fwd Diagnoses Left fibular fracture S82.402A Documented by User: Lupillo Cervantes DO 05/10/21 07:17 Physical Exam Urinary Catheter Management^: Flynn: Cath Placed During This Visit: no Data : 05/10/21 05:30 05/10/21 05:30 A&P Assessment and plan (1) Left fibular fracture: Agree with above wbat left lower extremity Status: Acute Coding Level of Care Code Acute Behavioral Health Tech for g Fwd Diagnoses Left fibular fracture S82.402A
[2021-05-10 07:04] LABS: Slide Review Slide Review Perform
[2021-05-10 07:06] LABS: Absolute Eosinophils 0.8 10^3/cmm (0.0-0.7); Band Neutrophils Absolute 0.5 10^3/cmm (0.0-1.2); Eosinophils 7 %; Lymphocytes 14 %; Lymphocytes Absolute 1.8 10^3/cmm (1.2-3.4); Monocytes Absolute 0.1 10^3/cmm (0.1-0.6); Total Cells Counted 100 (0-100)
[2021-05-10 07:07] LABS: Absolute Neutrophil 9.6 10^3/cmm (1.4-6.5); Absolute Segmented Neutrophil 9.1 10/cmm (1.6-7.1); Platelet Estimate Normal (Normal); Polychromasia Trace; Segmented Neutrophils 71 %
[2021-05-10 07:08] LABS: Anisocytosis Trace
[2021-05-10] MEDS: aspirin 81 mg EC Tablet PO (07:44)
[2021-05-10] MEDS: pantoprazole DR 40 mg Tablet PO ×2 (07:44→17:51)
[2021-05-10] MEDS: tamsulosin 0.4 mg Capsule PO (07:44)
[2021-05-10] MEDS: doxycycline 100 mg Tablet PO ×2 (07:44→17:51)
[2021-05-10] MEDS: cefdinir 300 MG CAPSULE PO ×2 (07:44→17:51)
[2021-05-10] MEDS: potassium chloride ER 20 mEq Tablet 40 MEQ PO (12:01)
[2021-05-10] MEDS: sucralfate 1 gm Tablet PO (12:02)
--- NOTE | 2021-05-10 17:13 | PC.NURSE ---
Patient's Flynn Catheter in removed by the nursing teacher today around 1600.
--- NOTE | 2021-05-10 17:56 | PM.PN ---
Subjective Subjective: Interval history: This morning patient was seen, he tells me he feels better is on 5 L, his appetite is improving, he continues to have generalized weakness, he tells me his edema is improving, he tells me now that he is agreeable to go to a jail Vitals/I&O/Wt Last Vital Signs Temp 97.8 F 05/10/21 15:54 Pulse 78 05/10/21 15:54 Resp 21 H 05/10/21 15:54 BP 121/55 05/10/21 15:54 Pulse Ox 90 05/10/21 15:54 05/10/21 05/10/21 05/10/21 06:59 14:59 22:59 Intake Total 690 / 2180 240 / 240 Output Total 780 / 1480 300 / 300 Balance -90 / 700 -60 / -60 Physical Exam Const: COMMON NORMALS: no acute distress GENERAL APPEARANCE: frail appearing ORIENTATION/CONSCIOUSNESS: Yes awake, Yes oriented to person, Yes oriented to place and Yes oriented to time Resp: COMMON NORMALS: normal respiratory effort, No retractions, No use of accessory muscles and clear to auscultation bilaterally AUSCULTATION: clear to auscultation bilaterally Cardio: COMMON NORMALS: regular rate, regular rhythm, S1 normal heart sound present and S2 normal heart sound present RATE: regular rate RHYTHM: regular rhythm HEART SOUNDS: S1 normal heart sound present and S2 normal heart sound present GI: COMMON NORMALS: Normal to inspection, nondistended, normoactive bowel sounds present, Soft to palpation and non-tender PALPATION: Yes Soft to palpation OTHER: Colostomy in place Extremity: COMMON NORMALS: no pedal edema Neuro: SENSORIUM/ORIENTATION: Yes oriented to person, Yes oriented to place and Yes oriented to time Urinary Catheter Management^: Flynn: Cath Placed During This Visit: yes, but has since been removed by the nurse Reason for Continuing Indwelling Catheter: Decision to DC Catheter Urinary Catheter Date of Insertion: 05/06/21 Urinary Catheter Time of Insertion: 18:04 Date Urinary Catheter Removed: 05/10/21 Time Urinary Catheter Discontinued: 16:00 Data : 05/10/21 05:30 05/10/21 05:30 Micro: Microbiology 05/07/21 18:00 Urine Culture - Final Urine Catheterized 05/04/21 11:30 Blood Culture - Final Blood NO GROWTH AFTER 5 DAYS A&P Assessment and plan (1) Septic shock: Septic shock likely secondary to UTI/pneumonia. Resolved off Levophed Off midodrine Currently on general medical floors White blood cell count 12.8 Blood culture:NTD MRSA PCR: Positive Bacterial antigen panel negative Urine culture: Pansensitive E. coli On cefdinir and doxycycline S/P hydrocortisone CT scan abdomen pelvis shows satisfactory position of left ureteral stent, 5 mm ureteral calculus is present in the stent in the mid ureter BNP over elevated, minimal pitting edema, hold Lasix for today given hyponatremia Hemoglobin 7.5, Hemoccult positive stools, hold Lovenox, status post 1 unit PRBC, Protonix, Carafate, Lovenox on hold PT OT Agreeable to jail placement Remove Flynn catheter, voiding trial Remove femoral line Full code Lovenox for DVT prophylaxis on hold, SCDs Plan for today PT OT, voiding trial, work in on placement Status: Acute (2) Atrial fibrillation with RVR: Received amiodarone 150 mg IV bolus, off amiodarone drip. On amiodarone 400 twice daily, de-escalate to 200 mg twice daily Currently Heart rate is well controlled. Lovenox 80 twice daily on hold Status: Acute (3) Decompensated heart failure: Resolved Minimal pitting edema Lasix on hold Monitor intake output charting. Status: Acute (4) Elevated troponin I level: Elevated troponin likely secondary to type II NH secondary to sepsis and A. fib with RVR Troponin trend without significant delta. Status: Acute (5) CY (acute kidney injury): Resolved CY likely secondary to ATN secondary to sepsis. Sufficient IV fluid replacement done. Monitor BMP Monitor intake output Urine electrolytes Avoid nephrotoxic's CT abdomen and pelvis has failed to show any hydronephrosis Status: Acute (6) Anemia: Acute on chronic anemia Status: Acute (7) Left ureteral calculus: S/p ureteral stent. Follow urology as an outpatient Status: Acute (8) Hyperkalemia: Resolved. 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 Cervantes come by and evaluate, possible transition to weightbearing pending review of x-ray Status: Acute (16) Physical deconditioning: Status: Acute (17) Protein calorie malnutrition: Status: Acute Additional A&P Information CODE STATUS: Full code DVT prophylaxis: SCDs Attestations Medical Necessity Statement*: Patient requires hospitalization for septic shock secondary to UTI, pneumonia, debilitated patient, protein calorie malnutrition, physical deconditioning, anasarca Coding Level of Care Code Acute Business Analyst Project Manager for [facility] Fwd Diagnoses Septic shock A41.9; R65.21 Atrial fibrillation with RVR I48.91 Decompensated heart failure I50.9 Elevated troponin I level R77.8 CY (acute kidney injury) N17.9 Anemia D64.9 Left ureteral calculus N20.1 Hyperkalemia E87.5 Pneumonia J18.9 Debilitated patient R53.81 Prostate cancer C61 Colostomy care Z43.3 GI bleed K92.2 Acute anemia D64.9 Left fibular fracture S82.402A Physical deconditioning R53.81 Protein calorie malnutrition E46
[2021-05-10 18:11] LABS: Vancomycin Trough 13.9 ug/mL (10-15)
--- NOTE | 2021-05-10 19:13 | PC.NURSE ---
Report to on coming shift at this time.
--- NOTE | 2021-05-10 20:21 | PC.NURSE ---
i reported low temp 97.5 to nurse
[2021-05-11] VITALS (11 sets, daily range): BP systolic 107–134; BP diastolic 57–70; PULSE 75–94; RESP 16–20; TEMP 35.9–36.6; O2SAT 90–98
--- NOTE | 2021-05-11 01:04 | PC.NURSE ---
pt called this nurse into room stating he was/is having a hard time breathing. Upon bedside assessment, pt is diminished throughout, with forced exp wheezing when pt is focusing on breathing, and no wheezing when pt is more relaxed. v/s 116/61, hr 93, rr 20, 96% on 5LNC. RT called, Kortney stated pt does not have any treatments and he would not benefit from any at this time. Charge nurse called into room to assess, Lauren MCCORD notes pt is also diminished anterior to bilat upper lobes and coarse to anterior bases, wheezing heard when pt extended effort, no distress at this time.
[2021-05-11] MEDS: sucralfate 1 gm Tablet PO ×2 (01:19→23:58)
[2021-05-11] MEDS: HYDROcodone-acetaminophen 7.5-325 mg Tablet 1 TAB PO ×2 (01:19→23:58)
--- NOTE | 2021-05-11 04:21 | PC.NURSE ---
i reported low temp 97.4 to nurse
[2021-05-11 05:36] LABS: Basophils # 0.1 10^3/uL (0.0-0.1); Basophils % 0.4 %; Eosinophils # 0.2 10^3/uL (0.0-0.8); Eosinophils % 1.2 %; Hematocrit 24.3 % (42.0-52.0); Hemoglobin 7.4 g/dL (11.7-16.6); Lymphocytes # 1.4 10^3/uL (0.8-4.8); Lymphocytes % 10.2 %; Mean Corpuscular HGB Conc 30.5 g/dL (30.0-36.0); Mean Corpuscular Hemoglobin 26.1 pg (28.0-34.0); Mean Corpuscular Volume 85.6 fl (80-94); Mean Platelet Volume 10.3 fL (7.4-10.4); Monocytes # 0.6 10^3/uL (0.2-0.9); Monocytes % 4.4 %; Neutrophils # 9.21 10^3/uL (1.8-7.7); Neutrophils % 67.1 %; Nucleated Red Blood Cells # 0.1 /100WBC; Nucleated Red Blood Cells % 0.8 %; Platelet Count 205 10^3/cmm (130-400); Red Blood Count 2.84 10^6/uL (4.1-5.3); Red Cell Distribution Width 20.4 % (12.1-15.1); White Blood Count 13.7 10^3/uL (4.0-10.0)
[2021-05-11 06:07] LABS: Alanine Aminotransferase < 5 U/L (0-41); Albumin Level 3.6 g/dL (3.5-5.2); Alkaline Phosphatase 199 IU/L (40-130); Anion Gap 15.5 (5-19); Aspartate Amino Transferase 19 U/L (0-40); Blood Urea Nitrogen 43 mg/dL (8-23); Calcium 9.9 mg/dL (8.5-10.5); Carbon Dioxide 25 mmol/L (22-29); Chloride 108 mmol/L (98-107); Creatinine Clr Calc Pharmacy 68.1882; Globulin 2.2 g/dL (1.3-4.6); Glucose 123 mg/dL (65-115); Magnesium 1.9 mg/dL (1.7-2.3); Osmolality Calculated 312 mOsm/kg (285-295); Phosphorus 2.9 mg/dL (2.5-4.5); Potassium 3.5 mmol/L (3.5-5.1); Sodium 145 mmol/L (136-145); Total Bilirubin 0.5 mg/dL (0.15-1.2); Total Protein 5.8 g/dL (6.6-8.7)
[2021-05-11 06:32] LABS: Slide Review Slide Review Perform
[2021-05-11] MEDS: amiodarone 200 mg Tablet PO ×2 (06:51→17:50)
[2021-05-11] MEDS: tamsulosin 0.4 mg Capsule PO (08:46)
[2021-05-11] MEDS: cefdinir 300 MG CAPSULE PO ×2 (08:46→17:53)
[2021-05-11] MEDS: pantoprazole DR 40 mg Tablet PO ×2 (08:46→17:50)
[2021-05-11] MEDS: doxycycline 100 mg Tablet PO ×2 (08:46→17:50)
[2021-05-11] MEDS: aspirin 81 mg EC Tablet PO (08:46)
--- NOTE | 2021-05-11 13:00 | PM.PN ---
Subjective Subjective: Interval history: This morning patient was seen, he complains of the bit shortness of breath this morning, continues to have a cough, no fevers overnight, no chills, he is on 5 L, he tells me that he is willing to work with physical therapy, Vitals/I&O/Wt Last Vital Signs Temp 97.6 F 05/11/21 11:19 Pulse 94 05/11/21 11:19 Resp 18 05/11/21 11:19 BP 112/63 05/11/21 11:19 Pulse Ox 98 05/11/21 11:19 05/10/21 05/11/21 05/11/21 22:59 06:59 14:59 Intake Total 360 / 600 210 / 810 300 / 300 Balance 360 / 300 210 / 510 300 / 300 Physical Exam Const: COMMON NORMALS: no acute distress and patient oriented x3 GENERAL APPEARANCE: frail appearing Resp: COMMON NORMALS: normal respiratory effort, No retractions, No use of accessory muscles and clear to auscultation bilaterally AUSCULTATION: clear to auscultation bilaterally Cardio: COMMON NORMALS: regular rate, regular rhythm, S1 normal heart sound present and S2 normal heart sound present RATE: regular rate RHYTHM: regular rhythm HEART SOUNDS: S1 normal heart sound present and S2 normal heart sound present GI: COMMON NORMALS: Normal to inspection, nondistended, normoactive bowel sounds present, Soft to palpation and non-tender PALPATION: Yes Soft to palpation OTHER: Colostomy in place Extremity: COMMON NORMALS: no pedal edema NARRATIVE EXTREMITY EXAM: 1+ pitting edema bilateral lower extremities Neuro: COMMON NORMALS: patient oriented x3 Psych: COMMON NORMALS: mental status grossly normal Urinary Catheter Management^: Flynn: Cath Placed During This Visit: yes, but has since been removed by the nurse Reason for Continuing Indwelling Catheter: Other Urinary Catheter Date of Insertion: 05/06/21 Urinary Catheter Time of Insertion: 18:04 Date Urinary Catheter Removed: 05/10/21 Time Urinary Catheter Discontinued: 16:00 Data : 05/11/21 04:39 05/11/21 04:39 Micro: Microbiology 05/07/21 18:00 Urine Culture - Final Urine Catheterized A&P Assessment and plan (1) Septic shock: Septic shock likely secondary to UTI/pneumonia. Resolved off Levophed Off midodrine Currently on general medical floors White blood cell count 13.7 Blood culture:NTD MRSA PCR: Positive Bacterial antigen panel negative Urine culture: Pansensitive E. coli On cefdinir and doxycycline S/P hydrocortisone CT scan abdomen pelvis shows satisfactory position of left ureteral stent, 5 mm ureteral calculus is present in the stent in the mid ureter BNP over elevated, minimal pitting edema, hold Lasix for today given hyponatremia Hemoglobin 7.5, Hemoccult positive stools, hold Lovenox, status post 1 unit PRBC, Protonix, Carafate, Lovenox on hold PT OT Agreeable to [facility] placement Continue to monitor urine output Full code Lovenox for DVT prophylaxis on hold, SCDs Plan for today PT OT, monitor urine output, working on placement, improve nutrition Status: Acute (2) Atrial fibrillation with RVR: Received amiodarone 150 mg IV bolus, off amiodarone drip. On amiodarone 400 twice daily, de-escalate to 200 mg twice daily Currently Heart rate is well controlled. Lovenox 80 twice daily on hold Status: Acute (3) Decompensated heart failure: Resolved Minimal pitting edema Lasix on hold Monitor intake output charting. Status: Acute (4) Elevated troponin I level: Elevated troponin likely secondary to type II MT secondary to sepsis and A. fib with RVR Troponin trend without significant delta. Status: Acute (5) CY (acute kidney injury): Resolved CY likely secondary to ATN secondary to sepsis. Sufficient IV fluid replacement done. Monitor BMP Monitor intake output Urine electrolytes Avoid nephrotoxic's CT abdomen and pelvis has failed to show any hydronephrosis Status: Acute (6) Anemia: Acute on chronic anemia Status: Acute (7) Left ureteral calculus: S/p ureteral stent. Follow urology as an outpatient Status: Acute (8) Hyperkalemia: Resolved. 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 Cervantes come by and evaluate, possible transition to weightbearing pending review of x-ray Status: Acute (16) Physical deconditioning: Status: Acute (17) Protein calorie malnutrition: Status: Acute Additional A&P Information CODE STATUS: Full code DVT prophylaxis: SCDs Attestations Medical Necessity Statement*: Patient requires hospitalization for UTI, pneumonia, malnutrition Coding Level of Care Code Acute Loan Servicing Representative for Chg Fwd Diagnoses Septic shock A41.9; R65.21 Atrial fibrillation with RVR I48.91 Decompensated heart failure I50.9 Elevated troponin I level R77.8 CY (acute kidney injury) N17.9 Anemia D64.9 Left ureteral calculus N20.1 Hyperkalemia E87.5 Pneumonia J18.9 Debilitated patient R53.81 Prostate cancer C61 Colostomy care Z43.3 GI bleed K92.2 Acute anemia D64.9 Left fibular fracture S82.402A Physical deconditioning R53.81 Protein calorie malnutrition E46
[2021-05-11] MEDS: FUROsemide 10 mg/mL SDV 4mL 40 MG IVP (14:51)
--- NOTE | 2021-05-11 15:49 | PC.NURSE ---
Patient states that he could not void. Bladder scan showed over [address] Sotomayor notified and orders to replace Flynn catheter.
--- NOTE | 2021-05-11 19:14 | PC.NURSE ---
Report to on coming shift
[2021-05-12] VITALS (16 sets, daily range): BP systolic 104–134; BP diastolic 51–81; PULSE 68–97; RESP 15–26; TEMP 36.1–37.1; O2SAT 92–100
[2021-05-12 05:27] LABS: Basophils % 0.3 %; Eosinophils # 0.2 10^3/uL (0.0-0.8); Eosinophils % 1.8 %; Hematocrit 23.2 % (42.0-52.0); Lymphocytes # 1.6 10^3/uL (0.8-4.8); Lymphocytes % 12.5 %; Mean Corpuscular HGB Conc 30.2 g/dL (30.0-36.0); Mean Corpuscular Hemoglobin 26.6 pg (28.0-34.0); Mean Corpuscular Volume 88.2 fl (80-94); Mean Platelet Volume 10.6 fL (7.4-10.4); Monocytes # 0.5 10^3/uL (0.2-0.9); Monocytes % 4.1 %; Neutrophils # 8.58 10^3/uL (1.8-7.7); Neutrophils % 65.7 %; Nucleated Red Blood Cells # 0.1 /100WBC; Nucleated Red Blood Cells % 0.5 %; Platelet Count 195 10^3/cmm (130-400); Red Blood Count 2.63 10^6/uL (4.1-5.3); Red Cell Distribution Width 21.3 % (12.1-15.1); White Blood Count 13.1 10^3/uL (4.0-10.0)
[2021-05-12] MEDS: amiodarone 200 mg Tablet PO ×2 (06:06→16:38)
[2021-05-12 06:07] LABS: Alanine Aminotransferase < 5 U/L (0-41); Albumin Level 3.7 g/dL (3.5-5.2); Alkaline Phosphatase 179 IU/L (40-130); Anion Gap 12.4 (5-19); Aspartate Amino Transferase 18 U/L (0-40); Blood Urea Nitrogen 40 mg/dL (8-23); Calcium 10.3 mg/dL (8.5-10.5); Carbon Dioxide 28 mmol/L (22-29); Chloride 111 mmol/L (98-107); Creatinine Clr Calc Pharmacy 68.1882; Globulin 1.9 g/dL (1.3-4.6); Glucose 107 mg/dL (65-115); NT Pro B Type Natriuretic Pept 11836 pg/mL (0-450); Osmolality Calculated 316 mOsm/kg (285-295); Phosphorus 2.7 mg/dL (2.5-4.5); Potassium 3.4 mmol/L (3.5-5.1); Sodium 148 mmol/L (136-145); Total Bilirubin 0.5 mg/dL (0.15-1.2); Total Protein 5.6 g/dL (6.6-8.7)
[2021-05-12 06:18] LABS: Slide Review Slide Review Perform
[2021-05-12] MEDS: tamsulosin 0.4 mg Capsule PO (09:36)
[2021-05-12] MEDS: pantoprazole DR 40 mg Tablet PO ×2 (09:36→16:38)
[2021-05-12] MEDS: cefdinir 300 MG CAPSULE PO ×2 (09:36→16:38)
[2021-05-12] MEDS: doxycycline 100 mg Tablet PO ×2 (09:36→16:38)
[2021-05-12] MEDS: aspirin 81 mg EC Tablet PO (09:36)
[2021-05-12] MEDS: ipratropium-albuterol 3 mL Neb INHALATION ×2 (12:55→19:27)
[2021-05-12] MEDS: sodium chloride 0.9% 100 mL Bag 50 ML IV (14:48)
--- NOTE | 2021-05-12 16:02 | PM.PN ---
Subjective Subjective: Interval history: Patient was seen this morning, he tells me that he is feeling better, he continues to feel weak, fatigue, does report some shortness of breath, Medications: Reviewed: Yes Vitals/I&O/Wt Last Vital Signs Temp 97.5 F L 05/12/21 15:28 Pulse 95 05/12/21 15:28 Resp 16 05/12/21 15:28 BP 118/60 05/12/21 15:28 Pulse Ox 93 05/12/21 15:28 05/12/21 05/12/21 05/12/21 06:59 14:59 22:59 Intake Total 240 / 240 Output Total Balance 240 / 240 Physical Exam Const: COMMON NORMALS: no acute distress and patient oriented x3 GENERAL APPEARANCE: frail appearing Resp: COMMON NORMALS: normal respiratory effort, No retractions, No use of accessory muscles and clear to auscultation bilaterally AUSCULTATION: clear to auscultation bilaterally Cardio: COMMON NORMALS: regular rate, regular rhythm, S1 normal heart sound present and S2 normal heart sound present RATE: regular rate RHYTHM: regular rhythm HEART SOUNDS: S1 normal heart sound present and S2 normal heart sound present GI: COMMON NORMALS: Normal to inspection, nondistended, normoactive bowel sounds present, Soft to palpation and non-tender PALPATION: Yes Soft to palpation OTHER: Colostomy in place Extremity: COMMON NORMALS: no pedal edema NARRATIVE EXTREMITY EXAM: 1+ pitting edema bilateral lower extremities Neuro: COMMON NORMALS: patient oriented x3 Psych: COMMON NORMALS: mental status grossly normal Urinary Catheter Management^: Flynn: Cath Placed During This Visit: yes, but has since been removed by the nurse Reason for Continuing Indwelling Catheter: Acute Urinary Retention or Obstruction Urinary Catheter Date of Insertion: 05/11/21 Urinary Catheter Time of Insertion: 15:30 Date Urinary Catheter Removed: 05/10/21 Time Urinary Catheter Discontinued: 16:00 Data : 05/12/21 04:45 05/12/21 04:45 Micro: Microbiology 05/07/21 12:46 Blood Culture - Final Blood NO GROWTH AFTER 5 DAYS 05/07/21 12:40 Blood Culture - Final Blood NO GROWTH AFTER 5 DAYS A&P Assessment and plan (1) Septic shock: Septic shock likely secondary to UTI/pneumonia. Resolved off Levophed Off midodrine Currently on general medical floors White blood cell count 13.7 Blood culture:NTD MRSA PCR: Positive Bacterial antigen panel negative Urine culture: Pansensitive E. coli On cefdinir and doxycycline for total of 10 days, last day 04/13/2021 S/P hydrocortisone CT scan abdomen pelvis shows satisfactory position of left ureteral stent, 5 mm ureteral calculus is present in the stent in the mid ureter BNP over elevated, minimal pitting edema, hold Lasix for today given hyponatremia Hemoglobin 7.0, Hemoccult positive stools, hold Lovenox, status post 1 unit PRBC, Protonix, Carafate, Lovenox on hold PT OT, will transfuse 1 unit PRBC today Agreeable to senior living placement Continue to monitor urine output Full code Lovenox for DVT prophylaxis on hold, SCDs -Patient continues to have significant deconditioning, malnutrition, anasarca, is participating with physical therapy, but slow progress, I strongly recommended senior living placement versus hospice given his underlying health conditions, however he is tells me that he will wants to go to a senior living Plan for today PT OT, monitor urine output, working on placement, improve nutrition Status: Acute (2) Atrial fibrillation with RVR: Received amiodarone 150 mg IV bolus, off amiodarone drip. On amiodarone 200 mg twice daily Currently Heart rate is well controlled. Lovenox 80 twice daily on hold Status: Acute (3) Decompensated heart failure: Resolved Minimal pitting edema Lasix on hold Monitor intake output charting. Status: Acute (4) Elevated troponin I level: Elevated troponin likely secondary to type II IN secondary to sepsis and A. fib with RVR Troponin trend without significant delta. Status: Acute (5) CY (acute kidney injury): Resolved CY likely secondary to ATN secondary to sepsis. Sufficient IV fluid replacement done. Monitor BMP Monitor intake output Urine electrolytes Avoid nephrotoxic's CT abdomen and pelvis has failed to show any hydronephrosis Status: Acute (6) Anemia: Acute on chronic anemia Status: Acute (7) Left ureteral calculus: S/p ureteral stent. Follow urology as an outpatient Status: Acute (8) Hyperkalemia: Resolved. Status: Acute (9) Pneumonia: Status: Acute (10) Debilitated patient: Currently under the care of his daughter Status: Acute (11) Prostate cancer: Has history of prostate cancer, on hormonal therapy, no evidence of metastasis Status: Acute (12) Colostomy care: Has a colostomy in place Status: Acute (13) GI bleed: Status: Acute (14) Acute anemia: -Acute anemia concerning for slow GI bleed as patient has been on Lovenox, Hemoccult positive stools, hemoglobin down to 7.0 -Status post 1 unit PRBC, 1 unit PRBC today -Lovenox currently placed on hold -Monitor hemodynamics -Protonix, Carafate Status: Acute (15) Left fibular fracture: -Currently weightbearing as tolerated Status: Acute (16) Physical deconditioning: Status: Acute (17) Protein calorie malnutrition: Status: Acute Additional A&P Information CODE STATUS: Full code DVT prophylaxis: SCDs Attestations Medical Necessity Statement*: Patient requires hospitalization due to UTI, pneumonia, anemia Coding Level of Care Code Acute Lab Tester for Chg Fwd Diagnoses Septic shock A41.9; R65.21 Atrial fibrillation with RVR I48.91 Decompensated heart failure I50.9 Elevated troponin I level R77.8 CY (acute kidney injury) N17.9 Anemia D64.9 Left ureteral calculus N20.1 Hyperkalemia E87.5 Pneumonia J18.9 Debilitated patient R53.81 Prostate cancer C61 Colostomy care Z43.3 GI bleed K92.2 Acute anemia D64.9 Left fibular fracture S82.402A Physical deconditioning R53.81 Protein calorie malnutrition E46
--- NOTE | 2021-05-12 19:58 | PC.NURSE ---
RT called to room d/t pt c/o SOB. RT increased o2 from 5L to 6LNC and admin a treatment per orders. pulse ox placed on pt resulting in 98%.
[2021-05-12] MEDS: HYDROcodone-acetaminophen 7.5-325 mg Tablet 1 TAB PO (22:14)
[2021-05-13] VITALS (14 sets, daily range): BP systolic 94–118; BP diastolic 53–65; PULSE 82–98; RESP 16–27; TEMP 36.3–36.8; O2SAT 90–100
[2021-05-13] MEDS: sucralfate 1 gm Tablet PO ×2 (01:22→13:58)
[2021-05-13] MEDS: amiodarone 200 mg Tablet PO ×2 (05:50→17:37)
[2021-05-13 06:18] LABS: Basophils # 0.1 10^3/uL (0.0-0.1); Basophils % 0.5 %; Eosinophils # 0.2 10^3/uL (0.0-0.8); Eosinophils % 1.5 %; Hematocrit 25.6 % (42.0-52.0); Lymphocytes # 1.6 10^3/uL (0.8-4.8); Lymphocytes % 10.6 %; Mean Corpuscular Hemoglobin 27.5 pg (28.0-34.0); Mean Corpuscular Volume 85.9 fl (80-94); Mean Platelet Volume 10.8 fL (7.4-10.4); Monocytes # 0.5 10^3/uL (0.2-0.9); Monocytes % 3.6 %; Neutrophils # 9.93 10^3/uL (1.8-7.7); Nucleated Red Blood Cells # 0.1 /100WBC; Nucleated Red Blood Cells % 0.3 %; Platelet Count 182 10^3/cmm (130-400); Red Blood Count 2.98 10^6/uL (4.1-5.3); Red Cell Distribution Width 20.5 % (12.1-15.1); White Blood Count 14.8 10^3/uL (4.0-10.0)
[2021-05-13 06:51] LABS: Alanine Aminotransferase 6 U/L (0-41); Albumin Level 3.2 g/dL (3.5-5.2); Alkaline Phosphatase 171 IU/L (40-130); Blood Urea Nitrogen 39 mg/dL (8-23); Calcium 10.3 mg/dL (8.5-10.5); Carbon Dioxide 23 mmol/L (22-29); Chloride 110 mmol/L (98-107); Globulin 2.1 g/dL (1.3-4.6); Glucose 106 mg/dL (65-115); NT Pro B Type Natriuretic Pept 9593 pg/mL (0-450); Osmolality Calculated 310 mOsm/kg (285-295); Sodium 145 mmol/L (136-145); Total Bilirubin 1.3 mg/dL (0.15-1.2); Total Protein 5.3 g/dL (6.6-8.7)
[2021-05-13 06:54] LABS: Creatinine Clr Calc Pharmacy 68.1882
[2021-05-13 06:55] LABS: Anion Gap 15.5 (5-19); Aspartate Amino Transferase 22 U/L (0-40); Potassium 3.5 mmol/L (3.5-5.1)
[2021-05-13 08:10] LABS: Neutrophils % 83.8 %
[2021-05-13 08:11] LABS: Hemoglobin 8.2 g/dL (11.7-16.6)
[2021-05-13] MEDS: ipratropium-albuterol 3 mL Neb INHALATION ×2 (08:30→15:56)
[2021-05-13] MEDS: pantoprazole DR 40 mg Tablet PO ×2 (09:05→17:37)
[2021-05-13] MEDS: doxycycline 100 mg Tablet PO ×2 (09:05→17:37)
[2021-05-13] MEDS: aspirin 81 mg EC Tablet PO (09:05)
[2021-05-13] MEDS: cefdinir 300 MG CAPSULE PO ×2 (09:05→17:37)
[2021-05-13] MEDS: tamsulosin 0.4 mg Capsule PO (09:06)
--- NOTE | 2021-05-13 11:29 | FL_ITS ---
WS: [id number] MODIFIED BARIUM SWALLOW HISTORY: Oropharyngeal dysphagia FLUOROSCOPY TIME: 2.0 minutes. Modified barium swallow was performed by the speech pathologist. Fluoroscopy was provided with the pa tient in a lateral projection. Multiple food consistencies were provided. Patient was able to swallow multiple food consistencies without difficulty. Numerous episodes of juliette ngeal penetration with most food consistencies. No aspiration was definitely visualized. Mild stasis with collection of liquid and the vallecula with spillage. FL/FL barium swallow modifd [id number] IMPRESSION: 1. Numerous episodes of laryngeal penetration but no aspiration was apparent. 2. Liquid did collect in the vallecula with spillage but no persistent stasis w ith additional swallows. Please see speech therapist report also for recommendations.
[2021-05-13] MEDS: HYDROcodone-acetaminophen 7.5-325 mg Tablet 1 TAB PO (14:09)
--- NOTE | 2021-05-13 14:22 | PC.SOCIAL ---
IMM updated, signed and dated and copy given to patient
--- NOTE | 2021-05-13 19:28 | P.PN_ITS ---
Subjective Subjective: Interval history: This morning with noted concern for aspiration by his RN despite dysphagia diet with nectar thickened liquids. Underwent MBS. He denies any symptoms or choking during the study. Denies chest pain or pressure. Worked with PT and OT today. Generally weak. She can nap this afternoon. Breathing currently okay on 4 L/min. Holding onto suction cannula. Vitals/I&O/Wt Last Vital Signs Temp 97.4 F L 05/13/21 15:40 Pulse 88 05/13/21 15:57 Resp 21 H 05/13/21 15:45 BP 111/64 05/13/21 15:40 Pulse Ox 94 05/13/21 15:45 05/13/21 05/13/21 05/13/21 06:59 14:59 22:59 Intake Total 240 / 240 240 / 480 Output Total 400 / 800 300 / 300 Balance -400 / -310 240 / 240 -60 / 180 Physical Exam Const: COMMON NORMALS: no acute distress, patient oriented x3 and alert GENERAL APPEARANCE: cooperative and frail appearing ORIENTATION/CONSCIOUSNESS: Yes awake HENMT: COMMON NORMALS: oropharynx normal Neck/C-Spine: COMMON NORMALS: no JVD Resp: COMMON NORMALS: normal respiratory effort and clear to auscultation bilaterally AUSCULTATION: clear to auscultation bilaterally and diminished lung sounds bilateral in the lower lung gomez Cardio: COMMON NORMALS: no JVD, regular rhythm, S1 normal heart sound present, S2 normal heart sound present and No murmurs present (Cardio) RHYTHM: regular rhythm HEART SOUNDS: S1 normal heart sound present and S2 normal heart sound present GI: COMMON NORMALS: Normal to inspection, nondistended, normoactive bowel sounds present, Soft to palpation and non-tender PALPATION: Yes Soft to palpation Extremity: COMMON NORMALS: no joint enlargement and no pedal edema Neuro: COMMON NORMALS: patient oriented x3 and moves all extremities SENSORIUM/ORIENTATION: Yes alert Skin: COMMON NORMALS: no rashes or lesions noted GENERAL SKIN EXAM: no rashes or lesions noted Urinary Catheter Management^: Flynn: Cath Placed During This Visit: yes, but has since been removed by the nurse Reason for Continuing Indwelling Catheter: Acute Urinary Retention or Obstruction Urinary Catheter Date of Insertion: 05/11/21 Urinary Catheter Time of Insertion: 15:30 Date Urinary Catheter Removed: 05/10/21 Time Urinary Catheter Discontinued: 16:00 Data : 05/13/21 05:27 05/13/21 05:27 A&P Assessment and plan (1) Septic shock: Septic shock has resolved. Persistent hypoxia, on 4 L oxygen, although slightly better down from 6 L. Concern for microaspiration with noted suspicion of aspiration despite dysphagia diet today. MBS with no numerous episodes of laryngeal penetration but no aspiration was apparent. Liquid collected in vallecula with spillage but no persistent stasis with additional swallows. At this time continue antibiotic therapy. We will switch from cefdinir to Levaquin to give better penetration given UTI in setting of presence of nephrolithiasis and ureteral stent. Discussed with urology. We will have to discuss in more detail with him and family with regards to how aggressive he may wish to be with regards to pursuing additional surgical intervention and definitive nephrolithiasis treatment and stent retrieval, and broader picture in terms of advanced care goals. IV antibiotic therapy may be beneficial in case wanting to pursue more aggressive care in the near future, although may be limited by overall condition. Oral antibiotic may be a reasonable option potentially. With overall lack of very significant progress in terms of recovery of functional capacity and independence over the last 2 months, concern is of overall possible poor prognosis, consideration could also be given to more supportive care and possibly hospice. We will have to address with him and family again. We will repeat chest x-ray. In case of worsening pneumonia also, possible intermittent aspiration episodes, consideration may need to be given to more aggressive dysphagia measures. Septic shock likely secondary to UTI/pneumonia. Resolved off Levophed Off midodrine Persistent leukocytosis Blood culture:NTD MRSA PCR: Positive Bacterial antigen panel negative Urine culture: Pansensitive E. coli S/P hydrocortisone CT scan abdomen pelvis shows satisfactory position of left ureteral stent, 5 mm ureteral calculus is present in the stent in the mid ureter Status post PRBC transfusion. Continue to monitor urine output Full code Lovenox for DVT prophylaxis on hold, SCDs Continue PT, OT mobilization. Continue to reevaluate disposition plans. Status: Acute (2) Atrial fibrillation with RVR: On amiodarone 200 mg twice daily Currently Heart rate is well controlled. Lovenox 80 twice daily on hold Status: Acute (3) Decompensated heart failure: Resolved Minimal pitting edema Lasix on hold Monitor intake output charting. Status: Acute (4) Elevated troponin I level: Elevated troponin likely secondary to type II PA secondary to sepsis and A. fib with RVR Troponin trend without significant delta. Status: Acute (5) CY (acute kidney injury): Resolved CY likely secondary to ATN secondary to sepsis. Sufficient IV fluid replacement done. Monitor BMP Monitor intake output Urine electrolytes Avoid nephrotoxic's CT abdomen and pelvis has failed to show any hydronephrosis Status: Acute (6) Anemia: Acute on chronic anemia Status: Acute (7) Left ureteral calculus: S/p ureteral stent. Follow urology as an outpatient Status: Acute (8) Hyperkalemia: Resolved. Status: Acute (9) Pneumonia: Status: Acute (10) Debilitated patient: Currently under the care of his daughter Status: Acute (11) Prostate cancer: Has history of prostate cancer, on hormonal therapy, no evidence of metastasis Status: Acute (12) Colostomy care: Has a colostomy in place Status: Acute (13) GI bleed: Status: Acute (14) Acute anemia: -Acute anemia concerning for slow GI bleed as patient has been on Lovenox, Hemoccult positive stools, Responded well to PRBC transfusion. -Lovenox currently placed on hold -Monitor hemodynamics -Protonix, Carafate Status: Acute (15) Left fibular fracture: -Currently weightbearing as tolerated Status: Acute (16) Physical deconditioning: Status: Acute (17) Protein calorie malnutrition: Status: Acute Additional A&P Information CODE STATUS: Full code DVT prophylaxis: SCDs Attestations Medical Necessity Statement*: Continue admission for adjustment of antibiotic therapy for urinary tract infection, closer assessment of persistent leukocytosis, with possible persistent pneumonia, aspiration, with complicated urine tract infection and presence of nephrolithiasis, stenting, persistent deconditioning with loss of functional capacity, disposition planning and arrangements. Coding Level of Care Code Acute Director Case for Chg Fwd Diagnoses Septic shock A41.9; R65.21 Atrial fibrillation with RVR I48.91 Decompensated heart failure I50.9 Elevated troponin I level R77.8 CY (acute kidney injury) N17.9 Anemia D64.9 Left ureteral calculus N20.1 Hyperkalemia E87.5 Pneumonia J18.9 Debilitated patient R53.81 Prostate cancer C61 Colostomy care Z43.3 GI bleed K92.2 Acute anemia D64.9 Left fibular fracture S82.402A Physical deconditioning R53.81 Protein calorie malnutrition E46
[2021-05-13] MEDS: levofloxacin-dextrose 5 % 750 MG/150 ML PREMIX 100 MG IV (19:58)
[2021-05-14] VITALS (96 sets, daily range): BP systolic 54–141; BP diastolic 30–60; PULSE 75–116; RESP 16–28; TEMP 36.6–36.8; O2SAT 80–100
[2021-05-14] MEDS: ipratropium-albuterol 3 mL Neb INHALATION ×4 (01:09→19:59)
[2021-05-14] MEDS: sucralfate 1 gm Tablet PO (01:40)
[2021-05-14 05:58] LABS: Hematocrit 26.4 % (42.0-52.0); Hemoglobin 8.2 g/dL (11.7-16.6); Mean Corpuscular HGB Conc 31.1 g/dL (30.0-36.0); Mean Corpuscular Hemoglobin 27.2 pg (28.0-34.0); Mean Corpuscular Volume 87.7 fl (80-94); Mean Platelet Volume 10.2 fL (7.4-10.4); Platelet Count 167 10^3/cmm (130-400); Red Blood Count 3.01 10^6/uL (4.1-5.3); Red Cell Distribution Width 21.1 % (12.1-15.1)
[2021-05-14 06:14] LABS: Alanine Aminotransferase < 5 U/L (0-41); Albumin Level 3.1 g/dL (3.5-5.2); Alkaline Phosphatase 174 IU/L (40-130); Aspartate Amino Transferase 18 U/L (0-40); Blood Urea Nitrogen 41 mg/dL (8-23); Calcium 10.3 mg/dL (8.5-10.5); Carbon Dioxide 27 mmol/L (22-29); Chloride 108 mmol/L (98-107); Creatinine Clr Calc Pharmacy 68.1882; Globulin 2.2 g/dL (1.3-4.6); Glucose 103 mg/dL (65-115); Osmolality Calculated 310 mOsm/kg (285-295); Sodium 145 mmol/L (136-145); Total Bilirubin 0.5 mg/dL (0.15-1.2); Total Protein 5.3 g/dL (6.6-8.7)
[2021-05-14 06:25] LABS: NT Pro B Type Natriuretic Pept 8058 pg/mL (0-450)
[2021-05-14 06:27] LABS: Slide Review Slide Review Perform
[2021-05-14 06:30] LABS: Absolute Eosinophils 0.1 10^3/cmm (0.0-0.7); Absolute Segmented Neutrophil 6.5 10/cmm (1.6-7.1); Band Neutrophils Absolute 2.3 10^3/cmm (0.0-1.2); Eosinophils 1 %; Lymphocytes 13 %; Segmented Neutrophils 59 %; Total Cells Counted 100 (0-100)
[2021-05-14 06:31] LABS: Absolute Neutrophil 8.8 10^3/cmm (1.4-6.5); Lymphocytes Absolute 1.4 10^3/cmm (1.2-3.4); Platelet Estimate Normal (Normal); Poikilocytosis 1+
[2021-05-14] MEDS: amiodarone 200 mg Tablet PO ×2 (06:43→17:46)
--- NOTE | 2021-05-14 07:00 | XRR_ITS ---
PROCEDURE INFORMATION: Exam: XR Chest Exam date and time: 05/14/2021 7:00 AM Age: 85 years old Clinical indication: Patient HX: Shortness of breath followup; Poss microaspiration; Additional info: Hypoxia, leukocytosis, poss microaspiration TECHNIQUE: Imaging protocol: XR of the chest. Views: 1 view. COMPARISON: CR (CHEST, ) 05/04/2021 11:58 AM FINDINGS: Lungs: Low lung volumes. There is extensive bilateral airspace opacities, consistent with multifocal pneumonia. There is a small bilateral pleural effusions. Pleural spaces: See Lungs finding. Heart/Mediastinum: Stable cardiomediastinal silhouette. Bones/joints: Unremarkable. XR/XR chest 1V portable [id number] IMPRESSION: Imaging findings of multifocal pneumonia. Radiation Dose CTDIVOL = (mGy): DLP = (mGy-cm)
[2021-05-14] MEDS: aspirin 81 mg EC Tablet PO (07:56)
[2021-05-14] MEDS: doxycycline 100 mg Tablet PO ×2 (07:56→17:46)
[2021-05-14] MEDS: pantoprazole DR 40 mg Tablet PO (07:56)
[2021-05-14] MEDS: tamsulosin 0.4 mg Capsule PO (07:56)
[2021-05-14] MEDS: ondansetron 2 mg/ML SDV 2 mL 4 MG IVP (08:06)
--- NOTE | 2021-05-14 08:21 | P.PNCC_ITS ---
Critical Care Event Note Critical Care Event The high probability of a clinically significant, sudden or life threatening deterioration of the patient's [] system(s) required my full and direct attention, intervention and personal management. The critical care time is as shown. This time is in addition to time spent performing any reported procedures but includes the following: [x] Data and vital sign review and interpretation [x] Patient assessment, examination and intervention [x] Documentation [x] Medication orders and management Critical Care Time Critical Care Time: Code activated: Yes Critical Care Time (min): 10 Additional information about critical care time: TRAM TUCKER was called overhead. Responded to CODE BLUE in the room when I arrived , Was running the code respirations were by [id number]. On the first available pulse check patient was intubated without complications with a 7 5 tube secured at 23 cm at the teeth. Visualized tube through the cords, good color change on capnography good breath sounds bilaterally. Dr. Jackson and Dr. Grant were in the room at this point Dr. Jackson was managing the overall code. I checked with him he did not feel he needed my assistance any further at this point and I left a code under his direction. Procedures Intubation Time out performed: No Sedative: none Laryngoscope: Reji ET tube size: 7.5 ET tube uncuffed: No Tube secured depth (cm): 23 Tube secured location: teeth Tube placement confirmation: visualized tube passing through cords, equal breath sounds bilaterally, no breath sounds over epigastrium, confirmation by capnometry and color change noted Patient tolerated procedure: well Intubation complications: none Coding Level of Care Code Acute Transport Tank Technician for Evette York
--- NOTE | 2021-05-14 08:30 | ECG_ITS ---
[facility] Test Date: 2021-05-14 Pat Name: Darrian Boggs Department: Room: ICU03 Gender: Male Balance Screwhead Polisher: : 1935 Requested By: Rohit Grant Order Number: [id number] Vitaly MD: Kira Borja M.D. Measurements Intervals Fisher Rate: 101 P: 212 AZ: 82 QRS: 11 QRSD: 182 T: 155 QT: 409 QTc: 530 Interpretive Statements POSSIBLY SINUS TACHYCARDIA LEFT BUNDLE BRANCH BLOCK [120+ ms QRS DURATION, 80+ ms Q/S IN V1/V2, 85+ ms R IN I/aVL/V5/V6] Compared to ECG 05/04/2021 13:11:20 Atrial fibrillation no longer present Electronically Signed On 05-15-2021 7:33:50 BRANCH SALES MANAGER by Kira Borja M.D. [email or web address]
--- NOTE | 2021-05-14 08:38 | P.PN_ITS ---
Subjective Subjective: Interval history: This morning found in cardiopulmonary arrest, earlier complaining of some nausea, received Zofran, subsequently 1 found noted to have some regurgitated material running down the right side of his face. PEA/asystole rhythm, underwent CPR, 4 times epi, received a push of bicarbonate, potassium chloride. ROSC achieved, subsequently responsive, following commands, answering questions. Denies abdominal pain. His daughter was notified and is on her way to see him. Vitals/I&O/Wt Last Vital Signs Temp 97.8 F 05/14/21 04:00 Pulse 75 05/14/21 07:25 Resp 24 H 05/14/21 07:25 BP 116/42 05/14/21 07:25 Pulse Ox 92 05/14/21 07:25 05/13/21 05/14/21 05/14/21 22:59 06:59 14:59 Intake Total 390 / 630 100 / 730 Output Total 300 / 300 160 / 460 Balance 90 / 330 -60 / 270 Physical Exam Narrative: EXAM NARRATIVE: Following cardiopulmonary arrest. Const: COMMON NORMALS: no acute distress, patient oriented x3 and alert GENERAL APPEARANCE: cooperative and frail appearing ORIENTATION/CONSCIOU SNESS: Yes awake HENMT: COMMON NORMALS: oropharynx normal Neck/C-Spine: COMMON NORMALS: no JVD Resp: COMMON NORMALS: normal respiratory effort AUSCULTATION: rhonchi and wheezes Cardio: COMMON NORMALS: no JVD, S1 normal heart sound present, S2 normal heart sound present and No murmurs present (Cardio) HEART SOUNDS: S1 normal heart sound present and S2 normal heart sound present OTHER: Intermittent LBBB on monitor GI: COMMON NORMALS: Normal to inspection, nondistended, normoactive bowel s ounds present, Soft to palpation and non-tender PALPATION: Yes Soft to palpation Extremity: COMMON NORMALS: no joint enlargement and no pedal edema Neuro: COMMON NORMALS: patient oriented x3 and moves all extremities SENSORIUM/ORIENTATION: Yes alert Skin: COMMON NORMALS: no rashes or lesions noted GENERAL SKIN EXAM: no rashes or lesions noted Urinary Catheter Management^: Flynn: Cath Placed During This Visit: yes, but has since been removed by the nurse Reason for Continuing Indwelling Catheter: Other Urinary Catheter Date of Insertion: 05/11/21 Urinary Catheter Time of Insertion: 15:30 Date Urinary Catheter Removed: 05/10/21 Time Urinary Catheter Discontinued: 16:00 Data : 05/14/21 05:40 05/14/21 05:40 A&P Assessment and plan (1) Cardiopulmonary arrest: Suspected respiratory because of cardiopulmonary arrest following aspiration, subsequently with PEA/systole arrest, received 4 times epi. Intubated. Repeat chest x-ray to confirm placement. ROSC achieved. Subsequently awake, following commands. Daughter is on her way to see him. Intermittently and of left bundle branch block which was noted previously on EK G. Suctioned during intubation. Lungs with wheezing, rhonchi. Multifocal pneumonia noted on chest x-ray. Add Zosyn. Continue Levaquin, doxycycline. Blood pressure soft, mean arterial pressure 65 mmHg. Levophed drip is requested. Additional blood work is requested including troponin, EKG series, magnesium. Continue mechanical ventilatory support, monitor oxygenation. Status: Acute (2) Septic shock: Currently again hypotensive following cardiopulmonary arrest likely due to aspiration event. Possibly additional septic shock, possibly myocardial stunning following arrest, hypoperfusion. Pressors requested to maintain mean arterial pressures. Antibiotic coverage as above. Will request additional blood cultures. Lactic acid has been requested. Complete troponin EKG series. Monitor telemetry. Will assess limited TTE. Previously septic shock had resolved. Prior to arrest persistent hypoxia, on 4 L oxygen, although slightly better down from 6 L. Concern for microaspiration with noted suspicion of aspiration despite dysphagia diet today. MBS with no numerous episodes of laryngeal penetration but no aspiration was apparent. Liquid collected in vallecula with spillage but no persistent stasis with additional swallows. At this time continue antibiotic therapy. We will switch from cefdinir to Levaquin to give better penetration given UTI in setting of presence of nephrolithiasis and ureteral stent. Discussed with urology. We will have to discuss in more detail with him and family with regards to how aggressive he may wish to be with regards to pursuing additional surgical intervention and definitive nephrolithiasis treatment and stent retrieval, and broader picture in terms of advanced care goals. IV antibiotic therapy may be beneficial in case wanting to pursue more aggressive care in the near future, although may be limited by overall condition. Oral antibiotic may be a reasonable option potentially. With overall lack of very significant progress in terms of recovery of functional capacity and independence over the last 2 months, concern is of overall possible poor prognosis, consideration could also be given to more supportive care and possibly hospice. We will have to address with him and family again. Originally septic shock likely secondary to UTI/pneumonia. Blood culture:NTD MRSA PCR: Positive Bacterial antigen panel negative Urine culture: Pansensitive E. coli S/P hydrocortisone CT scan abdomen pelvis shows satisfactory position of left ureteral stent, 5 mm ureteral calculus is present in the stent in the mid ureter Status post PRBC transfusion. Continue to monitor urine output Full code Lovenox for DVT prophylaxis on hold, SCDs Hold PT, OT. Continue to reevaluate disposition plans. Status: Acute (3) Atrial fibrillation with RVR: On amiodarone 200 mg twice daily Currently Heart rate is well controlled. Lovenox 80 twice daily on hold Status: Acute (4) Decompensated heart failure: Resolved Minimal pitting edema Lasix on hold Monitor intake output charting. Status: Acute (5) Elevated troponin I level: Elevated troponin likely secondary to type II CT secondary to sepsis and A. fib with RVR Troponin trend without significant delta. Status: Acute (6) CY (acute kidney injury): Resolved CY likely secondary to ATN secondary to sepsis. Sufficient IV fluid replacement done. Monitor BMP Monitor intake output Urine electrolytes Avoid nephrotoxic's CT abdomen and pelvis has failed to show any hydronephrosis Status: Acute (7) Anemia: Acute on chronic anemia Status: Acute (8) Left ureteral calculus: S/p ureteral stent. Follow urology as an outpatient Status: Acute (9) Hyperkalemia: Resolved. 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 -Lovenox currently placed on hold -Monitor hemodynamics -Protonix, Carafate Status: Acute (16) Left fibular fracture: -Currently weightbearing as tolerated Status: Acute (17) Physical deconditioning: Status: Acute (18) Protein calorie malnutrition: Status: Acute Additional A&P Information CODE STATUS: Full code Attestations Medical Necessity Statement*: Continue admission for assessment management following cardiopulmonary arrest. Critical Care Time: The high probability of a clinically significant, sudden or life threatening deterioration of the patient's respiratory, system(s), cardiopulmonary arrest, required my full and direct attention, intervention and personal management. The critical care time is as shown. This time is in addition to time spent performing any reported procedures but includes the following: x Data and vital sign review and interpretation x Patient assessment, examination and intervention x Documentation x Medication orders and management Discussed w present physicians during code, nursing staff, RT, and daughter. 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
--- NOTE | 2021-05-14 08:42 | PC.NURSE ---
This nurse and skilled nursing professional were assessing patient and passing morning medication. Patient was alert and sitting up in bed with non rebreather on. Patient swallowing medications with free water. Patient given a drink of thickened orange juice and shortly after started vomiting pink tinged vomit. Yonker at bedside used. Patient speaking at this time. This nurse gave prn zofran through IV. within one minute patient gasping for air with pauses noted. This nurse listened to lungs and heart beat which were both noted at this time. Charge nurse, Breezy Cancino notified for second assessment. At this time patient noted to lose pulse and no breathing noted. CPR initiated. Dr. Grant notified family.
--- NOTE | 2021-05-14 09:00 | USCV_ITS ---
Darrian Boggs Age: 85 Gender: M : 1935 Exam Date: 05/14/2021 10:09 Ordering Phys: Rohit Grant MD Technologist: Debbi Wallace [place] [facility] [place]: cardiopulmonary [place] BP: 87 / 48 HR: 95 Rhythm: Sinus Technical Quality: Technically difficult study MEASUREMENTS (Male / Female) Normal Values 2D ECHO LV Diastolic Diameter PLAX 4.2 cm 4.2 - 5.9 / 3.9 - 5.3 cm LV Systolic Diameter PLAX 2.5 cm IVS Diastolic Thickness 1.9 cm 0.6 - 1.0 / 0.6 - 0.9 cm IVS Systolic Thickness 1.9 cm LVPW Diastolic Thickness 2.1 cm 0.6 - 1.0 / 0.6 - 0.9 cm LVPW Systolic Thickness 2.3 cm LVOT Diameter 2.0 cm LV Ejection Fraction 2D Teich 73.5 % LV Ejection Fraction MOD 2C 69.8 % LV Ejection Fraction 2C AL 70.1 % LA Diameter 3.0 cm LA Width 2.5 cm LA Height 4.3 cm RA Width 2.9 cm RA Height 3.9 cm Aorta at Sinotubular Diameter 3.1 cm FINDINGS Left Ventricle Normal left ventricular size and systolic function, EF 69 %. Mild left ventricular hypertrophy. No regional wall motion abnormalities. Right Ventricle The right ventricle is normal in size and function. Right Atrium The right atrium is normal in size. Left Atrium The left atrium is normal in size. Mitral Valve Moderate to heavy mitral annular calcification. Aortic Valve Thickened aortic valve. Tricuspid Valve No gross abnormalities noted Pulmonic Valve Pulmonic valve not well visualized. Pericardium Normal pericardium without effusion. The descending aorta appears to be somewhat ectatic Aorta Normal ascending aorta dimension. CONCLUSIONS Normal left ventricular size and systolic function, EF 69 %. Mild left ventricular hypertrophy. No regional wall motion abnormalities. Moderate to heavy mitral annular calcification. Thickened aortic valve. There is no pericardial effusion. Probable ectasia of the descending aorta There is no pericardial effusion. There are no intracardiac masses. Technically difficult study because of the poor ultrasonic window. Dr Darren Peterson MD [facility] (Electronically Signed) Final Date: 14 May 2021 15:47 S
--- NOTE | 2021-05-14 09:02 | XR_ITS ---
WS: [id number] PORTABLE CHEST HISTORY: intubation COMPARISON: 05/14/2021 Pacer pads are now present over the thorax. Endotracheal tube has been placed in good position ending several centimeters above the cara. Bilateral pulmonary opacifications have mildly progressed since the prior study. No pneumothorax. Pro bable small bilateral pleural effusions. Slight blunting of the costophrenic angles. Cardiac size: Mildly enlarged cardiac silhouette. Mediastinum/Aorta: Moderate atherosclerosis aorta. Mild widening of the mediastinum is probably due t o supine position. No osseous abnormality seen. XR/XR chest 1V portable [id number] IMPRESSION: 1. Satisfactory placement of the endotracheal tube. 2. Diffuse bilateral pulmonary opacifications with mild progression. 3. Mild widening of the mediastinum with atherosclerosis of the aorta is stabl e.
[2021-05-14 09:09] LABS: Basophils # 0.1 10^3/uL (0.0-0.1); Basophils % 0.3 %; Eosinophils # 0.1 10^3/uL (0.0-0.8); Eosinophils % 0.8 %; Hematocrit 33.5 % (42.0-52.0); Hemoglobin 9.7 g/dL (11.7-16.6); Lymphocytes # 3.6 10^3/uL (0.8-4.8); Lymphocytes % 24.5 %; Mean Corpuscular Hemoglobin 27.3 pg (28.0-34.0); Mean Corpuscular Volume 94.4 fl (80-94); Mean Platelet Volume 9.9 fL (7.4-10.4); Monocytes # 0.5 10^3/uL (0.2-0.9); Monocytes % 3.4 %; Neutrophils # 8.52 10^3/uL (1.8-7.7); Neutrophils % 58.9 %; Nucleated Red Blood Cells # 0.2 /100WBC; Nucleated Red Blood Cells % 1.1 %; Platelet Count 157 10^3/cmm (130-400); Red Blood Count 3.55 10^6/uL (4.1-5.3); Red Cell Distribution Width 21.8 % (12.1-15.1); White Blood Count 14.5 10^3/uL (4.0-10.0)
[2021-05-14 09:22] LABS: Lactic Sepsis W/Reflex 2.7 mmol/L (0.5-2.2)
[2021-05-14 09:23] LABS: Alanine Aminotransferase 8 U/L (0-41); Albumin Level 3.1 g/dL (3.5-5.2); Alkaline Phosphatase 202 IU/L (40-130); Anion Gap 17.3 (5-19); Aspartate Amino Transferase 35 U/L (0-40); Blood Urea Nitrogen 45 mg/dL (8-23); Calcium 11.3 mg/dL (8.5-10.5); Carbon Dioxide 23 mmol/L (22-29); Chloride 107 mmol/L (98-107); Globulin 2.2 g/dL (1.3-4.6); Glucose 131 mg/dL (65-115); Osmolality Calculated 311 mOsm/kg (285-295); Potassium 3.3 mmol/L (3.5-5.1); Sodium 144 mmol/L (136-145); Total Bilirubin 0.5 mg/dL (0.15-1.2); Total Protein 5.3 g/dL (6.6-8.7)
[2021-05-14 09:25] LABS: Slide Review Slide Review Perform
[2021-05-14] MEDS: dexmedetomidine 400 MCG in sodium chloride 0.9% (100 ml) 100 ML IV (09:27)
[2021-05-14 09:36] LABS: ABG PCO2 52.3 mmHg (35-45); ABG PH Result 7.33 (7.35-7.45); Alveolar-Arterial Oxygen Gradi 78.6 mmHg (5-10); Arterial Blood Gas Hematocrit 27.4 % (42-52); Base Excess ABG 1.1 mmol/L (-2.0-2.0); Blood Gas Allen Test Pos; Blood Gas Operator Identificat CAK; Blood Gas Sample Site Radial, left; Blood Gas Sample Type Arterial; Carboxyhemoglobin 1.1 %THgb (0.4-20.1); HCO3 ABG 27.5 mmol/L (22-26); HGB O2 Sat 82.8 % (95-100); Ionized Calcium Level - ABG 1.7 mmol/L (1.1-1.4); Methemoglobin 0.8 % (0.4-1.5); Oxygen Device VENT; Oxygen Saturation ABG 84.5; PO2 ABG 50.9 mmHg (80.0-100.0); Total Hemoglobin 8.9 g/dL (14-18)
[2021-05-14 09:42] LABS: Troponin(5th) Baseline 117 ng/L (0-15)
[2021-05-14] MEDS: piperacillin-tazobactam 3.375 GM in sodium chloride 0.9% (plus) 50 ML IV ×2 (09:54→17:46)
[2021-05-14 09:57] LABS: Magnesium 2.1 mg/dL (1.7-2.3)
--- NOTE | 2021-05-14 10:12 | XRR_ITS ---
PROCEDURE INFORMATION: Exam: XR Chest Exam date and time: 05/14/2021 10:12 AM Age: 85 years old Clinical indication: Device placement; Other: Og; Patient HX: PT is intubated; Additional info: After og and abdom distent, discomfort TECHNIQUE: Imaging protocol: XR of the chest. Views: 1 view. COMPARISON: CR XR chest 1V portable [id number] 05/14/2021 9:08 AM FINDINGS: Tubes, catheters and devices: Similar positioning of endotracheal tube. Enteric tube is in proper positioning within the stomach. Lungs: Patulous consolidations throughout both lungs, not significantly changed from prior study. Pleural spaces: Unremarkable. No pleural effusion. No pneumothorax. Heart/Mediastinum: Unremarkable. No cardiomegaly. Bones/joints: Unremarkable. XR/XR chest 1V portable [id number] IMPRESSION: 1. Tubes in proper positioning. 2. Similar patulous consolidations throughout both lungs. Radiation Dose CTDIVOL = (mGy): DLP = (mGy-cm)
--- NOTE | 2021-05-14 10:30 | ECG_ITS ---
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 Measurements Intervals [place] Rate: 103 P: 261 [place]: 113 QRS: 17 QRSD: 172 T: 101 QT: 398 QTc: 522 Interpretive Statements POSSIBLE SINUS TACHYCARDIA LEFT BUNDLE BRANCH BLOCK [120+ ms QRS DURATION, 80+ ms Q/S IN V1/V2, 85+ ms R IN I/aVL/V5/V6] Compared to ECG 05/14/2021 08:56:53 aAtrial fibrillation no longer present Electronically Signed On 05-15-2021 7:39:43 TRAILHEAD CONSTRUCTION WORKER by Kira Borja M.D. [email or web address]/[id number]
[2021-05-14] MEDS: midazolam 1 mg/mL INJ 2 mL 2 MG IVP (10:35)
[2021-05-14 10:49] LABS: Reflex Lactate Order REFLEX LACTIC ORDERD
[2021-05-14] MEDS: lactated ringers 1,000 ML 999 ML IV ×2 (11:07→12:36)
[2021-05-14 11:38] LABS: Glucose Point of Care 140 mg/dL (70-110)
[2021-05-14] MEDS: lidocaine 1% INJ 20 mL XX (11:43)
--- NOTE | 2021-05-14 11:58 | PM.ACPR ---
Procedure/Consent Time out: Time Out Performed: Yes Consent: Consent for Procedure: Emergency procedure Procedure Narrative: Name of the Procedure: Right femoral vein Central venous catheter placement under ultrasound guidance. Indication: Septic shock Anesthesiia: Lidocaine 1%, 5 ml Description of the procedure: The left IJ vein was identified with the Ultrasound from collapsibility and lack of pulsatility. The site was prepared using sterile technique. The skin and subcuteneous tissue was anesthetized using lidocaine. The introducer needle was advanced under US guidance till flash back was noted. Dark, non pulsatile blood noted. Using seldinger technique the CVC was put in.Blood return was noted in all ports. Catheter was secured with suture and covered with transparent dressing. Complications: None Acute Procedures Epistaxis Control: Time out performed: Yes
[2021-05-14 12:06] LABS: ABG PCO2 49.2 mmHg (35-45); ABG PH Result 7.32 (7.35-7.45); Alveolar-Arterial Oxygen Gradi 78.7 mmHg (5-10); Blood Gas Operator Identificat CAAK; Blood Gas Sample Site ARTLINE; Blood Gas Sample Type Arterial; Carboxyhemoglobin 1.3 %THgb (0.4-20.1); HCO3 ABG 25.3 mmol/L (22-26); HGB O2 Sat 83.2 % (95-100); Ionized Calcium Level - ABG 1.6 mmol/L (1.1-1.4); Methemoglobin 1.1 % (0.4-1.5); Oxygen Device VENT; Oxygen Saturation ABG 85.2; PO2 ABG 51.4 mmHg (80.0-100.0); Total Hemoglobin 8.5 g/dL (14-18)
--- NOTE | 2021-05-14 12:09 | P.PCN_ITS ---
Procedure/Consent Time out: Time Out Performed: Yes Consent: Consent for Procedure: Emergency procedure Procedure Narrative: Name of the procedure: Right femoral artery ultrasound- guided arterial catheter placement. Medications: Fentanyl and Precedex drip. Description of the procedure: The site was prepared using sterile technique. The right femoral artery was identified under ultrasound guidance from puls atility. Under ultrasound guidance the introducer needle was advanced till flash back was noted. Using Seldinger technique the right femoral arterial line was inserted. The catheter was secured with 2-0 silk suture and Tegaderm. Complications: None. Acute Procedures Epistaxis Control: Time out performed: Yes
--- NOTE | 2021-05-14 12:10 | PM.ACPR ---
Procedure/Consent Time out: Time Out Performed: Yes Consent: Consent for Procedure: Consent obtained from other (indicate) (Verbally obtained from daughter Mary) and Emergency procedure Procedure Narrative: Name of the procedure: Bronchoscopy with inspection of the airway, airway clearance, bronchoalveolar lavage. Indication: Acute hypoxic respiratory failure in the setting of multifocal pneumonia causing cardiac arrest and possibility of mucous plugging. Medication: The patient is on intravenous fentanyl drip and Versed push. Description of the procedure: Consent was obtained for the bronchoscopy procedure from his daughter. This is also an emergency procedure as the saturation was hovering in the 80s. The patient was intubated for acute hypoxic respiratory failure. 1% lidocaine 5 mL was introduced through the ET tube. The bronchoscope was advanced through the ET tube to the cara was visualized. The cara was sharp. Visible collection was noted in the right mainstem bronchus. The bronchoscope was introduced into the right mainstem bronchus. The airway was cleared out by suctioning. Suctioning was also applied at the entrance of the right upper lobe bronchus. After clearance of the airways the right upper lobe, middle lobe and lower lobe bronchi were examined up to the third subsegmental level. No endobronchial lesion or mucous plug was identified. The bronchoscope was then introduced into the left mainstem bronchus. The left upper lobe, lingula and lower lobe bronchi were examined up to the third subsegmental level. No mucous plugging or endobronchial lesion was identified. Bronchoalveolar lavage was performed from the lateral segment of the right middle lobe. 60 cc of fluid was administered, fluid return was 25 mL. The fluid was cloudy. Specimen was sent for Gram stain and culture, fungal stain and culture, AFB stain and culture.. Complications: No immediate complication was noted. Acute Procedures Epistaxis Control: Time out performed: Yes
[2021-05-14] MEDS: midazolam 1 mg/mL INJ 2 mL 2 MG IV (12:13)
[2021-05-14] MEDS: midazolam 1 mg/mL INJ 2 mL 2 MG (12:34)
[2021-05-14] MEDS: lidocaine 1% 5 ML in potassium chloride premix 100 ML 50 ML IV (12:38)
[2021-05-14] MEDS: FUROsemide 10 mg/mL SDV 4mL 40 MG IVP (12:39)
[2021-05-14] MEDS: rocuronium 10 mg/mL INJ 5mL 100 MG IVP (14:30)
--- NOTE | 2021-05-14 14:30 | ECG_ITS ---
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 Measurements Intervals [place] Rate: 114 P: [place]: QRS: 18 QRSD: 174 T: 131 QT: 392 QTc: 541 Interpretive Statements Possible sinus tachycardia. LEFT BUNDLE BRANCH BLOCK [120+ ms QRS DURATION, 80+ ms Q/S IN V1/V2, 85+ ms R IN I/aVL/V5/V6] Compared to ECG 05/14/2021 11:56:13 Junctional tachycardia no longer present Electronically Signed On 05-15-2021 20:47:51 DIRECTOR TALENT ACQUISITION by Darren Peterson M.D. [id number]
[2021-05-14 14:52] LABS: Lactic Acid level (Lactate) 3.3 mmol/L (0.5-2.2)
[2021-05-14 14:55] LABS: Troponin 5 6HR 169.5 ng/L (0-15); Troponin 5 6HR Delta 52.5 ng/L (0-12)
[2021-05-14] MEDS: norepinephrine 8 MG in dextrose 5 % 500 ML 133.35 MG IV ×2 (15:31→19:19)
[2021-05-14] MEDS: cisatracurium 100 MG in sodium chloride 0.9% 50 ML IV (16:18)
[2021-05-14 17:31] LABS: Alanine Aminotransferase 9 U/L (0-41); Albumin Level 2.9 g/dL (3.5-5.2); Alkaline Phosphatase 191 IU/L (40-130); Aspartate Amino Transferase 31 U/L (0-40); Blood Urea Nitrogen 45 mg/dL (8-23); Calcium 10.8 mg/dL (8.5-10.5); Carbon Dioxide 19 mmol/L (22-29); Chloride 104 mmol/L (98-107); Creatinine Clr Calc Pharmacy 49.5914; Globulin 2.1 g/dL (1.3-4.6); Glucose 163 mg/dL (65-115); Osmolality Calculated 305 mOsm/kg (285-295); Sodium 140 mmol/L (136-145); Total Bilirubin 0.7 mg/dL (0.15-1.2)
[2021-05-14 17:38] LABS: Anion Gap 20.6 (5-19); Potassium 3.6 mmol/L (3.5-5.1)
[2021-05-14] MEDS: pantoprazole 40 mg SDV IVP (17:52)
--- NOTE | 2021-05-14 18:24 | PM.CONSULT ---
Providers/Reason For Consult Consulting Physician/Specialty*: Pulmonary and critical care medicine Reason for Consult*: Status post cardiac arrest Attending Physician: Rohit Grant Primary Care Provider: Felipe Bustos DO History of Present Illness History of Present Illness Darrian Boggs is a 85 year old male who had suffered from acute hypoxic respiratory failure leading to cardiac arrest early this morning. The patient received cardiopulmonary resuscitation, for epi, bicarb, calcium chloride. Unsure about the exact duration of the code. The patient however was responsive and following commands after the code. I was asked to evaluate the patient due to high oxygen requirement, 100% FiO2 with oxygen saturation in the 70s. The patient was hypotensive on vasopressors. The patient was initially hospitalized on May 04 with septic shock likely secondary to urinary tract infection. The patient has a left ureteric stent with a stone next to the stent in the mid ureter. There was no evidence of obstructive uropathy or hydronephrosis. Urine culture grew pansensitive E. coli. In March 2021 his urine culture was positive for Pseudomonas. There is no evidence of pyelonephritis on the CT scan of the abdomen and pelvis. Interestingly, the CT scan of the abdomen pelvis included the lower part of the chest which revealed bilateral pleural effusions left greater than right. Still the effusion was small on the left side. The patient also has reticulation in the right lung base which was also present on a CT scan in March 2021. The patient has a history of heart failure with preserved ejection fraction with an ejection fraction of 65%. There was cardiomegaly on the CT scan of the abdomen pelvis. Additionally, the left atrial size was significantly enlarged. After admission to the hospital, the patient was on Levophed and spend a few days in the ICU. And subsequently he went upstairs after his pressor requirement was gone. I could not find any chest x-ray between May 04 and May 14. The patient was diuresed for heart failure. However there been concern for aspiration events as the patient continued to require oxygen. The modified barium swallow study on April 12 revealed numerous episodes of laryngeal penetration. This morning the patient suffered from cardiac arrest after suspected aspiration event. The patient was intubated and brought down to ICU. In the ICU his oxygen saturation was in the 70s to 80s and 100% oxygen. His systolic blood pressure was in the 60s with peripheral Levophed and vasopressin. Post cardiac arrest chest x-ray revealed bilateral diffuse infiltrate. In the hospital the patient was on Zosyn, levofloxacin and doxycycline. Nasal MRSA PCR was positive on May 06. The Gram stain of endotracheal aspirate showed moderate yeast and few gram-positive cocci in pairs and chains. The BAL Gram stain did not show any microorganisms. All blood cultures have been negative since the patient was hospitalized. The patient has a history of colostomy and also has fluid collection in the right anterior abdominal wall. I had inserted a right femoral vein central venous catheter and right femoral artery arterial line. A bedside bronchoscopy revealed collection of airway secretion in the right bronchus intermedius. The airways were cleared out. Bronchoalveolar lavage was performed from the right middle lobe. The patient continues to be hypoxic even after bronchoscopy. At that point, the patient was paralyzed. The patient is current on volume control mechanical ventilation with a PEEP of 14 and oxygen saturation in the low 90s. The patient could not be performed because of the colostomy. I had evaluated the patient multiple times throughout the day. His urine output has been minimal. Review of Systems Narrative: Unable to assess Meds/Allergies Home Medications and Allergies Home Medications Medication Instructions Recorded Confirmed Last Taken Type aspirin 81 mg tablet,delayed 81 mg PO DAILY 08/08/19 05/04/21 Unknown History release nitroglycerin 0.4 mg sublingual 0.4 mg SUBLINGUAL Q5M PRN 08/10/19 05/04/21 Unknown History tablet furosemide 40 mg tablet 40 mg PO DAILY #90 tab 04/23/20 05/04/21 Unknown Rx acetaminophen 500 mg PO Q6H PRN 03/13/21 05/04/21 Unknown History amiodarone 200 mg PO DAILY 03/13/21 05/04/21 Unknown History fluticasone propionate [Flonase 1 spray INTRANASAL BID 03/13/21 05/04/21 Unknown History Allergy Relief] hydrocodone-acetaminophen 1 - 2 tab PO TID PRN 03/13/21 05/04/21 Unknown History ketotifen fumarate 1 drp OPHTHALMIC (EYE) BID PRN 03/13/21 05/04/21 Unknown History loratadine 10 mg PO DAILY 03/13/21 05/04/21 Unknown History methenamine hippurate 1 g PO BID 03/13/21 05/04/21 Unknown History ascorbic acid (vitamin C) [Vitamin 500 mg PO BID 04/01/21 05/04/21 Unknown History C] tamsulosin 0.4 mg capsule 0.4 mg PO DAILY #90 cap 04/16/21 05/04/21 Unknown Rx ondansetron HCl 8 mg PO TID PRN 05/04/21 05/04/21 Unknown History Allergies Allergy/AdvReac Type Severity Reaction Status Date / Time No Known Allergies Allergy Verified 05/03/21 11:06 Current Medications Current Medications Generic Name Dose Route Start Last Admin Trade Name Freq PRN Reason Stop Dose Admin Acetaminophen 650 mg 05/04/21 12:50 05/10/21 06:29 Acetaminophen 325 Mg Tablet PO 650 mg Q6H PRN Administration Mild/Mod Pain Or Temp >/= 101 Albuterol/Ipratropium 3 ml 05/14/21 10:19 05/14/21 10:47 Ipratropium-Albuterol 3 Ml Neb INHALATION 3 ml Q4H.RESPIRATORY PRN Administration SHORTNESS OF BREATH Albuterol/Ipratropium 3 ml 05/14/21 15:00 05/14/21 14:42 Ipratropium-Albuterol 3 Ml Neb INHALATION 3 ml Q6H.RESPIRATORY MADHAVI Administration Amiodarone HCl 200 mg 05/10/21 18:00 05/14/21 17:46 Amiodarone 200 Mg Tablet PO 200 mg Q12H MADHAVI Administration Aspirin 81 mg 05/05/21 09:00 05/14/21 07:56 Aspirin 81 Mg Ec Tablet PO 81 mg DAILY MADHAVI Administration Norepinephrine Bitartrate 4 mg 254 mls @ 0 mls/hr 05/14/21 08:45 05/14/21 11:05 / Dextrose IV 36 mcg/min .Q0M MADHAVI 137.16 mls/hr Titration Protocol Per Protocol Vasopressin 100 unit/ Sodium 100 mls @ 0 mls/hr 05/14/21 09:00 05/14/21 10:36 Chloride IV 0.02 unit/min .Q0M MADHAVI 1.2 mls/hr Titration Protocol Per Protocol Fentanyl 1,000 mcg/ Sodium 100 mls @ 0 mls/hr 05/14/21 09:15 05/14/21 10:00 Chloride IV 25 mcg/hr .Q0M MADHAVI 2.5 mls/hr Administration Protocol Per Protocol Norepinephrine Bitartrate 8 mg 508 mls @ 0 mls/hr 05/14/21 11:00 05/14/21 15:31 / Dextrose IV 35 mcg/min .Q0M MADHAVI 133.35 mls/hr Administration Protocol Per Protocol Midazolam HCl 100 mg/ Sodium 100 mls @ 0 mls/hr 05/14/21 12:30 05/14/21 12:48 Chloride IV 1 mg/hr .Q0M MADHAVI 1 mls/hr Administration Protocol Per Protocol Cisatracurium Besylate 100 mg/ 100 mls @ 0 mls/hr 05/14/21 15:30 05/14/21 16:18 Sodium Chloride IV 0.25 mcg/kg/min .Q0M MADHAVI 1.19 mls/hr Administration Protocol Per Protocol Midazolam HCl 2 mg 05/14/21 11:51 05/14/21 12:13 Midazolam 1 Mg/Ml Inj 2 Ml IV 2 mg Q1H PRN Administration AGITATION Pantoprazole Sodium 40 mg 05/14/21 18:00 05/14/21 17:52 Pantoprazole 40 Mg Sdv IVP 40 mg Q12H MADHAVI Administration Tamsulosin HCl 0.4 mg 05/05/21 09:00 05/14/21 07:56 Tamsulosin 0.4 Mg Capsule PO 0.4 mg DAILY MADHAVI Administration PFSH Acute PFSH: Medical History Cardiomyopathy Cataracts, bilateral History of high risk medication treatment Hypertension LBBB (left bundle branch block) Left ureteral calculus Obstructive pyelonephritis Osteoarthrosis Prostate cancer Pyuria Syncope Umbilical hernia Ventricular arrhythmia Wide-complex tachycardia Surgical History History of cataract removal with insertion of prosthetic lens BILATERAL History of colon resection WITH COLOSTOMY PLACED History of hip surgery History of left hip replacement Family History Mother , AT AGE 91 Stroke Father , AT AGE 86 Cancer LIVER Social History Smoking and tobacco status: former smoker Alcohol intake: unknown Adopted: No Caregiver/support person: No Lives independently: Yes Marital status: / Current occupational status: retired History of recent travel: No Vitals/I&O/Wt Last Vital Signs Temp 97.8 F 05/14/21 04:00 Pulse 100 05/14/21 14:46 Resp 16 05/14/21 18:11 BP 116/42 05/14/21 07:25 Pulse Ox 93 05/14/21 18:11 05/14/21 05/14/21 05/14/21 06:59 14:59 22:59 Intake Total 100 / 730 134.332 / 134.332 Output Total 160 / 460 Balance -60 / 270 134.332 / 134.332 Physical Exam Narrative: EXAM NARRATIVE: General: The patient is intubated, sedated, paralyzed Neck: Could not assess JVD Respiratory: Auscultation: Diffuse crackles bilaterally, no wheezing or rhonchi Cardiovascular: Irregularly irregular rhythm, variable first heart sound, no murmur Abdomen: Soft, nondistended, positive bowel sound, colostomy site looks intact Skin: No rash Neuro: Unable to assess Urinary Catheter Management^: Flynn: Cath Placed During This Visit: yes, but has since been removed by the nurse Reason for Continuing Indwelling Catheter: Other Urinary Catheter Date of Insertion: 05/11/21 Urinary Catheter Time of Insertion: 15:30 Date Urinary Catheter Removed: 05/10/21 Time Urinary Catheter Discontinued: 16:00 Data Micro: Micro: Microbiology 05/14/21 Unknown Gram Stain - Final Lung Right Middle Lobe 05/14/21 13:55 Blood Culture - Pr eliminary Blood [facility] 05/14/21 13:45 Blood Culture - Pr eliminary Blood [facility] 05/14/21 04:30 Gram Stain - Final Sputum - Endotrac heal Tube Aspirate Other Data: Attestation for Other Data: I personally reviewed and interpreted the following: Other data: I have reviewed the patient's laboratory, microbiologic and neurologic data. Please see the HPI for detail. Patient has been suffering from mild leukocytosis, he is developing metabolic acidosis. A&P Assessment and plan (1) Cardiopulmonary arrest: This is an 85-year-old gentleman chronically debilitated who suffered from PEA arrest this morning with subsequent ROSC. The etiology of the cardiac arrest is likely secondary to acute hypoxic respiratory failure possibly after aspiration. The patient required 4 doses of epi, bicarb, calcium chloride. Post arrest, the patient was able to follow commands and had good mental status. Status: Acute (2) Septic shock: The patient however has developed septic shock with a possible component of cardiogenic shock. However, the patient has a large pulse pressure which would be consistent with septic shock as the patient does not have any echocardiographic evidence of aortic regurgitation. The patient has bilateral pulmonary infiltrate. There was no chest x-ray since admission on May 04. The patient has nasal MRSA positive. It is possible that the patient had been developing MRSA pneumonia in the setting of chronic microaspiration. The patient is currently on approximately 35 mcg of Levophed, 1 mcg of epi and septic dose vasopressin. He is on hydrocortisone. The patient is broadly covered with linezolid and renally dosed Zosyn at this point. The patient does not have any evidence of obstructive uropathy and I do not have any strong suspicion for the renal stone being responsible for his septic shock. His blood culture has always remained negative since he came in. Status: Acute (3) Pneumonia: The patient underwent bronchoscopic evaluation. There was airway collection in the right bronchus intermedius. The airways are clear. I am awaiting the result from the bronchoalveolar lavage. Status: Acute (4) ARDS (adult respiratory distress syndrome): The patient is in ARDS. This could be secondary to aspiration pneumonitis as well as pneumonia. Patient is currently on volume control mechanical ventilation. He is on PEEP of 14 with oxygen saturation in the low 90s. The patient is paralyzed at this point. I am hoping that with antibiotic and time the infiltrate will improve. The patient was not prompted because of the colostomy. Status: Acute (5) Acute kidney injury: The patient had been hypotensive for a significant amount of time post cardiac arrest. The patient will likely suffered from ATN. His baseline creatinine was 1.5. Very minimal urine output in the past 12 hours. I am going to obtain BMP and lactate level. The patient may need a bicarb drip and possibly CRRT in the future. Status: Acute (6) Atrial fibrillation: The patient is in A. fib with a heart rate around 100. The patient is on oral amiodarone. If the heart rate goes up the patient will need IV amiodarone. He was on IV amiodarone when he first came in. Overall, his prognosis is poor at this point. Status: Acute Coding Level of Care Code Acute [employer] [facility] Diagnoses Cardiopulmonary arrest I46.9 Septic shock A41.9; R65.21 Pneumonia J18.9 ARDS (adult respiratory distress syndrome) J80 Acute kidney injury N17.9 Atrial fibrillation I48.91 Time Spent (min) 73
[2021-05-14] MEDS: EPINEPHrine 2.5 MG in sodium chloride 0.9% 250 ML 12.12 MG IV (18:45)
--- NOTE | 2021-05-14 19:00 | PM.EVENT ---
Event Note Event Note: CODE BLUE note, late entry CODE CAITLIN was called in the morning when I was rounding on the floor Nurse was giving him his morning meds when he aspirated and became nonresponsive Patient had no pulse, he was nonresponsive, CPR was initiated right away by the nurse Within 3 minutes we were able to achieve advanced airway, After placement of endotracheal tube by Dr. Wright we were able to achieve ROSC Patient was given 4 doses of epi 1 amp of calcium chloride and 1 amp of calcium gluconate in total After ROSC: Patient heart rate was fluctuating between 50-65, systolic blood pressure was between 1 30-150s however this was transient related to therapy he was showing signs of worsening, he was immediately transferred to the ICU, Dr. Grant took over his care, he decided against TTM Twelve-lead EKG serial troponin was requested by Dr. Soto, email deployment specialist Dr. Garcia was consulted placed see his note for further details, patient remained afebrile, he had good bilateral breath sounds, rainbow labs were requested, Total duration of CODE BLUE: 8 minutes
[2021-05-14] MEDS: linezolid premix 600 MG/300 ML PREMIX 300 MG IV (19:19)
[2021-05-14] MEDS: enoxaparin 40 mg/0.4 mL Syringe SUBCUT (19:22)
--- NOTE | 2021-05-14 20:10 | PC.NURSE ---
0830 Responded to code blue on medical unit. See code sheet. Patient intubated and transferred to ICU. Vasopressors ordered and emergently titrated per doctors orders. [address] Grant to report low O2 sats. Orders to consult Dr. Garcia for bronch. 1030 Clarified Lasix order. Reported potassium level. Orders for KCL replacement and to give Lasix. [address] Garcia to report vital signs. Orders received. 1130 Spoke to respiratory therapy about patient's O2 sat. ABG obtained and sat probe changed. [address] Garcia to report vital signs. Orders received.
[2021-05-14 20:11] LABS: Anion Gap 16.8 (5-19); Blood Urea Nitrogen 46 mg/dL (8-23); Calcium 10.3 mg/dL (8.5-10.5); Carbon Dioxide 23 mmol/L (22-29); Chloride 103 mmol/L (98-107); Glucose 227 mg/dL (65-115); Osmolality Calculated 307 mOsm/kg (285-295); Potassium 3.8 mmol/L (3.5-5.1); Sodium 139 mmol/L (136-145)
[2021-05-14 20:12] LABS: Lactate (Lactic Acid level) 2.4 mmol/L (0.5-2.2)
[2021-05-14] MEDS: hydrocortisone 100 mg/2 mL SDV 50 MG IVP (22:46)
[2021-05-14] MEDS: EPINEPHrine 2.5 MG in sodium chloride 0.9% 250 ML 9.09 MG IV (23:22)
[2021-05-14] MEDS: norepinephrine 8 MG in dextrose 5 % 500 ML 95.25 MG IV (23:50)
[2021-05-15] VITALS (96 sets, daily range): BP systolic 95–155; BP diastolic 39–58; PULSE 89–115; RESP 16–21; TEMP 37.4–38.4; O2SAT 89–97
[2021-05-15] MEDS: ipratropium-albuterol 3 mL Neb INHALATION ×4 (02:26→19:59)
[2021-05-15] MEDS: artificial tears Op Oint 3.5 gm 1 APPLIC EYE-BOTH (03:18)
[2021-05-15] MEDS: hydrocortisone 100 mg/2 mL SDV 50 MG IVP ×4 (03:18→22:20)
[2021-05-15 04:02] LABS: Basophils # 0.1 10^3/uL (0.0-0.1); Basophils % 0.5 %; Eosinophils % 0.1 %; Hematocrit 26.4 % (42.0-52.0); Hemoglobin 7.9 g/dL (11.7-16.6); Lymphocytes % 13.2 %; Mean Corpuscular HGB Conc 29.9 g/dL (30.0-36.0); Mean Corpuscular Hemoglobin 26.6 pg (28.0-34.0); Mean Corpuscular Volume 88.9 fl (80-94); Mean Platelet Volume 10.1 fL (7.4-10.4); Monocytes # 0.9 10^3/uL (0.2-0.9); Monocytes % 2.9 %; Neutrophils # 23.45 10^3/uL (1.8-7.7); Neutrophils % 77.6 %; Nucleated Red Blood Cells # 0.9 /100WBC; Platelet Count 195 10^3/cmm (130-400); Red Blood Count 2.97 10^6/uL (4.1-5.3); Red Cell Distribution Width 21.4 % (12.1-15.1)
[2021-05-15] MEDS: norepinephrine 8 MG in dextrose 5 % 500 ML 114.3 MG IV (04:02)
[2021-05-15 04:39] LABS: Alanine Aminotransferase 9 U/L (0-41); Albumin Level 2.8 g/dL (3.5-5.2); Alkaline Phosphatase 239 IU/L (40-130); Anion Gap 19.6 (5-19); Aspartate Amino Transferase 41 U/L (0-40); Blood Urea Nitrogen 51 mg/dL (8-23); Calcium 9.8 mg/dL (8.5-10.5); Carbon Dioxide 21 mmol/L (22-29); Chloride 101 mmol/L (98-107); Globulin 2.1 g/dL (1.3-4.6); Glucose 300 mg/dL (65-115); Osmolality Calculated 309 mOsm/kg (285-295); Potassium 4.6 mmol/L (3.5-5.1); Sodium 137 mmol/L (136-145); Total Bilirubin 0.4 mg/dL (0.15-1.2); Total Protein 4.9 g/dL (6.6-8.7)
[2021-05-15] MEDS: piperacillin-tazobactam 3.375 GM in sodium chloride 0.9% (plus) 50 ML IV ×2 (05:19→17:29)
[2021-05-15] MEDS: amiodarone 200 mg Tablet PO ×2 (05:20→17:29)
[2021-05-15] MEDS: pantoprazole 40 mg SDV IVP ×2 (05:20→17:29)
[2021-05-15] MEDS: linezolid premix 600 MG/300 ML PREMIX 300 MG IV ×2 (05:32→17:43)
[2021-05-15 05:44] LABS: ABG PCO2 55.9 mmHg (35-45); ABG PH Result 7.21 (7.35-7.45); Alveolar-Arterial Oxygen Gradi 64.4 mmHg (5-10); Arterial Blood Gas Hematocrit 26.7 % (42-52); Base Excess ABG -5.3 mmol/L (-2.0-2.0); Blood Gas Operator Identificat JB; Blood Gas Sample Type Arterial; Carboxyhemoglobin 0.9 %THgb (0.4-20.1); HCO3 ABG 22.6 mmol/L (22-26); HGB O2 Sat 94.2 % (95-100); Ionized Calcium Level - ABG 1.4 mmol/L (1.1-1.4); Methemoglobin 0.8 % (0.4-1.5); Oxygen Device VENT; Oxygen Saturation ABG 95.8; PO2 ABG 79.9 mmHg (80.0-100.0); Potassium Level - ABG 4.4 mmol/L (3.5-5.0); Total Hemoglobin 8.7 g/dL (14-18)
--- NOTE | 2021-05-15 06:00 | XR_ITS ---
WS: [id number] Acute abdomen series, portable, 05/15/2021 Clinical Data: gastric distention, assess for ileus, obstruction Comparison: [facility], 05/03/2021, portable chest, 05/14/2021. Findings: There are bilateral patchy opacifications unchanged. The heart is normal. The endotracheal tube and nasogastric tube are in good position. No nodules or masses are seen. The pulmonary vascular ity is not increased. There are small bilateral pleural effusions. Monitor leads are on the chest wal l. The nasogastric tube appears to end in the stomach. There is contrast material overlying the stomach. The left ureteral catheter is in good position. There is a right femoral catheter which ends at the level of the L4-L5 disc level. No free air is seen beneath the diaphragms. There is air in the colon but no distended bowel. A left hip prosthesis is present. XR/XR acute abdomen series 70607 Impression: 1. Satisfactory position of nasogastric tube and endotracheal tube. 2. Patchy bilateral opacities in both lungs consistent with pneumonia. 3. Satisfactory position of left ureteral catheter. 4. Right femoral catheter. 5. Negative for bowel dilatation or obstruction.
[2021-05-15] MEDS: EPINEPHrine 2.5 MG in sodium chloride 0.9% 250 ML 36.36 MG IV (06:09)
--- NOTE | 2021-05-15 07:00 | PC.NURSE ---
Report received. Pt remains intubated paralyzed and sedated. Vasopressin 0.04mcg/min, Epinephrine at 6 mcg/min, Levophed at 30 mcg/min, Versed at 2mg/hr , Fentanyl at 100 mcg/hr and Nimbex at 0.3 mcg/kg/min. Per report Physiciaans aware of LEvophed infusing over max rate 20 mcg/min. Noted Precedex still infusing on SEP and discontinued in SEP, no Precedex noted in room. Anuria noted, Physicians aware. BIS noted to be 40's. TOF not done as pt compliant with vent, BIS in 40's and Nimbex gtt at a minimal rate.
[2021-05-15 07:08] LABS: White Blood Count 30.2 10^3/uL (4.0-10.0)
[2021-05-15 07:09] LABS: Slide Review Slide Review Perform
--- NOTE | 2021-05-15 08:07 | PC.SOCIAL ---
IMM Not Updated Pg. 2 of IMM Not updated, patient not anticipated to discharge within the next 48hours.
[2021-05-15] MEDS: acetaminophen 325 mg Tablet 650 MG PO (09:31)
[2021-05-15] MEDS: aspirin 81 mg EC Tablet PO (09:31)
[2021-05-15] MEDS: norepinephrine 8 MG in dextrose 5 % 500 ML 110.49 MG IV (09:35)
--- NOTE | 2021-05-15 10:26 | PC.CHAP ---
Pastoral Care Encounter/Spiritual Assessment Type of Contact [] Declined food management aide visit [] Patient/Family/Request visit [] Outpatient visit [] Follow-up visit [] Physician referral [] Code/Alert [x] Routine visit [] Staff referral [] Actively dying [] Patient sleeping [] Family support [] [] Out of room [] Palliative care [] [] Receiving care in room [] Pre-surgical visit [] Trauma [] Long length of stay [x] ICU visit [] Other: Relational/Emotional Strength [] Patient feels connected with others/family/visitors/staff [] Distress [] Loneliness/isolation [] Abandonment Spirituality of Patient [] Person of Nadia [] Attends Uatsdin of their Nadia [] Believes in Prayer [] Reads Bible or Muslim materials [] There are Spiritual issues to be addressed Bilingual Medical Receptionist Interventions [x] Prayer [] Active listening [] Non-anxious presence [] Spiritual/emotional support [] Crisis/trauma care [] Spiritual counseling [] Bereavement support [] Provided bereavement packet [] Provided Bible/devotional materials [] Provided toy/stuffed animal, coloring book to patient or family member [] Provided Communion [] Anointing/[place] [] Salvation [x] Completed spiritual assessment [] Other: Impact on Illness or Injury [] Angry [] Fearful [] Anxious [] Often cries [] Exhaustion [] Unable to work [] Unable to attend congregational [] Unable to walk/stand [] Unable to read [] Unable to drive [] Unable to eat/drink [] Unable to sleep [] Unable to be with family [] Patient intubated [] Other: Summary Time spent with patient
[2021-05-15 12:23] LABS: Glucose Point of Care 288 mg/dL (70-110)
--- NOTE | 2021-05-15 12:25 | P.PN_ITS ---
Subjective Subjective: Interval history: Sedated, intubated, not in distress. Vitals/I&O/Wt Last Vital Signs Temp 99.4 F 05/15/21 11:00 Pulse 100 05/15/21 11:00 Resp 18 05/15/21 11:00 BP 125/47 05/15/21 11:00 Pulse Ox 97 05/15/21 11:00 05/14/21 05/15/21 05/15/21 22:59 06:59 14:59 Intake Total 1443.853 / 7803.494 5441.549 / 4584.734 559.717 / 559.717 Output Total 250 / 250 5 / 255 226 / 226 Balance 1193.853 / 5694.701 5958.549 / 4329.734 333.717 / 333.717 Physical Exam Narrative: EXAM NARRATIVE: Following cardiopulmonary arrest. Const: COMMON NORMALS: no acute distress, patient oriented x3 and alert GENERAL APPEARANCE: cooperative and frail appearing ORIENTATION/CONSCIOUSNESS: Yes awake HENMT: COMMON NORMALS: oropharynx normal Neck/C-Spine: COMMON NORMALS: no JVD Resp: COMMON NORMALS: normal respiratory effort AUSCULTATION: rhonchi and wheezes Cardio: COMMON NORMALS: no JVD, S1 normal heart sound present, S2 normal heart sound present and No murmurs present (Cardio) HEART SOUNDS: S1 normal heart sound present and S2 normal heart sound present OTHER: Intermittent LBBB on monitor GI: COMMON NORMALS: Normal to inspection, nondistended, normoactive bowel sounds present, Soft to palpation and non-tender PALPATION: Yes Soft to palpation Extremity: COMMON NORMALS: no joint enlargement and no pedal edema Neuro: COMMON NORMALS: patient oriented x3 and moves all extremities SENSORIUM/ORIENTATION: Yes alert Skin: COMMON NORMALS: no rashes or lesions noted GENERAL SKIN EXAM: no rashes or lesions noted Urinary Catheter Management^: Flynn: Cath Placed During This Visit: yes, but has since been removed by the nurse Reason for Continuing Indwelling Catheter: Other Urinary Catheter Date of Insertion: 05/11/21 Urinary Catheter Time of Insertion: 15:30 Date Urinary Catheter Removed: 05/10/21 Time Urinary Catheter Discontinued: 16:00 Data : 05/15/21 03:25 05/15/21 03:25 Micro: Microbiology 05/14/21 04:30 Gram Stain - Final Sputum - Endotracheal Tube Aspirate Sputum Culture - Preliminary Gram Negative Rods Yeast species 05/14/21 Unknown Gram Stain - Final Lung Right Middle Lobe Bronchoalveolar Lavage Culture - Preliminary Gram Negative Rods Yeast species 05/14/21 13:55 Blood Culture - Preliminary Blood SPECIMEN COLLECTED 05/14/21 13:45 Blood Culture - Preliminary Blood SPECIMEN COLLECTED A&P Assessment and plan (1) Septic shock: Small improvement in pressor requirement, down to 29 of Levophed, with some increase in AP to 6, currently down to 5, with continuous vasopressin infusion. Stress dose hydrocortisone. Mild improvement in oxygenation, FiO2 requirement down to 80%, and maintain saturation, perhaps may be able to wean down further. Overall condition remains critical. Now also with new CY. Leukocytosis worsened up to 30.2. Soft stool in colostomy, no watery diarrhea. Discussed with his daughter at bedside. He is doing slightly better, appears to be moving in the right direction, however, is still very severely ill. Given his overall failure to thrive even prior to cardiopulmonary arrest, with no significant progress with treatment and rehabilitation over the last 2 months, it would be certainly very difficult to predict that he would have a good recovery after the current worsened episode of illness. Unfortunately it is very likely for failure to thrive to persist, even if he gets out of the acute illness currently. Discussed these considerations with his daughter. Discussed consideration of continuation of aggressive care or possible transition to comfort based measures. She is going to discuss further with other family members. Will let us know with regards to their advance care goals. With recurrent aspiration, with inadequate airway protection in case of continued aggressive care he would likely need a feeding tube. Depending on renal function, with ongoing septic shock, oliguria, may be at risk of needing MANAGEMENT EXPERT. Continue broad-spectrum antibiotic coverage. BAL culture with gram-negative rods, some yeast species. Doubt additional fungal infection at the moment, he is showing improvement so far without antifungal coverage, but continue to monitor, consider additional in case of clinical deterioration. Previously septic shock during earlier part of this admission had resolved. Prior to arrest persistent hypoxia, on 4 L oxygen, although slightly better down from 6 L. Originally septic shock during earlier part of this admission secondary to UTI/pneumonia. No perinephric abscess. No obstruction. Blood culture:NTD MRSA PCR: Positive Bacterial antigen panel negative Urine culture: Pansensitive E. coli S/P hydrocortisone CT scan abdomen pelvis shows satisfactory position of left ureteral stent, 5 mm ureteral calculus is present in the stent in the mid ureter Status post PRBC transfusion. Continue to monitor urine output Full code Lovenox for DVT prophylaxis on hold, SCDs Status: Acute (2) Cardiopulmonary arrest: EF normal, no RWMA. Trop elevation likely myocardial injury with demand ischemia with hypoxic respiratory failure, septic shock. Eventually once able to would benefit from additional cardiac risk stratification. Suspected respiratory cause following aspiration, subsequently with PEA/systole arrest, received 4 times epi. Intermittently left bundle branch block which was noted previously on EKG. Status: Acute (3) Acute anemia: -Acute anemia concerning for slow GI bleed as patient has been on Lovenox, Hemoccult positive stools, Responded well to PRBC transfusion. -Lovenox currently placed on hold -Monitor hemodynamics -Protonix, Carafate Status: Acute (4) Atrial fibrillation with RVR: On amiodarone 200 mg twice daily Currently Heart rate is well controlled. Lovenox 80 twice daily on hold Status: Acute (5) Decompensated heart failure: Resolved Minimal pitting edema Lasix on hold Monitor intake output charting. Status: Acute (6) Elevated troponin I level: Elevated troponin likely secondary to type II MS secondary to sepsis and A. fib with RVR Troponin trend without significant delta. Status: Acute (7) CY (acute kidney injury): Resolved CY likely secondary to ATN secondary to sepsis. Sufficient IV fluid replacement done. Monitor BMP Monitor intake output Urine electrolytes Avoid nephrotoxic's CT abdomen and pelvis has failed to show any hydronephrosis Status: Acute (8) Anemia: Acute on chronic anemia Status: Acute (9) Left ureteral calculus: S/p ureteral stent. Follow urology as an outpatient Status: Acute (10) Hyperkalemia: Resolved. 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 Critical Care Time: The high probability of a clinically significant, sudden or life threatening deterioration of the patient's respiratory system(s) with respiratory failure, septic shock, persistent pressor requirement required my full and direct attention, intervention and personal management. The critical care time is as shown. This time is in addition to time spent performing any reported procedures but includes the following: x Data and vital sign review and interpretation x Patient assessment, examination and intervention x Documentation x Medication orders and management Discussed with nursing staff, family, pulm/crit service. 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
[2021-05-15] MEDS: insulin lispro 100 unit/1 mL SUBCUT ×2 (12:50→17:28)
[2021-05-15 12:51] LABS: ABG PCO2 48.4 mmHg (35-45); ABG PH Result 7.26 (7.35-7.45); Arterial Blood Gas Hematocrit 25.9 % (42-52); Base Excess ABG -5.1 mmol/L (-2.0-2.0); Blood Gas Operator Identificat CAK; Blood Gas Sample Site ARTLINE; Blood Gas Sample Type Arterial; HCO3 ABG 21.7 mmol/L (22-26); Oxygen Device VENT
--- NOTE | 2021-05-15 13:18 | PM.PN ---
Subjective Subjective: Interval history: The patient was seen and examined. He is intubated, sedated, paralyzed. His oxygenation has improved overnight. The blood gas this morning revealed respiratory acidosis. The ventilator adjustments were made. His pressor requirement has come down overnight. Unfortunately, there had not been a significant increase in urine output. The patient has mild acidosis and does not have any indication for emergent dialysis. His white count had jumped which is not unexpected. Chest x-ray revealed bilateral infiltrate. Medications: Reviewed: Yes Vitals/I&O/Wt Last Vital Signs Temp 100.7 F H 05/15/21 12:45 Pulse 97 05/15/21 12:45 Resp 18 05/15/21 12:45 BP 134/52 05/15/21 12:45 Pulse Ox 97 05/15/21 12:45 05/14/21 05/15/21 05/15/21 22:59 06:59 14:59 Intake Total 1443.853 / 8721.365 2409.549 / 4584.734 728.892 / 728.892 Output Total 250 / 250 5 / 255 226 / 226 Balance 1193.853 / 9358.253 9413.549 / 4329.734 502.892 / 502.892 Physical Exam Narrative: EXAM NARRATIVE: General: The patient is intubated, sedated, paralyzed Neck: Unable to assess JVD Respiratory: Auscultation: Diffuse crackles bilaterally, no wheezing or rhonchi Cardiovascular: Irregularly irregular rhythm, variable first heart sound, no murmur Abdomen: Soft, nondistended, positive bowel sound, colostomy site looks intact Skin: No rash Neuro: Unable to assess Urinary Catheter Management^: Flynn: Cath Placed During This Visit: yes, but has since been removed by the nurse Reason for Continuing Indwelling Catheter: Other Urinary Catheter Date of Insertion: 05/11/21 Urinary Catheter Time of Insertion: 15:30 Date Urinary Catheter Removed: 05/10/21 Time Urinary Catheter Discontinued: 16:00 Data : 05/15/21 03:25 05/15/21 03:25 Micro: Microbiology 05/14/21 04:30 Gram Stain - Final Sputum - Endotracheal Tube Aspirate Sputum Culture - Preliminary Gram Negative Rods Yeast species 05/14/21 Unknown Gram Stain - Final Lung Right Middle Lobe Bronchoalveolar Lavage Culture - Preliminary Gram Negative Rods Yeast species 05/14/21 13:55 Blood Culture - Preliminary Blood SPECIMEN COLLECTED 05/14/21 13:45 Blood Culture - Preliminary Blood SPECIMEN COLLECTED Attestation for Other Data: I personally reviewed and interpreted the following: Other data: I have reviewed the patient's laboratory, microbiologic and neurologic data. The patient has worsening leukocytosis which is not unexpected. Mild acidosis. The creatinine and BUN is going up. The patient is hyperglycemic. The endotracheal aspirate and bronchoalveolar lavage culture is growing gram-negative rods. The yeast is likely contaminant. A&P Assessment and plan (1) Cardiopulmonary arrest: This is an 85-year-old gentleman chronically debilitated who suffered from PEA arrest on May 14 with subsequent ROSC. The etiology of the cardiac arrest is likely secondary to acute hypoxic respiratory failure possibly after aspiration. The patient required 4 doses of epi, bicarb, calcium chloride. Post arrest, the patient was able to follow commands and had good mental status. Status: Acute (2) Septic shock: The patient has done fairly well overnight. His pressure requirement is coming down. I think we are going to be able to get rid of epinephrine soon. We will continue to come down on the pressors with a goal of maintaining MAP of 65. The blood culture has been negative. The BAL is growing gram-negative rods. For now the patient is covered for both MRSA and gram-negative's with Zosyn. We will optimize the antibiotic regimen once we have the sensitivity available. Status: Acute (3) Pneumonia: The patient underwent bronchoscopic evaluation. There was airway collection in the right bronchus intermedius. The airways are clear. We will continue with the broad-spectrum antibiotic for the time being. Status: Acute (4) ARDS (adult respiratory distress syndrome): The patient is doing better today. He has mild respiratory acidosis which will be fixed by ventilator management. His oxygen requirement has come down. We will going to get it of the paralytics and keep the patient comfortable with sedative medications. Status: Acute (5) Acute kidney injury: There had been no significant improvement in urinary output. His BUN and creatinine are going up. Given the patient's very minimal muscle mass the elevation in creatinine is less than expected. The patient is about 4 L fluid positive. Overall, the patient does not have any indication for dialysis at this time however this may become necessary in the future if the urine output does not get better. Status: Acute (6) Atrial fibrillation: The patient is in A. fib and heart rate less than 100. For now he is on prophylactic Lovenox which we can address later based on what the family decides regarding his future CODE STATUS and plan of action. 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 Fwd Diagnoses Cardiopulmonary arrest I46.9 Septic shock A41.9; R65.21 Pneumonia J18.9 ARDS (adult respiratory distress syndrome) J80 Acute kidney injury N17.9 Atrial fibrillation I48.91 Time Spent (min) 33
--- NOTE | 2021-05-15 14:05 | PC.NURSE ---
Mary gives consent for son Mark to receive information about patient.
[2021-05-15] MEDS: norepinephrine 8 MG in dextrose 5 % 500 ML 80.01 MG IV (14:34)
--- NOTE | 2021-05-15 15:06 | PC.NURSE ---
Patient urinary gracia flushed with 10 mL of normal saline. Urine output only what was flushed. Scanned bladder and has 13 mL in lower left quadrant.
[2021-05-15] MEDS: EPINEPHrine 2.5 MG in sodium chloride 0.9% 250 ML 24.24 MG IV (15:25)
[2021-05-15 17:27] LABS: Glucose Point of Care 222 mg/dL (70-110)
[2021-05-15] MEDS: enoxaparin 40 mg/0.4 mL Syringe SUBCUT (17:29)
--- NOTE | 2021-05-15 19:12 | PC.NURSE ---
Shift Note Frequent safety and comfort rounds continue. Orders and/or nursing care completed as indicated. Patient monitored for response to intervention and treatment(s). Education provided includes care plan, medication, and new results. Patient unable to comprehend. IV medications titrated per protocol.
[2021-05-15] MEDS: norepinephrine 8 MG in dextrose 5 % 500 ML 64.77 MG IV (21:38)
[2021-05-16] VITALS (94 sets, daily range): BP systolic 87–150; BP diastolic 36–64; PULSE 74–94; RESP 20–22; TEMP 36.3–36.9; O2SAT 91–96
[2021-05-16] MEDS: insulin lispro 100 unit/1 mL SUBCUT ×4 (00:06→17:27)
[2021-05-16 00:08] LABS: Glucose Point of Care 234 mg/dL (70-110)
[2021-05-16 03:39] LABS: Hematocrit 22.2 % (42.0-52.0); Mean Corpuscular HGB Conc 31.5 g/dL (30.0-36.0); Mean Corpuscular Volume 85.7 fl (80-94); Mean Platelet Volume 10.4 fL (7.4-10.4); Platelet Count 142 10^3/cmm (130-400); Red Blood Count 2.59 10^6/uL (4.1-5.3); Red Cell Distribution Width 21.2 % (12.1-15.1); White Blood Count 22.8 10^3/uL (4.0-10.0)
[2021-05-16 04:15] LABS: Alanine Aminotransferase 6 U/L (0-41); Albumin Level 2.4 g/dL (3.5-5.2); Alkaline Phosphatase 279 IU/L (40-130); Anion Gap 22.6 (5-19); Aspartate Amino Transferase 26 U/L (0-40); Blood Urea Nitrogen 64 mg/dL (8-23); Calcium 8.9 mg/dL (8.5-10.5); Carbon Dioxide 17 mmol/L (22-29); Chloride 94 mmol/L (98-107); Globulin 2.3 g/dL (1.3-4.6); Glucose 183 mg/dL (65-115); Magnesium 1.7 mg/dL (1.7-2.3); Osmolality Calculated 291 mOsm/kg (285-295); Potassium 4.6 mmol/L (3.5-5.1); Sodium 129 mmol/L (136-145); Total Bilirubin 0.4 mg/dL (0.15-1.2); Total Protein 4.7 g/dL (6.6-8.7)
[2021-05-16 04:22] LABS: ABG PCO2 37.5 mmHg (35-45); ABG PH Result 7.33 (7.35-7.45); Alveolar-Arterial Oxygen Gradi 35.1 mmHg (5-10); Arterial Blood Gas Hematocrit 23.7 % (42-52); Base Excess ABG -5.6 mmol/L (-2.0-2.0); Blood Gas Operator Identificat JB; Blood Gas Sample Type Arterial; HCO3 ABG 19.8 mmol/L (22-26); HGB O2 Sat 94.8 % (95-100); Ionized Calcium Level - ABG 1.3 mmol/L (1.1-1.4); Methemoglobin 0.6 % (0.4-1.5); Oxygen Device VENT; Oxygen Saturation ABG 96.4; PO2 ABG 71.5 mmHg (80.0-100.0); Potassium Level - ABG 4.5 mmol/L (3.5-5.0); Total Hemoglobin 7.7 g/dL (14-18)
[2021-05-16] MEDS: hydrocortisone 100 mg/2 mL SDV 50 MG IVP ×4 (04:26→21:34)
[2021-05-16 05:06] LABS: Absolute Neutrophil 17.1 10^3/cmm (1.4-6.5); Absolute Segmented Neutrophil 13.7 10/cmm (1.6-7.1); Band Neutrophils Absolute 3.4 10^3/cmm (0.0-1.2); Eosinophils 0 %; Lymphocytes 13 %; Monocytes Absolute 0.9 10^3/cmm (0.1-0.6); Platelet Estimate Normal (Normal); Segmented Neutrophils 60 %; Total Cells Counted 100 (0-100)
[2021-05-16] MEDS: pantoprazole 40 mg SDV IVP ×2 (05:31→17:27)
[2021-05-16] MEDS: amiodarone 200 mg Tablet PO ×2 (05:31→17:27)
[2021-05-16] MEDS: piperacillin-tazobactam 3.375 GM in sodium chloride 0.9% (plus) 50 ML IV ×2 (05:32→17:27)
[2021-05-16] MEDS: linezolid premix 600 MG/300 ML PREMIX 300 MG IV ×2 (05:34→17:30)
[2021-05-16] MEDS: norepinephrine 8 MG in dextrose 5 % 500 ML 53.34 MG IV ×2 (06:17→16:56)
[2021-05-16 06:43] LABS: Glucose Point of Care 198 mg/dL (70-110)
[2021-05-16] MEDS: ipratropium-albuterol 3 mL Neb INHALATION ×3 (08:00→21:31)
--- NOTE | 2021-05-16 08:00 | PC.NURSE ---
Assessment Abdomen soft throughout. Lower right quadrant of the abdomen has a firm area.
--- NOTE | 2021-05-16 08:02 | PC.NURSE ---
Turned patient. Patient opened eyes to pain when head of bed was lowered. Patient has slight movement of right hand when moved and turned. Patient repositioned and no movement noted after repositioning was done.
[2021-05-16] MEDS: aspirin 81 mg EC Tablet PO (08:20)
--- NOTE | 2021-05-16 08:28 | PC.NURSE ---
Rounded with Dr. Grant. Discussed changes in IV drip medication. Discussed patient response to pain. Lowered Fentanyl to 25mcg/mL. Discussed urine output yesterday and last night.
--- NOTE | 2021-05-16 10:07 | PC.CHAP ---
Pastoral Care Encounter/Spiritual Assessment Type of Contact [] Declined motel front desk attendant visit [] Patient/Family/Request visit [] Outpatient visit [] Follow-up visit [] Physician referral [] Code/Alert [x] Routine visit [] Staff referral [] Actively dying [] Patient sleeping [] Family support [] [] Out of room [] Palliative care [] [x] Receiving care in room [] Pre-surgical visit [] Trauma [] Long length of stay [x] ICU visit [x] Other: vent Relational/Emotional Strength [] Patient feels connected with others/family/visitors/staff [] Distress [] Loneliness/isolation [] Abandonment Spirituality of Patient [] Person of Nadia [] Attends Rastafarian of their Nadia [] Believes in Prayer [] Reads Bible or Jain materials [] There are Spiritual issues to be addressed Payroll Accounting Clerk Interventions [] Prayer [] Active listening [] Non-anxious presence [] Spiritual/emotional support [] Crisis/trauma care [] Spiritual counseling [] Bereavement support [] Provided bereavement packet [] Provided Bible/devotional materials [] Provided toy/stuffed animal, coloring book to patient or family member [] Provided Communion [] Anointing/Laurel [] Salvation [] Completed spiritual assessment [] Other: Impact on Illness or Injury [] Angry [] Fearful [] Anxious [] Often cries [] Exhaustion [] Unable to work [] Unable to attend nondenominational [] Unable to walk/stand [] Unable to read [] Unable to drive [] Unable to eat/drink [] Unable to sleep [] Unable to be with family [] Patient intubated [] Other: Summary Time spent with patient Pastoral Care Encounter/Spiritual Assessment Type of Contact [] Declined motel front desk attendant visit [] Patient/Family/Request visit [] Outpatient visit [] Follow-up visit [] Physician referral [] Code/Alert [] Routine visit [] Staff referral [] Actively dying [] Patient sleeping [] Family support [] [] Out of room [] Palliative care [] [] Receiving care in room [] Pre-surgical visit [] Trauma [] Long length of stay [] ICU visit [] Other: Relational/Emotional Strength [] Patient feels connected with others/family/visitors/staff [] Distress [] Loneliness/isolation [] Abandonment Spirituality of Patient [] Person of Nadia [] Attends Rastafarian of their Nadia [] Believes in Prayer [] Reads Bible or Jain materials [] There are Spiritual issues to be addressed Payroll Accounting Clerk Interventions [x] Prayer [] Active listening [] Non-anxious presence [] Spiritual/emotional support [] Crisis/trauma care [] Spiritual counseling [] Bereavement support [] Provided bereavement packet [] Provided Bible/devotional materials [] Provided toy/stuffed animal, coloring book to patient or family member [] Provided Communion [] Anointing/Laurel [] Salvation [x] Completed spiritual assessment [] Other: Impact on Illness or Injury [] Angry [] Fearful [] Anxious [] Often cries [] Exhaustion [] Unable to work [] Unable to attend nondenominational [] Unable to walk/stand [] Unable to read [] Unable to drive [] Unable to eat/drink [] Unable to sleep [] Unable to be with family [] Patient intubated [] Other: Summary Time spent with patient
--- NOTE | 2021-05-16 10:49 | PC.NURSE ---
Assessment Edema noted up to abdomen.
[2021-05-16 11:52] LABS: Glucose Point of Care 192 mg/dL (70-110)
--- NOTE | 2021-05-16 13:55 | PC.NURSE ---
Femoral art ine positional. Slight kink near insertion site noted. Waveform corrected after dressing removed. Sterile technique and hand hygiene observed. Sorbaview Contour Shiled dressing applied. Tape used to secure and protect against further kinks.
--- NOTE | 2021-05-16 14:23 | P.PN_ITS ---
Subjective Subjective: Interval history: Intubated, weaning down on sedation. Intermittently opening eyes, not able to answer questions or follow commands. Vitals/I&O/Wt Last Vital Signs Temp 98.3 F 05/16/21 12:00 Pulse 89 05/16/21 14:02 Resp 20 H 05/16/21 14:01 BP 144/55 05/16/21 12:45 Pulse Ox 94 05/16/21 14:01 05/15/21 05/16/21 05/16/21 22:59 06:59 14:59 Intake Total 1138.185 / 2305.019 2637.760 / 4942.779 569.015 / 569.015 Output Total 50 / 59 134 / 134 Balance 1129.185 / 2296.019 2587.760 / 4883.779 435.015 / 435.015 Physical Exam Const: COMMON NORMALS: no acute distress GENERAL APPEARANCE: patient mechanically ventilated ORIENTATION/CONSCIOUSNESS: Yes patient obtunded HENMT: COMMON NORMALS: oropharynx normal Neck/C-Spine: COMMON NORMALS: no JVD Resp: COMMON NORMALS: normal respiratory effort and clear to auscultation bilaterally AUSCULTATION: clear to auscultation bilaterally and diminished lung sounds Cardio: COMMON NORMALS: no JVD, S1 normal heart sound present, S2 normal heart sound present and No murmurs present (Cardio) HEART SOUNDS: S1 normal heart sound present and S2 normal heart sound present GI: COMMON NORMALS: Normal to inspection, nondistended, normoactive bowel sounds present, Soft to palpation and non-tender PALPATION: Yes Soft to palpation Extremity: COMMON NORMALS: no joint enlargement GENERAL: Yes edema (1+ diffuse) Skin: COMMON NORMALS: no rashes or lesions noted GENERAL SKIN EXAM: no rashes or lesions noted Urinary Catheter Management^: Flynn: Cath Placed During This Visit: yes, but has since been removed by the nurse Reason for Continuing Indwelling Catheter: Accurate Measurement of Urinary Output in Critically Ill Patients Urinary Catheter Date of Insertion: 05/11/21 Urinary Catheter Time of Insertion: 15:30 Date Urinary Catheter Removed: 05/10/21 Time Urinary Catheter Discontinued: 16:00 Data : 05/16/21 03:25 05/16/21 03:25 Micro: Microbiology 05/14/21 Unknown Gram Stain - Final Lung Right Middle Lobe Bronchoalveolar Lavage Culture - Preliminary Pseudomonas aeruginosa Yeast species 05/14/21 04:30 Gram Stain - Final Sputum - Endotracheal Tube Aspirate Sputum Culture - Preliminary Pseudomonas aeruginosa Yeast species 05/14/21 Unknown Fungal Smear - Preliminary Pleural Fluid 05/14/21 13:45 Blood Culture - Preliminary Blood NEGATIVE TO DATE 05/14/21 13:55 Blood Culture - Preliminary Blood NEGATIVE TO DATE A&P Assessment and plan (1) Septic shock: Septic shock is gradually improving. Weaned off epinephrine. Coming down on Levophed. We are stopping vasopressin. Continue to wean down as tolerating. Continue antibiotic coverage with Zosyn. Pseudomonas growing in BAL cultures as well as yeast species, but he is improving. Weaning off sedation, stopped all sedation currently. Monitor mental status. Monitor I&O. Oliguria following acute kidney injury. Worsening creatinine today. Lasix challenge may help with prognosis with regards to recovery from CY. Will give 60 mg IV x1. Discussed with his daughter, in case of pr ogressive worsening of renal function, persistent oliguria, may require temporary or permanent hemodialysis. With recurrent aspiration, with inadequate airway protection in case of continued aggressive care he would likely need a feeding tube. Discussed with daughter. Previously septic shock during earlier part of this admission had resolved. Prior to arrest persistent hypoxia, on 4 L oxygen, although slightly better down from 6 L. Originally septic shock during earlier part of this admission secondary to UTI/pneumonia. No perinephric abscess. No obstruction. Blood culture:NTD MRSA PCR: Positive Bacterial antigen panel negative Urine culture: Pansensitive E. coli S/P hydrocortisone CT scan abdomen pelvis shows satisfactory position of left ureteral stent, 5 mm ureteral calculus is present in the stent in the mid ureter Status post PRBC transfusion. Continue to monitor urine output Full code Lovenox for DVT prophylaxis on hold, SCDs Status: Acute (2) Cardiopulmonary arrest: EF normal, no RWMA. Trop elevation likely myocardial injury with demand ischemia with hypoxic respiratory failure, septic shock. Eventually once able to would benefit from additional cardiac risk stratification. Suspected respiratory cause following aspiration, subsequently with PEA/systole arrest, received 4 times epi. Intermittently left bundle branch block which was noted previously on EKG. Status: Acute (3) Acute anemia: -Acute anemia concerning for slow GI bleed as patient has been on Lovenox, Hemoccult positive stools, Responded well to PRBC transfusion. -Lovenox currently placed on hold -Monitor hemodynamics -Protonix, Carafate Status: Acute (4) Atrial fibrillation with RVR: On amiodarone 200 mg twice daily Currently Heart rate is well controlled. Lovenox 80 twice daily on hold Status: Acute (5) Decompensated heart failure: Resolved Minimal pitting edema Lasix on hold Monitor intake output charting. Status: Acute (6) Elevated troponin I level: Elevated troponin likely secondary to type II PA secondary to sepsis and A. fib with RVR Troponin trend without significant delta. Status: Acute (7) CY (acute kidney injury): Again acute kidney injury. With some history of chronic kidney disease. ATN, oliguria. Lasix challenge may give an idea of prognosis of recovery from CY. Otherwise as per discussion with family today may require hemodialysis on temporary but cannot exclude permanent basis. Reassess renal function. Monitor I&O. In case continue to deterioration, obtain renal consultation. Status: Acute (8) Anemia: Acute on chronic anemia. Hb down to 7. In part possibly dilutional given oliguria. Reassess, may require transfusion. Status: Acute (9) Left ureteral calculus: S/p ureteral stent. Follow urology as an outpatient Status: Acute (10) Hyperkalemia: Resolved. Status: Acute (11) Pneumonia: Status: Acute (12) Debilitated patient: Currently under the care of his daughter Status: Acute (13) Prostate cancer: Has history of prostate cancer, on hormonal therapy, no evidence of metastasis Status: Acute (14) Colostomy care: Has a colostomy in place Status: Acute (15) GI bleed: Status: Acute (16) Left fibular fracture: -Currently weightbearing as tolerated Status: Acute (17) Physical deconditioning: Status: Acute (18) Protein calorie malnutrition: Status: Acute Attestations Medical Necessity Statement*: Continue admission for assessment management of septic shock, with acute renal failure, oliguria, hypoxic respite failure, weaning down on sedation, mechanical ventilatory support. Coding Level of Care Code Acute Rotary Shear Operator for [facility] Diagnoses Septic shock A41.9; R65.21 Cardiopulmonary arrest I46.9 Acute anemia D64.9 Atrial fibrillation with RVR I48.91 Decompensated heart failure I50.9 Elevated troponin I level R77.8 CY (acute kidney injury) N17.9 Anemia D64.9 Left ureteral calculus N20.1 Hyperkalemia E87.5 Pneumonia J18.9 Debilitated patient R53.81 Prostate cancer C61 Colostomy care Z43.3 GI bleed K92.2 Left fibular fracture S82.402A Physical deconditioning R53.81 Protein calorie malnutrition E46
[2021-05-16 14:39] LABS: Anion Gap 21.3 (5-19); Blood Urea Nitrogen 73 mg/dL (8-23); Calcium 8.8 mg/dL (8.5-10.5); Carbon Dioxide 17 mmol/L (22-29); Chloride 91 mmol/L (98-107); Glucose 160 mg/dL (65-115); Osmolality Calculated 285 mOsm/kg (285-295); Potassium 4.3 mmol/L (3.5-5.1); Sodium 125 mmol/L (136-145)
[2021-05-16] MEDS: FUROsemide 10 mg/mL SDV 10mL 60 MG IVP (14:53)
--- NOTE | 2021-05-16 15:09 | PC.NURSE ---
Patient's arms are flaccid when moved. After movement and laying the arm on the bed the patient's arm spasms briefly. The patient grimaces and clamps down on the oral swab and/or toothbrush when oral care is provided. When suctioning the patient does not have a gag reflex. The patient opens eyes to pain and when the patient is repositioned.
[2021-05-16 17:27] LABS: Glucose Point of Care 155 mg/dL (70-110)
[2021-05-16] MEDS: enoxaparin 30 mg/0.3 mL Syringe SUBCUT (17:30)
--- NOTE | 2021-05-16 17:52 | PM.PN ---
Subjective Subjective: Interval history: The patient was seen and examined. His pressor requirement has come down. Currently the patient is on 50 mcg of Levophed. Bronchoalveolar lavage is growing Pseudomonas. The patient is off of all sedation, not very responsive at this time. The patient is developing worsening acidosis and hyponatremia. Very minimal urine output. Medications: Reviewed: Yes Vitals/I&O/Wt Last Vital Signs Temp 97.9 F 05/16/21 16:00 Pulse 85 05/16/21 16:30 Resp 20 H 05/16/21 17:46 BP 129/52 05/16/21 16:30 Pulse Ox 95 05/16/21 17:46 05/16/21 05/16/21 05/16/21 06:59 14:59 22:59 Intake Total 2637.760 / 4942.779 569.015 / 569.015 160.782 / 729.797 Output Total 50 / 59 137 / 137 Balance 2587.760 / 4883.779 432.015 / 432.015 160.782 / 592.797 Physical Exam Narrative: EXAM NARRATIVE: General: The patient is intubated, not sedated, not responsive Neck: Unable to assess JVD Respiratory: Auscultation: Crackles bilaterally, no wheezing or rhonchi, improved compared to before Cardiovascular: Irregularly irregular rhythm, variable first heart sound, no murmur Abdomen: Soft, nondistended, positive bowel sound, colostomy site looks intact Skin: No rash Neuro: Patient is unresponsive at this point. Urinary Catheter Management^: Flynn: Cath Placed During This Visit: yes, but has since been removed by the nurse Reason for Continuing Indwelling Catheter: Accurate Measurement of Urinary Output in Critically Ill Patients Urinary Catheter Date of Insertion: 05/11/21 Urinary Catheter Time of Insertion: 15:30 Date Urinary Catheter Removed: 05/10/21 Time Urinary Catheter Discontinued: 16:00 Data : 05/16/21 03:25 05/16/21 14:06 Micro: Microbiology 05/14/21 Unknown Gram Stain - Final Lung Right Middle Lobe Bronchoalveolar Lavage Culture - Preliminary Pseudomonas aeruginosa Yeast species 05/14/21 04:30 Gram Stain - Final Sputum - Endotracheal Tube Aspirate Sputum Culture - Preliminary Pseudomonas aeruginosa Yeast species 05/14/21 Unknown Fungal Smear - Preliminary Pleural Fluid 05/14/21 13:45 Blood Culture - Preliminary Blood NEGATIVE TO DATE 05/14/21 13:55 Blood Culture - Preliminary Blood NEGATIVE TO DATE Attestation for Other Data: I personally reviewed and interpreted the following: Other data: I have reviewed his laboratory, [facility] and radiologic data. The endotracheal aspirate and BAL is growing Pseudomonas and yeast. A&P Assessment and plan (1) Cardiopulmonary arrest: This is an 85-year-old gentleman chronically debilitated who suffered from PEA arrest on May 14 with subsequent ROSC. The etiology of the cardiac arrest is likely secondary to acute hypoxic respiratory failure possibly after aspiration. The patient required 4 doses of epi, bicarb, calcium chloride. Post arrest, the patient was able to follow commands and had good mental status. Currently the patient is off of sedation but not arousable at this point. This is likely secondary to sedation in the setting of renal failure. Status: Acute (2) Septic shock: The patient is doing much better. The septic shock is secondary to multifocal pneumonia with Pseudomonas aeruginosa. The patient is currently only on Levophed. Epinephrine and vasopressin are titrated off. Status: Acute (3) Pneumonia: See above Status: Acute (4) ARDS (adult respiratory distress syndrome): The patient is doing better today. His oxygen requirement has come down. Status: Acute (5) Acute kidney injury: There had been no significant improvement in urinary output. The BUN is going up. The patient is developing acidosis and hyponatremia. I am going to insert the dialysis catheter for dialysis likely tomorrow. Status: Acute (6) Atrial fibrillation: The patient is in A. fib and he is not in rapid ventricular response. For now he is on prophylactic Lovenox. Status: Acute Attestations Medical Necessity Statement*: Will defer to the primary team Coding Level of Care Code Acute Energy Scheduler for g [facility] Diagnoses Cardiopulmonary arrest I46.9 Septic shock A41.9; R65.21 Pneumonia J18.9 ARDS (adult respiratory distress syndrome) J80 Acute kidney injury N17.9 Atrial fibrillation I48.91 Time Spent (min) 33
--- NOTE | 2021-05-16 18:50 | XRR_ITS ---
PROCEDURE INFORMATION: Exam: XR Chest Exam date and time: 05/16/2021 6:50 PM Age: 85 years old Clinical indication: Device placement; Other: Hd catheter TECHNIQUE: Imaging protocol: XR of the chest. Views: 1 view. COMPARISON: CR XR chest 1V portable [id number] 05/14/2021 3:24 PM FINDINGS: Tubes, catheters and devices: There is a new right jugular central line present with tip overlying the SVC. Endotracheal tube and enteric tube appear unchanged. There is a small amount of contrast material in the stomach which was injected via the enteric tube. Lungs: Nonspecific bilateral pulmonary infiltrates, likely representing bilateral pneumonia. Pleural spaces: Minimal bilateral pleural effusions are suspected. Heart/Mediastinum: No cardiomegaly. Bones/joints: Unremarkable. XR/XR chest 1V portable [id number] IMPRESSION: 1. There is a new right jugular central line present with tip overlying the SVC. There is no associated pneumothorax. 2. Nonspecific bilateral pulmonary infiltrates, likely representing bilateral pneumonia. Right upper lobe infiltrate has improved when compared to 05/14/2021. Other infiltrates are unchanged. 3. Minimal bilateral pleural effusions are suspected. Radiation Dose CTDIVOL = (mGy): DLP = (mGy-cm)
[2021-05-16] MEDS: heparin,porcine 1,000 unit/mL INJ 1 mL 1000 UNIT IRRIGATION (18:51)
--- NOTE | 2021-05-16 18:58 | PM.ACPR ---
Procedure/Consent Time out: Time Out Performed: Yes Consent: Consent for Procedure: Consent obtained from other (indicate) (Daughter) Procedure Narrative: Name of the procedure: Right internal jugular hemodialysis catheter insertion under ultrasound guidance. Medications: Lidocaine 1% 5 mL. IV medications: None Consent: Obtained from his daughter Description of the procedure: The right IJ was identified under ultrasound guidance with collapsibility and lack of pulsatility. The site was prepared using sterile technique and the patient was positioned optimally. The skin, subcutaneous tissue was anesthetized with 1% lidocaine. The introducer needle was then advanced under direct ultrasound guidance to flashback was noted. Dark nonpulsatile blood was noted. The guidewire was advanced through the needle and confirmed to be in the internal jugular vein with ultrasound. Using Seldinger technique the right internal jugular hemodialysis catheter was inserted. The catheter was sutured in place. The insertion length was 16 cm. Complications: None Blood loss: 2 mL Chest x-ray: Pending Acute Procedures Epistaxis Control: Time out performed: Yes
--- NOTE | 2021-05-16 19:06 | PC.NURSE ---
Shift Note Frequent safety and comfort rounds continue. Orders and/or nursing care completed as indicated. Patient monitored for response to intervention and treatment(s). Education provided includes new orders, medications, and care plan. Patient unable to comprehend. Patient has slight movement in hands and gags when suctioned. Patient does not open eyes to verbal command. Dialysis catheter placed by Dr. Garcia.
--- NOTE | 2021-05-16 19:19 | PM.CONSULT ---
Providers/Reason For Consult Consulting Physician/Specialty*: shayy ricardo md/ telenephrology Reason for Consult*: CY, hyponatremia, metabolic acidosis Attending Physician: Rohit Grant Primary Care Provider: Felipe Bustos DO History of Present Illness History of Present Illness Darrian Boggs is a 85 year old male h/o cardiomyopathy, ureteral stent and nephrolihiasis, HTN, prostate ca, and colostomy. He was admitted on May 04, 2021w/ UTI and septic shock due to e. coli. The pt originally was in the ICU on diuretics, pressers, and abx ( Zosyn, levofloxacin and doxycycline.) Nasal MRSA PCR was positive on May 06. The Gram stain of endotracheal aspirate showed moderate yeast and few gram-positive cocci in pairs and chains . On May the patient suffered from cardiac arrest after suspected aspiration event. The patient was intubated, and started on Levophed and vasopressin. Post cardiac arrest chest x-ray revealed bilateral diffuse infiltrate- pt was put on broad spectrum abx ( linezolid and zosyn). His baseline cr was 0.6- 0.7 mg/dl on May. He developed CY on May 14- His cr was 1.1 mg/dl, by May 15 his cr was 1.5 mg/dl, and May ( today) cr peaked at 2 mg/dl. His na decreased from 145 on May 14 to 125 today. On May 15- pts resp acidosis worsened. His BAL sputum grew pseudomonas, and pt continues on zosyn. He was put on amiodarone for a fib. Pts BP is improving, presser requirements have decreased. HE is responsive off sedation. Renal called for oligo-anuric CY and Q of need of renal replacement therapy. Pt is many liters +. Review of Systems General: Reports: ROS unobtainable due to mental status Meds/Allergies Home Medications and Allergies Home Medications Medication Instructions Recorded Confirmed Last Taken Type aspirin 81 mg tablet,delayed 81 mg PO DAILY 08/08/19 05/04/21 Unknown History release nitroglycerin 0.4 mg sublingual 0.4 mg SUBLINGUAL Q5M PRN 08/10/19 05/04/21 Unknown History tablet furosemide 40 mg tablet 40 mg PO DAILY #90 tab 04/23/20 05/04/21 Unknown Rx acetaminophen 500 mg PO Q6H PRN 03/13/21 05/04/21 Unknown History amiodarone 200 mg PO DAILY 03/13/21 05/04/21 Unknown History fluticasone propionate [Flonase 1 spray INTRANASAL BID 03/13/21 05/04/21 Unknown History Allergy Relief] hydrocodone-acetaminophen 1 - 2 tab PO TID PRN 03/13/21 05/04/21 Unknown History ketotifen fumarate 1 drp OPHTHALMIC (EYE) BID PRN 03/13/21 05/04/21 Unknown History loratadine 10 mg PO DAILY 03/13/21 05/04/21 Unknown History methenamine hippurate 1 g PO BID 03/13/21 05/04/21 Unknown History ascorbic acid (vitamin C) [Vitamin 500 mg PO BID 04/01/21 05/04/21 Unknown History C] tamsulosin 0.4 mg capsule 0.4 mg PO DAILY #90 cap 04/16/21 05/04/21 Unknown Rx ondansetron HCl 8 mg PO TID PRN 05/04/21 05/04/21 Unknown History Allergies Allergy/AdvReac Type Severity Reaction Status Date / Time No Known Allergies Allergy Verified 05/03/21 11:06 Current Medications Current Medications Generic Name Dose Route Start Last Admin Trade Name Freq PRN Reason Stop Dose Admin Acetaminophen 650 mg 05/04/21 12:50 05/15/21 09:31 Acetaminophen 325 Mg Tablet PO 650 mg Q6H PRN Administration Mild/Mod Pain Or Temp >/= 101 Albuterol/Ipratropium 3 ml 05/14/21 10:19 05/14/21 10:47 Ipratropium-Albuterol 3 Ml Neb INHALATION 3 ml Q4H.RESPIRATORY PRN Administration SHORTNESS OF BREATH Albuterol/Ipratropium 3 ml 05/14/21 15:00 05/16/21 14:00 Ipratropium-Albuterol 3 Ml Neb INHALATION 3 ml Q6H.RESPIRATORY MADHAVI Administration Amiodarone HCl 200 mg 05/10/21 18:00 05/16/21 17:27 Amiodarone 200 Mg Tablet PO 200 mg Q12H MADHAVI Administration Artificial Tears 1 applic 05/14/21 15:27 05/15/21 03:18 Artificial Tears Op Oint 3.5 Gm EYE-BOTH 1 drop PRN PRN Administration DRY EYE(S) Aspirin 81 mg 05/05/21 09:00 05/16/21 08:20 Aspirin 81 Mg Ec Tablet PO 81 mg DAILY MADHAVI Administration Enoxaparin Sodium 30 mg 05/16/21 18:30 05/16/21 17:30 Enoxaparin 30 Mg/0.3 Ml Syringe SUBCUT 30 mg Q24H MADHAVI Administration Hydrocortisone Sodium Succinate 50 mg 05/14/21 22:00 05/16/21 15:56 Hydrocortisone 100 Mg/2 Ml Sdv IVP 50 mg Q6H MADHAVI Administration Norepinephrine Bitartrate 4 mg 254 mls @ 0 mls/hr 05/14/21 08:45 05/14/21 20:33 / Dextrose IV Infused .Q0M MADHAVI Titration Protocol Per Protocol Vasopressin 100 unit/ Sodium 100 mls @ 0 mls/hr 05/14/21 09:00 05/16/21 12:58 Chloride IV 0 unit/min .Q0M MADHAVI 0 mls/hr Titration Protocol Per Protocol Fentanyl 1,000 mcg/ Sodium 100 mls @ 0 mls/hr 05/14/21 09:15 05/16/21 12:58 Chloride IV 0 mcg/hr .Q0M MADHAVI 0 mls/hr Titration Protocol Per Protocol Norepinephrine Bitartrate 8 mg 508 mls @ 0 mls/hr 05/14/21 11:00 05/16/21 18:40 / Dextrose IV 11 mcg/min .Q0M MADHAVI 41.91 mls/hr Titration Protocol Per Protocol Epinephrine HCl 2.5 mg/ Sodium 252.5 mls @ 0 mls/hr 05/14/21 11:15 05/16/21 06:18 Chloride IV 0 mcg/min .Q0M MADHAVI 0 mls/hr Titration Protocol Per Protocol Midazolam HCl 100 mg/ Sodium 100 mls @ 0 mls/hr 05/14/21 12:30 05/16/21 06:18 Chloride IV 0 mg/hr .Q0M MADHAVI 0 mls/hr Titration Protocol Per Protocol Linezolid 600 mg in 300 mls @ 300 mls/hr 05/14/21 18:30 05/16/21 19:05 Zyvox Premix IV Infused Q12H MADHAVI Infusion Protocol Piperacillin Sod/Tazobactam 50 mls @ 12.5 mls/hr 05/15/21 06:00 05/16/21 17:27 Sod 3.375 gm/ Sodium Chloride IV 12.5 mls/hr Q12H MADHAVI Administration Protocol Insulin Human Lispro 0 unit 05/15/21 12:00 05/16/21 17:27 Insulin Lispro 100 Unit/1 Ml SUBCUT 2 unit Q6H MADHAVI Administration Protocol Midazolam HCl 2 mg 05/14/21 11:51 05/14/21 12:13 Midazolam 1 Mg/Ml Inj 2 Ml IV 2 mg Q1H PRN Administration AGITATION Pantoprazole Sodium 40 mg 05/14/21 18:00 05/16/21 17:27 Pantoprazole 40 Mg Sdv IVP 40 mg Q12H MADHAVI Administration Tamsulosin HCl 0.4 mg 05/05/21 09:00 05/14/21 07:56 Tamsulosin 0.4 Mg Capsule PO 0.4 mg DAILY MADHAVI Administration PFSH Acute PFSH: Medical History Cardiomyopathy Cataracts, bilateral History of high risk medication treatment Hypertension LBBB (left bundle branch block) Left ureteral calculus Obstructive pyelonephritis Osteoarthrosis Prostate cancer Pyuria Syncope Umbilical hernia Ventricular arrhythmia Wide-complex tachycardia Surgical History History of cataract removal with insertion of prosthetic lens BILATERAL History of colon resection WITH COLOSTOMY PLACED History of hip surgery History of left hip replacement Family History Mother , AT AGE 91 Stroke Father , AT AGE 86 Cancer LIVER Social History Smoking and tobacco status: former smoker Alcohol intake: unknown Adopted: No Caregiver/support person: No Lives independently: Yes Marital status: / Current occupational status: retired History of recent travel: No Vitals/I&O/Wt Last Vital Signs Temp 97.9 F 05/16/21 16:00 Pulse 85 05/16/21 16:30 Resp 20 H 05/16/21 17:46 BP 129/52 05/16/21 16:30 Pulse Ox 95 05/16/21 17:46 05/16/21 05/16/21 05/16/21 06:59 14:59 22:59 Intake Total 2637.760 / 4942.779 569.015 / 569.015 531.775 / 1100.790 Output Total 50 / 59 137 / 137 53 / 190 Balance 2587.760 / 4883.779 432.015 / 432.015 478.775 / 910.790 Physical Exam Narrative: EXAM NARRATIVE: intubated CMV/ fio2 50%, PEEP 10 on levo @ 11 heent- nc/at, pupils responds lungs- b/l crackles heart- irreg irreg abd soft, nt, nd, + bs, colostomy ext + b/l edema neuro- responds to pain/ touch Urinary Catheter Management^: Flynn: Cath Placed During This Visit: yes, but has since been removed by the nurse Reason for Continuing Indwelling Catheter: Accurate Measurement of Urinary Output in Critically Ill Patients Urinary Catheter Date of Insertion: 05/11/21 Urinary Catheter Time of Insertion: 15:30 Date Urinary Catheter Removed: 05/10/21 Time Urinary Catheter Discontinued: 16:00 Data Micro: Micro: Microbiology 05/14/21 Unknown Gram Stain - Final Lung Right Middle Lobe Bronchoalveolar [place] Culture - Pre liminary Pseudomonas aer uginosa Yeast species 05/14/21 04:30 Gram Stain - Final Sputum - Endotrac heal Tube Aspirate Sputum Culture - P reliminary Pseudomonas aer uginosa Yeast species 05/14/21 Unknown Fungal Smear - Pre liminary Pleural Fluid 05/14/21 13:45 Blood Culture - Pr eliminary Blood NEGATIVE TO YASMEEN E 05/14/21 13:55 Blood Culture - Pr eliminary Blood NEGATIVE TO YASMEEN E A&P Additional A&P Information 85 yr old man s/p PEA arrest on 05/14/21. Now on pressers w/ septic shock in ICU w/ CY, hyponatremia, and CY. 1. CY- presumed ATN- check urine studies -renal us -check ck -Dr. Garcia wants to attempt diuresis- if fails then HD or CRRT in am 2. septic shock improving- down to 1 presser, levophed -wbc improving 3. b/l pna - renal dose abx 4. hyponatremia- likely from CY -check tsh 5. anemia- on low dose lovenox, Consider prbc tx -eval per critical care -ferritin was 3675 on this admission -pt on steroids 6. resp acidosis improving on vent 7. DM control per medicine seen and examined in ICU w/ RN- telehealth visit discussed w/ RN, Dr. Garcia and Dr. Gusman Consult Attestations Medical Necessity Statement: VDRF, CY, met acidosis, hyponatremia Time Spent in Patient Care: Greater than 35 minutes (>than 50% of time spent in counselling and/or direct pt care on unit). Coding Level of Care Code Acute Pharmacy Analyst for [facility]
[2021-05-16 19:49] LABS: Hemoglobin 6.4 g/dL (11.7-16.6)
[2021-05-16 20:24] LABS: Basophils # 0.1 10^3/uL (0.0-0.1); Basophils % 0.2 %; Eosinophils # 0.1 10^3/uL (0.0-0.8); Eosinophils % 0.6 %; Hematocrit 20.9 % (42.0-52.0); Hemoglobin 6.7 g/dL (11.7-16.6); Lymphocytes # 2.1 10^3/uL (0.8-4.8); Lymphocytes % 9.2 %; Mean Corpuscular HGB Conc 32.1 g/dL (30.0-36.0); Mean Corpuscular Hemoglobin 27.2 pg (28.0-34.0); Mean Platelet Volume 10.3 fL (7.4-10.4); Monocytes # 0.8 10^3/uL (0.2-0.9); Monocytes % 3.6 %; Neutrophils # 18.57 10^3/uL (1.8-7.7); Neutrophils % 80.2 %; Nucleated Red Blood Cells # 0.3 /100WBC; Nucleated Red Blood Cells % 1.2 %; Platelet Count 117 10^3/cmm (130-400); Red Blood Count 2.46 10^6/uL (4.1-5.3); Red Cell Distribution Width 21.2 % (12.1-15.1); White Blood Count 23.2 10^3/uL (4.0-10.0)
--- NOTE | 2021-05-16 20:38 | PC.NURSE ---
Contacted cloth spreader re: hgb results ,order for 1u prbc placed.
[2021-05-16 20:47] LABS: Slide Review Slide Review Perform
[2021-05-16 21:32] LABS: Complement C3 98 mg/dL (90-180)
[2021-05-16] MEDS: FUROsemide 100 MG in sodium chloride 0.9% 40 ML IV (21:34)
[2021-05-16] MEDS: FUROsemide 10 mg/mL SDV 4mL 40 MG IVP (21:34)
[2021-05-16 21:52] LABS: Creatine Phosphokinase 599 U/L (39-308)
--- NOTE | 2021-05-16 22:00 | PC.NURSE ---
Critical lab result relayed to water pollution specialist, no new orders received.
[2021-05-16 22:08] LABS: Urine Appearance SL Hazy (CLEAR); Urine Color Yellow (Yellow)
[2021-05-16 22:09] LABS: Add Urine Culture? Yes; Amorphous Sediment Urine 1+ /hpf; Bacteria Urine 2+ /hpf; Bilirubin Urine Neg (Negative); Blood Urine 3+ (Negative); Glucose Urine UA Trace (Normal); Ketones Urine Negative (Negative); Leukocyte Esterase Urine 2+ (Negative); Nitrate Urine Negative (Negative); Protein Urine Trace (Negative); Squamous Epithelial Cell Urine 0-4 /hpf (0-5); Urobilinogen Urine Norm (Negative); WBC Urine 40-55 /hpf (0-5); pH Urine 5 (5-7)
[2021-05-16 22:15] LABS: Potassium, Radom Urine 36 mmol/L
[2021-05-16 22:17] LABS: Urine Random Chloride 18 mmol/L; Urine Random Sodium 11 mmol/L
[2021-05-17] VITALS (101 sets, daily range): BP systolic 80–142; BP diastolic 32–67; PULSE 76–115; RESP 18–27; TEMP 36.3–36.9; O2SAT 88–97
[2021-05-17] MEDS: insulin lispro 100 unit/1 mL SUBCUT ×3 (00:29→17:57)
[2021-05-17 00:40] LABS: Glucose Point of Care 174 mg/dL (70-110)
[2021-05-17] MEDS: ipratropium-albuterol 3 mL Neb INHALATION ×4 (03:00→21:40)
[2021-05-17 03:28] LABS: Basophils # 0.1 10^3/uL (0.0-0.1); Basophils % 0.2 %; Hematocrit 23.6 % (42.0-52.0); Hemoglobin 7.7 g/dL (11.7-16.6); Lymphocytes % 8.4 %; Mean Corpuscular HGB Conc 32.6 g/dL (30.0-36.0); Mean Corpuscular Hemoglobin 27.4 pg (28.0-34.0); Mean Platelet Volume 9.7 fL (7.4-10.4); Monocytes # 0.7 10^3/uL (0.2-0.9); Monocytes % 3.2 %; Neutrophils # 19.03 10^3/uL (1.8-7.7); Neutrophils % 82.3 %; Nucleated Red Blood Cells # 0.3 /100WBC; Nucleated Red Blood Cells % 1.3 %; Platelet Count 106 10^3/cmm (130-400); Red Blood Count 2.81 10^6/uL (4.1-5.3); Red Cell Distribution Width 19.8 % (12.1-15.1); White Blood Count 23.1 10^3/uL (4.0-10.0)
[2021-05-17 03:33] LABS: ABG PCO2 33.9 mmHg (35-45); ABG PH Result 7.36 (7.35-7.45); Arterial Blood Gas Hematocrit 21.9 % (42-52); Base Excess ABG -5.8 mmol/L (-2.0-2.0); Blood Gas Sample Site Not specified; Blood Gas Sample Type Arterial; Oxygen Device VENT; PO2 ABG 92.4 mmHg (80.0-100.0)
[2021-05-17] MEDS: hydrocortisone 100 mg/2 mL SDV 50 MG IVP ×2 (03:57→10:06)
[2021-05-17 03:58] LABS: Alanine Aminotransferase < 5 U/L (0-41); Albumin Level 2.5 g/dL (3.5-5.2); Alkaline Phosphatase 227 IU/L (40-130); Anion Gap 23.3 (5-19); Aspartate Amino Transferase 20 U/L (0-40); Blood Urea Nitrogen 71 mg/dL (8-23); Calcium 8.6 mg/dL (8.5-10.5); Carbon Dioxide 16 mmol/L (22-29); Chloride 90 mmol/L (98-107); Globulin 2.1 g/dL (1.3-4.6); Glucose 131 mg/dL (65-115); Magnesium 1.7 mg/dL (1.7-2.3); Osmolality Calculated 283 mOsm/kg (285-295); Phosphorus 3.7 mg/dL (2.5-4.5); Potassium 4.3 mmol/L (3.5-5.1); Sodium 125 mmol/L (136-145); Total Bilirubin 0.6 mg/dL (0.15-1.2); Total Protein 4.6 g/dL (6.6-8.7)
[2021-05-17] MEDS: pantoprazole 40 mg SDV IVP ×2 (05:11→17:57)
[2021-05-17] MEDS: piperacillin-tazobactam 3.375 GM in sodium chloride 0.9% (plus) 50 ML IV ×2 (05:11→19:57)
[2021-05-17] MEDS: linezolid premix 600 MG/300 ML PREMIX 300 MG IV ×2 (05:12→19:56)
[2021-05-17] MEDS: amiodarone 200 mg Tablet PO ×2 (05:12→17:57)
[2021-05-17 05:17] LABS: Glucose Point of Care 144 mg/dL (70-110)
[2021-05-17 07:51] LABS: Slide Review Slide Review Perform
--- NOTE | 2021-05-17 08:00 | PC.NURSE ---
Medical restraints left released at this time. Pt weak and does not appear to be moving.
[2021-05-17] MEDS: aspirin 81 mg EC Tablet PO (10:06)
--- NOTE | 2021-05-17 10:10 | P.PN_ITS ---
Subjective Subjective: Interval history: Mr Ambrose yuen critically sick in the ICU, on the vent. Urine output is starting to shrimp picker this morning but he has been oliguric over the last 24hrs. He remains very edematous. Vasopressor agents have come down over the last 24 hours, he remains on Levophed at 8. On Lasix 5 mg an hour. Ventilator settings noted, PEEP is 10 and FiO2 50%. Vitals/I&O/Wt Last Vital Signs Temp 97.4 F L 05/17/21 07:45 Pulse 92 05/17/21 08:45 Resp 23 H 05/17/21 09:55 BP 84/36 05/17/21 08:45 Pulse Ox 96 05/17/21 09:55 05/16/21 05/17/21 05/17/21 22:59 06:59 14:59 Intake Total 581.775 / 1150.790 828 / 1978.790 714.467 / 714.467 Output Total 53 / 190 140 / 330 Balance 528.775 / 960.790 688 / 1648.790 714.467 / 714.467 Physical Exam Narrative: EXAM NARRATIVE: Constitutional: Sedated and vented HEENT: Wet mucosa, no jvp, non icteric Lungs: Bilaterally clear without discernible wheeze, rales in all lung zones CVS: S1 S2, no murmurs Abdo: Soft, BS ok Ext 4: 4+ anasarca, peripheral perfusion with no cyanosis Neurological: Grossly non-focal Urinary Catheter Management^: Flynn: Cath Placed During This Visit: yes, but has since been removed by the nurse Reason for Continuing Indwelling Catheter: Accurate Measurement of Urinary Output in Critically Ill Patients Urinary Catheter Date of Insertion: 05/11/21 Urinary Catheter Time of Insertion: 15:30 Date Urinary Catheter Removed: 05/10/21 Time Urinary Catheter Discontinued: 16:00 Data : 05/17/21 03:11 05/17/21 03:11 Micro: Microbiology 05/14/21 Unknown Fungal Smear - Preliminary Pleural Fluid Saccharomyces cerevisiae 05/14/21 Unknown Mycobacterial Smear - Preliminary Body Fluids - Bronchial 05/14/21 Unknown Gram Stain - Final Lung Right Middle Lobe Bronchoalveolar Lavage Culture - Preliminary Pseudomonas aeruginosa Yeast species 05/14/21 04:30 Gram Stain - Final Sputum - Endotracheal Tube Aspirate Sputum Culture - Preliminary Pseudomonas aeruginosa Yeast species A&P Additional A&P Information 1. Oliguric renal failure Consistent with ischemic ATN in the setting of cardiac arrest and also septic shock. Renal function remains very poor, oliguric over the last 24 hours although we are seeing an increase in his urine output this morning. We will plan to do gentle dialysis on him today with a goal ultrafiltration of just 2 L with close monitoring in the intensive care unit. We will increase Lasix infusion to 20 mg an hour. Daily evaluation for requirement for hemodialysis. Avoid usual nephrotoxic agents Dose medication for GFR less than 15 on intermittent renal replacement therapy. 2. Chemistry Minor noncritical aberration including low sodium of 125 and bicarb of 16. This will correct with hemodialysis today, close monitoring of electrolytes over the next few days. 3. Independent respiratory failure Management per ICU team, weaning over the next few days as he recovers. 4. Septic shock Multifocal pneumonia with Pseudomonas Currently on antibiotic therapy Ridge Smith MD Nephrology [phone] Patient seen and examined via telemedicine, with the assistance of the bedside RN > 25 min spent in evaluation and mgmt of patient Attestations Medical Necessity Statement*: Eval for CY Coding Level of Care Code Acute Pediatric Radiologist for Evette [facility]
[2021-05-17] MEDS: norepinephrine 8 MG in dextrose 5 % 500 ML 30.48 MG IV (11:21)
[2021-05-17 12:53] LABS: Glucose Point of Care 155 mg/dL (70-110)
[2021-05-17] MEDS: FUROsemide 100 MG in sodium chloride 0.9% 40 ML 10 MG IV ×2 (12:57→18:31)
[2021-05-17] MEDS: sodium chloride 0.9% 500 ML IV (13:00)
--- NOTE | 2021-05-17 13:00 | PC.NURSE ---
Art line transducer line changed out. Fresh bag on NS. Iv lines changed out.
--- NOTE | 2021-05-17 14:08 | PC.SOCIAL ---
IMM Updated Updated pt's family on IMM. No questions voiced. Provided family a copy. Initialed, dated, & timed copy in chart.
--- NOTE | 2021-05-17 14:21 | PM.PN ---
Subjective Subjective: Interval history: He is very slow to wean of sedation now with worsening renal function. Does not really waking up aspirin occasionally some spontaneous movement of extremities, but no sustained period of awakening. Vitals/I&O/Wt Last Vital Signs Temp 97.4 F L 05/17/21 07:45 Pulse 97 05/17/21 14:10 Resp 25 H 05/17/21 14:06 BP 84/36 05/17/21 08:45 Pulse Ox 94 05/17/21 14:06 05/16/21 05/17/21 05/17/21 22:59 06:59 14:59 Intake Total 581.775 / 1150.790 828 / 1978.790 851.005 / 851.005 Output Total 53 / 190 140 / 330 100 / 100 Balance 528.775 / 960.790 688 / 1648.790 751.005 / 751.005 Physical Exam Const: COMMON NORMALS: no acute distress GENERAL APPEARANCE: patient mechanically ventilated ORIENTATION/CONSCIOUSNESS: Yes patient obtunded HENMT: COMMON NORMALS: oropharynx normal Neck/C-Spine: COMMON NORMALS: no JVD Resp: COMMON NORMALS: normal respiratory effort and clear to auscultation bilaterally AUSCULTATION: clear to auscultation bilaterally and diminished lung sounds bilateral in the lower lung gomez Cardio: COMMON NORMALS: no JVD, S1 normal heart sound present, S2 normal heart sound present and No murmurs present (Cardio) HEART SOUNDS: S1 normal heart sound present and S2 normal heart sound present GI: COMMON NORMALS: Normal to inspection, nondistended, normoactive bowel sounds present, Soft to palpation and non-tender PALPATION: Yes Soft to palpation Extremity: COMMON NORMALS: no joint enlargement GENERAL: Yes edema (2+ diffuse) Neuro: COMMON NORMALS: moves all extremities Skin: COMMON NORMALS: no rashes or lesions noted GENERAL SKIN EXAM: no rashes or lesions noted Urinary Catheter Management^: Flynn: Cath Placed During This Visit: yes, but has since been removed by the nurse Reason for Continuing Indwelling Catheter: Accurate Measurement of Urinary Output in Critically Ill Patients Urinary Catheter Date of Insertion: 05/11/21 Urinary Catheter Time of Insertion: 15:30 Date Urinary Catheter Removed: 05/10/21 Time Urinary Catheter Discontinued: 16:00 Data : 05/17/21 03:11 05/17/21 03:11 Micro: Microbiology 05/14/21 Unknown Fungal Smear - Preliminary Pleural Fluid Saccharomyces cerevisiae 05/14/21 Unknown Mycobacterial Smear - Preliminary Body Fluids - Bronchial 05/14/21 Unknown Gram Stain - Final Lung Right Middle Lobe Bronchoalveolar Lavage Culture - Preliminary Pseudomonas aeruginosa Yeast species 05/14/21 04:30 Gram Stain - Final Sputum - Endotracheal Tube Aspirate Sputum Culture - Preliminary Pseudomonas aeruginosa Yeast species A&P Assessment and plan (1) Septic shock: Worsening blood pressure, necessitating restarting Levophed. Worsening acidosis with worsening renal function, fluid retention. Cannot weaning of sedation so far with worsening renal function, fentanyl discontinued yesterday. Oxygenation so far maintaining on 45% FiO2. 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 Could not reach daughter for update. With recurrent aspiration, with inadequate airway protection in case of continued aggressive care he would likely need a feeding tube. Discussed with daughter. Previously septic shock during earlier part of this admission had resolved. Prior to arrest persistent hypoxia, on 4 L oxygen, although slightly better down from 6 L. Originally septic shock during earlier part of this admission secondary to UTI/pneumonia. No perinephric abscess. No obstruction. Blood culture:NTD MRSA PCR: Positive Bacterial antigen panel negative Urine culture: Pansensitive E. coli S/P hydrocortisone CT scan abdomen pelvis shows satisfactory position of left ureteral stent, 5 mm ureteral calculus is present in the stent in the mid ureter Status post PRBC transfusion. Continue to monitor urine output Full code Lovenox for DVT prophylaxis on hold, SCDs Status: Acute (2) Cardiopulmonary arrest: EF normal, no RWMA. Trop elevation likely myocardial injury with demand ischemia with hypoxic respiratory failure, septic shock. Eventually once able to would benefit from additional cardiac risk stratification. Suspected respiratory cause following aspiration, subsequently with PEA/systole arrest, received 4 times epi. Intermittently left bundle branch block which was noted previously on EKG. Status: Acute (3) Acute anemia: -Acute anemia concerning for slow GI bleed as patient has been on Lovenox, Hemoccult positive stools, Responded well to PRBC transfusion. -Lovenox currently placed on hold -Monitor hemodynamics -Protonix, Carafate Status: Acute (4) Atrial fibrillation with RVR: On amiodarone 200 mg twice daily Currently Heart rate is well controlled. Lovenox 80 twice daily on hold Status: Acute (5) Decompensated heart failure: Resolved Minimal pitting edema Lasix on hold Monitor intake output charting. Status: Acute (6) Elevated troponin I level: Elevated troponin likely secondary to type II CO secondary to sepsis and A. fib with RVR Troponin trend without significant delta. Status: Acute (7) CY (acute kidney injury): Again acute kidney injury. With some history of chronic kidney disease. ATN, oliguria. Lasix challenge may give an idea of prognosis of recovery from CY. Otherwise as per discussion with family today may require hemodialysis on temporary but cannot exclude permanent basis. Reassess renal function. Monitor I&O. In case continue to deterioration, obtain renal consultation. Status: Acute (8) Anemia: Acute on chronic anemia. Hb down to 7. In part possibly dilutional given oliguria. Reassess, may require transfusion. Status: Acute (9) Left ureteral calculus: S/p ureteral stent. Follow urology as an outpatient Status: Acute (10) Hyperkalemia: Resolved. 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
[2021-05-17 16:30] LABS: Hepatitis B Core AB, Total Non-Reactive (Nonreactive); Hepatitis B Surface Antigen Non-Reactive (Nonreactive)
--- NOTE | 2021-05-17 16:30 | PC.NURSE ---
Addendum entered by Shama King RN 05/17/21 17:45: Witnessed Fentanyl and Versed waste. Original Note: Vasopressin, Epinephrine, Fentanyl and Versed gtts wasted, See MAR. Fentanyl 34.3 ml and Versed 80.4 ml wasted. Witnessed by SURI Sesay.
--- NOTE | 2021-05-17 16:30 | PC.NURSE ---
Room change fro ICU-3 to ICU-12, to accommodate need for dialysis.
[2021-05-17 16:48] LABS: Basophils # 0.1 10^3/uL (0.0-0.1); Basophils % 0.3 %; Hematocrit 23.7 % (42.0-52.0); Hemoglobin 7.9 g/dL (11.7-16.6); Lymphocytes # 1.5 10^3/uL (0.8-4.8); Lymphocytes % 5.4 %; Mean Corpuscular HGB Conc 33.3 g/dL (30.0-36.0); Mean Corpuscular Hemoglobin 27.4 pg (28.0-34.0); Mean Corpuscular Volume 82.3 fl (80-94); Monocytes # 0.8 10^3/uL (0.2-0.9); Neutrophils # 23.56 10^3/uL (1.8-7.7); Neutrophils % 85.8 %; Nucleated Red Blood Cells # 0.3 /100WBC; Nucleated Red Blood Cells % 1.2 %; Platelet Count 93 10^3/cmm (130-400); Red Blood Count 2.88 10^6/uL (4.1-5.3); Red Cell Distribution Width 19.9 % (12.1-15.1); White Blood Count 27.5 10^3/uL (4.0-10.0)
[2021-05-17 17:24] LABS: Slide Review Slide Review Perform
--- NOTE | 2021-05-17 17:48 | PC.NURSE ---
Linezolid and Zosyn to be started after Dialysis completed.
[2021-05-17 17:55] LABS: Glucose Point of Care 152 mg/dL (70-110)
[2021-05-17] MEDS: metOLazone 5 MG Tablet 10 MG OG-TUBE (17:57)
--- NOTE | 2021-05-17 18:00 | PC.NURSE ---
Hypertension noted during dialysis, increased Levophed by 4 mcg/min, to amke infusion rate 12mcg/min.
--- NOTE | 2021-05-17 18:54 | PC.NURSE ---
Shift Note: Pt remains intubated. No sedation. Left arm movement improved. At end of shift, pt made eye contact once when spoken to . Dialysis in progress. Levophed gtt now at 12mcg/min. Lasix gtt at 20mg/hr. Art line and IV lines changed out. Pt provided a bath, shaving and shampooing. Urine output 400ml of clear yellow urine. Colostomy patent with soft brown stools, stoma healthy red. Nephro tube feeding started this evening. Frequent safety and comfort rounds continue. Orders and/or nursing care completed as indicated. Patient monitored for response to intervention and treatment(s). Education provided includes Dialysis, metolazone, Lasix and disease process. Patient unable to understand fully but family verbalized understanding of plan of care, disease process and medications. Will continue to monitor.
--- NOTE | 2021-05-17 20:03 | US_ITS ---
WS: [id number] ULTRASOUND RENAL TECHNIQUE: Ultrasound examination of both kidneys. CLINICAL INFORMATION: lianna COMPARISON: FINDINGS: Technically difficult study RIGHT: Right kidney is normal in size and appearance. Echogenicity: Normal. Cortical thickness: 0.7 cm; Hydronephrosis: None. Perinephric fluid: None. Right kidney measures: 9.3 cm x 3.9 cm x 4.1 cm. LEFT: Mild left renal pelvocaliectasis. Left kidney is otherwise normal.. Echogenicity: Normal. Cortical thickness: 0.8 cm; Hydronephrosis: Minimal Perinephric fluid: None. Left kidney measures: 10.9 cm x 5.0 cm x 5.3 cm. Normal visualized aorta. Flynn catheter.Cholelithiasis and sludge partially evaluated. US/US renal BI* [id number] IMPRESSION: 1. Bilateral renal cortical atrophy. Mild left renal pelvocaliectasis. No hydr onephrosis in right kidney. 2. Flynn catheter. 3. Cholelithiasis and sludge partially evaluated.
--- NOTE | 2021-05-17 20:50 | PC.HD ---
Unable to meet UF goal due to hypotension and tachycardia. [employer] aware.
[2021-05-17] MEDS: FUROsemide 200 MG in sodium chloride 0.9% (100 ml) 80 ML 10 MG IV (23:59)
[2021-05-18] VITALS (112 sets, daily range): BP systolic 82–147; BP diastolic 41–87; PULSE 83–151; RESP 20–27; TEMP 36.6–37.4; O2SAT 82–100
[2021-05-18] MEDS: insulin lispro 100 unit/1 mL SUBCUT ×3 (00:05→17:47)
[2021-05-18] MEDS: norepinephrine 8 MG in dextrose 5 % 500 ML 45.72 MG IV ×2 (02:10→20:27)
[2021-05-18] MEDS: ipratropium-albuterol 3 mL Neb INHALATION ×2 (02:59→20:18)
[2021-05-18 03:18] LABS: Glucose Point of Care 177 mg/dL (70-110)
[2021-05-18 03:45] LABS: Basophils # 0.1 10^3/uL (0.0-0.1); Basophils % 0.3 %; Eosinophils # 0.2 10^3/uL (0.0-0.8); Eosinophils % 0.7 %; Hemoglobin 7.9 g/dL (11.7-16.6); Lymphocytes # 1.8 10^3/uL (0.8-4.8); Lymphocytes % 6.9 %; Mean Corpuscular HGB Conc 32.9 g/dL (30.0-36.0); Mean Corpuscular Hemoglobin 26.9 pg (28.0-34.0); Mean Corpuscular Volume 81.6 fl (80-94); Mean Platelet Volume 9.8 fL (7.4-10.4); Monocytes # 0.8 10^3/uL (0.2-0.9); Monocytes % 2.8 %; Neutrophils # 22.35 10^3/uL (1.8-7.7); Nucleated Red Blood Cells # 0.3 /100WBC; Nucleated Red Blood Cells % 1.2 %; Platelet Count 108 10^3/cmm (130-400); Red Blood Count 2.94 10^6/uL (4.1-5.3); Red Cell Distribution Width 19.4 % (12.1-15.1); White Blood Count 26.6 10^3/uL (4.0-10.0)
[2021-05-18 04:10] LABS: Alanine Aminotransferase < 5 U/L (0-41); Albumin Level 2.4 g/dL (3.5-5.2); Alkaline Phosphatase 242 IU/L (40-130); Anion Gap 20.5 (5-19); Aspartate Amino Transferase 16 U/L (0-40); Blood Urea Nitrogen 60 mg/dL (8-23); Calcium 8.5 mg/dL (8.5-10.5); Carbon Dioxide 19 mmol/L (22-29); Chloride 92 mmol/L (98-107); Globulin 2.5 g/dL (1.3-4.6); Glucose 104 mg/dL (65-115); Osmolality Calculated 283 mOsm/kg (285-295); Potassium 3.5 mmol/L (3.5-5.1); Sodium 128 mmol/L (136-145); Total Bilirubin 0.5 mg/dL (0.15-1.2); Total Protein 4.9 g/dL (6.6-8.7)
[2021-05-18 04:46] LABS: Slide Review Slide Review Perform
[2021-05-18] MEDS: piperacillin-tazobactam 3.375 GM in sodium chloride 0.9% (plus) 50 ML IV ×2 (05:04→19:27)
[2021-05-18] MEDS: pantoprazole 40 mg SDV IVP ×2 (05:04→17:47)
[2021-05-18] MEDS: amiodarone 200 mg Tablet PO (05:04)
[2021-05-18 05:14] LABS: ABG PCO2 28.8 mmHg (35-45); ABG PH Result 7.44 (7.35-7.45); Arterial Blood Gas Hematocrit 27.6 % (42-52); Base Excess ABG -3.7 mmol/L (-2.0-2.0); Blood Gas Sample Type Arterial; HCO3 ABG 19.7 mmol/L (22-26); Oxygen Device VENT
[2021-05-18] MEDS: linezolid premix 600 MG/300 ML PREMIX 300 MG IV ×2 (05:34→17:48)
[2021-05-18 07:41] LABS: Glucose Point of Care 132 mg/dL (70-110)
[2021-05-18] MEDS: digoxin 250 mcg/ml INJ 2 mL 125 MCG IVP (08:38)
[2021-05-18] MEDS: potassium chloride ER 20 mEq Tablet PO (08:38)
--- NOTE | 2021-05-18 08:58 | P.PN_ITS ---
Subjective Subjective: Interval history: He remains critically sick in the intensive care unit. Dialysis was attempted yesterday, however, only 1300 mL of ultrafiltrate could be removed due to the escalation in vasopressor needs. He remains on FiO2 50%, he still has significant anasarca, urine output 460 mL currently on Lasix infusion. Medications: Reviewed: Yes Vitals/I&O/Wt Last Vital Signs Temp 98 F 05/18/21 04:00 Pulse 134 H 05/18/21 08:30 Resp 26 H 05/18/21 08:04 BP 103/65 05/18/21 08:30 Pulse Ox 93 05/18/21 08:30 05/17/21 05/18/21 05/18/21 22:59 06:59 14:59 Intake Total 852.692 / 1067.822 0400.308 / 3291.005 275.082 / 275.082 Output Total 1659 / 1759 160 / 1919 Balance -806.308 / -55.303 1427.308 / 1372.005 275.082 / 275.082 Weight last 48 hrs Weight 93 kg Physical Exam Narrative: EXAM NARRATIVE: Constitutional: Sedated and vented HEENT: Wet mucosa, no jvp, non icteric Lungs: Bilaterally clear without discernible wheeze, rales in all lung zones CVS: S1 S2, no murmurs Abdo: Soft, BS ok Ext 4: 4+ anasarca, peripheral perfusion with no cyanosis Neurological: Grossly non-focal Urinary Catheter Management^: Flynn: Cath Placed During This Visit: yes, but has since been removed by the nurse Reason for Continuing Indwelling Catheter: Accurate Measurement of Urinary Output in Critically Ill Patients Urinary Catheter Date of Insertion: 05/11/21 Urinary Catheter Time of Insertion: 15:30 Date Urinary Catheter Removed: 05/10/21 Time Urinary Catheter Discontinued: 16:00 Data : 05/18/21 03:00 05/18/21 03:00 Micro: Microbiology 05/14/21 Unknown Gram Stain - Final Lung Right Middle Lobe Bronchoalveolar Lavage Culture - Final Pseudomonas aeruginosa Idania albicans 05/14/21 04:30 Gram Stain - Final Sputum - Endotracheal Tube Aspirate Sputum Culture - Final Pseudomonas aeruginosa Idania albicans 05/14/21 Unknown Fungal Smear - Preliminary Pleural Fluid Saccharomyces cerevisiae 05/14/21 Unknown Mycobacterial Smear - Preliminary Body Fluids - Bronchial A&P Additional A&P Information 1. Oliguric renal failure Consistent with ischemic ATN in the setting of cardiac arrest and also septic shock. Dialysis attempted yesterday and will reattempt dialysis again today with goal ultrafiltration of just 2 L. If he continues to tolerate dialysis very poorly, we will have to make the de cision about whether he would benefit from CRRT i.e. further escalation of care versus transitioning to a more palliative approach. Daily evaluation for requirement for hemodialysis. Avoid usual nephrotoxic agents Dose medication for GFR less than 15 on intermittent renal replacement therapy. 2. Chemistry Minor noncritical aberration including low sodium and acidosis. This will correct with hemodialysis today, close monitoring of electrolytes over the next few days. 3. Independent respiratory failure Management per ICU team, weaning over the next few days as he recovers. 4. Septic shock Multifocal pneumonia with Pseudomonas Currently on antibiotic therapy 5. Disposition He has a very poor prognosis. He now has multisystem organ failure in the setting of both sepsis and recent cardiac arrest. There is little hope for a really meaningful recovery and at this time I would recommend transitioning to hospice and palliation. I do appreciate ongoing discussions with family members regarding goals of care. 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
[2021-05-18 09:40] LABS: Magnesium 1.7 mg/dL (1.7-2.3)
[2021-05-18] MEDS: FUROsemide 200 MG in sodium chloride 0.9% (100 ml) 80 ML 10 MG IV ×2 (10:05→20:25)
[2021-05-18 11:52] LABS: Glucose Point of Care 182 mg/dL (70-110)
[2021-05-18] MEDS: norepinephrine 8 MG in dextrose 5 % 500 ML 68.58 MG IV (12:09)
--- NOTE | 2021-05-18 15:43 | XRR_ITS ---
PROCEDURE INFORMATION: Exam: XR Chest Exam date and time: 05/18/2021 3:43 PM Age: 85 years old Clinical indication: Shortness of breath; Additional info: Increased o2 demand TECHNIQUE: Imaging protocol: XR of the chest. Views: 1 view. COMPARISON: CR XR chest 1V portable [id number] 05/16/2021 6:58 PM FINDINGS: Tubes, catheters and devices: Endotracheal tube tip in place 6.7 cm above the cara. Right-sided central venous catheter tip approaching the atrial caval junction. Lungs: Bilateral mixed interstitial and airspace infiltrates similar to prior exam. Pleural spaces: Small bilateral pleural effusions. Heart/Mediastinum: Unremarkable. No cardiomegaly. Bones/joints: Unremarkable. XR/XR chest 1V portable [id number] IMPRESSION: 1. Endotracheal tube tip in place 6.7 cm above the cara. 2. Right-sided central venous catheter tip approaching the atrial caval junction. 3. Bilateral mixed interstitial and airspace infiltrates similar to prior exam. 4. Small bilateral pleural effusions. Radiation Dose CTDIVOL = (mGy): DLP = (mGy-cm)
--- NOTE | 2021-05-18 16:05 | PM.PN ---
Subjective Subjective: Interval history: Intubated, sedated, this morning not waking up, although not on any additional sedation, later this afternoon noted to be biting on the ET tube. Vitals/I&O/Wt Last Vital Signs Temp 99.3 F 05/18/21 15:57 Pulse 145 H 05/18/21 14:08 Resp 23 H 05/18/21 14:08 BP 113/57 05/18/21 12:00 Pulse Ox 93 05/18/21 14:08 05/18/21 05/18/21 05/18/21 06:59 14:59 22:59 Intake Total 1587.308 / 3291.005 678.320 / 678.320 Output Total 160 / 1919 Balance 1427.308 / 1372.005 678.320 / 678.320 Weight last 48 hrs Weight 93 kg Physical Exam Const: COMMON NORMALS: no acute distress GENERAL APPEARANCE: patient mechanically ventilated ORIENTATION/CONSCIOUSNESS: Yes patient obtunded HENMT: COMMON NORMALS: oropharynx normal Neck/C-Spine: COMMON NORMALS: no JVD Resp: COMMON NORMALS: normal respiratory effort and clear to auscultation bilaterally AUSCULTATION: clear to auscultation bilaterally and diminished lung sounds bilateral in the lower lung gomez Cardio: COMMON NORMALS: no JVD, S1 normal heart sound present, S2 normal heart sound present and No murmurs present (Cardio) HEART SOUNDS: S1 normal heart sound present and S2 normal heart sound present OTHER: LBBB, tachycardia on monitor GI: COMMON NORMALS: Normal to inspection, nondistended, normoactive bowel sounds present, Soft to palpation and non-tender PALPATION: Yes Soft to palpation Extremity: COMMON NORMALS: no joint enlargement GENERAL: Yes edema (2+ diffuse) Skin: COMMON NORMALS: no rashes or lesions noted GENERAL SKIN EXAM: no rashes or lesions noted Urinary Catheter Management^: Flynn: Cath Placed During This Visit: yes, but has since been removed by the nurse Reason for Continuing Indwelling Catheter: Accurate Measurement of Urinary Output in Critically Ill Patients Urinary Catheter Date of Insertion: 05/11/21 Urinary Catheter Time of Insertion: 15:30 Date Urinary Catheter Removed: 05/10/21 Time Urinary Catheter Discontinued: 16:00 Data : 05/18/21 03:00 05/18/21 03:00 Micro: Microbiology 05/16/21 21:50 Urine Culture - Preliminary Urine,Clean Catch Gram Negative Rods 05/14/21 Unknown Gram Stain - Final Lung Right Middle Lobe Bronchoalveolar Lavage Culture - Final Pseudomonas aeruginosa Idania albicans 05/14/21 04:30 Gram Stain - Final Sputum - Endotracheal Tube Aspirate Sputum Culture - Final Pseudomonas aeruginosa Idania albicans A&P Assessment and plan (1) Septic shock: Worsening septic shock today, initially necessitating increasing Levophed up to 16, and subsequently also requiring addition of vasopressin infusion and increase in Levophed to 20 mg/min. Tachycardia today also difficult to control, A. fib with RVR with aberrant conduction with wide complexes. Given dose of IV digoxin this morning, potassium supplementation given some decrease down to 3.5, however, without response, was started on amiodarone drip. This evening he is noted uncomfortable, biting down on ETT. Seem to be started again on sedation. Hypoxia noted worsen, with requirement of 100% FiO2 currently. We have requested chest x-ray. Given deterioration condition, previously yeast growing in BAL cultures will add also antifungal coverage. Pseudomonas susceptible to Zosyn on respiratory culture. Gram-negative rods growing in urine. Previously pansensitive E. coli. Discussed with his daughter regarding worsening condition, she states given he is 85 would not want to do much more, but in case of cardiac arrest does still want CPR to be performed. With recurrent aspiration, with inadequate airway protection in case of continued aggressive care he would likely need a feeding tube. Prior episode of septic shock during earlier part of this admission had initially resolved. Prior to arrest persistent hypoxia, on 4 L oxygen, although slightly better down from 6 L. Originally septic shock during earlier part of this admission secondary to UTI/pneumonia. No perinephric abscess. No obstruction. Blood culture:NTD MRSA PCR: Positive Bacterial antigen panel negative Urine culture: Pansensitive E. coli S/P hydrocortisone CT scan abdomen pelvis shows satisfactory position of left ureteral stent, 5 mm ureteral calculus is present in the stent in the mid ureter Had received aPRBC transfusion. Continue to monitor urine output Status: Acute (2) Atrial fibrillation with RVR: Given a dose of digoxin, replacement of potassium given noted decreased today, but without response, started on amiodarone drip. Still persistent A. fib with RVR, heart rates up into 130s-140s. Pressor requirement slightly better. We are giving a dose of metoprolol 2.5 mg IV. Monitor response. Continue amiodarone drip. On amiodarone 200 mg twice daily Lovenox 80 twice daily on hold Status: Acute (3) Cardiopulmonary arrest: On 05/14 EF normal, no RWMA. Trop elevation likely myocardial injury with demand ischemia with hypoxic respiratory failure, septic shock. Eventually once able to would benefit from additional cardiac risk stratification. Suspected respiratory cause following aspiration, subsequently with PEA/systole arrest, received 4 times epi. Left bundle branch block Status: Acute (4) Acute anemia: -Acute anemia concerning for slow GI bleed as patient has been on Lovenox, Hemoccult positive stools, Responded well to PRBC transfusion. -Lovenox currently placed on hold -Monitor hemodynamics -Protonix, Carafate Status: Acute (5) Decompensated heart failure: Worsened again during oliguric renal failure. Required hemodialysis. Minimal pitting edema Lasix drip Monitor intake output charting. Status: Acute (6) Elevated troponin I level: Elevated troponin likely secondary to type II DC secondary to sepsis and A. fib with RVR Troponin trend without significant delta. Status: Acute (7) CY (acute kidney injury): Lasix drip. Required initiation of hemodialysis. Reassess renal function. Monitor I&O. Status: Acute (8) Anemia: Received PRBC transfusion on 05/17. Continue PPI. Tube feeds. Status: Acute (9) Left ureteral calculus: S/p ureteral stent. Follow urology as an outpatient Status: Acute (10) Hyperkalemia: Resolved. Status: Acute (11) Pneumonia: Status: Acute (12) Debilitated patient: Currently under the care of his daughter Status: Acute (13) Prostate cancer: Has history of prostate cancer, on hormonal therapy, no evidence of metastasis Status: Acute (14) Colostomy care: Has a colostomy in place Status: Acute (15) GI bleed: Status: Acute (16) Left fibular fracture: Weightbearing as tolerated once able Status: Acute (17) Physical deconditioning: Status: Acute (18) Protein calorie malnutrition: Status: Acute Attestations Medical Necessity Statement*: Continue admission for assessment management of septic shock, pressor, mechanical ventilatory support with hypoxic respiratory failure, management of A. fib with RVR. Coding Level of Care Code Acute Orchestra Musician for [facility] Fwd Exam Comprehensive Diagnoses Septic shock A41.9; R65.21 Atrial fibrillation with RVR I48.91 Cardiopulmonary arrest I46.9 Acute anemia D64.9 Decompensated heart failure I50.9 Elevated troponin I level R77.8 CY (acute kidney injury) N17.9 Anemia D64.9 Left ureteral calculus N20.1 Hyperkalemia E87.5 Pneumonia J18.9 Debilitated patient R53.81 Prostate cancer C61 Colostomy care Z43.3 GI bleed K92.2 Left fibular fracture S82.402A Physical deconditioning R53.81 Protein calorie malnutrition E46
[2021-05-18] MEDS: metoprolol tartrate 1 mg/1 mL SDV 5 mL 2.5 MG IVP (16:35)
[2021-05-18] MEDS: fluconazole premix 200 MG/100 ML PREMIX 100 MG IV (17:37)
--- NOTE | 2021-05-18 18:04 | PC.NURSE ---
Shift Note Frequent safety and comfort rounds continue. Orders and nursing care completed as indicated. Patient had increased demand of assisting blood pressure medications, see mar. (vasopressin and Levophed) Pt turn every 2 hours and received oral care at this time. Patient to receive dialysis later in this shift. Patient had increase oxygen demand later around 1600, stat chest x-ray ordered by Dr. Grant, see results. Pt gracia irrigated per physician's orders, see I&O documentation. Increased HR noted to have happened early this am, pt started on aminodarone drip per physician's orders. Daughter visited patient today and updated on patient status, verbalized understanding. Patient monitored for response to intervention and treatments. Education provided includes Medications, ventilator needs, frequent position changes, tube feedings, Daughter verbalized understanding. Will continue to monitor.
--- NOTE | 2021-05-18 18:30 | PC.NURSE ---
Fentanyl gtt running at shift change, medication wasn't scanned in on dayshift. Scanned on this shift and back timed to shift change at rate running 75mcg/hr.
[2021-05-19] VITALS (105 sets, daily range): BP systolic 92–144; BP diastolic 35–89; PULSE 64–105; RESP 16–31; TEMP 36.8–37.4; O2SAT 87–100
[2021-05-19 00:47] LABS: Glucose Point of Care 219 mg/dL (70-110)
[2021-05-19 00:47] LABS: Glucose Point of Care 225 mg/dL (70-110)
[2021-05-19] MEDS: insulin lispro 100 unit/1 mL SUBCUT ×4 (00:51→17:15)
[2021-05-19] MEDS: heparin, porcine 1,000 unit/mL INJ 10 mL HE (01:10)
--- NOTE | 2021-05-19 01:21 | PC.NURSE ---
Patient started on Dialysis, increase needed on pressers. Continue care
[2021-05-19] MEDS: ipratropium-albuterol 3 mL Neb INHALATION ×3 (03:09→14:48)
[2021-05-19 03:43] LABS: Basophils # 0.1 10^3/uL (0.0-0.1); Basophils % 0.4 %; Eosinophils % 0.1 %; Hematocrit 27.4 % (42.0-52.0); Lymphocytes # 2.2 10^3/uL (0.8-4.8); Lymphocytes % 7.6 %; Mean Corpuscular HGB Conc 32.8 g/dL (30.0-36.0); Mean Corpuscular Hemoglobin 27.6 pg (28.0-34.0); Mean Platelet Volume 10.6 fL (7.4-10.4); Monocytes # 0.8 10^3/uL (0.2-0.9); Monocytes % 2.9 %; Neutrophils # 23.18 10^3/uL (1.8-7.7); Neutrophils % 81.7 %; Nucleated Red Blood Cells # 0.3 /100WBC; Nucleated Red Blood Cells % 1.1 %; Platelet Count 108 10^3/cmm (130-400); Red Blood Count 3.26 10^6/uL (4.1-5.3); Red Cell Distribution Width 19.6 % (12.1-15.1); White Blood Count 28.4 10^3/uL (4.0-10.0)
--- NOTE | 2021-05-19 04:00 | PC.HD ---
BP monitored continuously via arterial line, good waveform and correllates with cuff pressure. Levophed and vasopressin gtts titrated up during treatment per MEAT MANAGER and ultimately maxed out. SBP decreased to 90s and dipped into 80s in spite of turning UF off so treatment terminated 23 minutes early per earlier discussion with Dr Smith. After blood returned, BP rebounded well.
[2021-05-19 04:12] LABS: Alanine Aminotransferase 6 U/L (0-41); Albumin Level 2.7 g/dL (3.5-5.2); Alkaline Phosphatase 254 IU/L (40-130); Anion Gap 18.5 (5-19); Aspartate Amino Transferase 19 U/L (0-40); Blood Urea Nitrogen 25 mg/dL (8-23); Calcium 8.4 mg/dL (8.5-10.5); Carbon Dioxide 24 mmol/L (22-29); Chloride 94 mmol/L (98-107); Globulin 2.7 g/dL (1.3-4.6); Glucose 145 mg/dL (65-115); Magnesium 1.9 mg/dL (1.7-2.3); Osmolality Calculated 283 mOsm/kg (285-295); Potassium 3.5 mmol/L (3.5-5.1); Sodium 133 mmol/L (136-145); Total Bilirubin 0.8 mg/dL (0.15-1.2); Total Protein 5.4 g/dL (6.6-8.7)
[2021-05-19 04:18] LABS: Slide Review Slide Review Perform
[2021-05-19] MEDS: norepinephrine 8 MG in dextrose 5 % 500 ML 60.96 MG IV (04:37)
[2021-05-19] MEDS: pantoprazole 40 mg SDV IVP ×2 (05:02→17:15)
[2021-05-19] MEDS: piperacillin-tazobactam 3.375 GM in sodium chloride 0.9% (plus) 50 ML IV ×2 (05:04→11:47)
[2021-05-19 05:08] LABS: Glucose Point of Care 219 mg/dL (70-110)
[2021-05-19] MEDS: linezolid premix 600 MG/300 ML PREMIX 300 MG IV ×2 (05:32→17:46)
--- NOTE | 2021-05-19 05:53 | PC.NURSE ---
Shift Note Frequent safety and comfort rounds continue. Orders and/or nursing care completed as indicated. Patient monitored for response to intervention and treatment(s). Education provided includes measures to prevent ulcers. Patient and/or outbound sales representative reinforcement needed. Will continue to monitor.
[2021-05-19] MEDS: FUROsemide 200 MG in sodium chloride 0.9% (100 ml) 80 ML 10 MG IV ×2 (06:11→14:49)
--- NOTE | 2021-05-19 08:10 | PM.PN ---
Subjective Subjective: Interval history: Mr. Martins received hemodialysis last night. He tolerated ultrafiltration reasonably well, remains on Levophed at 14 mics per minute. Heart rate is currently controlled, FiO2 50% and PEEP of 8. Still has significant anasarca. Medications: Reviewed: Yes Vitals/I&O/Wt Last Vital Signs Temp 98.3 F 05/19/21 04:36 Pulse 80 05/19/21 08:05 Resp 20 H 05/19/21 08:05 BP 121/47 05/19/21 04:30 Pulse Ox 96 05/19/21 08:05 05/18/21 05/19/21 05/19/21 22:59 06:59 14:59 Intake Total 133.2014.515 1269.734 / 3285.249 Output Total 3062 / 3062 Balance 1337.2014.515 -1792.266 / 223.249 Weight last 48 hrs Weight 94.9 kg Weight 93 kg Physical Exam Narrative: EXAM NARRATIVE: Constitutional: Sedated and vented HEENT: Wet mucosa, no jvp, non icteric Lungs: Bilaterally clear without discernible wheeze, rales in all lung zones CVS: S1 S2, no murmurs Abdo: Soft, BS ok Ext 4: 4+ anasarca, peripheral perfusion with no cyanosis Neurological: Grossly non-focal Urinary Catheter Management^: Flynn: Cath Placed During This Visit: yes, but has since been removed by the nurse Reason for Continuing Indwelling Catheter: Accurate Measurement of Urinary Output in Critically Ill Patients Urinary Catheter Date of Insertion: 05/11/21 Urinary Catheter Time of Insertion: 15:30 Date Urinary Catheter Removed: 05/10/21 Time Urinary Catheter Discontinued: 16:00 Data : 05/19/21 02:40 05/19/21 02:40 Micro: Microbiology 05/16/21 21:50 Urine Culture - Preliminary Urine,Clean Catch Gram Negative Rods A&P Additional A&P Information 1. Oliguric renal failure Consistent with ischemic ATN in the setting of cardiac arrest and also septic shock. Dialysis performed last night, will plan on next treatment in the am Daily evaluation for requirement for hemodialysis. Avoid usual nephrotoxic agents Dose medication for GFR less than 15 on intermittent renal replacement therapy. 2. Chemistry Minor noncritical aberration including low sodium and acidosis. Close monitoring 3. Independent respiratory failure Management per ICU team, weaning over the next few days as he recovers. 4. Septic shock Multifocal pneumonia with Pseudomonas Currently on antibiotic therapy 5. Disposition He has a very poor prognosis, family want to pursue aggressive care for the time being Ridge Smith MD Nephrology [phone] Patient seen and examined via telemedicine, with the assistance of the bedside RN > 25 min spent in evaluation and mgmt of patient Attestations Medical Necessity Statement*: Eval for CY Coding Level of Care Code Acute Crusher And Blender Operator for Evette [facility]
--- NOTE | 2021-05-19 08:21 | PC.SOCIAL ---
IMM Not Updated Pg. 2 of IMM not updated; patient intubated and not anticipated to discharge within the next 48hours.
[2021-05-19] MEDS: norepinephrine 8 MG in dextrose 5 % 500 ML 53.34 MG IV (14:49)
--- NOTE | 2021-05-19 15:45 | P.PN_ITS ---
Subjective Subjective: Interval history: Intubated, today sedated, calm, not biting of the tube. Weaning down on fentanyl, little bit more awake, opening eyes, reported to be answering 1 or 2 questions. Daughter to be notified to see if she can come to visit. Still hypotensive requiring pressor support. Vitals/I&O/Wt Last Vital Signs Temp 98.3 F 05/19/21 04:36 Pulse 86 05/19/21 14:51 Resp 23 H 05/19/21 14:51 BP 136/52 05/19/21 12:45 Pulse Ox 97 05/19/21 14:51 05/19/21 05/19/21 05/19/21 06:59 14:59 22:59 Intake Total 1269.734 / 3285.249 712.471 / 712.471 Output Total 3062 / 3062 Balance -1792.266 / 223.249 712.471 / 712.471 Weight last 48 hrs Weight 94.9 kg Weight 93 kg Physical Exam Narrative: EXAM NARRATIVE: Following cardiopulmonary arrest. Const: COMMON NORMALS: no acute distress GENERAL APPEARANCE: patient mechanically ventilated ORIENTATION/CONSCIOUSNESS: Yes patient obtunded HENMT: COMMON NORMALS: oropharynx normal Neck/C-Spine: COMMON NORMALS: no JVD Resp: COMMON NORMALS: normal respiratory effort and clear to auscultation bilaterally AUSCULTATION: clear to auscultation bilaterally and diminished lung sounds bilateral in the lower lung gomez Cardio: COMMON NORMALS: no JVD, S1 normal heart sound present, S2 normal heart sound present and No murmurs present (Cardio) HEART SOUNDS: S1 normal heart sound present and S2 normal heart sound present OTHER: LBBB, tachycardia on monitor GI: COMMON NORMALS: Normal to inspection, nondistended, normoactive bowel sounds present, Soft to palpation and non-tender PALPATION: Yes Soft to palpation Extremity: COMMON NORMALS: no joint enlargement GENERAL: Yes edema (2+ diffuse) Neuro: COMMON NORMALS: moves all extremities Skin: COMMON NORMALS: no rashes or lesions noted GENERAL SKIN EXAM: no rashes or lesions noted Urinary Catheter Management^: Flynn: Cath Placed During This Visit: yes, but has since been removed by the nurse Reason for Continuing Indwelling Catheter: Accurate Measurement of Urinary Output in Critically Ill Patients Urinary Catheter Date of Insertion: 05/11/21 Urinary Catheter Time of Insertion: 15:30 Date Urinary Catheter Removed: 05/10/21 Time Urinary Catheter Discontinued: 16:00 Data : 05/19/21 02:40 05/19/21 02:40 Micro: Microbiology 05/14/21 13:55 Blood Culture - Final Blood NO GROWTH AFTER 5 DAYS 05/14/21 13:45 Blood Culture - Final Blood NO GROWTH AFTER 5 DAYS A&P Assessment and plan (1) Septic shock: Norepinephrine as 12-14, and had to restart vasopressin. Thick secretions noted on suctioning. Continue pulmonary toilet. Sedation vacation this afternoon as he is waking up, answering some questions. Daughter notified and coming over to see him. Gram-negative rods noted growing in urine, follow-up. History of bladder scan obtained with minimal residual urine, no sign of obstruction at this time. Monitor for Flynn obstruction with sediment. Tachycardia has improved. Continue IV infusion amiodarone for now. Will transition back to tablets this evening. Oxygen requirement better. Down to 50% this morning, 40% this afternoon on FiO2. Continue pulmonary toilet. Dialysis tomorrow. Given worsening condition, yeast on sputum culture, was also started on Diflucan. Continue at this time. Pseudomonas susceptible to Zosyn on respiratory culture. Gram-negative rods growing in urine. Previously pansensitive E. coli. Discussed with his daughter regarding worsening condition, she states given he is 85 would not want to do much more, but in case of cardiac arrest does still want CPR to be performed. With recurrent aspiration, with inadequate airway protection in case of continued aggressive care he would likely need a feeding tube. Prior episode of septic shock during earlier part of this admission had initially resolved. Prior to arrest persistent hypoxia, on 4 L oxygen, although slightly better down from 6 L. Originally septic shock during earlier part of this admission secondary to UTI/pneumonia. No perinephric abscess. No obstruction. Blood culture:NTD MRSA PCR: Positive Bacterial antigen panel negative Urine culture: Pansensitive E. coli S/P hydrocortisone CT scan abdomen pelvis shows satisfactory position of left ureteral stent, 5 mm ureteral calculus is present in the stent in the mid ureter Had received aPRBC transfusion. Continue to monitor urine output Attempted to reach his grandson as per daughter's request to additionally answer any questions and discuss goals of care, but could not reach him by the number provided [phone]. Left a message. Status: Acute (2) Atrial fibrillation with RVR: Heart rates much better, in the 80s. Continues on amiodarone drip. We will transition to Ambien tablets. For A. fib with RVR had been given digoxin dose IV, started on amnio drip, then appears to responded well to a small dose metoprolol later in the evening. Beta-elizabet/calcium channel elizabet for now not continued due to hypotension. Lovenox 80 twice daily on hold Status: Acute (3) Cardiopulmonary arrest: On 05/14 EF normal, no RWMA. Trop elevation likely myocardial injury with demand ischemia with hypoxic respiratory failure, septic shock. Eventually once able to would benefit from additional cardiac risk stratification. Suspected respiratory cause following aspiration, subsequently with PEA/systole arrest, received 4 times epi. Left bundle branch block Status: Acute (4) Acute anemia: -Acute anemia concerning for slow GI bleed as patient has been on Lovenox, Hemoccult positive stools, Responded well to PRBC transfusion. -Lovenox currently placed on hold -Monitor hemodynamics -Protonix, Carafate Status: Acute (5) Decompensated heart failure: Worsened again during oliguric renal failure. Required hemodialysis. Lasix drip Monitor intake output charting. Status: Acute (6) Elevated troponin I level: Elevated troponin likely secondary to type II PA secondary to sepsis and A. fib with RVR Troponin trend without significant delta. Status: Acute (7) CY (acute kidney injury): Lasix drip. Required initiation of hemodialysis. Reassess renal function. Monitor I&O. Status: Acute (8) Anemia: Received PRBC transfusion on 05/17. Continue PPI. Tube feeds. Status: Acute (9) Left ureteral calculus: S/p ureteral stent. Follow urology as an outpatient Status: Acute (10) Hyperkalemia: Resolved. Status: Acute (11) Pneumonia: Status: Acute (12) Debilitated patient: Currently under the care of his daughter Status: Acute (13) Prostate cancer: Has history of prostate cancer, on hormonal therapy, no evidence of metastasis Status: Acute (14) Colostomy care: Has a colostomy in place Status: Acute (15) GI bleed: Status: Acute (16) Left fibular fracture: Weightbearing as tolerated once able Status: Acute (17) Physical deconditioning: Status: Acute (18) Protein calorie malnutrition: Status: Acute Attestations Medical Necessity Statement*: Continue admission for management of septic shock, improving oxygenation following hypoxic respite failure following aspiration event, cardiopulmonary arrest, aspiration pneumonia, UTI. Coding Level of Care Code Acute Traffic Maintenance Supervisor for [facility] Fwd Diagnoses Septic shock A41.9; R65.21 Atrial fibrillation with RVR I48.91 Cardiopulmonary arrest I46.9 Acute anemia D64.9 Decompensated heart failure I50.9 Elevated troponin I level R77.8 CY (acute kidney injury) N17.9 Anemia D64.9 Left ureteral calculus N20.1 Hyperkalemia E87.5 Pneumonia J18.9 Debilitated patient R53.81 Prostate cancer C61 Colostomy care Z43.3 GI bleed K92.2 Left fibular fracture S82.402A Physical deconditioning R53.81 Protein calorie malnutrition E46
[2021-05-19] MEDS: fluconazole premix 200 MG/100 ML PREMIX 100 MG IV (17:15)
--- NOTE | 2021-05-19 18:20 | PC.NURSE ---
Shift Note Frequent safety and comfort rounds continue. Orders and nursing care completed as indicated. Patient had increased demand of assisting blood pressure medications, see mar. (vasopressin and Levophed) Pt turn every 2 hours and received oral care at this time with help of other nursing staff. Patient to receive dialysis tomorrow. Pt Flynn irrigated with 120ml of sterile water per physician's orders, see I&O documentation. Patient opened eye this afternoon and was able to squeeze this nurse's hand and nod head yes or no to questions. Daughter contacted and came to visit around 1600. Daughter visited for about 20 min and requested that Dr. Grant speak with her son, Mark. Dr. Grant notified and given son's number. Patient monitored for response to intervention and treatments. Education provided includes medications, ventilator needs, frequent position changes, tube feedings, Daughter verbalized understanding. Will continue to monitor.
[2021-05-19] MEDS: amiodarone 200 mg Tablet PO (21:33)
[2021-05-20] VITALS (101 sets, daily range): BP systolic 79–143; BP diastolic 35–89; PULSE 18–142; RESP 20–31; TEMP 37–38.7; O2SAT 90–98
[2021-05-20] MEDS: piperacillin-tazobactam 3.375 GM in sodium chloride 0.9% (plus) 50 ML IV ×4 (00:08→22:26)
[2021-05-20] MEDS: insulin lispro 100 unit/1 mL SUBCUT ×4 (00:08→16:49)
[2021-05-20] MEDS: norepinephrine 8 MG in dextrose 5 % 500 ML 45.72 MG IV (00:08)
[2021-05-20] MEDS: ipratropium-albuterol 3 mL Neb INHALATION ×5 (02:46→20:29)
[2021-05-20] MEDS: FUROsemide 200 MG in sodium chloride 0.9% (100 ml) 80 ML 10 MG IV ×2 (03:39→16:39)
--- NOTE | 2021-05-20 04:28 | PC.NURSE ---
Pt assessed during bedside shift report. Pt on IV gtts, including - levophed, vasopressin, fentanyl, furosemide, and abx. Unsuccessful attempts to wean pressors this shift. OG tube placed, and PO amiodarone started this shift, followed by discontinuance of IV amiodarone. Pt extremities very edematous with moderate amounts of weeping from skin. RASS -1, patient calm and relaxed, able to awaken and respond appropriately to closed-loop communication efforts.
[2021-05-20 05:19] LABS: Basophils # 0.1 10^3/uL (0.0-0.1); Basophils % 0.4 %; Eosinophils # 0.1 10^3/uL (0.0-0.8); Eosinophils % 0.4 %; Hematocrit 22.4 % (42.0-52.0); Hemoglobin 7.3 g/dL (11.7-16.6); Lymphocytes % 11.6 %; Mean Corpuscular HGB Conc 32.6 g/dL (30.0-36.0); Mean Corpuscular Hemoglobin 27.4 pg (28.0-34.0); Mean Corpuscular Volume 84.2 fl (80-94); Mean Platelet Volume 10.8 fL (7.4-10.4); Monocytes # 0.7 10^3/uL (0.2-0.9); Monocytes % 2.5 %; Neutrophils # 18.17 10^3/uL (1.8-7.7); Nucleated Red Blood Cells # 0.2 /100WBC; Nucleated Red Blood Cells % 0.9 %; Platelet Count 77 10^3/cmm (130-400); Red Blood Count 2.66 10^6/uL (4.1-5.3); Red Cell Distribution Width 19.8 % (12.1-15.1); White Blood Count 25.6 10^3/uL (4.0-10.0)
[2021-05-20] MEDS: pantoprazole 40 mg SDV IVP ×2 (05:50→16:50)
[2021-05-20 05:51] LABS: Alanine Aminotransferase < 5 U/L (0-41); Albumin Level 2.1 g/dL (3.5-5.2); Alkaline Phosphatase 252 IU/L (40-130); Anion Gap 20.2 (5-19); Aspartate Amino Transferase 25 U/L (0-40); Blood Urea Nitrogen 51 mg/dL (8-23); Calcium 7.8 mg/dL (8.5-10.5); Carbon Dioxide 20 mmol/L (22-29); Chloride 90 mmol/L (98-107); Globulin 2.5 g/dL (1.3-4.6); Glucose 118 mg/dL (65-115); Osmolality Calculated 279 mOsm/kg (285-295); Potassium 3.2 mmol/L (3.5-5.1); Sodium 127 mmol/L (136-145); Total Bilirubin 0.5 mg/dL (0.15-1.2); Total Protein 4.6 g/dL (6.6-8.7)
--- NOTE | 2021-05-20 06:00 | XR_ITS ---
WS: [id number] Exam: XR chest 1V portable [id number] Date/Time of Exam: 05/20/2021 6:26 AM Reason For Exam: Hypoxia Comparison 05/18/2021. Extensive bilateral pulmonary infiltrates noted. There is increasing consolidation in the mid and low er right lung since prior study. Small bibasal pleural effusions. No pneumothorax. Cardiomediastinal silhouette is unremarkable for technique. ET tube ends about 6 cm above the cara in satisfactory po sition. A right-sided IJ catheter ends at the cavoatrial junction. An enteric tube enters the stomach . The side-port of the tube is slightly below the GE junction. Regional bony elements are unremarkabl e. XR/XR chest 1V portable [id number] IMPRESSION: 1. Widespread bilateral pulmonary infiltrates. Increasing consolidation in the mid and lower right lung since prior study. 2. Central line and ET tube are in satisfactory position. 3. Enteric tube in place with the side-port slightly below the GE junction. The tube could be advanced another 5 to 6 cm for optimal position.
[2021-05-20 06:25] LABS: Slide Review Slide Review Perform
[2021-05-20] MEDS: amiodarone 200 mg Tablet PO ×2 (06:53→20:00)
[2021-05-20] MEDS: acetaminophen 325 mg Tablet 650 MG PO (06:53)
--- NOTE | 2021-05-20 06:55 | PC.NURSE ---
Approximately 0600, pt assessed with fever 100.1. Shortly after, pt began dialysis and became tachycardic and map got softer in 130-140s and the 50-60s, respectively. Amio given early as directed by . Vaso maxed to 0.1, and levophed maxed to 25 mcg. Pt continued to not tolerated dialysis with accompanied fever, and book packer discontinued therapy.
[2021-05-20] MEDS: linezolid premix 600 MG/300 ML PREMIX 300 MG IV ×2 (07:43→19:57)
[2021-05-20] MEDS: digoxin 250 mcg/ml INJ 2 mL 500 MCG IVP (07:48)
--- NOTE | 2021-05-20 08:03 | PC.NURSE ---
After discontinuing dialysis due to rapid, irregular heart rate and needs for increased pressors titration, MD called and provided report of pt's ongoing status. MD ordered 500 mg one time dose of IV Digoxin. IV Digoxin administered. Dayshift nurse to follow up on pt's condition and assess further needs.
--- NOTE | 2021-05-20 09:37 | PC.CHAP ---
Pastoral Care Encounter/Spiritual Assessment Type of Contact [] Declined brim curler visit [] Patient/Family/Request visit [] Outpatient visit [] Follow-up visit [] Physician referral [] Code/Alert [x] Routine visit [] Staff referral [] Actively dying [x] Patient sleeping [] Family support [] [] Out of room [] Palliative care [] [] Receiving care in room [] Pre-surgical visit [] Trauma [] Long length of stay [x] ICU visit [x] Other: vent Relational/Emotional Strength [] Patient feels connected with others/family/visitors/staff [] Distress [] Loneliness/isolation [] Abandonment Spirituality of Patient [] Person of Nadia [] Attends [employer] of their Nadia [] Believes in Prayer [] Reads Bible or Advent materials [] There are Spiritual issues to be addressed Hospital Attendant Interventions [x] Prayer [] Active listening [] Non-anxious presence [] Spiritual/emotional support [] Crisis/trauma care [] Spiritual counseling [] Bereavement support [] Provided bereavement packet [] Provided Bible/devotional materials [] Provided toy/stuffed animal, coloring book to patient or family member [] Provided Communion [] Anointing/Carmel [] Salvation [x] Completed spiritual assessment [] Other: Impact on Illness or Injury [] Angry [] Fearful [] Anxious [] Often cries [] Exhaustion [] Unable to work [] Unable to attend alevism [] Unable to walk/stand [] Unable to read [] Unable to drive [] Unable to eat/drink [] Unable to sleep [] Unable to be with family [] Patient intubated [] Other: Summary Time spent with patient
[2021-05-20 11:28] LABS: ABG PCO2 33.3 mmHg (35-45); ABG PH Result 7.39 (7.35-7.45); Arterial Blood Gas Hematocrit 23.9 % (42-52); Base Excess ABG -4.1 mmol/L (-2.0-2.0); Blood Gas Allen Test Pos; Blood Gas Operator Identificat Anonymous; Blood Gas Sample Site Not specified; Blood Gas Sample Type Arterial; Carboxyhemoglobin 1.8 %THgb (0.4-20.1); HCO3 ABG 20.3 mmol/L (22-26); HGB O2 Sat 89.5 % (95-100); Ionized Calcium Level - ABG 1.1 mmol/L (1.1-1.4); Methemoglobin 1.4 % (0.4-1.5); Oxygen Saturation ABG 92.5; PO2 ABG 60.3 mmHg (80.0-100.0); Potassium Level - ABG 3.2 mmol/L (3.5-5.0); Total Hemoglobin 7.8 g/dL (14-18)
[2021-05-20 11:30] LABS: Alveolar-Arterial Oxygen Gradi 33.2 mmHg (5-10); Oxygen Device VENT
--- NOTE | 2021-05-20 14:54 | PM.PN ---
Subjective Subjective: Interval history: Mr. Boggs remains critically sick in the intensive care unit. We attempted hemodialysis on him this morning, however, he rapidly became unstable, we had to terminate treatment due to his requiring for vasopressors significantly increasing. Were able to remove minimal ultrafiltration. His FiO2 is 50% and PEEP of 8. He remains on a Lasix infusion at 16 mg/h. His urine output is marginal. Medications: Reviewed: Yes Vitals/I&O/Wt Last Vital Signs Temp 100.1 F H 05/20/21 06:00 Pulse 108 H 05/20/21 14:03 Resp 20 H 05/20/21 14:03 BP 131/63 05/20/21 09:30 Pulse Ox 93 05/20/21 14:03 05/19/21 05/20/21 05/20/21 22:59 06:59 14:59 Intake Total 699.561 / 1412.032 761.458 / 2173.490 964.785 / 964.785 Output Total 530 / 530 400 / 930 Balance 169.561 / 882.032 361.458 / 1243.490 964.785 / 964.785 Weight last 48 hrs Weight 94.9 kg Physical Exam Narrative: EXAM NARRATIVE: Constitutional: Sedated and vented HEENT: Wet mucosa, no jvp, non icteric Lungs: Bilaterally clear without discernible wheeze, rales in all lung zones CVS: S1 S2, no murmurs Abdo: Soft, BS ok Ext 4: 4+ anasarca, peripheral perfusion with no cyanosis Neurological: Grossly non-focal Urinary Catheter Management^: Flynn: Cath Placed During This Visit: yes, but has since been removed by the nurse Reason for Continuing Indwelling Catheter: Accurate Measurement of Urinary Output in Critically Ill Patients Urinary Catheter Date of Insertion: 05/11/21 Urinary Catheter Time of Insertion: 15:30 Date Urinary Catheter Removed: 05/10/21 Time Urinary Catheter Discontinued: 16:00 Data : 05/20/21 03:30 05/20/21 03:30 Micro: Microbiology 05/14/21 13:55 Blood Culture - Final Blood NO GROWTH AFTER 5 DAYS 05/14/21 13:45 Blood Culture - Final Blood NO GROWTH AFTER 5 DAYS A&P Additional A&P Information 1. Renal failure Consistent with ischemic ATN in the setting of cardiac arrest and also septic shock. If we wish to pursue ongoing aggressive management, we may find it difficult to dialyze him using intermittent hemodialysis in which case, we may need to transition to CRRT. Daily evaluation for requirement for hemodialysis. Avoid usual nephrotoxic agents Dose medication for GFR less than 15 on intermittent renal replacement therapy. 2. Chemistry Minor noncritical aberration including low sodium and acidosis. Close monitoring 3. Independent respiratory failure Management per ICU team, weaning over the next few days as he recovers. 4. Septic shock Multifocal pneumonia with Pseudomonas Currently on antibiotic therapy 5. Disposition He has a very poor prognosis, family want to pursue aggressive care for the time being but they will be having a family meeting tomorrow to discuss his options Ridge Smith MD Nephrology [phone] Patient seen and examined via telemedicine, with the assistance of the bedside RN > 25 min spent in evaluation and mgmt of patient Attestations Medical Necessity Statement*: Eval for CY Coding Level of Care Code Acute Yard Motor Operator for Evette York
[2021-05-20] MEDS: norepinephrine 8 MG in dextrose 5 % 500 ML 53.34 MG IV (15:17)
[2021-05-20] MEDS: sodium chloride 0.9% 250 ML IV (16:14)
[2021-05-20] MEDS: fluconazole premix 200 MG/100 ML PREMIX 100 MG IV (16:51)
--- NOTE | 2021-05-20 17:17 | PC.HD ---
Pre treatment pt's BP was 110/47 and HR 112 on Vasopressin 0.04 units/min and Levophed at 20 mcg/min support. 20 minutes into treatment BP decreased to 80s systolic and HR increased to 130s. Machine temp decreased, UF off, and DROP WIRER titrated Levophed and Vasopressin up. HR quickly escalated to as high as 147. Over the next 25 minutes, pt's HR continued at 120s to 140s and SBP 80s to 90s with UF off, machine temp at 35.0C, and Levophed and Vasopressin @ max dose. Dr Smith notified with order rec'd to terminate treatment. Blood returned and treatment terminated. Pt's BP improved quickly but pt remained tachycardic.
--- NOTE | 2021-05-20 20:18 | PC.NURSE ---
Shift Note Frequent safety and comfort rounds continue. Orders and nursing care completed as indicated. Patient continues to need the assisting blood pressure medications, see mar. (vasopressin and Levophed) Pt turn every 2 hours and received oral care at this time with help of other nursing staff. Patient was not able to receive dialysis this am due to being maxed out on pressor medications. Patient stated on albumin and had one unit of blood this evening. Patient opened eye this afternoon and was able to squeeze this nurse's hand and nod head yes or no to questions. Daughter contacted and came to visit around 1000. Daughter visited for about 20 min spoke with physician and changed patient code status, see physician's note. Patient monitored for response to intervention and treatments. Education provided includes medications, ventilator needs, frequent position changes, tube feedings, Daughter verbalized understanding. Will continue to monitor.
[2021-05-20 21:22] LABS: Hematocrit 23.1 % (42.0-52.0); Hemoglobin 7.7 g/dL (11.7-16.6)
[2021-05-20 22:15] LABS: Digoxin 1.5 ng/mL (0.6-1.2)
--- NOTE | 2021-05-20 23:54 | P.PN_ITS ---
Subjective Subjective: Interval history: Patient seen multiple times during the day.. Hospital course, labs appreciated. Today morning on examination patient's daughter at bedside. During examination he was on high-dose vasopressin, Levophed, Lasix drip, sedation with fentanyl, propofol with mean arterial pressure ranging from high 50s to low 60s. Today morning on examination patient's heart rate running in 130s after which he was given digoxin IV 500 mcg and heart rate running usually in low 100s after that. Multiple goals of care discussion were done with the daughter. CODE STATUS aft er discussion with daughter changed to DNR/DNI. She wants to have further conversation with her son before making any further goals of care discussion. Medications: Reviewed: Yes Vitals/I&O/Wt Last Vital Signs Temp 99.3 F 05/20/21 23:47 Pulse 111 H 05/20/21 23:47 Resp 27 H 05/20/21 23:48 BP 122/50 05/20/21 23:47 Pulse Ox 94 05/20/21 23:48 05/20/21 05/20/21 05/21/21 14:59 22:59 06:59 Intake Total 1164.785 / 1217.224 0848.679 / 2667.464 Output Total 120 / 120 515 / 635 Balance 1044.785 / 1044.785 987.679 / 2032.464 Weight last 48 hrs Weight 97.1 kg Weight 94.9 kg Physical Exam Narrative: EXAM NARRATIVE: General: Sedated, intubated HEENT: PERRLA, pupils bilaterally equal and reactive Chest: Bilateral bronchial breath sounds, coarse crackles and all over the lung gomez CVS: S1-S2 regular, no murmurs, no tachycardia, no gallops, no rubs Abdomen: Soft, nontender, no organomegaly, bowel sounds present Neuro: Intubated, sedated Extremities: Bilateral edema present in all 4 limbs, weeping present Urinary Catheter Management^: Flynn: Cath Placed During This Visit: yes, but has since been removed by the nurse Reason for Continuing Indwelling Catheter: Accurate Measurement of Urinary Output in Critically Ill Patients Urinary Catheter Date of Insertion: 05/11/21 Urinary Catheter Time of Insertion: 15:30 Date Urinary Catheter Removed: 05/10/21 Time Urinary Catheter Discontinued: 16:00 Data : 05/20/21 21:05 05/20/21 03:30 Micro: Microbiology 05/16/21 21:50 Urine Culture - Final Urine,Clean Catch Pseudomonas aeruginosa A&P Assessment and plan (1) Cardiopulmonary arrest: On 05/14 EF normal, no RWMA. Trop elevation likely myocardial injury with demand ischemia with hypoxic respiratory failure, septic shock. Eventually once able to would benefit from additional cardiac risk stratificati on. Suspected respiratory cause following aspiration, subsequently with PEA/systole arrest, received 4 times epi. Left bundle branch block Status: Acute (2) Septic shock: Norepinephrine as 12-14, and had to restart vasopressin. Thick secretions noted on suctioning. Continue pulmonary toilet. Sedation vacation this afternoon as he is waking up, answering some questions. Daughter notified and coming over to see him. Gram-negative rods noted growing in urine, follow-up. History of bladder scan obtained with minimal residual urine, no sign of obstruction at this time. Monitor for Flynn obstruction with sediment. Tachycardia has improved. Continue IV infusion amiodarone for now. Will transition back to tablets this evening. Oxygen requirement better. Down to 50% this morning, 40% this afternoon on FiO2. Continue pulmonary toilet. Dialysis tomorrow. Given worsening condition, yeast on sputum culture, was also started on Diflucan. Continue at this time. Pseudomonas susceptible to Zosyn on respiratory culture. Gram-negative rods growing in urine. Previously pansensitive E. coli. Discussed with his daughter regarding worsening condition, she states given he is 85 would not want to do much more, but in case of cardiac arrest does still want CPR to be performed. With recurrent aspiration, with inadequate airway protection in case of continued aggressive care he would likely need a feeding tube. Prior episode of septic shock during earlier part of this admission had initially resolved. Prior to arrest persistent hypoxia, on 4 L oxygen, although slightly better down from 6 L. Originally septic shock during earlier part of this admission secondary to UTI/pneumonia. No perinephric abscess. No obstruction. Blood culture:NTD MRSA PCR: Positive Bacterial antigen panel negative Urine culture: Pansensitive E. coli S/P hydrocortisone CT scan abdomen pelvis shows satisfactory position of left ureteral stent, 5 mm ureteral calculus is present in the stent in the mid ureter Had received aPRBC transfusion. Continue to monitor urine output Attempted to reach his grandson as per daughter's request to additionally answer any questions and discuss goals of care, but could not reach him by the number provided [phone]. Left a message. Status: Acute (3) Atrial fibrillation with RVR: Heart rates much better, in the 80s. Continues on amiodarone drip. We will transition to Ambien tablets. For A. fib with RVR had been given digoxin dose IV, started on amnio drip, then appears to responded well to a small dose metoprolol later in the evening. Beta-elizabet/calcium channel elizabet for now not continued due to hypotension. Lovenox 80 twice daily on hold Status: Acute (4) Acute anemia: -Acute anemia concerning for slow GI bleed as patient has been on Lovenox, Hemoccult positive stools, Responded well to PRBC transfusion. -Lovenox currently placed on hold -Monitor hemodynamics -Protonix, Carafate Status: Acute (5) Decompensated heart failure: Worsened again during oliguric renal failure. Required hemodialysis. Lasix drip Monitor intake output charting. Status: Acute (6) Elevated troponin I level: Elevated troponin likely secondary to type II MT secondary to sepsis and A. fib with RVR Troponin trend without significant delta. Status: Acute (7) CY (acute kidney injury): Lasix drip. Required initiation of hemodialysis. Reassess renal function. Monitor I&O. Status: Acute (8) Anemia: Received PRBC transfusion on 05/17. Continue PPI. Tube feeds. Status: Acute (9) Left ureteral calculus: S/p ureteral stent. Follow urology as an outpatient Status: Acute (10) Hyperkalemia: Resolved. Status: Acute (11) Pneumonia: Status: Acute (12) Debilitated patient: Currently under the care of his daughter Status: Acute (13) Prostate cancer: Has history of prostate cancer, on hormonal therapy, no evidence of metastasis Status: Acute (14) Colostomy care: Has a colostomy in place Status: Acute (15) GI bleed: Status: Acute (16) Left fibular fracture: Weightbearing as tolerated once able Status: Acute (17) Physical deconditioning: Status: Acute (18) Protein calorie malnutrition: Status: Acute Additional A&P Information Plan for today: Continue with current sedation. Albumin every 8 hourly for 1 day. Monitor blood transfusion. Continue to hold off on Lovenox. Continue with Protonix twice daily, Carafate.Patient given 1 dose of digoxin earlier in the morning. Repeat digoxin level at 3 PM. Continue with amiodarone 200 mg twice daily. Try to wean vasopressin and Levophed keeping mean arterial pressure over 65. Continue to monitor urine output. Continue with fluconazole. Plan for 10-day course of the last dose of normal 23rd. Continue with linezolid. Change dose of Zosyn to every 12 hourly as per creatinine clearance. Monitor culture results. CODE STATUS changed to DNR/DNI after goals of care discussion with daughter. Plan for family meeting tomorrow if grandson available otherwise will discuss further goals of care with daughter regarding possible comfort measures given severely guarded prognosis, severe shock requiring 2 maximum extremely high dose pressors, severe acute on chronic kidney disease, oliguria requiring hem odialysis which he is not able to tolerate because of low blood pressures. Allow natural . SCDs for DVT prophylaxis, no prophylactic heparin or Lovenox given anemia, thrombocytopenia. Tube feeds Attestations Medical Necessity Statement*: Requires further hospitalization for management of septic shock, acute on chronic kidney disease requiring hemodialysis, oliguria Critical Care Time: The high probability of a clinically significant, sudden or life threatening deterioration of the patient's [cardiac, renal, pulmonary, ID, neurological] system(s) required my full and direct attention, intervention and personal management. The critical care time is as shown. This time is in addition to time spent performing any reported procedures but includes the following: [x] Data and vital sign review and interpretation [x] Patient assessment, examination and intervention [x] Documentation [x] Medication orders and management Critical Care Time (min): 90 Coding Level of Care Code Acute Letterpress Setter for [facility] Fwd Diagnoses Cardiopulmonary arrest I46.9 Septic shock A41.9; R65.21 Atrial fibrillation with RVR I48.91 Acute anemia D64.9 Decompensated heart failure I50.9 Elevated troponin I level R77.8 CY (acute kidney injury) N17.9 Anemia D64.9 Left ureteral calculus N20.1 Hyperkalemia E87.5 Pneumonia J18.9 Debilitated patient R53.81 Prostate cancer C61 Colostomy care Z43.3 GI bleed K92.2 Left fibular fracture S82.402A Physical deconditioning R53.81 Protein calorie malnutrition E46
[2021-05-21] VITALS (9 sets, daily range): BP systolic 112–125; BP diastolic 48–52; PULSE 108–110; RESP 20–24; TEMP 36.8–37.2; O2SAT 94–96
[2021-05-21] MEDS: acetaminophen 325 mg Tablet 650 MG PO (00:23)
[2021-05-21] MEDS: insulin lispro 100 unit/1 mL SUBCUT ×2 (00:23→05:34)
[2021-05-21] MEDS: FUROsemide 200 MG in sodium chloride 0.9% (100 ml) 80 ML 10 MG IV (00:53)
[2021-05-21] MEDS: norepinephrine 8 MG in dextrose 5 % 500 ML 38.1 MG IV (00:54)
[2021-05-21] MEDS: ipratropium-albuterol 3 mL Neb INHALATION ×2 (02:42→08:12)
[2021-05-21 04:59] LABS: ABG PCO2 37.5 mmHg (35-45); ABG PH Result 7.38 (7.35-7.45); Alveolar-Arterial Oxygen Gradi 31.1 mmHg (5-10); Arterial Blood Gas Hematocrit 21.7 % (42-52); Blood Gas Operator Identificat JB; Blood Gas Sample Site Not specified; Blood Gas Sample Type Arterial; Carboxyhemoglobin 1.3 %THgb (0.4-20.1); HCO3 ABG 21.9 mmol/L (22-26); HGB O2 Sat 93.5 % (95-100); Ionized Calcium Level - ABG 1.2 mmol/L (1.1-1.4); Oxygen Device VENT; Oxygen Saturation ABG 95.6; PO2 ABG 69.6 mmHg (80.0-100.0); Potassium Level - ABG 2.9 mmol/L (3.5-5.0); Total Hemoglobin 7.1 g/dL (14-18)
[2021-05-21] MEDS: pantoprazole 40 mg SDV IVP (05:21)
[2021-05-21] MEDS: linezolid premix 600 MG/300 ML PREMIX 300 MG IV (05:34)
[2021-05-21 06:05] LABS: Hematocrit 21.2 % (42.0-52.0); Hemoglobin 7.1 g/dL (11.7-16.6); Mean Corpuscular HGB Conc 33.5 g/dL (30.0-36.0); Mean Corpuscular Hemoglobin 28.3 pg (28.0-34.0); Mean Corpuscular Volume 84.5 fl (80-94); Platelet Count 45 10^3/cmm (130-400); Red Blood Count 2.51 10^6/uL (4.1-5.3); Red Cell Distribution Width 17.8 % (12.1-15.1); White Blood Count 14.1 10^3/uL (4.0-10.0)
[2021-05-21 06:27] LABS: Alanine Aminotransferase < 5 U/L (0-41); Alkaline Phosphatase 177 IU/L (40-130); Aspartate Amino Transferase 24 U/L (0-40); Blood Urea Nitrogen 46 mg/dL (8-23); Carbon Dioxide 18 mmol/L (22-29); Chloride 89 mmol/L (98-107); Globulin 1.8 g/dL (1.3-4.6); Glucose 145 mg/dL (65-115); Osmolality Calculated 274 mOsm/kg (285-295); Sodium 125 mmol/L (136-145); Total Bilirubin 0.9 mg/dL (0.15-1.2); Total Protein 4.8 g/dL (6.6-8.7)
[2021-05-21 07:41] LABS: Slide Review Slide Review Perform
[2021-05-21 07:43] LABS: Absolute Segmented Neutrophil 9.3 10/cmm (1.6-7.1); Band Neutrophils Absolute 1.6 10^3/cmm (0.0-1.2); Lymphocytes 18 %; Monocytes Absolute 0.6 10^3/cmm (0.1-0.6); Segmented Neutrophils 66 %; Total Cells Counted 100 (0-100)
[2021-05-21 07:44] LABS: Absolute Neutrophil 10.9 10^3/cmm (1.4-6.5); Eosinophils 0 %; Lymphocytes Absolute 2.5 10^3/cmm (1.2-3.4); Platelet Estimate Decreased (Normal)
--- NOTE | 2021-05-21 08:08 | PC.NURSE ---
Shift Note Frequent safety and comfort rounds continue. Orders and/or nursing care completed as indicated. Patient monitored for response to intervention and treatment(s). Education provided includes[skin integrity, nutrition, and possible comfort care]. Patient and/or fraud representative [family was updated on pt's status and plan of care]. Will continue to monitor. Received bed side shift report from off going nurse. Pt's plan of care reviewed. Pt resting in bed. Respirations are even and unlabored. No s/sx of distress noted. Pt appears to be resting comfortably at this time. Bed in lowest and locked position, call light within reach, x's 3 rails up. Will continue to monitor pt.
--- NOTE | 2021-05-21 09:30 | PC.SOCIAL ---
IMM Not Updated. Not anticipated to discharge within the next 48hours.
[2021-05-21] MEDS: potassium chloride oral liq 20 mEq/15 mL UDC 40 MEQ PO (09:40)
[2021-05-21] MEDS: piperacillin-tazobactam 3.375 GM in sodium chloride 0.9% (plus) 50 ML IV (09:41)
[2021-05-21] MEDS: amiodarone 200 mg Tablet PO (09:41)
[2021-05-21] MEDS: dexmedetomidine 400 MCG in sodium chloride 0.9% (100 ml) 100 ML IV (10:04)
[2021-05-21 10:59] LABS: Magnesium 1.5 mg/dL (1.7-2.3)
--- NOTE | 2021-05-21 11:56 | PM.PN ---
Subjective Subjective: Interval history: Events of the last 24 hours noted. Yesterday we attempted dialysis in the morning, however, he tolerated this very poorly with rapid increase in requirement for his vasopressor agents and poor tolerance of dialysis and subsequently was terminated very early. He remains critically sick in the ICU at this time, Levophed dosing noted at 11 mics per minute at this time. This is being titrated down. FiO2 50% and PEEP of 8. Urine output noted to be 510 mL over the last 24 hours. Medications: Reviewed: Yes Vitals/I&O/Wt Last Vital Signs Temp 98.9 F 05/21/21 08:00 Pulse 108 H 05/21/21 08:12 Resp 20 H 05/21/21 11:12 BP 125/52 05/21/21 08:00 Pulse Ox 95 05/21/21 11:12 05/20/21 05/21/21 05/21/21 22:59 06:59 14:59 Intake Total 1916.762 / 3081.547 797.492 / 3879.039 766 / 766 Output Total 515 / 635 465 / 1100 Balance 1401.762 / 2446.547 332.492 / 2779.039 766 / 766 Weight last 48 hrs Weight 97.1 kg Physical Exam Narrative: EXAM NARRATIVE: Constitutional: Sedated and vented HEENT: Wet mucosa, no jvp, non icteric Lungs: Bilaterally clear without discernible wheeze, rales in all lung zones CVS: S1 S2, no murmurs Abdo: Soft, BS ok Ext 4: 4+ anasarca, peripheral perfusion with no cyanosis Neurological: Grossly non-focal Urinary Catheter Management^: Flynn: Cath Placed During This Visit: yes, but has since been removed by the nurse Reason for Continuing Indwelling Catheter: Accurate Measurement of Urinary Output in Critically Ill Patients Urinary Catheter Date of Insertion: 05/11/21 Urinary Catheter Time of Insertion: 15:30 Date Urinary Catheter Removed: 05/10/21 Time Urinary Catheter Discontinued: 16:00 Data : 05/21/21 04:57 05/21/21 04:57 Micro: Microbiology 05/16/21 21:50 Urine Culture - Final Urine,Clean Catch Pseudomonas aeruginosa A&P Additional A&P Information 1. Renal failure Consistent with ischemic ATN in the setting of cardiac arrest and also septic shock. I will defer dialysis pending ongoing discussion with family members regarding goals of care this afternoon. No critical indication for dialysis at this time. Avoid usual nephrotoxic agents Dose medication for GFR less than 15 on intermittent renal replacement therapy. 2. Chemistry Minor noncritical aberration including low sodium and acidosis. Close monitoring. K replacement 3. Independent respiratory failure Management per ICU team, weaning over the next few days as he recovers. 4. Septic shock Multifocal pneumonia with Pseudomonas Currently on antibiotic therapy 5. Disposition He has a very poor prognosis, likely transition to comfort measures Ridge Smith MD Nephrology [phone] Patient seen and examined via telemedicine, with the assistance of the bedside RN > 25 min spent in evaluation and mgmt of patient Attestations Medical Necessity Statement*: Eval for CY Coding Level of Care Code Acute Power Reactor Supervisor for Evette York
[2021-05-21] MEDS: LORazepam 2 mg/mL INJ 1 mL IVP (13:47)
--- NOTE | 2021-05-21 13:58 | PC.RESP ---
extubated pt terminally extubated
--- NOTE | 2021-05-21 14:29 | PC.NURSE ---
[facility] notified, Dereje from [facility] confirmed pt is not a candidate for donation. Pt can be released to home.
--- NOTE | 2021-05-21 15:00 | P.DES_ITS ---
Discharge Providers DDS Date of Admission: 05/04/21 12:34 Date Summary Completed: 05/21/21 Attending Provider at Admission: Roland Bangura MD Time of : 14:06 Attending Provider at Discharge: Hari Guzmán MD Consults: Urology: Dr. Jarvis Nephrology Pulmonology/risk consultant: Dr. Garcia Primary Care Provider: DO JESUS Britton Diagnoses Probable Cause of Septic shock Hospital Diagnoses (1) Cardiopulmonary arrest: (2) Septic shock: (3) Atrial fibrillation with RVR: (4) Acute anemia: (5) Decompensated heart failure: (6) Elevated troponin I level: (7) CY (acute kidney injury): (8) Anemia: (9) Left ureteral calculus: (10) Hyperkalemia: (11) Pneumonia: (12) Debilitated patient: (13) Prostate cancer: (14) Colostomy care: (15) GI bleed: (16) Left fibular fracture: (17) Physical deconditioning: (18) Protein calorie malnutrition: Reason for Visit Reason for Visit: UTI Summary Date and Time of Date of : 05/21/21 Time of : 14:06 Summary Summary: Initially admitted on May 04. History as per H&P. 85-year-old gentleman past medical history of hypertension, wide-complex tac hycardia, ischemic cardiomyopathy with last known EF of 65%, post colostomy, pyelonephritis secondary to left ureteral calculus post stenting with indwelling Flynn catheter who is followed up with Dr. Jarvis presented to the ER on May 04 with altered mental status. On arrival to the ER patient was severely hypotensive and in septic shock secondary to UTI and pneumonia. Patient was started on broad-spectrum antibiotics to which she responded well and was later transferred to [facility] floor for further treatment. During hospitalization patient's blood culture remain negative, urine culture was consistent with pansensitive E. coli, MRSA positive. Patient did have episodes of anemia for which she required multiple transfusion(3 in total during hospitalization). There was concern for aspiration pneumonia for which swallow evaluation was done and diet was changed accordingly. On May 14 patient had a cardiorespiratory arrest most likely secondary to aspiration event during whic h he underwent CPR and was endotracheally intubated. Post code patient was transferred to ICU for further management of cardiorespiratory arrest and septic shock. He was started on vasopressors and broad-spectrum antibiotics again. Patient remained hypoxic post CPR and intubation for which he underwent bronchoscopy and cultures from bronchoscopy grew Pseudomonas and Idania. Blood cultures again remain negative. Urine culture at this time was positive for Pseudomonas. During her 4 hospitalization post cardiac arrest patient remained on appropriate antibiotics. Patient pressor requirement continued to go high and has been on vasopressin and Levophed which was maxed out for last few days with episodes of A. fib with RVR. Patient continued to have worsening of kidney functions and developed CY on chronic kidney disease for which nephrology was consulted and he was initiated on hemodialysis. Patient's hemodialysis has been on and off given his hemodynamic status. Because of prolonged hospitalization, baseline severe physical deconditioning, post CPR status, septic shock requiring 2 pressors and CY on chronic kidney disease requiring hemodialysis multiple goals of care discussions were done and patient was made DNR/DNI on May 20 and was later changed to comfort measures status only on May 21. Patient was terminally extubated as per comfort measures status on May 21 and he and comfortable status on May 21 at 1406. Additional Data Confirmation of as documented by pronouncing clinician: no pulse, no respirations and no heart sounds Family: contacted Additional persons at bedside: nursing staff Attending/PCP notified?: I am attending Was code activated?: No Autopsy requested?: No Advance directives?: No Hospice patient?: No Discharge Plan Discharge Patient Disposition: Condition: Prescriptions: No Action nitroglycerin [Nitrostat] 0.4 mg tablet, sublingual 0.4 mg SUBLINGUAL Q5M PRN (Reason: Chest Pain) RF: 0 aspirin [Adult Low Dose Aspirin] 81 mg tablet,delayed release (DR/EC) 81 mg PO DAILY RF: 0 furosemide 40 mg tablet 40 mg PO DAILY Qty: 90 RF: 3 tamsulosin 0.4 mg capsule 0.4 mg PO DAILY Qty: 90 RF: 0 ascorbic acid (vitamin C) [Vitamin C] 500 mg tablet 500 mg PO BID RF: 0 ondansetron HCl 8 mg tablet 8 mg PO TID PRN (Reason: Nausea) RF: 0 acetaminophen 500 mg Tablet 500 mg PO Q6H PRN (Reason: Pain) RF: 0 hydrocodone-acetaminophen 7.5-325 mg tablet 1 - 2 tab PO TID PRN (Reason: Pain) RF: 0 fluticasone propionate [Flonase Allergy Relief] 50 mcg/actuation [place],Suspension 1 spray INTRANASAL BID RF: 0 loratadine 10 mg Tablet 10 mg PO DAILY RF: 0 amiodarone 200 mg tablet 200 mg PO DAILY RF: 0 methenamine hippurate 1 gram tablet 1 g PO BID RF: 0 ketotifen fumarate 0.025 % (0.035 %) Drops 1 drp OPHTHALMIC (EYE) BID PRN (Reason: Dry Eyes) RF: 0 Referrals: Felipe Bustos DO [Primary Care Provider] - Patient Instructions: Opioid Safety Activity Restrictions/Additional Instructions: Allow him to progress to weightbearing as tolerated in the boot for the next 2 weeks. Recommend aspirin 81 mg p.o. daily for DVT prophylaxis if cleared by the hospitalist team. We will see him back in the office in 2 weeks time for reevaluation of his left ankle. Call if he is having problems. Probable Cause of Probable cause of : Septic shock DS Attestations Time Spent in /Discharge Care*: greater than 30 min Quality - AMI: AMI present?: No Quality - Stroke: CVA present?: No Symptom Onset Unknown: No Quality - VTE: VTE present?: No Deep Vein Thrombosis/Pulmonary Embolism Present on Admission: No Coding Level of Care Code Acute [employer] for [facility] Fwd Diagnoses Cardiopulmonary arrest I46.9 Septic shock A41.9; R65.21 Atrial fibrillation with RVR I48.91 Acute anemia D64.9 Decompensated heart failure I50.9 Elevated troponin I level R77.8 CY (acute kidney injury) N17.9 Anemia D64.9 Left ureteral calculus N20.1 Hyperkalemia E87.5 Pneumonia J18.9 Debilitated patient R53.81 Prostate cancer C61 Colostomy care Z43.3 GI bleed K92.2 Left fibular fracture S82.402A Physical deconditioning R53.81 Protein calorie malnutrition E46
--- NOTE | 2021-05-21 15:10 | PC.NURSE ---
Pt was terminally extubated at 13:45. Pt at:06. Dr. Guzmán and pt's daughter Mary was notified. Pt does not have a home lined up at this time and wishes the pt to be placed in the hospital [facility] at this time.
--- NOTE | 2021-05-22 09:48 | PC.NURSE ---
Body to [facility] Pt's daughter Mary gave permission for pt's body to be sent to [facility]. [facility] has been notified.
[2021-05-22 12:33] LABS: Glucose Point of Care 170 mg/dL (70-110)
[2021-05-22 12:33] LABS: Glucose Point of Care 176 mg/dL (70-110)
[2021-05-22 12:33] LABS: Glucose Point of Care 145 mg/dL (70-110)
[2021-05-22 12:33] LABS: Glucose Point of Care 165 mg/dL (70-110)
[2021-05-22 12:33] LABS: Glucose Point of Care 235 mg/dL (70-110)
[2021-05-22 12:34] LABS: Glucose Point of Care 183 mg/dL (70-110)
[2021-05-22 12:34] LABS: Glucose Point of Care 169 mg/dL (70-110)
[2021-05-22 12:34] LABS: Glucose Point of Care 194 mg/dL (70-110)
== END 2021-05-21 16:00 | disposition expired | DRG 870 ==
LOC: ER 12:24 → ICU 12:41 → MEDSURG 05-08 19:05 → ICU 05-14 08:30
PROVIDERS: Family Medicine; Internal Medicine; Internal Medicine Critical Care Medicine; Internal Medicine Nephrology; Admitting Provider Internal Medicine; Emergency Provider Emergency Medicine; PCP Internal Medicine; Visit Provider Student in an Organized Health Care Education/Training Program
PROC: 0BJ08ZZ Inspection of Tracheobronchial Tree, Via Natural or Artificial Opening Endoscopic (ICD-10-PCS; CPT 31622; principal; 2021-05-14 11:05)
DX: A41.9 Sepsis, unspecified organism (principal); R65.21 Severe sepsis with septic shock; I50.33 Acute on chronic diastolic (congestive) heart failure; J96.01 Acute respiratory failure with hypoxia; N17.0 Acute kidney failure with tubular necrosis; J69.0 Pneumonitis due to inhalation of food and vomit; I42.9 Cardiomyopathy, unspecified; N20.1 Calculus of ureter; E87.2 Acidosis; E46 Unspecified protein-calorie malnutrition; K92.2 Gastrointestinal hemorrhage, unspecified; N39.0 Urinary tract infection, site not specified; I11.0 Hypertensive heart disease with heart failure; Z96.0 Presence of urogenital implants; C61 Malignant neoplasm of prostate; Z93.3 Colostomy status; Z96.642 Presence of left artificial hip joint; Z87.891 Personal history of nicotine dependence; I95.9 Hypotension, unspecified; Z90.49 Acquired absence of other specified parts of digestive tract; Z66 Do not resuscitate; B96.5 Pseudomonas (aeruginosa) (mallei) (pseudomallei) as the cause of diseases classified elsewhere; I46.9 Cardiac arrest, cause unspecified; B95.62 Methicillin resistant Staphylococcus aureus infection as the cause of diseases classified elsewhere; Z68.33 Body mass index [BMI] 33.0-33.9, adult; B96.20 Unspecified Escherichia coli [E. coli] as the cause of diseases classified elsewhere; S82.892D Other fracture of left lower leg, subsequent encounter for closed fracture with routine healing; X58.XXXD Exposure to other specified factors, subsequent encounter; Z79.899 Other long term (current) drug therapy; E87.5 Hyperkalemia; D64.9 Anemia, unspecified; I48.91 Unspecified atrial fibrillation
CPT/HCPCS: 31622; 31624; 36415; 36416; 36430; 36556; 36600; 51702; 51798; 70450; 71045; 72020; 73521; 73522; 73600; 74018; 74022; 74177; 74230; 76770; 80048; 80051; 80053; 80162; 80202; 81001; 82274; 82330; 82436; 82550; 82728; 82803; 82805; 82962; 83540; 83605; 83690; 83735; 83880; 84100; 84133; 84145; 84153; 84300; 84484; 85007; 85014; 85018; 85025; 85610; 86140; 86160; 86403; 86705; 86706; 86850; 86900; 86920; 87015; 87040; 87070; 87077; 87086; 87102; 87106; 87107; 87116; 87186; 87205; 87206; 87340; 87641; 87801; 90935; 92526; 92610; 92611; 93005; 93308; 94002; 94003; 94640; 94799; 96365; 96367; 96372; 97110; 97163; 97530; 99285; A4570; C1751; C9113; J0171; J0282; J0692; J0743; J1160; J1450; J1644; J1650; J1720; J1815; J1940; J1956; J2020; J2060; J2250; J2405; J2543; J2930; J3010; J3370; J3475; J3480; J3490; J7030; J7040; J7050; J7060; P9016; P9047; P9058; Q3014; Q9967